=== PATIENT | female | born 1985 | race African-American/Black ===

== ENCOUNTER → 2016-10-20 | Outpatient (CLI) | payer MEDICARE, OTHER ==
[2016-10-20 11:26] VITALS: BMI 42.5
== END ==
LOC: MNTWWP 11:00
PROVIDERS: ATTEND Internal Medicine
DX: E66.9 Obesity, unspecified (principal)
CPT/HCPCS: 97802

== ENCOUNTER 2016-10-29 21:03 | Emergency (ER) | payer MEDICARE, OTHER ==
--- NOTE | 2016-10-29 21:35 | ED ---
Skin/Abscess/FB HPI - General Chief complaint: Skin/Abscess/Foreign Body Stated complaint: Abscess Time Seen by Provider: 10/29/16 21:14 Source: patient, RN notes reviewed Mode of arrival: ambulatory Limitations: no limitations - History of Present Illness Initial comments: Patient is a 31-year-old female chief complaint of swelling and a cyst over the right side of her labia. Patient reports that she's noticed a small cyst over few weeks however it's gotten increasingly worse over the past few days. She states that she has not seen an BUS PERSON DISHWASHER. She denies any history of dysuria, hematuria or change in bowel movement. - Related Data Home Medications Medication Instructions Recorded Confirmed Asenapine Maleate [Saphris] 10 mg SL HS 10/29/16 10/29/16 buPROPion HCL [Wellbutrin XL] 300 mg PO DAILY 10/29/16 10/29/16 Previous Rx's Medication Instructions Recorded HYDROcodone/APAP 10-325MG [[employer] [place] 1 tab PO Q6H PRN #15 tab 10/29/16 10-325] Sulfamethox-Tmp 800-160Mg [Bactrim 1 tab PO Q12HR #14 tab 10/29/16 DS 800-160 mg] Allergies Allergy/AdvReac Type Severity Reaction Status Date / Time aripiprazole [From Abilify] Allergy Dyspnea Verified 10/29/16 21:33 ziprasidone HCl [From Geodon] Allergy Dyspnea Verified 10/29/16 21:33 ziprasidone mesylate Allergy Dyspnea Verified 10/29/16 21:33 [From Geodon] Review of Systems ROS Statement: Those systems with pertinent positive or pertinent negative responses have been documented in the HPI. ROS Other: All systems not noted in ROS Statement are negative. Past Medical History Additional Past Medical History / Comment(s): depression, History of Any Multi-Drug Resistant Organisms: None Reported Past Surgical History: No Surgical Hx Reported Past Psychological History: Anxiety, Depression Smoking Status: Never smoker Past Alcohol Use History: None Reported Past Drug Use History: None Reported General Exam - General Exam Comments Initial Comments: Pleasant 31-year-old female. No distress. Limitations: no limitations General appearance: alert, in no apparent distress Head exam: Present: atraumatic, normocephalic, normal inspection Eye exam: Present: normal appearance, PERRL, EOMI. Absent: scleral icterus, conjunctival injection, periorbital swelling ENT exam: Present: normal exam, mucous membranes moist Neck exam: Present: normal inspection. Absent: tenderness, meningismus, lymphadenopathy Respiratory exam: Present: normal lung sounds bilaterally. Absent: respiratory distress, wheezes, rales, rhonchi, stridor Cardiovascular Exam: Present: regular rate, normal rhythm, normal heart sounds. Absent: systolic murmur, diastolic murmur, rubs, gallop, clicks GI/Abdominal exam: Present: soft, normal bowel sounds. Absent: distended, tenderness, guarding, rebound, rigid External exam: Present: swelling (patient has swelling over left labia, consistent with bartholin cyst. ). Absent: normal external exam, erythema Extremities exam: Present: normal inspection, full ROM, normal capillary refill. Absent: tenderness, pedal edema, joint swelling, calf tenderness Back exam: Present: normal inspection Neurological exam: Present: alert, oriented X3, CN II-XII intact Psychiatric exam: Present: normal affect, normal mood Skin exam: Present: warm, dry, intact, normal color. Absent: rash Course Vital Signs 10/29/16 10/29/16 21:08 22:49 Temperature 99.2 F 98.9 F Pulse Rate 69 72 Respiratory 20 18 Rate Blood Pressure 158/76 126/78 O2 Sat by Pulse 98 96 Oximetry Procedures - Incision & Drainage Consent Obtained: verbal consent Time Out Performed?: Yes Indication: bartholin abscess Site: vulva/vagina Size (cm): 3 Anesthetic Used: benzocaine 0.25% Amount (mLs): 2 I&D Cleaning Method: Betadine Sterile Field Used?: Yes Scalpel Used: #11 I&D Drainage Obtained: Pus, Blood Packing: Other (martinez catheter. ) Culture Obtained?: Yes Complications: pain Patient Tolerated Procedure: well, no complications Medical Decision Making - Medical Decision Making Patient is a 31 year old female with swelling and pain over right labia for a few weeks. Patient wound appears to be an abscess bartholin cyst. Patient wound cleaned with iodine, anesthestaised and small incision made. PAtient did have purulent drainage. Martinez catheter inserted, 2cc of fluid in catheter. Patient advised to do warm sitz baths and follow up with animal care specialist. Patient given referra. Discussed remain with catheter in until seeing URGENT CARE PHYSICIAN ASSISTANT. Culture obtained. Patient given bactrim DS and pain medication. Discussed return paramters. Patient understands treatment plan and will comply. Disposition Clinical Impression: Abscess of Bartholin's gland Disposition: HOME SELF-CARE Condition: Good Instructions: Abscess Incision and Drainage (ED), Bartholin Cyst (ED) Additional Instructions: Follow-up with BUS PERSON DISHWASHER. Patient needs to keep the Word catheter in until removed by BUS PERSON DISHWASHER. Completed that prescription. Take pain medication as prescribed. Return to the emergency department if any alarming signs or symptoms occur. Also advised to do warm warm sits baths. Prescriptions: HYDROcodone/APAP 10-325MG [[employer] [place] 10-325] 1 tab PO Q6H PRN #15 tab PRN Reason: Pain Sulfamethox-Tmp 800-160Mg [Bactrim DS 800-160 mg] 1 tab PO Q12HR #14 tab Referrals: Amy Ann MD [Primary Care Provider] - 1-2 days Time of Disposition: 22:10
[2016-10-29 22:50] VITALS: BP 126/78; PULSE 72; RESP 18; TEMP 98.9
== END 2016-10-29 22:49 | disposition home or self-care (01) ==
LOC: EC 21:03
DX: N75.1 Abscess of Bartholin's gland (principal); F32.9 Major depressive disorder, single episode, unspecified; F41.9 Anxiety disorder, unspecified; Z79.899 Other long term (current) drug therapy; Z88.8 Allergy status to other drugs, medicaments and biological substances
CPT/HCPCS: 56420; 87070; 87205; 99283

== ENCOUNTER 2017-07-27 21:15 | Inpatient (IN) | payer MEDICARE, MEDICAID ==
--- NOTE | 2017-07-27 21:28 | ED ---
General Adult HPI - General Chief complaint: Psychiatric Symptoms Stated complaint: mental health/confusion Time Seen by Provider: 07/27/17 21:19 Source: patient, family, RN notes reviewed, old records reviewed Mode of arrival: wheelchair Limitations: no limitations - History of Present Illness Initial comments: This is a 32-year-old female to the ER for evaluation. This patient obviously for evaluation regards to psychiatric illness. Patient's motor by sister and mother for evaluation. They're also concerned patient's lack of appetite, not acting appropriately not eating and drinking. Concerned for dehydration. Patient is not cooperative with exam, not cooperative with history taking - Related Data Home Medications Medication Instructions Recorded Confirmed Asenapine Maleate [Saphris] 10 mg SL HS 10/29/16 07/27/17 Triamterene-Hctz 37.5-25Mg 1 tab PO DAILY 07/27/17 07/27/17 [Maxzide 37.5-25] Venlafaxine HCl ER [Effexor Xr] 150 mg PO DAILY 07/27/17 07/27/17 Allergies Allergy/AdvReac Type Severity Reaction Status Date / Time aripiprazole [From Abilify] Allergy Dyspnea Verified 07/27/17 22:01 ziprasidone HCl [From Geodon] Allergy Dyspnea Verified 07/27/17 22:01 ziprasidone mesylate Allergy Dyspnea Verified 07/27/17 22:01 [From Geodon] Review of Systems ROS Statement: Those systems with pertinent positive or pertinent negative responses have been documented in the HPI. ROS Other: All systems not noted in ROS Statement are negative. Past Medical History Additional Past Medical History / Comment(s): depression, History of Any Multi-Drug Resistant Organisms: None Reported Past Surgical History: No Surgical Hx Reported Past Psychological History: Anxiety, Depression, Schizoaffective Disorder Smoking Status: Never smoker Past Alcohol Use History: Rare Past Drug Use History: None Reported General Exam Limitations: no limitations General appearance: alert, in no apparent distress Head exam: Present: atraumatic, normocephalic, normal inspection Eye exam: Present: normal appearance, PERRL, EOMI. Absent: scleral icterus, conjunctival injection, periorbital swelling ENT exam: Present: normal exam, mucous membranes moist Neck exam: Present: normal inspection. Absent: tenderness, meningismus, lymphadenopathy Respiratory exam: Present: normal lung sounds bilaterally. Absent: respiratory distress, wheezes, rales, rhonchi, stridor Cardiovascular Exam: Present: regular rate, normal rhythm, normal heart sounds. Absent: systolic murmur, diastolic murmur, rubs, gallop, clicks GI/Abdominal exam: Present: soft, normal bowel sounds. Absent: distended, tenderness, guarding, rebound, rigid Extremities exam: Present: normal inspection, full ROM, normal capillary refill. Absent: tenderness, pedal edema, joint swelling, calf tenderness Back exam: Present: normal inspection Neurological exam: Present: alert, oriented X3, CN II-XII intact Psychiatric exam: Present: normal affect, normal mood Skin exam: Present: warm, dry, intact, normal color. Absent: rash Course Vital Signs 07/27/17 21:20 Temperature 98.7 F Pulse Rate 90 Respiratory 16 Rate Blood Pressure 140/72 O2 Sat by Pulse 98 Oximetry - Reevaluation(s) Reevaluation #1: 07/27/17 23:45 Patient is medically clear for psychiatric evaluation Medical Decision Making - Medical Decision Making 32 female seen and evaluated with psychiatry, patient be admitted for psychiatric evaluation and treatment - Lab Data Result diagrams: 07/27/17 23:34 07/27/17 23:34 Lab Results 07/27/17 07/27/17 Range/Units 23:34 23:34 WBC 14.8 H (3.8-10.6) k/uL RBC 4.93 (3.80-5.40) m/uL Hgb 13.7 (11.4-16.0) gm/dL Hct 43.6 (34.0-46.0) % MCV 88.3 (80.0-100.0) fL MCH 27.8 (25.0-35.0) pg MCHC 31.5 (31.0-37.0) g/dL RDW 14.7 (11.5-15.5) % Plt Count 425 (150-450) k/uL Neutrophils % 72 % Lymphocytes % 20 % Monocytes % 5 % Eosinophils % 1 % Basophils % 0 % Neutrophils # 10.7 H (1.3-7.7) k/uL Lymphocytes # 3.0 (1.0-4.8) k/uL Monocytes # 0.7 (0-1.0) k/uL Eosinophils # 0.1 (0-0.7) k/uL Basophils # 0.1 (0-0.2) k/uL Sodium 138 (137-145) mmol/L Potassium 4.3 (3.5-5.1) mmol/L Chloride 99 (98-107) mmol/L Carbon Dioxide 23 (22-30) mmol/L Anion Gap 16 mmol/L BUN 17 (7-17) mg/dL Creatinine 0.92 (0.52-1.04) mg/dL Est GFR (MDRD) Af Amer >60 (>60 ml/min/1.73 sqM) Est GFR (MDRD) Non-Af >60 (>60 ml/min/1.73 sqM) Glucose 107 H (74-99) mg/dL Calcium 10.3 H (8.4-10.2) mg/dL Salicylates <1.0 mg/dL Acetaminophen <10.0 ug/mL Serum Alcohol <10 mg/dL Disposition Clinical Impression: Acute psychosis, Schizoaffective disorder, bipolar type Disposition: TRANSFER TO PSYCH HOSP/UNIT Condition: Fair Referrals: Amy Ann MD [Primary Care Provider] - 1-2 days
[2017-07-27] MEDS ORDERED: SODIUM CHLORIDE 0.9% 1,000 ML IV STA (22:27)
[2017-07-27 23:53] LABS: Acetaminophen <10.0 ug/mL; Alcohol <10 mg/dL; Anion Gap 16 mmol/L; Blood Urea Nitrogen 17 mg/dL (7-17); Calcium 10.3 mg/dL (8.4-10.2); Carbon Dioxide 23 mmol/L (22-30); Chloride 99 mmol/L (98-107); Glucose 107 mg/dL (74-99); Potassium 4.3 mmol/L (3.5-5.1); Salicylate <1.0 mg/dL; Sodium 138 mmol/L (137-145)
[2017-07-28] LABS: Basophils # (A) 0.1 k/uL (0-0.2); Basophils % (A) 0 %; Eosinophils # (A) 0.1 k/uL (0-0.7); Eosinophils % (A) 1 %; HCT 43.6 % (34.0-46.0); HGB 13.7 gm/dL (11.4-16.0); Lymphocytes % (A) 20 %; MCH 27.8 pg (25.0-35.0); MCHC 31.5 g/dL (31.0-37.0); MCV 88.3 fL (80.0-100.0); Mean Platelet Volume 7.2; Monocytes # (A) 0.7 k/uL (0-1.0); Monocytes % (A) 5 %; Neutrophils # (A) 10.7 k/uL (1.3-7.7); Neutrophils % (A) 72 %; Platelet Count 425 k/uL (150-450); RBC 4.93 m/uL (3.80-5.40); RDW 14.7 % (11.5-15.5); WBC 14.8 k/uL (3.8-10.6)
[2017-07-28 01:03] LABS: Appearance,Urine Cloudy (Clear); Bacteria,Urine Occasional /hpf; Bilirubin,Urine 1+ (Negative); Blood,Urine Small (Negative); Color,Urine Yellow; Glucose,Urine (UA) Negative (Negative); Hyaline Casts,Urine 4 /lpf (0-2); Ketones,Urine 4+ (Negative); Leukocyte Esterase,Urine Trace (Negative); Mucus,Urine Many /hpf; Nitrite,Urine Negative (Negative); PH, Urine 5.5 (5.0-8.0); Protein,Urine 1+ (Negative); RBC,Urine 3 /hpf (0-5); Specific Gravity,Urine 1.021 (1.001-1.035); Squamous Epithelial Cell,Urine 14 /hpf (0-4); WBC,Urine 5 /hpf (0-5)
[2017-07-28 01:11] LABS: Amphetamine Screen,Urine Not Detected (NotDetected); Barbiturate Screen,Urine Not Detected (NotDetected); Benzodiazepines Screen,Urine Not Detected (NotDetected); Cocaine Screen,Urine Not Detected (NotDetected); Methadone Screen, Urine Not Detected (NotDetected); Opiate Screen,Urine Not Detected (NotDetected); Oxycodone Screen, Urine Not Detected (NotDetected); Phencyclidine Screen,Urine Not Detected (NotDetected); Tricyclic Antidepressant,Urine Not Detected (NotDetected); Urn Cannabinoid Scrn Not Detected (NotDetected)
--- NOTE | 2017-07-28 01:15 | ED ---
Medical Decision Making - Medical Decision Making Patient was evaluated by the psychiatric service and will be admitted for inpatient treatment. - Lab Data Result diagrams: 07/27/17 23:34 07/27/17 23:34 Lab Results 07/27/17 07/27/17 07/28/17 Range/Units 23:34 23:34 00:50 WBC 14.8 H (3.8-10.6) k/uL RBC 4.93 (3.80-5.40) m/uL Hgb 13.7 (11.4-16.0) gm/dL Hct 43.6 (34.0-46.0) % MCV 88.3 (80.0-100.0) fL MCH 27.8 (25.0-35.0) pg MCHC 31.5 (31.0-37.0) g/dL RDW 14.7 (11.5-15.5) % Plt Count 425 (150-450) k/uL Neutrophils % 72 % Lymphocytes % 20 % Monocytes % 5 % Eosinophils % 1 % Basophils % 0 % Neutrophils # 10.7 H (1.3-7.7) k/uL Lymphocytes # 3.0 (1.0-4.8) k/uL Monocytes # 0.7 (0-1.0) k/uL Eosinophils # 0.1 (0-0.7) k/uL Basophils # 0.1 (0-0.2) k/uL Sodium 138 (137-145) mmol/L Potassium 4.3 (3.5-5.1) mmol/L Chloride 99 (98-107) mmol/L Carbon Dioxide 23 (22-30) mmol/L Anion Gap 16 mmol/L BUN 17 (7-17) mg/dL Creatinine 0.92 (0.52-1.04) mg/dL Est GFR (MDRD) Af Amer >60 (>60 ml/min/1.73 sqM) Est GFR (MDRD) Non-Af >60 (>60 ml/min/1.73 sqM) Glucose 107 H (74-99) mg/dL Calcium 10.3 H (8.4-10.2) mg/dL Urine Color Yellow Urine Appearance Cloudy H (Clear) Urine pH 5.5 (5.0-8.0) Ur Specific [place] 1.021 (1.001-1.035) Urine Protein 1+ H (Negative) Urine Glucose (UA) Negative (Negative) Urine Blood Small H (Negative) Urine Nitrite Negative (Negative) Urine Bilirubin 1+ H (Negative) Urine Urobilinogen 2.0 (<2.0) mg/dL Ur Leukocyte Esterase Trace H (Negative) Urine RBC 3 (0-5) /hpf Urine WBC 5 (0-5) /hpf Ur Squamous Epith Cells 14 H (0-4) /hpf Urine Bacteria Occasional H (None) /hpf Hyaline Casts 4 H (0-2) /lpf Urine Mucus Many H (None) /hpf Urine HCG, Qual (Not Detectd) Salicylates <1.0 mg/dL Urine Opiates Screen Not Detected (NotDetected) Ur Oxycodone Screen Not Detected (NotDetected) Urine Methadone Screen Not Detected (NotDetected) Ur Propoxyphene Screen Not Detected (NotDetected) Acetaminophen <10.0 ug/mL Ur Barbiturates Screen Not Detected (NotDetected) U Tricyclic Antidepress Not Detected (NotDetected) Ur Phencyclidine Scrn Not Detected (NotDetected) Ur Amphetamines Screen Not Detected (NotDetected) U Methamphetamines Scrn Not Detected (NotDetected) U Benzodiazepines Scrn Not Detected (NotDetected) Urine Cocaine Screen Not Detected (NotDetected) U Marijuana (THC) Screen Not Detected (NotDetected) Serum Alcohol <10 mg/dL 07/28/17 Range/Units 00:50 WBC (3.8-10.6) k/uL RBC (3.80-5.40) m/uL Hgb (11.4-16.0) gm/dL Hct (34.0-46.0) % MCV (80.0-100.0) fL MCH (25.0-35.0) pg MCHC (31.0-37.0) g/dL RDW (11.5-15.5) % Plt Count (150-450) k/uL Neutrophils % % Lymphocytes % % Monocytes % % Eosinophils % % Basophils % % Neutrophils # (1.3-7.7) k/uL Lymphocytes # (1.0-4.8) k/uL Monocytes # (0-1.0) k/uL Eosinophils # (0-0.7) k/uL Basophils # (0-0.2) k/uL Sodium (137-145) mmol/L Potassium (3.5-5.1) mmol/L Chloride (98-107) mmol/L Carbon Dioxide (22-30) mmol/L Anion Gap mmol/L BUN (7-17) mg/dL Creatinine (0.52-1.04) mg/dL Est GFR (MDRD) Af Amer (>60 ml/min/1.73 sqM) Est GFR (MDRD) Non-Af (>60 ml/min/1.73 sqM) Glucose (74-99) mg/dL Calcium (8.4-10.2) mg/dL Urine Color Urine Appearance (Clear) Urine pH (5.0-8.0) Ur Specific [place] (1.001-1.035) Urine Protein (Negative) Urine Glucose (UA) (Negative) Urine Blood (Negative) Urine Nitrite (Negative) Urine Bilirubin (Negative) Urine Urobilinogen (<2.0) mg/dL Ur Leukocyte Esterase (Negative) Urine RBC (0-5) /hpf Urine WBC (0-5) /hpf Ur Squamous Epith Cells (0-4) /hpf Urine Bacteria (None) /hpf Hyaline Casts (0-2) /lpf Urine Mucus (None) /hpf Urine HCG, Qual Not Detected (Not Detectd) Salicylates mg/dL Urine Opiates Screen (NotDetected) Ur Oxycodone Screen (NotDetected) Urine Methadone Screen (NotDetected) Ur Propoxyphene Screen (NotDetected) Acetaminophen ug/mL Ur Barbiturates Screen (NotDetected) U Tricyclic Antidepress (NotDetected) Ur Phencyclidine Scrn (NotDetected) Ur Amphetamines Screen (NotDetected) U Methamphetamines Scrn (NotDetected) U Benzodiazepines Scrn (NotDetected) Urine Cocaine Screen (NotDetected) U Marijuana (THC) Screen (NotDetected) Serum Alcohol mg/dL Disposition Clinical Impression: Acute psychosis, Schizoaffective disorder, bipolar type Disposition: TRANSFER TO PSYCH HOSP/UNIT Condition: Fair Referrals: Amy Ann MD [Primary Care Provider] - 1-2 days
[2017-07-28] MEDS ORDERED: MAG HYDROX/AL HYDROX/SIMETH 30 ML CUP PO PRN (02:26)
[2017-07-28] MEDS ORDERED: ACETAMINOPHEN TAB 325 MG TAB PO PRN (02:26)
[2017-07-28] MEDS ORDERED: MAGNESIUM HYDROXIDE 2,400 MG/10 ML CUP PO PRN (02:26)
[2017-07-28 09:45] LABS: Cholesterol 174 mg/dL (<200); HDL Cholesterol 46 mg/dL (40-60); LDL Cholesterol,Calculated 116 mg/dL (0-99); Triglycerides 62 mg/dL (<150)
[2017-07-28] MEDS: TRIAMTERENE-HCTZ 37.5-25MG 1 EACH TAB PO SCH (10:01)
[2017-07-28] MEDS: VENLAFAXINE HCL ER 150 MG CAP PO SCH (10:01)
[2017-07-28 14:49] LABS: Hemoglobin A1C 5.1 % (4.0-6.0)
--- NOTE | 2017-07-28 17:13 | P.CONS ---
History of Present Illness - Reason for Consult Leukocytosis - History of Present Illness 32-year-old female admitted seconded service for treatment of her psychiatric condition appears to be paranoid schizophrenia, medicine was consulted regarding leukocytosis elevated blood pressure and hyperglycemia. Patient had a hemoglobin A1c of 5.1 which is not consistent with type 2 diabetes mellitus type 1 diabetes mellitus, blood pressures well controlled at this time with after she was resumed on her diuretic therapy. Patient denied any dysuria patient does have abnormal urine which is a contaminated urine sample no significant leukocyte esterase or nitrates does have ketones in the urine possibly starvation ketosis, denied any cough fever chills. No other signs or symptoms of infection were appreciated Review of Systems REVIEW OF SYSTEMS: CONSTITUTIONAL: No fever, no malaise, no fatigue. HEENT: No recent visual problems or hearing problems. Denied any sore throat. CARDIOVASCULAR: No chest pain, orthopnea, PND, no palpitations, no syncope. PULMONARY: No shortness of breath, no cough, no hemoptysis. GASTROINTESTINAL: No diarrhea, no nausea, no vomiting, no abdominal pain. Normoactive bowel sounds. NEUROLOGICAL: No headaches, no weakness, no numbness. HEMATOLOGICAL: Denies any bleeding or petechiae. GENITOURINARY: Denies any burning micturition, frequency, or urgency. MUSCULOSKELETAL/RHEUMATOLOGICAL: Denies any joint pain, swelling, or any muscle pain. ENDOCRINE: Denies any polyuria or polydipsia. The rest of the 14-point review of systems is negative. Past Medical History Additional Past Medical History / Comment(s): depression, History of Any Multi-Drug Resistant Organisms: None Reported Past Surgical History: No Surgical Hx Reported Past Psychological History: Anxiety, Depression, Schizoaffective Disorder Smoking Status: Never smoker Past Alcohol Use History: Rare Past Drug Use History: None Reported Medications and Allergies Home Medications Medication Instructions Recorded Confirmed Type Asenapine Maleate [Saphris] 10 mg SL HS 10/29/16 07/27/17 History Triamterene-Hctz 37.5-25Mg 1 tab PO DAILY 07/27/17 07/27/17 History [Maxzide 37.5-25] Venlafaxine HCl ER [Effexor Xr] 150 mg PO DAILY 07/27/17 07/27/17 History Allergies Allergy/AdvReac Type Severity Reaction Status Date / Time aripiprazole [From Abiliy] Allergy Dyspnea Verified 07/28/17 02:38 ziprasidone HCl [From Geodon] Allergy Dyspnea Verified 07/28/17 02:38 ziprasidone mesylate Allergy Dyspnea Verified 07/28/17 02:38 [From Geodon] Physical Exam Vitals: Vital Signs Temp Pulse Pulse Resp BP BP Pulse Ox 07/28/17 02:41 98.6 F 88 16 141/85 07/27/17 21:20 98.7 F 90 16 140/72 98 Intake and Output 07/28/17 07/28/17 07/28/17 06:59 14:59 22:59 Other: Weight 118.841 kg PHYSICAL EXAMINATION: GENERAL: The patient is alert and oriented x3, not in any acute distress. Well developed, well nourished. HEENT: Pupils are round and equally reacting to light. EOMI. No scleral icterus. No conjunctival pallor. Normocephalic, atraumatic. No pharyngeal erythema. No thyromegaly. CARDIOVASCULAR: S1 and S2 present. No murmurs, rubs, or gallops. PULMONARY: Chest is clear to auscultation, no wheezing or crackles. ABDOMEN: Soft, nontender, nondistended, normoactive bowel sounds. No palpable organomegaly. MUSCULOSKELETAL: No joint swelling or deformity. EXTREMITIES: No cyanosis, clubbing, or pedal edema. NEUROLOGICAL: Gross neurological examination did not reveal any focal deficits. SKIN: No rashes. Results CBC & Chem 7: 07/27/17 23:34 07/27/17 23:34 Labs: Abnormal Lab Results - Last 24 Hours (Table) 07/27/17 07/27/17 07/28/17 Range/Units 23:34 23:34 00:50 WBC 14.8 H (3.8-10.6) k/uL Neutrophils # 10.7 H (1.3-7.7) k/uL Glucose 107 H (74-99) mg/dL Calcium 10.3 H (8.4-10.2) mg/dL LDL Cholesterol, Calc (0-99) mg/dL Urine Appearance Cloudy H (Clear) Urine Protein 1+ H (Negative) Urine Ketones 4+ H (Negative) Urine Blood Small H (Negative) Urine Bilirubin 1+ H (Negative) Ur Leukocyte Esterase Trace H (Negative) Ur Squamous Epith Cells 14 H (0-4) /hpf Urine Bacteria Occasional H (None) /hpf Hyaline Casts 4 H (0-2) /lpf Urine Mucus Many H (None) /hpf 07/28/17 Range/Units 08:46 WBC (3.8-10.6) k/uL Neutrophils # (1.3-7.7) k/uL Glucose (74-99) mg/dL Calcium (8.4-10.2) mg/dL LDL Cholesterol, Calc 116 H (0-99) mg/dL Urine Appearance (Clear) Urine Protein (Negative) Urine Ketones (Negative) Urine Blood (Negative) Urine Bilirubin (Negative) Ur Leukocyte Esterase (Negative) Ur Squamous Epith Cells (0-4) /hpf Urine Bacteria (None) /hpf Hyaline Casts (0-2) /lpf Urine Mucus (None) /hpf Assessment and Plan Plan: -Leukocytosis: Without any signs or symptoms of infection no further intervention is necessary. -Hypertension: Well controlled with her home diuretic therapy which can be continued. -Elevated blood sugar along with glycosuria normal hemoglobin A1c patient is not diabetic -Depression and other psychiatric issues: Management as per primary service
--- NOTE | 2017-07-28 17:24 | HP ---
HISTORY AND PHYSICAL IDENTIFYING DATA: The patient is a 32-year-old female. She lives with her mother. She presented to the emergency room for evaluation. CHIEF COMPLAINT: The patient was admitted due to apparent inability to function at home. She became mute. She apparently had auditory hallucinations. She has a history of psychosis. HISTORY OF PRESENT ILLNESS: The patient was unable to provide any information regarding her admission. There are no other records available about her current situation. The only thing the patient would say is that her mother had concerns about how she was functioning mainly because she stopped talking. She made vague indications that she may hear voices. She suggested that she has not been sleeping well. She indicated that she is prescribed medications and does get follow through [facility], though suggested that of late she may not have been taking her medications. There was no other information available regarding her current situation. It is noted that her last psychiatric hospitalization was April 22, 2014 at this facility. I refer the reader to Dr. Leila VENEGAS for details. At that time, it was documented that the patient was petitioned by her sister due to suicide thinking and suicide gestures. The patient herself was making statements about feeling condemned by God. She had disorganized thoughts. She indicated that she had depressed mood with feelings of worthlessness. She had low energy, poor motivation. Current psychotropic medication include Effexor XR 150 mg a day and Saphris 10 mg a day. She is admitted for further evaluation. Current psychotropic medications that are listed include Effexor XR 150 mg a day and Saphris 10 mg a day. Whether or not she has been taking them on any reliable basis is uncertain. SUBSTANCE USE HISTORY: Uncertain. Medical history and review of systems as per medical consultation. FAMILY AND SOCIAL HISTORY: There is no current information available. MENTAL STATUS EXAM: Patient was dressed in a hospital gown. She walked very slowly. Initially when I asked her to come down to the office, she walked about [address] the [place] and then she stopped and said she could not talk now and that she would talk later. When she came into the interview room later she just stood near the door. She had a staring gaze. She would respond with just 1 or 2 word responses. There was significant latency in her responses. Her affect was seemingly anxious. She had a very reserved mood. She appeared to be significantly distressed. There was the possibility that she may had been talking under her breath though was difficult to clarify that. She did make an effort to answer any formal cognitive questions. She knew where she was at and the immediate circumstances. PHYSICAL EXAM: As per medical consultation. ASSESSMENT: This 32-year-old female is diagnosed with psychotic disorder, NOS. She may have a history of schizophrenia, though that information is not available at present. It is unclear what precipitants have led to her hospitalization. We will need input from family. STRENGTHS: Include her willingness to make an effort to engage. WEAKNESS: Includes relapsing mental illness. DIAGNOSES: 1. Acute psychotic episode. 2. Rule out major depression with psychotic features. 3. Rule out schizophrenia. RECOMMENDATIONS: Patient will be admitted for comprehensive medical psychiatric and psychosocial evaluation. We will engage the patient in individual and group therapeutic activities. I will make a telephone call to her mother to try to clarify her current history. I will use that information to make a judgment in regards to appropriate medications. At present we will continue her on Effexor XR 150 mg a day and Saphris 10 mg a day. We will focus on stabilization and discharge planning. PEACE / PRADEEPN: [id number] /
[2017-07-28] MEDS ORDERED: ASENAPINE 5 MG TAB SUBLINGUAL SCH (21:00)
[2017-07-29] MEDS: VENLAFAXINE HCL ER 150 MG CAP PO SCH (09:17)
[2017-07-29] MEDS: TRIAMTERENE-HCTZ 37.5-25MG 1 EACH TAB PO SCH (09:17)
[2017-07-29 09:40] LABS: HCT 40.2 % (34.0-46.0); HGB 12.9 gm/dL (11.4-16.0); MCH 28.3 pg (25.0-35.0); MCHC 32.1 g/dL (31.0-37.0); MCV 88.1 fL (80.0-100.0); Mean Platelet Volume 6.6; Platelet Count 413 k/uL (150-450); RBC 4.56 m/uL (3.80-5.40); WBC 13.5 k/uL (3.8-10.6)
[2017-07-29 10:06] LABS: Anion Gap 14 mmol/L; Blood Urea Nitrogen 12 mg/dL (7-17); Calcium 10.2 mg/dL (8.4-10.2); Carbon Dioxide 23 mmol/L (22-30); Chloride 101 mmol/L (98-107); Glucose 131 mg/dL (74-99); Potassium 4.1 mmol/L (3.5-5.1); Sodium 138 mmol/L (137-145)
[2017-07-29] MEDS ORDERED: LORazepam 1 MG TAB PO STA (10:15)
[2017-07-29] MEDS ORDERED: OLANZapine 5 MG TAB PO STA (16:42)
--- NOTE | 2017-07-29 17:22 | PN ---
PROGRESS NOTE DATE OF SERVICE: 07/29/2017. CHIEF COMPLAINT: The patient was admitted due to inability to function at home. She became mute. She had auditory hallucinations. She has a significant history of psychosis and poor function. INTERVAL HISTORY: Patient has been continuing about the same. She wanders about the unit. She is nearly mute when people talk to her. She may respond with a few isolated words though does not say anything more than that. She appears apprehensive at times. I reviewed her history with her mother. Mother indicates that things seemed to change for the patient in her early teens. She was extremely sensitive to social slights. She began showing suspiciousness and sade paranoia even in her early teens. She would believe people are doing things to hurt her. She had her first psychiatric hospitalization around 2007. Mother says that previously to that she was functioning adequately. She was a good student and completed 81 credit hours at [employer] in criminal justice. 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 She has not really been able to function out in either the social world or the working world. She will have difficulty getting out of bed until later in the morning no matter whether or not she has tasks that have to be performed. She could not get out of bed to go to work. She often is in a daze as far as her thought process. Mother does note that she has had psychotic symptoms with visual and auditory hallucinations. The patient herself has reported this. It is noted that her first hospitalization at this facility was 08/30/2007. I refer the reader to Dr. Tapia's admission note and other documentation. At that time she was not eating. She had lost 23 pounds in just over a few weeks. She was not sleeping. She presented fairly similarly to how she is now. She struggled with any kind of communication. She seemed to be preoccupied. She moved and talked very slowly. She seemed to be very suspicious and there was concern for persecutory delusions. She was diagnosed with schizophrenia and started on Invega 6 mg a day along with Risperdal Consta 25 mg IM every 2 weeks. According to mother at one point she apparently had an acute dystonic reaction to Risperdal, though she was taken off of that medication. Medical records from [facility] were reviewed. It appeared that she was first seen at [facility], April 25, 2009 following a second [facility] admission in March 2009. She was diagnosed with major depressive disorder, recurrent, severe with psychotic features and a secondary diagnosis of schizoaffective disorder. Her last medical review at [facility] was April 05, 2017, seen by Dr. Mcgee. She was continued on Effexor XR 150 mg a day and Saphris 10 mg a day. She was diagnosed with major depressive disorder, recurrent episode, with psychotic features as her only psychiatric diagnosis. In [facility] log going back to June 2010, it is noted that she was on Seroquel XR maximum dose 50 mg a day over a number of years. She has been on Effexor XR maximum dose 150 mg a day. She was on Wellbutrin XL, maximum dose 150 mg a day for a number of years with the dose being increased to 300 mg as of July 21, 2016. Wellbutrin was discontinued in October 2016. She was started on Effexor XR titrated up to 150 mg a day. Since 2010, she has been on Saphris 10 mg a day. She does not provide much information today when I talked to her. She pretty much is in the same condition of being near mute. She does seem to talk underneath her breath, though denies that she is having hallucinations. Her mother did report that at home she would talk about seeing colored spots on her skin and also that she heard voices or other things. She has not had change in her general health. She tolerates his psychotropic medications. MENTAL STATUS: Patient was near mute. She moves slowly. She will walk around the unit some. She does not interact with others. She has a bewildered manner. Her mood is dysphoric. She appears to be significantly distressed. ASSESSMENT: I will continue diagnosis of schizophrenia that would be consistent with the diagnosis of Dr. Tapia established in 2007. It is noteworthy that she had reasonable function up to that point, including being able to be a full-time student and holding in a job and since 2007 she has not recovered to her best baseline. She has had recurrent psychotic episodes including her current episode. She has been on only 3 antidepressants in the relatively low doses. Antidepressants have not been maximized. It is noteworthy that for the most part, she has only been on Saphris 10 mg for the last 7 or 8 years with minimal dosing of Seroquel. Records are not available to clarify history relating to her experience on Invega and Risperdal Consta. At this point, I will discontinue Saphris and start the patient on Zyprexa 15 mg twice a day. I will continue Effexor XR 150 mg a day, though would consider a possible taper if she does show a good response to initiation of Zyprexa. I had an extensive discussion with mother in regards to consideration for clozapine therapy given the severity of her condition and the poor level of her function. I will continue to focus on stabilization and discharge planning. PEACE / PRADEEPN: [id number] /
[2017-07-29] MEDS: OLANZapine 5 MG TAB PO SCH (21:20)
[2017-07-30] MEDS: TRIAMTERENE-HCTZ 37.5-25MG 1 EACH TAB PO SCH ×3 (09:36→11:27)
[2017-07-30] MEDS: VENLAFAXINE HCL ER 150 MG CAP PO SCH (09:37)
[2017-07-30] MEDS: OLANZapine 5 MG TAB PO SCH ×3 (09:37→20:37)
[2017-07-30] MEDS ORDERED: OLANZapine ODT 10 MG TAB PO STA (11:14)
--- NOTE | 2017-07-30 12:17 | PN ---
PROGRESS NOTE DATE OF SERVICE: 07/30/2017 CHIEF COMPLAINT: The patient was admitted due to inability to function at home. She became mute. She had auditory hallucinations. She has a significant history of psychosis and poor function. INTERVAL HISTORY: Patient has been doing fair. She had a quiet evening last night. She slept fairly well today. She has been up. She tends to wander about the unit. She walks very slowly. She does not interact with others. She will attend groups though mostly sits quietly and observe. She will be slow to respond when staff talked to her about any issues. She has been mostly cooperative with her medications though this morning she did spit out some of her medications and took others. She seems to be marginally communicating a little better, where she has less latency in her responses. When she does talk, she only will say a few words. She continues to have quite a bit of latency in her responses. She has not had change in her general health. She appears to tolerate her psychotropic medications. MENTAL STATUS: Patient was in the [place]. She was standing. She had somewhat of a staring gaze. She moved very slowly. She did respond to a few questions after a significant pause. For other question, she did not respond at all. She had to bewildered manner. She appeared to be moderately distressed. ASSESSMENT: I will continue the current diagnosis and treatment plan, continue psychotropic medications the same. We do need to consider that she may be exhibiting catatonia and it might be appropriate to consider a trial dose of IM Ativan, which is the treatment of choice for catatonia. We will continue to evaluate. We will plan on a family meeting tomorrow with the patient's mother. MMODL / IJN: [id number] /
[2017-07-31] MEDS: TRIAMTERENE-HCTZ 37.5-25MG 1 EACH TAB PO SCH (09:35)
[2017-07-31] MEDS: OLANZapine 5 MG TAB PO SCH ×2 (09:36→20:06)
[2017-07-31] MEDS: VENLAFAXINE HCL ER 150 MG CAP PO SCH (09:36)
--- NOTE | 2017-07-31 20:06 | PN ---
PROGRESS NOTE DATE OF SERVICE: 07/31/2017. CHIEF COMPLAINT: The patient was admitted due to inability to function at home. She became mute. She had auditory hallucinations. She has a significant history of psychosis and poor function. INTERVAL HISTORY: Patient continues to be quite slowed. It is noted that I talked with her sister yesterday. Her sister indicated that the patient does have periods where she can function fairly well within a contained setting. She will talk sometimes at a rapid rate. She can be intense. At times she can be demanding. The sister said that this is a very dramatic regression, which was seen in 2013 and also during some previous psychiatric hospitalizations. Today, the patient says that she is doing fair. She does not provide much information. She comes out in the day area, though mostly she just seems to wander about aimlessly. She has not had change in her general health. She tolerates psychotropic medications. She had declined medications yesterday though has been taking all her medications today. MENTAL STATUS: Patient gave fair eye contact. Psychomotor activity was quite slowed. Speech was monotone. She answered with just a few words at a time. She did not answer all questions. It is noted that she did seem to be just a little quicker on the uptake when she did answer questions. I noted yesterday and today that she seemed to be blinking in a normal manner. She seems to move a little more fluidly. She continues to be withdrawn. It is difficult to say her level of distress. ASSESSMENT: I will continue the current diagnosis and treatment plan. I will continue psychotropic medications the same. There is concern that the patient may be demonstrating catatonia. However, some of her muscle movements including eye blinking seem to be more normal than not and thus her slowness may relate more to psychosocial issues then to a catatonic reaction. I would continue to keep that in the diagnostic realm of possibilities. The patient is on a fairly assertive dose of Zyprexa. If her primary issues are in fact psychosis. We will try to set up a meeting with the patient's mother. We will continue to focus on stabilization and discharge planning. MMSAMIL / PRADEEPN: [id number] /
[2017-08-01] MEDS: VENLAFAXINE HCL ER 150 MG CAP PO SCH (10:27)
[2017-08-01] MEDS: TRIAMTERENE-HCTZ 37.5-25MG 1 EACH TAB PO SCH (10:27)
[2017-08-01] MEDS: OLANZapine 5 MG TAB PO SCH ×2 (10:27→20:51)
[2017-08-01] MEDS ORDERED: LORazepam 2 MG/ML INJ IM STA (18:34)
--- NOTE | 2017-08-01 19:25 | PN ---
PROGRESS NOTE DATE OF SERVICE: 08/01/2017. CHIEF COMPLAINT: The patient was admitted due to inability to function at home. She became mute. She had auditory hallucinations. She has a significant history of psychosis and poor function. INTERVAL HISTORY: Patient has been doing fair. Overall she seems to be doing about the same. There are signs of a little bit of progress, though not much. It is noted that when her family comes, she does seem to regress a little bit and look for them to try to take care of her in one way or another. When the family is not here, she perhaps functions a little bit better. When the family is not here she has been able to come out for meals in the dining room. She does not seem to need assistance when she is there. She continues to move quite slowly and has very minimal talking. I met with the patient and her mother. Her mother says that since 2007 she believes that the patient did developed signs and symptoms of schizophrenia. She believes that since then that there has been a fairly consistent picture of schizophrenia. She has had times where she has done better. She can function to a limited extent where she will do things like go to [employer] study. She typically is pretty quiet and shy in those settings, though she can have normal conversations. She can be fairly active physically, though this is an up and down thing for her. When she is in a stable state she might get on her treadmill and do some exercising for a few days and then will seem to pull away from that. It seems to go back and forth. She has never really regained good function since her first hospitalization in 2007. 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 She apparently had a stress in that job, though she was able to function adequately until she had what appears to be her first break. She has been cooperative. She has been taking her medications appropriately. She has not had change in her general health. She tolerates her psychotropic medications. MENTAL STATUS: Patient walked slowly. She did not give much eye contact. She would only respond with 1 or 2 words to some questions though not others. There was latency in her responses. Her affect was flat. Mood reserved. She was moderately distressed. ASSESSMENT: I will continue the current diagnosis and treatment plan. I will continue psychotropic medications the same. I will give the patient a test dose of Ativan IM 2 mg to assess for possible catatonia. In addition I will check a Zyprexa blood level in regards to concerns for absorption as well as medication compliance. We will continue to focus on stabilization and discharge planning. MMODL / IJN: [id number] /
[2017-08-02] MEDS: TRIAMTERENE-HCTZ 37.5-25MG 1 EACH TAB PO SCH (08:35)
[2017-08-02] MEDS: OLANZapine 5 MG TAB PO SCH (08:35)
[2017-08-02] MEDS: VENLAFAXINE HCL ER 150 MG CAP PO SCH (08:35)
[2017-08-02 09:44] VITALS: RESP 16
--- NOTE | 2017-08-02 10:58 | PN ---
PROGRESS NOTE DATE OF SERVICE: 08/02/2017 CHIEF COMPLAINT: The patient was admitted due to inability to function at home. She became mute. She had auditory hallucinations. She has a significant history of psychosis and poor function. INTERVAL HISTORY: The patient has been doing fair. She had a quiet evening last night. I met with the patient and her mother. Her mother indicated that she continues to be still rather symptomatic. The patient herself talks about wanting to return home fairly soon. It is noted that she slept fairly well last night. Today she has been up. She actually went to a group. She did not stay for very long, though this was the first group she made an effort to attend. When I saw her she was moving just a little bit more fluidly. The same was true with her speech that she was able to initiate some conversation, though still in a very limited way. She continues to show quite a bit of psychomotor retardation and slowing in thought process. She has been cooperative. She has not had change in her general health. She tolerates her psychotropic medications. MENTAL STATUS: Patient gave fair eye contact. Psychomotor activity was slowed, however, there was a mild degree of improvement in that regard. She had a blunted affect. She responded with a little more fluidity in her speech, though not to a significant degree. Her affect continues to be blunted. Her mood reserved. It was difficult to say if she was distressed. ASSESSMENT: I will continue the current diagnosis and treatment plan. I will continue psychotropic medication the same. The patient may be showing some early signs of response to her antipsychotic. We will continue to focus on stabilization and discharge planning. PEACE / JESSY: [id number] /
[2017-08-02] MEDS: OLANZapine 10 MG TAB PO SCH (22:41)
[2017-08-03] MEDS: TRIAMTERENE-HCTZ 37.5-25MG 1 EACH TAB PO SCH (09:00)
[2017-08-03] MEDS: VENLAFAXINE HCL ER 150 MG CAP PO SCH (09:00)
[2017-08-03] MEDS: OLANZapine 10 MG TAB PO SCH (09:42)
[2017-08-03] MEDS ORDERED: OLANZapine 5 MG TAB PO SCH ×2 (09:45→21:00)
--- NOTE | 2017-08-03 21:20 | PN ---
PROGRESS NOTE DATE OF SERVICE: 08/03/2017. CHIEF COMPLAINT: The patient was admitted due to inability to function at home. She became mute. She had auditory hallucinations. She has a significant history of psychosis and poor function. INTERVAL HISTORY: Patient has been doing fair. She slept well last night today. She has been up. She wanders about. She does go to some groups though she mostly is quiet. She still wanders about in a slow manner and would just be a observer of others without much interaction. She continued to make a few statements about feeling she was ready to go home. She is just marginally more communicative and showing marginally little more fluidity in her movements. She has not had change in her general health. She tolerates his psychotropic medications. MENTAL STATUS: Patient gave fair eye contact. Psychomotor activity was slowed. Speech was monotone. Affect blunted. Mood reserved. It was difficult to say if she was distressed. ASSESSMENT: I will continue the current diagnosis and treatment plan. I will continue psychotropic medications the same. Staff have shared that it can be quite difficult to get her to actually swallow her medications. We will switch the patient to Zyprexa Zydis. She will continue Effexor. We will continue to focus on stabilization and discharge planning. MMODL / IJN: [id number] /
[2017-08-03] MEDS: OLANZapine ODT 5 MG TAB PO SCH (22:21)
[2017-08-04] MEDS: OLANZapine ODT 5 MG TAB PO SCH ×2 (09:34→20:50)
[2017-08-04] MEDS: VENLAFAXINE HCL ER 150 MG CAP PO SCH (09:34)
[2017-08-04] MEDS: TRIAMTERENE-HCTZ 37.5-25MG 1 EACH TAB PO SCH (09:34)
[2017-08-04] MEDS ORDERED: VENLAFAXINE HCL ER 150 MG CAP PO STA (16:21)
--- NOTE | 2017-08-04 16:46 | PN ---
PROGRESS NOTE DATE OF SERVICE: 08/04/2017 CHIEF COMPLAINT: The patient was admitted due to inability to function at home. She became mute. She had auditory hallucinations. She has a significant history of psychosis and poor function. INTERVAL HISTORY: Patient has been doing fair. She had a quiet evening last night. She slept well. Today she has been up. She wanders about the unit. She walks in a very slow manner. She will talk a little to staff. She will initiate a little interaction; mostly it is asking about when she can go home. She still has a very withdrawn, reserved manner in her functioning. She has been making an effort to attend groups. She is taking her medications appropriately. She has not had change in her general health. She tolerates his psychotropic medications. MENTAL STATUS: The patient gave fair eye contact. Psychomotor activity was slowed. Speech was monotone. She answered questions with just one- or two-word responses. She talks in a very soft, quiet voice. She had a blunted affect, reserved mood. It was difficult to say if she was distressed at all. ASSESSMENT: I will continue the current diagnosis and treatment plan. She will continue Zyprexa Zydis 15 mg twice a day. I will increase Effexor to 300 mg a day. We might consider adding a second antipsychotic such as Haldol, given the slowness of her response to medications. We will continue to focus on stabilization and discharge planning. PEACE / JESSY: [id number] /
[2017-08-05] MEDS: OLANZapine ODT 5 MG TAB PO SCH ×2 (09:12→20:40)
[2017-08-05] MEDS: TRIAMTERENE-HCTZ 37.5-25MG 1 EACH TAB PO SCH (09:12)
[2017-08-05] MEDS: VENLAFAXINE HCL ER 150 MG CAP PO SCH (09:13)
[2017-08-05 09:32] VITALS: BMI 41.1
--- NOTE | 2017-08-05 17:27 | PN ---
PROGRESS NOTE DATE OF SERVICE: 08/05/2017 CHIEF COMPLAINT: The patient was admitted due to inability to function at home. She became mute. She had auditory hallucinations. She has a history of psychosis and poor function. INTERVAL HISTORY: The patient has been doing fair. She had a quiet evening last night. She slept fairly well. Today she has been up. She continues to wander about the unit. She is just marginally a little more engaging than she has been. She initiates just a little bit more talk, though I would not characterize it as "conversation." She seems to have a little better movement with less stiffness. She has a little less latency in her responses and slowness in thought. She has been attending groups. The patient talked about wanting to be discharged. I discussed that the thing that is most helpful for her at this point is to make as many or all of the groups if she can and also consider coming to the dining room for meals. We discussed how it is a critical situation for her to be out and around people, which can help her get adjusted to being back in the community. Nurses have reported that it takes less time for her to finally accept medications; typically it would be quite a time of her wondering about taking the medications and not being able to push herself to actually just accept the medications and swallow them. She is doing a little better in that regard. She has not had change in her general health. She tolerates her psychotropic medications. MENTAL STATUS: Patient gave fair eye contact. Psychomotor activity was a little slowed. She continued with latency. Her affect was blunted, her mood reserved. She did not appear to be significantly distressed. ASSESSMENT: I will continue the current diagnosis and treatment plan. I will continue psychotropic medications the same. I will order olanzapine level. We will continue to focus on stabilization and discharge planning. MMODL / IJN: [id number] /
[2017-08-06] MEDS: OLANZapine ODT 5 MG TAB PO SCH ×2 (09:06→20:34)
[2017-08-06] MEDS: VENLAFAXINE HCL ER 150 MG CAP PO SCH (09:06)
[2017-08-06] MEDS: TRIAMTERENE-HCTZ 37.5-25MG 1 EACH TAB PO SCH (09:07)
--- NOTE | 2017-08-06 17:30 | PN ---
PROGRESS NOTE DATE OF SERVICE: 08/06/2017 CHIEF COMPLAINT: The patient was admitted due to inability to function at home. She became mute. She had auditory hallucinations. She has a history of psychosis and poor function. INTERVAL HISTORY: Patient has been doing fair. She seems to be showing slow progress. She is a little more interactive. The changes are not great; however, they seem to be step by step a little better. She was somewhat assertive in group today. She has been attending groups. She has been making efforts to eat her meals in the dining room, which was something she had a lot of difficulty with. She is a little more interactive. Again, she seems to show a little more fluidity in her movements. She has not had change in her general health. She tolerates her psychotropic medications. MENTAL STATUS: Patient gave fair eye contact. Psychomotor activity was slow. Speech was monotone. She answered questions with brief responses. Her thoughts were clear. Her affect was blunted, her mood quiet. She did not appear to be significantly distressed. ASSESSMENT: I will continue the current diagnosis and treatment plan. Will continue psychotropic medications the same. Patient appears to be making progress. We will continue to focus on stabilization and discharge planning. If patient continues to improve, I would look to discharge the patient by mid week. MMODL / IJN: [id number] /
[2017-08-07] MEDS: OLANZapine ODT 5 MG TAB PO SCH ×2 (09:57→21:25)
[2017-08-07] MEDS: VENLAFAXINE HCL ER 150 MG CAP PO SCH (09:58)
[2017-08-07] MEDS: TRIAMTERENE-HCTZ 37.5-25MG 1 EACH TAB PO SCH (09:59)
--- NOTE | 2017-08-07 16:34 | PN ---
PROGRESS NOTE DATE OF SERVICE: 08/07/2017. INTERVAL HISTORY: Patient is seen in cross coverage today for Dr. Daniel. She does state that she is sleeping and eating well overall. She seems to be tolerating her psychotropic medications well overall. Describes her mood as being a little bit down related to still being in the hospital. MENTAL STATUS EXAM: She is alert and cooperative with the interview. Her speech is fluent, not rapid or pressured. Her affect is restricted. Her mood is described as a little down related to being in the hospital. She denies any thoughts of harm to self or others. She denies any auditory or visual hallucinations currently. She does not make any sade delusional statements. She does not show any agitation. PLAN: Will maintain Zyprexa, Zydis and Effexor XR as current. Will continue to monitor for any medication side effects. Monitor her ongoing status. Will continue to cover this patient for Dr. Daniel through the weekend. MMODL / IJN: [id number] /
[2017-08-08] MEDS: VENLAFAXINE HCL ER 150 MG CAP PO SCH (10:06)
[2017-08-08] MEDS: TRIAMTERENE-HCTZ 37.5-25MG 1 EACH TAB PO SCH (10:06)
[2017-08-08] MEDS: OLANZapine ODT 5 MG TAB PO SCH ×2 (10:06→21:29)
--- NOTE | 2017-08-08 15:08 | PN ---
PROGRESS NOTE DATE OF SERVICE: 08/08/2017. INTERVAL HISTORY: Patient is seen in cross coverage today for Dr. Daniel. She reports that she was reading a passage in the Bible and described that she had some feelings that might have been about her. She wonders again about discharge planning. She does seem to be compliant with the psychotropic medications. Does not voice any adverse psychotropic medication side effects. MENTAL STATUS EXAM: She is alert, pleasant, cooperative. Her affect is restricted. Her mood she seems to describe as okay. She denies any thoughts of harm to self or others. She seems to deny any current hallucinations. She described passage in the Bible. She had thoughts that might have been about her. PLAN: Patient will be maintained on current doses of Zyprexa Zydis and Effexor XR. Monitor for medication side effects and monitor her ongoing response. We will continue to cover this patient for Dr. Daniel through the weekend. He will resume her care tomorrow. MMODL / IJN: [id number] /
[2017-08-09] MEDS: TRIAMTERENE-HCTZ 37.5-25MG 1 EACH TAB PO SCH (09:12)
[2017-08-09] MEDS: OLANZapine ODT 5 MG TAB PO SCH ×2 (09:12→20:28)
[2017-08-09] MEDS: VENLAFAXINE HCL ER 150 MG CAP PO SCH (09:12)
--- NOTE | 2017-08-09 23:16 | PN ---
PROGRESS NOTE DATE OF SERVICE: 08/09/2017. CHIEF COMPLAINT: The patient was admitted due to inability to function at home. She became mute. She had auditory hallucinations. She has a history of psychosis and poor function. INTERVAL HISTORY: Patient has been doing fair. She seems to be making slow progress. She had a quiet evening last night. She slept well. Today she has been up. She attends groups. She is a little bit more fluid in her speech and movements. She seems to have a better outlook. It is noteworthy that when she does have a conversation, she has a little more volume to her voice and communicates with much less hesitation. She has not had change in her general health. She tolerates psychotropic medications. MENTAL STATUS: Patient gave fairly good eye contact. Psychomotor activity was a little slowed. Speech is somewhat monotone. She answered questions with brief responses. Her thoughts were clear. She has an improved pattern of speech. Movements are more fluid. She had a quiet mood. She did not appear to be distressed. ASSESSMENT: I will continue the current diagnosis and treatment plan. I will continue psychotropic medications the same. Patient appears to be making good progress. I discussed with the patient discharge planning issues. I would aim to discharge the patient by the end of the week. MMODL / IJN: [id number] /
[2017-08-10] MEDS: VENLAFAXINE HCL ER 150 MG CAP PO SCH (11:21)
[2017-08-10] MEDS: OLANZapine ODT 5 MG TAB PO SCH ×2 (11:21→20:32)
[2017-08-10] MEDS: TRIAMTERENE-HCTZ 37.5-25MG 1 EACH TAB PO SCH (11:22)
--- NOTE | 2017-08-10 11:49 | PN ---
PROGRESS NOTE DATE OF SERVICE: 08/10/2017 CHIEF COMPLAINT: The patient was admitted due to inability to function at home. She became mute. She had auditory hallucinations. She has a history of psychosis and poor function. INTERVAL HISTORY: Patient has been doing fairly well. She had a quiet evening last night. She slept well. Today she has been up. She gets out on the unit. She does not interact too much with others, though it seems generally a little more comfortable in the milieu. She does attend groups. She is appropriate in groups. On one-to-one she is more responsive and interactive. She has been making progress. She has not had change in her general health. She tolerates her psychotropic medications. MENTAL STATUS: Patient gave good eye contact. Psychomotor activity was a little slowed. Speech was appropriate. She smiled a little. Her affect was somewhat constricted though not significantly so. Her mood was quiet. She did not appear to be distressed. ASSESSMENT: I will continue the current diagnosis and treatment plan. I will continue psychotropic medications the same. I had an extensive discussion with the patient regarding discharge planning issues. We will aim to discharge the patient on . PEACE / JESSY: [id number] /
[2017-08-11] MEDS: OLANZapine ODT 5 MG TAB PO SCH ×2 (08:55→21:27)
[2017-08-11] MEDS: VENLAFAXINE HCL ER 150 MG CAP PO SCH (08:55)
[2017-08-11] MEDS: TRIAMTERENE-HCTZ 37.5-25MG 1 EACH TAB PO SCH (08:56)
--- NOTE | 2017-08-11 19:50 | PN ---
PROGRESS NOTE DATE OF SERVICE: 08/11/2017 CHIEF COMPLAINT: The patient was admitted due to inability to function at home. She became mute. She had auditory hallucinations. She has a history of psychosis and poor function. INTERVAL HISTORY: Patient has been doing fairly well. She had a quiet evening last night. She slept well. Today she has been up. She comes out in the day area. She does not interact too much with others, though she does attend groups and has been appropriate. She volunteers good information in groups. She feels that her mood is improving. She has a better outlook. She is in agreement with discharge planning. She has not had change in her general health. She tolerates her psychotropic medication. MENTAL STATUS: Patient gave good eye contact. Psychomotor activity was slowed. Speech was monotone. She answered questions with brief responses. Her affect was a little constricted. Her mood was even. She did not appear to be distressed. ASSESSMENT: I will continue the current diagnosis and treatment plan. I will continue psychotropic medications the same. The patient has been making progress. I would aim to discharge the patient tomorrow. PEACE / JESSY: [id number] /
[2017-08-12 07:21] VITALS: BP 118/69; PULSE 82; TEMP 98.8
[2017-08-12] MEDS: TRIAMTERENE-HCTZ 37.5-25MG 1 EACH TAB PO SCH (09:22)
[2017-08-12] MEDS: VENLAFAXINE HCL ER 150 MG CAP PO SCH (09:22)
[2017-08-12] MEDS: OLANZapine ODT 5 MG TAB PO SCH (09:22)
--- NOTE | 2017-08-12 12:39 | DS ---
DISCHARGE SUMMARY DATE OF SERVICE: 08/12/2017 DATE OF ADMISSION: 07/28/2017 DATE OF DISCHARGE: 08/12/2017 ADMISSION DIAGNOSES: 1. Acute psychotic episode. 2. Rule out major depression with psychotic features. 3. Rule out schizophrenia. DISCHARGE DIAGNOSIS: Schizophrenia with acute exacerbation. HISTORY OF PRESENTING ILLNESS: The patient is a 32-year-old female she was admitted due to increasing problems with function at home. She became mute. She had auditory hallucinations. She has a history of psychosis. She was having increasing problems at home over several weeks with difficulty functioning within the family setting. She was followed up through [facility]. She has had past psychiatric hospitalizations. Her last admission here was April 22, 2014 when she was admitted on petition for suicide thoughts, suicide gestures, and delusional thoughts, believing she was condemned by God. Her current medications on admission were Effexor XR 150 mg a day and Saphris 10 mg a day. It was not clear whether or not she was consistent in taking her medications. In reviewing issues with her mother, mother indicated that patient had extreme social anxiety going back at least to her early teens. She had suspiciousness and sade paranoia emerging in her early teens. She did have periods where she could function fairly well. 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 She had her first psychiatric hospitalization August 30, [address] was [address] Dr[address] Tapia who diagnosed schizophrenia. In review of [facility] records, she had followup at least by 2008. She was on Seroquel for a number of years with a maximum dose of 50 mg. She had been on Effexor XR maximum dose of 150 mg and Wellbutrin XL, maximum dose 150 mg. In 2016, she was taken off Wellbutrin and started on Saphris. [facility] records indicate that she has had persistent problems with poor function and psychotic symptoms. Early on in her treatment, she apparently had been on Invega, Risperdal Consta and Zyprexa in the past. PHYSICAL EXAM: As per Dr. Glynn. MENTAL STATUS EXAM: The patient walked very slowly initially. She could only cooperate in an examination in a minimal way. She barely could get any words out. She has a staring gaze. There was latency in her responses. Her affect was anxious. Her mood reserved. She was significantly distressed. COURSE OF HOSPITALIZATION: Patient was admitted for comprehensive medical psychiatric and psychosocial evaluation. We engaged the patient in individual and group therapeutic activities. Early on in her hospitalization, the patient remained quite withdrawn. She would wander about the unit, though walked in a very slow manner. She seemed to be in a daze, much of the time. She would have a staring gaze at others, though often would not respond in any way if staff or other people to talked to her. She was started on Zyprexa which was titrated to 15 mg twice a day. The indication of Zyprexa was for psychosis with her underlying diagnosis of schizophrenia. In addition, she was started on Effexor XR which was titrated up to 300 mg a day. Early on in her hospitalization, there was concern that she might be exhibiting catatonia. She was given a 1 time dose of Ativan 2 mg IM. It was not clear that she showed any significant change, though still there was consideration that catatonia may have been part of her initial presentation. Through the course of her hospitalization, the patient had slow progressive improvement. She started attending groups. At first, she would just sit quietly and not respond in any way. She gradually got to the point where she was talking in groups and was able to contribute in a positive way. Early on her hospitalization, she was very reluctant to go to the dining room to eat with others. Her family would come in for visits and try to support her in keeping up with meals and medications. We had family meetings with the patient's mother to review history and work on discharge planning. Toward the end of her hospitalization the patient was functioning much better. She was able to have appropriate conversations where she was able to talk in a conversant manner. She was more spontaneous and interactive. Her movements were more fluid. She showed improvement in her mood to where she would smile and respond in positive ways. She was able to engage in appropriate discussions of discharge planning. CONDITION AT DISCHARGE: Patient was stable. Mood was improved. Thoughts were much clearer. There was no indication of thought disorder. She tolerated her psychotropic medications. RECOMMENDATIONS AND FOLLOWUP: Patient is discharged to home. Discharge medications include: 1. Effexor XR 300 mg a day. 2. Zyprexa 15 mg twice a day. A final meeting will be set up with the patient and her mother before discharge. She is referred back to [facility] for followup. MMODL / IJN: [id number] /
== END 2017-08-12 13:21 | disposition home or self-care (01) | DRG 885 ==
LOC: EC 21:15 → 3MHU 07-28 01:14
PROVIDERS: ADMIT Psychiatry & Neurology Psychiatry; ATTEND Psychiatry & Neurology Psychiatry
DX: F33.3 Major depressive disorder, recurrent, severe with psychotic symptoms (principal); R47.01 Aphasia; R73.9 Hyperglycemia, unspecified; F40.10 Social phobia, unspecified; I10 Essential (primary) hypertension; Z79.899 Other long term (current) drug therapy; Z88.8 Allergy status to other drugs, medicaments and biological substances; Z63.8 Other specified problems related to primary support group
CPT/HCPCS: 36415; 80048; 80061; 80299; 80306; 80320; 81001; 81025; 82075; 83036; 83520; 84443; 85025; 85027; 87086; 99285

== ENCOUNTER 2018-07-20 11:33 | Inpatient (IN) | payer MEDICARE, MEDICAID ==
--- NOTE | 2018-07-20 12:57 | ED ---
General Adult HPI - General Chief complaint: Psychiatric Symptoms Stated complaint: MENTAL HEALTH Source: patient, family Mode of arrival: ambulatory Limitations: no limitations - Related Data Home Medications Medication Instructions Recorded Confirmed Triamterene-Hctz 37.5-25Mg 1 tab PO DAILY 07/27/17 07/20/18 [Maxzide 37.5-25] Asenapine Maleate [Saphris] 10 mg SL HS 07/20/18 07/20/18 Previous Rx's Medication Instructions Recorded Venlafaxine HCl ER [Effexor XR] 300 mg PO DAILY #30 cap.er.24h 08/12/17 Allergies Allergy/AdvReac Type Severity Reaction Status Date / Time aripiprazole [From Abilify] Allergy Dyspnea Verified 07/20/18 12:16 ziprasidone HCl [From Geodon] Allergy Dyspnea Verified 07/20/18 12:16 ziprasidone mesylate Allergy Dyspnea Verified 07/20/18 12:16 [From Geodon] Review of Systems ROS Statement: Those systems with pertinent positive or pertinent negative responses have been documented in the HPI. ROS Other: All systems not noted in ROS Statement are negative. Past Medical History Additional Past Medical History / Comment(s): depression, History of Any Multi-Drug Resistant Organisms: None Reported Past Surgical History: No Surgical Hx Reported Past Psychological History: Anxiety, Depression, Schizophrenia Smoking Status: Never smoker Past Alcohol Use History: None Reported Past Drug Use History: None Reported General Exam Limitations: no limitations Course Vital Signs 07/20/18 11:51 Temperature 98.5 F Pulse Rate 106 H Respiratory 18 Rate Blood Pressure 136/85 O2 Sat by Pulse 100 Oximetry Medical Decision Making - Medical Decision Making Dictation was produced using buildab[employer] dictation software. please excuse any grammatical, word or spelling errors. Chief Complaint: 33yo Female past medical history of schizophrenia presents with History of Present Illness: Psychosis. 33-year-old [place] female past medical history of psychiatric disease presents with delusions and hallucinations. Patient is brought in by mother. Patient has history of schizophrenia. She does take psychiatric medications. Patient was at home when after 3 days she came back and noticed that her daughter had trashed the house. Patient has been having paranoid and egocentric thoughts. No other complaints at this time. Patient denies any suicidal homicidal ideation. Patient has not slept despite sleeping medications. The ROS documented in this emergency department record has been reviewed and confirmed by me. Those systems with pertinent positive or negative responses have been documented in the HPI. All other systems are other negative and/or noncontributory. PHYSICAL EXAM: General Impression: Alert and oriented x3, not in acute distress HEENT: Normocephalic atraumatic, extra-ocular movements intact, pupils equal and reactive to light bilaterally, mucous membranes moist. Cardiovascular: Heart regular rate and rhythm, S1&S2 audible, no murmurs, rubs or gallops Chest: Lungs clear to auscultation bilaterally, no rhonchi, no wheeze, no rales Abdomen: Bowel sounds present, abdomen soft, non-tender, non-distended, no organomegaly Musculoskeletal: Pulses present and equal in all extremities, no peripheral edema Motor: Power 5/5 bilaterally, no focal deficits noted Neurological: CN II-XII grossly intact, no focal motor or sensory deficits noted Skin: Intact with no visualized rashes Psych: Flat affect ED course: 33-year-old female presents with local history of schizophrenia presents psychotic behavior. On arrival shows heart rate of 106, rest of vital signs within normal limits. Patient cleared for EPS evaluation. Disposition Referrals: Amy Ann MD [Primary Care Provider] - 1-2 days
[2018-07-20] MEDS ORDERED: MAG HYDROX/AL HYDROX/SIMETH 30 ML CUP PO PRN (14:39)
[2018-07-20] MEDS ORDERED: MAGNESIUM HYDROXIDE 2,400 MG/10 ML CUP PO PRN (14:39)
[2018-07-20] MEDS ORDERED: ACETAMINOPHEN TAB 325 MG TAB PO PRN (14:39)
--- NOTE | 2018-07-21 10:03 | P.HP ---
Psychiatric H&P - . H&P Date: 07/21/18 History & Physical: Allergies Allergy/AdvReac Type Severity Reaction Status Date / Time aripiprazole [From Abilify] Allergy Dyspnea Verified 07/20/18 12:16 ziprasidone HCl [From Geodon] Allergy Dyspnea Verified 07/20/18 12:16 ziprasidone mesylate Allergy Dyspnea Verified 07/20/18 12:16 [From Geodon] Vital Signs Temp 98.8 F 07/20/18 14:58 Pulse 96 07/20/18 14:58 Resp 18 07/20/18 14:58 BP 123/82 07/20/18 14:58 Pulse Ox 100 07/20/18 14:36 Intake & Output 07/19/18 07/20/18 07/20/18 18:59 06:59 18:59 Weight 119.315 kg Assessment and Plan Assessment: CC:per pt mom/guardian pt needs psych eval, pt is not sleeping well, not caring ofr herself or her home, pt is not talking at this time, pt is delusional and hallucinating per her mother, not willing to discuss History HPI:Pt mom reports pt hx depression and schizophrenia. Pt mom states pt not taking meds, not taking care of self or her household. Home full of garbage. Pt reports fleeting ideas of suicide, denies plan, pt speaking in very slow manner Mother who is her legal guardian, brought her in due to her delusions. She thinks eiher God Satan or the Universe is controlling her. She thinks it is more likely Satan because she has seen parts of him in her apartment. Pt has not been taking her medications becasue she does not like them. Her mother went over to her apartment and found it in filthy condition. Her daughter was obviously not taking caer of herself. Mother states she had to shower her before she brought her in due to her odor. Her mother also stated that another family member called her with concerns about a conversation he had with her. This entry writer assessed the patient who seemed to be staring off in other directions during the conversation. She was slow to respond to questions. When asked why she said she was afraid she was going to upset those who controlled her. She is very passive and guarded and seems to be internally stimulated. Her speach was soft and monotoned. Pt has some a/v hallucinations She is blunted poor eye contact, currenlty clean orientted to time and place. Pt currently has poor isight. Home Medications Medication Instructions Recorded Confirmed Triamterene-Hctz 37.5-25Mg 1 tab PO DAILY 07/27/17 07/20/18 [Maxzide 37.5-25] Asenapine Maleate [Saphris] 10 mg SL HS 07/20/18 07/20/18 Previous Rx's Medication Instructions Recorded Venlafaxine HCl ER [Effexor XR] 300 mg PO DAILY #30 cap.er.24h 08/12/17 Allergies Allergy/AdvReac Type Severity Reaction Status Date / Time aripiprazole [From Abili] Allergy Dyspnea Verified 07/20/18 12:16 ziprasidone HCl [From Geodon] Allergy Dyspnea Verified 07/20/18 12:16 ziprasidone mesylate Allergy Dyspnea Verified 07/20/18 12:16 [From Geodon] Past Medical History Additional Past Medical History / Comment(s): depression, History of Any Multi-Drug Resistant Organisms: None Reported Past Surgical History: No Surgical Hx Reported Past Psychological History: Anxiety, Depression, Schizophrenia Smoking Status: Never smoker Past Alcohol Use History: None Reported Past Drug Use History: None Reported History of presenting illness: This 33-year-old female was admitted due to increasing problems with function at home. She had not been showering or shaving. She has auditory hallucinations. She has a history of psychosis. She stopped taking her medications. She has had past psychiatric hospitalizations. Her last admission was on 08/12/2017. Her last discharge was medications were Effexor 300 mg a day, Zyprexa 15 mg twice daily. It appears from 3 mental health notes that recently she was on Saphris. Musculoskeletal Examination - Abnormal/Involuntary Movements: [none Strength: [greater than antigravity (greater than/equal to 3/5) in all extremities, weakness:] Muscle Tone: [ dystonia] Gait: [ antalgic, Station: [ unsteady] Mental Status Examination - General Appearance: [disheveled, bizarre, appears older than stated age Speech/Language: [slow, mumbling, hesitant, halting, monotone soft] Attitude/Behavior: [ withdrawn, indifferent] Mood: [depressed, anxious, irritable, fearful, hopelessness Affect: [flat, incongruent, blunted constricted] Orientation: [Not to time, person, place not to situation] Thought Content: [ delusions] Risk Factors: [suicidal (ideations, plan), and/or Homicidal (ideations, plan) Perception: [wnl, active hallucinations (auditory, visual, tactile), other] Thought Processes: concrete, circumstantial, tangential Concentration/Attention Span:impaired] [Per observation and interview with the patient] Recent Memory: [ impaired] [0, 1, 2 or 3 out of 3 in 3 minutes] Remote Memory: [impaired] [past events, as related history] Intelligence: [below average [based on history, based on vocabulary, syntax, grammar, and content] Judgement: [poor] [per patient's behavior/history of present illness] Insight: [ poor] [understanding severity of illness/history of present illness] Admitting Diagnosis: [Schizoaffective type bipolar with acute psychosis] Patient Strengths - Housing stability: [x] Able to vocalize needs: [x] Patient Limitations: [medication, non-compliance, pathological/unsupported environment, no interests, intellectual impairment, Initial Plan of Care: [Patient was admitted involuntary by guardian due to increased delusional behavior and responding to internal stimuli. She'll be placed on 15 minute checks and usual protocol for the mental health unit. She' ll be evaluated by medicine, psychiatry, nursing staff, social work, and occupational therapy. She will be placed in grider milieu therapeutic environment per observation of her behavior and safety be major concern. She and she is not adherent to medical treatment plan will start Invega 3 mg by mouth daily at bedtime and Lamictal 25 mg by mouth daily at bedtime. In titration would be to achieve 234 mg IM injection and 200 mg of Lamictal. She' ll be teamed on a daily basis for progress disposition and placement.] Estimated Length of Stay: [10 days] Initial Discharge Plan: [home, [facility], residential placement] Prognosis: [guarded] Justification for Inpatient Hospitalization - [Hallucinations, delusions, agitation, anxiety, depression resulting in significant loss of functioning.] [Dangerous to self, others, or property with need for controlled environment.] [Emotional or behavioral conditions and complications requiring 24 hour medical and nursing care.] [Need for special drug therapy, or other therapeutic program requiring continuous hospitalization.] [Failure of social or occupational functioning.] [Inability to meet basic life and health needs.] [Legally mandated admission. Guardian forced admission] [Patient's occupation presents danger to public safety if they continue to use drugs or alcohol.] [Biomedical conditions and complications requiring 24 hour medical and nursing care.] [Failure of treatment at a lower level of care.] (1) Schizoaffective disorder, bipolar type Current Visit: Yes Status: Acute Priority: High Code(s): F25.0 - SCHIZOAFFECTIVE DISORDER, BIPOLAR TYPE SNOMED Code(s): 88263151 Time with Patient: Less than 30
[2018-07-21 11:18] LABS: Basophils % (A) 0 %; Eosinophils # (A) 0.1 k/uL (0-0.7); Eosinophils % (A) 1 %; HCT 40.2 % (34.0-46.0); HGB 12.3 gm/dL (11.4-16.0); Hypochromasia Slight; Lymphocytes # (A) 2.4 k/uL (1.0-4.8); Lymphocytes % (A) 22 %; MCH 27.7 pg (25.0-35.0); MCHC 30.6 g/dL (31.0-37.0); MCV 90.4 fL (80.0-100.0); Mean Platelet Volume 6.4; Monocytes # (A) 0.4 k/uL (0-1.0); Monocytes % (A) 4 %; Neutrophils # (A) 7.8 k/uL (1.3-7.7); Neutrophils % (A) 70 %; Platelet Count 358 k/uL (150-450); RBC 4.45 m/uL (3.80-5.40); WBC 11.1 k/uL (3.8-10.6)
[2018-07-21 11:34] LABS: ALT 26 U/L (9-52); AST 17 U/L (14-36); Albumin 4.3 g/dL (3.5-5.0); Alkaline Phosphatase 62 U/L (38-126); Anion Gap 9 mmol/L; Blood Urea Nitrogen 10 mg/dL (7-17); Calcium 9.2 mg/dL (8.4-10.2); Carbon Dioxide 25 mmol/L (22-30); Chloride 104 mmol/L (98-107); Cholesterol 202 mg/dL (<200); Glucose 115 mg/dL (74-99); HDL Cholesterol 50 mg/dL (40-60); LDL Cholesterol,Calculated 135 mg/dL (0-99); Potassium 4.7 mmol/L (3.5-5.1); Sodium 138 mmol/L (137-145); Total Bilirubin 0.7 mg/dL (0.2-1.3); Total Protein 7.9 g/dL (6.3-8.2); Triglycerides 84 mg/dL (<150)
--- NOTE | 2018-07-21 19:01 | P.CONS ---
History of Present Illness - History of Present Illness This is a pleasant 33 years old female with past medical history of depression and schizophrenia and hypertension. Presents with delusions and hallucinations. We've been consulted for medical management. Patient denies chest pain or dyspnea. No abdominal pain. Patient was eating well with No nausea vomiting. No fever. Patient answers slowly and with few warts. Mother was at bedside. Patient at the beginning refused my examination however later on she agreed after the mother asked her I offered to do previous states however the mother and the patient refused. Review of Systems CONSTITUTIONAL: No fever, no malaise, no fatigue. HEENT: No recent visual problems or hearing problems. Denied any sore throat. CARDIOVASCULAR: No orthopnea, PND, no palpitations, no syncope. PULMONARY: No shortness of breath, no cough, no hemoptysis. GASTROINTESTINAL: No diarrhea, no nausea, no vomiting, no abdominal pain. Normoactive bowel sounds. NEUROLOGICAL: No headaches, no weakness, no numbness. HEMATOLOGICAL: Denies any bleeding or petechiae. GENITOURINARY: Denies any burning micturition, frequency, or urgency. MUSCULOSKELETAL/RHEUMATOLOGICAL: Denies any joint pain, swelling, or any muscle pain. ENDOCRINE: Denies any polyuria or polydipsia. Past Medical History Additional Past Medical History / Comment(s): depression, History of Any Multi-Drug Resistant Organisms: None Reported Past Surgical History: No Surgical Hx Reported Past Psychological History: Anxiety, Depression, Schizophrenia Smoking Status: Never smoker Past Alcohol Use History: None Reported Past Drug Use History: None Reported Medications and Allergies Home Medications Medication Instructions Recorded Confirmed Type Triamterene-Hctz 37.5-25Mg 1 tab PO DAILY 07/27/17 07/20/18 History [Maxzide 37.5-25] Venlafaxine HCl ER [Effexor XR] 300 mg PO DAILY #30 cap.er.24h 08/12/17 Rx Asenapine Maleate [Saphris] 10 mg SL HS 07/20/18 07/20/18 History Allergies Allergy/AdvReac Type Severity Reaction Status Date / Time aripiprazole [From Abilify] Allergy Dyspnea Verified 07/20/18 15:24 ziprasidone HCl [From Geodon] Allergy Dyspnea Verified 07/20/18 15:24 ziprasidone mesylate Allergy Dyspnea Verified 07/20/18 15:24 [From [facility] [place]] Physical Exam GENERAL: The patient is alert and oriented x3, not in any acute distress. Well developed, well nourished. HEENT: Pupils are round and equally reacting to light. EOMI. No scleral icterus. No conjunctival pallor. Normocephalic, atraumatic. No pharyngeal erythema. No thyromegaly. CARDIOVASCULAR: S1 and S2 present. No murmurs, rubs, or gallops. PULMONARY: Chest is clear to auscultation, no wheezing or crackles. ABDOMEN: Soft, nontender, nondistended, normoactive bowel sounds. No palpable organomegaly. MUSCULOSKELETAL: No joint swelling or deformity. EXTREMITIES: No cyanosis, clubbing, or pedal edema. NEUROLOGICAL: Gross neurological examination did not reveal any focal deficits. SKIN: No rashes. Results CBC & Chem 7: 07/21/18 10:48 07/21/18 10:48 Labs: Abnormal Lab Results - Last 24 Hours (Table) 07/21/18 07/21/18 Range/Units 10:48 10:48 WBC 11.1 H (3.8-10.6) k/uL MCHC 30.6 L (31.0-37.0) g/dL Neutrophils # 7.8 H (1.3-7.7) k/uL Glucose 115 H (74-99) mg/dL Cholesterol 202 H (<200) mg/dL LDL Cholesterol, Calc 135 H (0-99) mg/dL Assessment and Plan Assessment: History of essential hypertension Hallucinations and delusions. Management as per primary psychiatric team schizophrenia. Management as per primary psychiatric team Depression. Management as per primary psychiatric team Mild leukocytosis, mostly reactive Plan: This is a pleasant 33 years old female who presents with hallucinations and delusions. Consulted for medical management. Patient Vitas looks stable her currently blood pressure is 123/82. Patient is afebrile and heart rate is 92.Labs and medication were reviewed.. Continue same treatment. Continue with symptomatic treatment. Resume home medication. Monitor lytes and vitals. DVT and GI prophylaxis. Patient was instructed to follow up with her PCP within one week after discharge Thank you for consulting us, please feel free to contact us for any question or clarification.
[2018-07-21] MEDS ORDERED: PALIPERIDONE 3 MG TAB.ER.24 PO SCH (21:00)
[2018-07-21] MEDS ORDERED: lamoTRIgine 25 MG TAB PO SCH (21:00)
[2018-07-21 21:05] LABS: Hemoglobin A1C 5.2 % (4.0-6.0)
--- NOTE | 2018-07-22 11:15 | P.PN ---
Subjective Progress Note Date: 07/22/18 Principal diagnosis: schizoaffective bipolar type acute psychosis Mute and withdrawn Objective - Vital Signs Vital signs: Vital Signs Temp 98.8 F 07/20/18 14:58 Pulse 96 07/20/18 14:58 Resp 18 07/20/18 14:58 BP 123/82 07/20/18 14:58 Pulse Ox 100 07/20/18 14:36 - Labs CBC & Chem 7: 07/21/18 10:48 07/21/18 10:48 Labs: Abnormal Lab Results - Last 24 Hours (Table) 07/21/18 07/21/18 Range/Units 10:48 10:48 WBC 11.1 H (3.8-10.6) k/uL MCHC 30.6 L (31.0-37.0) g/dL Neutrophils # 7.8 H (1.3-7.7) k/uL Glucose 115 H (74-99) mg/dL Cholesterol 202 H (<200) mg/dL LDL Cholesterol, Calc 135 H (0-99) mg/dL Assessment and Plan Assessment: CC:per pt mom/guardian pt needs psych eval, pt is not sleeping well, not caring ofr herself or her home, pt is not talking at this time, pt is delusional and hallucinating per her mother, not willing to discuss History HPI:Pt mom reports pt hx depression and schizophrenia. Pt mom states pt not taking meds, not taking care of self or her household. Home full of garbage. Pt reports fleeting ideas of suicide, denies plan, pt speaking in very slow manner Mother who is her legal guardian, brought her in due to her delusions. She thinks eiher God Satan or the Universe is controlling her. She thinks it is more likely Satan because she has seen parts of him in her apartment. Pt has not been taking her medications becasue she does not like them. Her mother went over to her apartment and found it in filthy condition. Her daughter was obviously not taking caer of herself. Mother states she had to shower her before she brought her in due to her odor. Her mother also stated that another family member called her with concerns about a conversation he had with her. This music writer assessed the patient who seemed to be staring off in other directions during the conversation. She was slow to respond to questions. When asked why she said she was afraid she was going to upset those who controlled her. She is very passive and guarded and seems to be internally stimulated. Her speach was soft and monotoned. Pt has some a/v hallucinations She is blunted poor eye contact, currenlty clean orientted to time and place. Pt currently has poor isight. Home Medications Medication Instructions Recorded Confirmed Triamterene-Hctz 37.5-25Mg 1 tab PO DAILY 07/27/17 07/20/18 [Maxzide 37.5-25] Asenapine Maleate [Saphris] 10 mg SL HS 07/20/18 07/20/18 Previous Rx's Medication Instructions Recorded Venlafaxine HCl ER [Effexor XR] 300 mg PO DAILY #30 cap.er.24h 08/12/17 Allergies Allergy/AdvReac Type Severity Reaction Status Date / Time aripiprazole [From Abiliy] Allergy Dyspnea Verified 07/20/18 12:16 ziprasidone HCl [From Geodon] Allergy Dyspnea Verified 07/20/18 12:16 ziprasidone mesylate Allergy Dyspnea Verified 07/20/18 12:16 [From Geodon] Past Medical History Additional Past Medical History / Comment(s): depression, History of Any Multi-Drug Resistant Organisms: None Reported Past Surgical History: No Surgical Hx Reported Past Psychological History: Anxiety, Depression, Schizophrenia Smoking Status: Never smoker Past Alcohol Use History: None Reported Past Drug Use History: None Reported History of presenting illness: This 33-year-old female was admitted due to increasing problems with function at home. She had not been showering or shaving. She has auditory hallucinations. She has a history of psychosis. She stopped taking her medications. She has had past psychiatric hospitalizations. Her last admission was on 08/12/2017. Her last discharge was medications were Effexor 300 mg a day, Zyprexa 15 mg twice daily. It appears from 3 mental health notes that recently she was on Saphris. Musculoskeletal Examination - Abnormal/Involuntary Movements: [none Strength: [greater than antigravity (greater than/equal to 3/5) in all extremities, weakness:] Muscle Tone: [ dystonia] Gait: [ antalgic, Station: [ unsteady] Mental Status Examination - General Appearance: [disheveled, bizarre, appears older than stated age Speech/Language: [slow, mumbling, hesitant, halting, monotone soft] Attitude/Behavior: [ withdrawn, indifferent] Mood: [depressed, anxious, irritable, fearful, hopelessness Affect: [flat, incongruent, blunted constricted] Orientation: [Not to time, person, place not to situation] Thought Content: [ delusions] Risk Factors: [suicidal (ideations, plan), and/or Homicidal (ideations, plan) Perception: [wnl, active hallucinations (auditory, visual, tactile), other] Thought Processes: concrete, circumstantial, tangential Concentration/Attention Span:impaired] [Per observation and interview with the patient] Recent Memory: [ impaired] [0, 1, 2 or 3 out of 3 in 3 minutes] Remote Memory: [impaired] [past events, as related history] Intelligence: [below average [based on history, based on vocabulary, syntax, grammar, and content] Judgement: [poor] [per patient's behavior/history of present illness] Insight: [ poor] [understanding severity of illness/history of present illness] Admitting Diagnosis: [Schizoaffective type bipolar with acute psychosis] Patient Strengths - Housing stability: [x] Able to vocalize needs: [x] Patient Limitations: [medication, non-compliance, pathological/unsupported environment, no interests, intellectual impairment, Initial Plan of Care: [Patient was admitted involuntary by guardian due to increased delusional behavior and responding to internal stimuli. She'll be placed on 15 minute checks and usual protocol for the mental health unit. She' ll be evaluated by medicine, psychiatry, nursing staff, social work, and occupational therapy. She will be placed in grider milieu therapeutic environment per observation of her behavior and safety be major concern. She and she is not adherent to medical treatment plan will start Invega 3 mg by mouth daily at bedtime and Lamictal 25 mg by mouth daily at bedtime. In titration would be to achieve 234 mg IM injection and 200 mg of Lamictal. She' ll be teamed on a daily basis for progress disposition and placement.] Estimated Length of Stay: [9 days] Initial Discharge Plan: [home, [facility], residential placement] Prognosis: [guarded] Justification for Inpatient Hospitalization - [Hallucinations, delusions, agitation, anxiety, depression resulting in significant loss of functioning.] [Dangerous to self, others, or property with need for controlled environment.] [Emotional or behavioral conditions and complications requiring 24 hour medical and nursing care.] [Need for special drug therapy, or other therapeutic program requiring continuous hospitalization.] [Failure of social or occupational functioning.] [Inability to meet basic life and health needs.] [Legally mandated admission. Guardian forced admission] [Patient's occupation presents danger to public safety if they continue to use drugs or alcohol.] [Biomedical conditions and complications requiring 24 hour medical and nursing care.] [Failure of treatment at a lower level of care.] (1) Schizoaffective disorder, bipolar type Current Visit: Yes Status: Acute Priority: High Code(s): F25.0 - SCHIZOAFFECTIVE DISORDER, BIPOLAR TYPE SNOMED Code(s): 64071139 Plan: Patient was admitted involuntary by guardian due to increased delusional behavior and responding to internal stimuli. She'll be placed on 15 minute checks and usual protocol for the mental health unit. She'll be evaluated by medicine, psychiatry, nursing staff, social work, and occupational therapy. She will be placed in grider milieu therapeutic environment per observation of her behavior and safety be major concern. She and she is not adherent to medical treatment plan Invega 6 mg by mouth daily at bedtime and Lamictal 50 mg by mouth daily at bedtime. In titration would be to achieve 234 mg IM injection and 200 mg of Lamictal. She'll be teamed on a daily basis for progress disposition and placement. Time with Patient: Less than 30
[2018-07-22] MEDS: PALIPERIDONE 6 MG TAB.ER.24 PO SCH (20:08)
[2018-07-22] MEDS: lamoTRIgine 25 MG TAB PO SCH (20:08)
[2018-07-23] MEDS: LORazepam 1 MG TAB PO PRN (01:51)
--- NOTE | 2018-07-23 13:12 | P.PN ---
Progress Note - Text Interval history: The patient is found in the library she follows me to an interview room. She has some difficulty describing her current mood. She has some difficulty describing why she was admitted to the mental health unit. Later she states it's because she has trouble discerning the meaning of certain colors. She indicates that the color red may signify the devil and read with black is worse. She indicates she is compliant with her medication she has recently been started on an invega. She appears to have a diagnosis of schizoaffective disorder. She is expecting a visit from family this evening. Staff report that she typically does not eat well and less family are involved in that activity. Mental status exam: The patient is an obese -[place] female appearing her stated age. She is dressed in her own clothing. She stood for the duration of our interaction. She demonstrates some psychomotor slowing with poverty of thought. She was distracted in appearance. I would have to repeat questions several times. She provided a nonlinear answer to questions pertaining to psychosis. She demonstrates no verbal or physical aggressiveness. Affect is quite bland. She demonstrates no involuntary repetitive movements. She is reporting no thoughts of harming herself or others. Plan: The patient appears acutely psychotic. She requires continued psychiatric hospitalization. Vital signs reviewed. Reality orientation is provided when possible.
[2018-07-23] MEDS: lamoTRIgine 25 MG TAB PO SCH (19:42)
[2018-07-23] MEDS: PALIPERIDONE 6 MG TAB.ER.24 PO SCH (19:42)
--- NOTE | 2018-07-24 13:18 | P.PN ---
Progress Note - Text Interval history: The patient is found in her room she follows me to the [facility] to speak. She states her mood is better. When asked about her level of participation over the last 24 hours he states she can't remember. She states that she continues to recognize things that other people don't recognize such as colors stuart barcodes and other "biblical things". She has been compliant with medication. No reports of agitated behavior. She does inquire as to when she can be discharged. Mental status exam: The patient is an -Irish female appearing her stated age. She is dressed in her own clothing. Eye contact is staring in nature. Affect is bland. She reports no suicidal or homicidal thoughts. She endorses no auditory or visual hallucinations but states that she is recognizing things that others around her cannot recognize. She demonstrates no verbal or physical aggressiveness. She does demonstrate some mild thought blocking and psychomotor slowing. Insight and judgment limited. Plan: The patient will continue on her current psychotropic medication. We will monitor her for safety and encourage full participation in the milieu. Vital signs reviewed.
[2018-07-24] MEDS: PALIPERIDONE 6 MG TAB.ER.24 PO SCH (21:36)
[2018-07-24] MEDS: lamoTRIgine 25 MG TAB PO SCH (21:36)
[2018-07-25] MEDS: LORazepam 1 MG TAB PO PRN (00:52)
[2018-07-25 01:30] LABS: Appearance,Urine Cloudy (Clear); Bilirubin,Urine Negative (Negative); Blood,Urine Large (Negative); Color,Urine Yellow; Glucose,Urine (UA) Negative (Negative); Ketones,Urine Trace (Negative); Leukocyte Esterase,Urine Trace (Negative); Mucus,Urine Many /hpf; Nitrite,Urine Negative (Negative); Protein,Urine 2+ (Negative); RBC,Urine 166 /hpf (0-5); Specific Gravity,Urine 1.027 (1.001-1.035); Squamous Epithelial Cell,Urine 4 /hpf (0-4); Urobilinogen,Urine <2.0 mg/dL (<2.0); WBC,Urine 9 /hpf (0-5)
--- NOTE | 2018-07-25 11:41 | P.PN ---
Subjective Progress Note Date: 07/25/18 Principal diagnosis: schizoaffective bipolar type acute psychosis Oh high Dr. Powers patient appears still very delusional psychotic withdrawn shuffling gait and inability to start and stop the supplements. Continues to be bizarre in nature and withdrawn affect is flat orientation to person only thought content is delusions risk factors she does not admit to suicidal homicidal perception auditory hallucinations thought processes concrete recent memory is impaired remote memory is impaired intelligence is below average judgment fair and insight fair. She is adherent to medical treatment at this point. Objective - Vital Signs Vital signs: Vital Signs Temp 98.8 F 07/20/18 14:58 Pulse 109 H 07/22/18 22:40 Resp 16 07/22/18 20:04 BP 139/79 07/22/18 20:04 Pulse Ox 100 07/20/18 14:36 - Labs CBC & Chem 7: 07/21/18 10:48 07/21/18 10:48 Labs: Abnormal Lab Results - Last 24 Hours (Table) 07/24/18 Range/Units 21:35 Urine Appearance Cloudy H (Clear) Urine Protein 2+ H (Negative) Urine Ketones Trace H (Negative) Urine Blood Large H (Negative) Ur Leukocyte Esterase Trace H (Negative) Urine RBC 166 H (0-5) /hpf Urine WBC 9 H (0-5) /hpf Urine Mucus Many H (None) /hpf Assessment and Plan Assessment: CC:per pt mom/guardian pt needs psych eval, pt is not sleeping well, not caring ofr herself or her home, pt is not talking at this time, pt is delusional and hallucinating per her mother, not willing to discuss History HPI:Pt mom reports pt hx depression and schizophrenia. Pt mom states pt not taking meds, not taking care of self or her household. Home full of garbage. Pt reports fleeting ideas of suicide, denies plan, pt speaking in very slow manner Mother who is her legal guardian, brought her in due to her delusions. She thinks eiher God Satan or the Universe is controlling her. She thinks it is more likely Satan because she has seen parts of him in her apartment. Pt has not been taking her medications becasue she does not like them. Her mother went over to her apartment and found it in filthy condition. Her daughter was obviously not taking caer of herself. Mother states she had to shower her before she brought her in due to her odor. Her mother also stated that another family member called her with concerns about a conversation he had with her. This designer writer assessed the patient who seemed to be staring off in other directions during the conversation. She was slow to respond to questions. When asked why she said she was afraid she was going to upset those who controlled her. She is very passive and guarded and seems to be internally stimulated. Her speach was soft and monotoned. Pt has some a/v hallucinations She is blunted poor eye contact, currenlty clean orientted to time and place. Pt currently has poor isight. Mental status examination today:"Oh high Dr. Powers" patient appears still very delusional psychotic withdrawn shuffling gait and inability to start and stop the supplements. Continues to be bizarre in nature and withdrawn affect is flat orientation to person only thought content is delusions risk factors she does not admit to suicidal homicidal perception auditory hallucinations thought processes concrete recent memory is impaired remote memory is impaired intelligence is below average judgment fair and insight fair. She is adherent to medical treatment at this point. Patient Limitations: [medication, non-compliance, pathological/unsupported environment, no interests, intellectual impairment, Initial Plan of Care: [Patient was admitted involuntary by guardian due to increased delusional behavior and responding to internal stimuli. She'll be placed on 15 minute checks and usual protocol for the mental health unit. She' ll be evaluated by medicine, psychiatry, nursing staff, social work, and occupational therapy. She will be placed in grider milieu therapeutic environment per observation of her behavior and safety be major concern. She and she is not adherent to medical treatment plan Invega 9 mg by mouth daily at bedtime and Lamictal 75 mg by mouth daily at bedtime. In titration would be to achieve 234 mg IM injection and 200 mg of Lamictal. She'll be teamed on a daily basis for progress disposition and placement. She is awaiting deferral whereby she was attempted to sign papers 06/22/2019 was unable to focus and concentrate. The contract attorney be returning for a deferral either today or 2008] Estimated Length of Stay: [7 days] Initial Discharge Plan: [home, [facility], residential placement] Prognosis: [guarded] Justification for Inpatient Hospitalization - [Hallucinations, delusions,depression resulting in significant loss of functioning.] [Emotional or behavioral conditions and complications requiring 24 hour medical and nursing care.] [Need for special drug therapy, or other therapeutic program requiring continuous hospitalization.] [Failure of social or occupational functioning.] [Inability to meet basic life and health needs. Encouraged her day to shower and also to brush her teeth] [Legally mandated admission. Guardian forced admission] (1) Schizoaffective disorder, bipolar type Current Visit: Yes Status: Acute Priority: High Code(s): F25.0 - SCHIZOAFFECTIVE DISORDER, BIPOLAR TYPE SNOMED Code(s): 94598655
[2018-07-25 14:55] LABS: Urine Alcohol Negative (Negative); Urine Barbiturate Negative (Negative); Urine Cocaine Negative (Negative); Urine Methadone Negative (Negative); Urine Opiates Negative (Negative); Urine Phencyclidine Negative (Negative)
[2018-07-25] MEDS ORDERED: lamoTRIgine 25 MG TAB PO SCH (21:00)
[2018-07-25] MEDS ORDERED: PALIPERIDONE 3 MG TAB.ER.24 PO SCH (21:00)
[2018-07-26] MEDS: PALIPERIDONE 6 MG TAB.ER.24 PO SCH (20:05)
[2018-07-26] MEDS ORDERED: lamoTRIgine 100 MG TAB PO SCH (21:00)
--- NOTE | 2018-07-27 13:31 | P.PN ---
Subjective Progress Note Date: 07/26/18 Principal diagnosis: schizoaffective bipolar type acute psychosis Oh high Dr. Powers patient appears still very delusional psychotic withdrawn shuffling gait and inability to start and stop the supplements. Continues to be bizarre in nature and withdrawn affect is flat orientation to person only thought content is delusions risk factors she does not admit to suicidal homicidal perception auditory hallucinations thought processes concrete recent memory is impaired remote memory is impaired intelligence is below average judgment fair and insight fair. She is adherent to medical treatment at this point. 07/26/2017: She is still very delusional psychotic withdrawn and is not able to answer some questions with her denying suicidal homicidal ideation. She does state the voices are bothering her extremely. Her mother does call Vito asked how she is doing. Objective - Vital Signs Vital signs: Vital Signs Temp 98.7 F 07/26/18 06:40 Pulse 91 07/26/18 06:40 Resp 16 07/26/18 06:40 BP 131/66 07/26/18 06:40 Pulse Ox 100 07/20/18 14:36 - Labs CBC & Chem 7: 07/21/18 10:48 07/21/18 10:48 Assessment and Plan Assessment: CC:per pt mom/guardian pt needs psych eval, pt is not sleeping well, not caring ofr herself or her home, pt is not talking at this time, pt is delusional and hallucinating per her mother, not willing to discuss Mental status examination today:patient appears still very delusional psychotic withdrawn and inability to start and stop the conversation. Continues to be bizarre in nature and withdrawn affect is flat orientation to person only thought content is delusions risk factors she does not admit to suicidal homicidal perception auditory hallucinations thought processes concrete recent memory is impaired remote memory is impaired intelligence is below average judgment fair and insight fair. She is adherent to medical treatment at this point. Patient Limitations: [medication, non-compliance, pathological/unsupported environment, no interests, intellectual impairment, Initial Plan of Care: [Patient was admitted involuntary by guardian due to increased delusional behavior and responding to internal stimuli. She'll be placed on 15 minute checks and usual protocol for the mental health unit. She' ll be evaluated by medicine, psychiatry, nursing staff, social work, and occupational therapy. She will be placed in grider milieu therapeutic environment per observation of her behavior and safety be major concern. She and she is not adherent to medical treatment plan Invega 12 mg by mouth daily at bedtime and Lamictal 100 mg by mouth daily at bedtime. In titration would be to achieve 234 mg IM injection and 200 mg of Lamictal. She'll be teamed on a daily basis for progress disposition and placement. She is awaiting deferral whereby she was attempted to sign papers 06/22/2019 was unable to focus and concentrate. The attorney at law be returning for a deferral either today or 2008] Prognosis: [guarded] Justification for Inpatient Hospitalization - [Hallucinations, delusions,depression resulting in significant loss of functioning.] [Emotional or behavioral conditions and complications requiring 24 hour medical and nursing care.] [Need for special drug therapy, or other therapeutic program requiring continuous hospitalization.] [Failure of social or occupational functioning.] [Inability to meet basic life and health needs. Encouraged her day to shower and also to brush her teeth] [Legally mandated admission. Guardian forced admission] (1) Schizoaffective disorder, bipolar type Current Visit: Yes Status: Acute Priority: High Code(s): F25.0 - SCHIZOAFFECTIVE DISORDER, BIPOLAR TYPE SNOMED Code(s): 23366424
[2018-07-27] MEDS: MEGESTROL 40 MG TAB PO SCH ×3 (14:24→23:04)
[2018-07-27] MEDS: PALIPERIDONE 6 MG TAB.ER.24 PO SCH (21:11)
[2018-07-27] MEDS: lamoTRIgine 100 MG TAB PO SCH (21:11)
[2018-07-28] MEDS: MEGESTROL 40 MG TAB PO SCH ×4 (08:17→22:40)
[2018-07-28] MEDS ORDERED: PALIPERIDONE IM 234 MG/1.5 ML SYG IM STA (09:21)
--- NOTE | 2018-07-28 09:24 | P.PN ---
Subjective Progress Note Date: 07/28/18 Principal diagnosis: schizoaffective bipolar type acute psychosis Oh high Dr. Powers patient appears still very delusional psychotic withdrawn shuffling gait and inability to start and stop the supplements. Continues to be bizarre in nature and withdrawn affect is flat orientation to person only thought content is delusions risk factors she does not admit to suicidal homicidal perception auditory hallucinations thought processes concrete recent memory is impaired remote memory is impaired intelligence is below average judgment fair and insight fair. She is adherent to medical treatment at this point. 07/26/2017: She is still very delusional psychotic withdrawn and is not able to answer some questions with her denying suicidal homicidal ideation. She does state the voices are bothering her extremely. Her mother does call Vito asked how she is doing. 07/28/2018: She is able to communicate better and is taking her medications. She was unable to go to court yesterday but she was mandated to treatment. She still is quite delusional and psychotic and unable to do her ADLs. She states she has difficulty in swallowing. She has not been dressed other than in a hospital gown. She has flat affect and delusional thinking. Objective - Vital Signs Vital signs: Vital Signs Temp 98.7 F 07/26/18 06:40 Pulse 91 07/26/18 06:40 Resp 16 07/26/18 06:40 BP 131/66 07/26/18 06:40 Pulse Ox 100 07/20/18 14:36 - Labs CBC & Chem 7: 07/21/18 10:48 07/21/18 10:48 Assessment and Plan Assessment: CC:per pt mom/guardian pt needs psych eval, pt is not sleeping well, not caring for herself or her home, pt is not talking at this time, pt is delusional and hallucinating per her mother, not willing to discuss Mental status examination today:patient appears still very delusional psychotic withdrawn and inability to start and stop the conversation. Continues to be less bizarre in nature and withdrawn affect is flat orientation to person only thought content is delusions risk factors she does not admit to suicidal homicidal perception auditory hallucinations thought processes concrete recent memory is impaired remote memory is impaired intelligence is below average judgment fair and insight fair. She is adherent to medical treatment at this point. She wonders a hallways with a shuffling gait. Patient Limitations: [medication, non-compliance, pathological/unsupported environment, no interests, intellectual impairment, Initial Plan of Care: [Patient was admitted involuntary by guardian due to increased delusional behavior and responding to internal stimuli. She'll be placed on 15 minute checks and usual protocol for the mental health unit. She' ll be evaluated by medicine, psychiatry, nursing staff, social work, and occupational therapy. She will be placed in grider milieu therapeutic environment per observation of her behavior and safety be major concern. She and she is not adherent to medical treatment plan Invega 6 mg by mouth daily at bedtime with an injection today of Invega intramuscular 234 mg07/28/2018 and Lamictal 200 mg by mouth daily at bedtime. In titration would be to achieve 234 mg IM injection and 200 mg of Lamictal. She'll be teamed on a daily basis for progress disposition and placement. She is awaiting deferral whereby she was attempted to sign papers 06/22/2019 was unable to focus and concentrate. The big data admin be returning for a deferral either today or 2018 she was unable to meet with the big data admin because she could not sign the papers she was going to court today at 2:00 but she did not get dressed and go there for the hearing will go on without her. She has been mandated to treatment will add Cogentin 1 mg by mouth twice a day.] Prognosis: [guarded] Justification for Inpatient Hospitalization - [Hallucinations, delusions,depression resulting in significant loss of functioning.] [Emotional or behavioral conditions and complications requiring 24 hour medical and nursing care.] [Need for special drug therapy, or other therapeutic program requiring continuous hospitalization.] [Failure of social or occupational functioning.] [Inability to meet basic life and health needs. Encouraged her day to shower and also to brush her teeth] [Legally mandated admission. Guardian forced admission] (1) Schizoaffective disorder, bipolar type Current Visit: Yes Status: Acute Priority: Medium Code(s): F25.0 - SCHIZOAFFECTIVE DISORDER, BIPOLAR TYPE SNOMED Code(s): 03421813 Plan: Patient was admitted involuntary by guardian due to increased delusional behavior and responding to internal stimuli. She'll be placed on 15 minute checks and usual protocol for the mental health unit. She'll be evaluated by medicine, psychiatry, nursing staff, social work, and occupational therapy. She will be placed in grider milieu therapeutic environment per observation of her behavior and safety be major concern. She and she is not adherent to medical treatment plan Invega 6 mg by mouth daily at bedtime and Lamictal 200 mg by mouth daily at bedtime. In titration would be to achieve Invega 234 mg IM injection was done on 07/28/2018 and 200 mg of Lamictal. She'll be teamed on a daily basis for progress disposition and placement. She still remains resistant and encourage her to go to groups shower eat and work towards discharge. Time with Patient: Greater than 30
[2018-07-28] MEDS: BENZTROPINE MESYLATE 0.5 MG TAB PO SCH ×2 (21:19→22:41)
[2018-07-28] MEDS: lamoTRIgine 100 MG TAB PO SCH ×2 (21:19→22:41)
[2018-07-28] MEDS: PALIPERIDONE 6 MG TAB.ER.24 PO SCH ×2 (21:19→22:41)
[2018-07-29] MEDS: BENZTROPINE MESYLATE 0.5 MG TAB PO SCH ×3 (09:01→21:25)
[2018-07-29] MEDS: MEGESTROL 40 MG TAB PO SCH ×6 (09:01→21:26)
--- NOTE | 2018-07-29 11:18 | P.PN ---
Subjective Progress Note Date: 07/29/18 Principal diagnosis: schizoaffective bipolar type acute psychosis Oh high Dr. Powers patient appears still very delusional psychotic withdrawn shuffling gait and inability to start and stop the supplements. Continues to be bizarre in nature and withdrawn affect is flat orientation to person only thought content is delusions risk factors she does not admit to suicidal homicidal perception auditory hallucinations thought processes concrete recent memory is impaired remote memory is impaired intelligence is below average judgment fair and insight fair. She is adherent to medical treatment at this point. 07/26/2017: She is still very delusional psychotic withdrawn and is not able to answer some questions with her denying suicidal homicidal ideation. She does state the voices are bothering her extremely. Her mother does call Vito asked how she is doing. 07/28/2018: She is able to communicate better and is taking her medications. She was unable to go to court yesterday but she was mandated to treatment. She still is quite delusional and psychotic and unable to do her ADLs. She states she has difficulty in swallowing. She has not been dressed other than in a hospital gown. She has flat affect and delusional thinking. 07/29/2018: She is dressed today with breakfast but unable to eat. She is talking to her mother and sister visits and regular basis. She still remains slow, obsessive, responding to internal stimuli and cannot focus. She denies any suicidal homicidal ideation current time but due to her lack of communication will be thoroughly evaluated and watched every 15 minutes for safety Objective - Vital Signs Vital signs: Vital Signs Temp 98.7 F 07/26/18 06:40 Pulse 91 07/26/18 06:40 Resp 16 07/26/18 06:40 BP 131/66 07/26/18 06:40 Pulse Ox 100 07/20/18 14:36 - Labs CBC & Chem 7: 07/21/18 10:48 07/21/18 10:48 Assessment and Plan Assessment: CC:per pt mom/guardian pt needs psych eval, pt is not sleeping well, not caring for herself or her home, pt is not talking at this time, pt is delusional and hallucinating per her mother, not willing to discuss Mental status examination today:patient appears still very delusional psychotic withdrawn and inability to start and stop the conversation. Continues to be less bizarre in nature and withdrawn affect is flat orientation to person only thought content is delusions risk factors she does not admit to suicidal homicidal perception auditory hallucinations thought processes concrete recent memory is impaired remote memory is impaired intelligence is below average judgment fair and insight fair. She is adherent to medical treatment at this point. She wonders a hallways with a shuffling gait. Patient Limitations: [medication, non-compliance, pathological/unsupported environment, no interests, intellectual impairment, Initial Plan of Care: [Patient was admitted involuntary by guardian due to increased delusional behavior and responding to internal stimuli. She'll be placed on 15 minute checks and usual protocol for the mental health unit. She' ll be evaluated by medicine, psychiatry, nursing staff, social work, and occupational therapy. She will be placed in grider milieu therapeutic environment per observation of her behavior and safety be major concern. She and she is not adherent to medical treatment plan Invega 6 mg by mouth daily at bedtime with an injection today of Invega intramuscular 234 mg07/28/2018 and Lamictal 200 mg by mouth daily at bedtime. In titration would be to achieve 234 mg IM injection and 200 mg of Lamictal. She'll be teamed on a daily basis for progress disposition and placement. She is awaiting deferral whereby she was attempted to sign papers 06/22/2019 was unable to focus and concentrate. The corporate associate attorney be returning for a deferral either today or 2018 she was unable to meet with the corporate associate attorney because she could not sign the papers she was going to court today at 2:00 but she did not get dressed and go there for the hearing will go on without her. She has been mandated to treatment will add Cogentin 1 mg by mouth twice a day.] Prognosis: [guarded] Justification for Inpatient Hospitalization - [Hallucinations, delusions,depression resulting in significant loss of functioning.] [Emotional or behavioral conditions and complications requiring 24 hour medical and nursing care.] [Need for special drug therapy, or other therapeutic program requiring continuous hospitalization.] [Failure of social or occupational functioning.] [Inability to meet basic life and health needs. Encouraged her day to shower and also to brush her teeth] [Legally mandated admission. Guardian forced admission] (1) Schizoaffective disorder, bipolar type Current Visit: Yes Status: Acute Priority: Medium Code(s): F25.0 - SCHIZOAFFECTIVE DISORDER, BIPOLAR TYPE SNOMED Code(s): 33977202 Plan: Patient was admitted involuntary by guardian due to increased delusional behavior and responding to internal stimuli. She'll be placed on 15 minute checks and usual protocol for the mental health unit. She'll be evaluated by medicine, psychiatry, nursing staff, social work, and occupational therapy. She will be placed in grider milieu therapeutic environment per observation of her behavior and safety be major concern. She and she is not adherent to medical treatment plan Invega 6 mg by mouth daily at bedtime and Lamictal 200 mg by mouth daily at bedtime. In titration would be to achieve Invega 234 mg IM injection was done on 07/28/2018 and 200 mg of Lamictal. She'll be teamed on a daily basis for progress disposition and placement. She still remains resistant and encourage her to go to groups shower eat and work towards discharge. Today a team disposition was discussed and will further evaluate what her needs are at discharge. Time with Patient: Less than 30
[2018-07-29] MEDS: lamoTRIgine 100 MG TAB PO SCH (21:25)
[2018-07-29] MEDS: PALIPERIDONE 6 MG TAB.ER.24 PO SCH (21:26)
[2018-07-30] MEDS: MEGESTROL 40 MG TAB PO SCH ×4 (08:01→19:49)
[2018-07-30] MEDS: BENZTROPINE MESYLATE 0.5 MG TAB PO SCH ×2 (08:01→19:49)
--- NOTE | 2018-07-30 14:34 | P.PN ---
Progress Note - Text Progress Note Date: 07/30/18 History: Patient is seen in cross coverage today. She reports that she is not being fully compliant with her psychotropic medications. She does seem to describe at times thoughts that people are against her. She is encouraged regarding compliance with psychotropic medication. Mental status exam: She is alert and cooperative with the interview her affect is restricted. She describes her mood as "decent." She denies any thoughts of harm to self or others. She denies any hallucinations. She does admit to some thoughts that people are against her at times. She does not show any agitation. Her responses are brief. Plan/medications: She will be encouraged regarding compliance with psychotropic medications. We'll monitor for any side effects of medications and monitor her ongoing response to treatment.
[2018-07-30] MEDS: lamoTRIgine 100 MG TAB PO SCH (19:49)
[2018-07-30] MEDS: PALIPERIDONE 6 MG TAB.ER.24 PO SCH (19:49)
[2018-07-31] MEDS: BENZTROPINE MESYLATE 0.5 MG TAB PO SCH ×5 (07:53→22:42)
[2018-07-31] MEDS: MEGESTROL 40 MG TAB PO SCH ×5 (07:53→20:39)
--- NOTE | 2018-07-31 14:57 | P.PN ---
Progress Note - Text Progress Note Date: 07/31/18 Interval history: Patient is seen again in cross coverage today. She says she slept on and off last night. She does seem to be eating okay. She does state she took her medication last night. She does not voice any adverse side effects other than relating that the color of the medicine can throw her off. Mental status exam: She is alert and cooperative with the interview. Her answers are very brief. She is remained standing during the evaluation. She denies any thoughts of harm to self or others. She denies any hallucinations. She makes reference to that the color of the medication can throw her off. She does not show any agitation. Her affect is restricted. Plan: Patient will be maintained on current psychotropic medication regimen. We 'll continue to monitor for medication side effects monitor her ongoing response to treatment. She is given encouragement regarding compliance with medications.
[2018-07-31] MEDS: PALIPERIDONE 6 MG TAB.ER.24 PO SCH ×3 (20:46→22:42)
[2018-07-31] MEDS: lamoTRIgine 100 MG TAB PO SCH ×3 (20:46→22:42)
[2018-08-01] MEDS: MEGESTROL 40 MG TAB PO SCH ×4 (11:04→20:02)
[2018-08-01] MEDS: BENZTROPINE MESYLATE 0.5 MG TAB PO SCH ×2 (11:04→21:46)
--- NOTE | 2018-08-01 12:14 | P.PN ---
Subjective Progress Note Date: 08/01/18 Principal diagnosis: schizoaffective bipolar type acute psychosis Oh high Dr. Powers patient appears still very delusional psychotic withdrawn shuffling gait and inability to start and stop the supplements. Continues to be bizarre in nature and withdrawn affect is flat orientation to person only thought content is delusions risk factors she does not admit to suicidal homicidal perception auditory hallucinations thought processes concrete recent memory is impaired remote memory is impaired intelligence is below average judgment fair and insight fair. She is adherent to medical treatment at this point. 07/26/2017: She is still very delusional psychotic withdrawn and is not able to answer some questions with her denying suicidal homicidal ideation. She does state the voices are bothering her extremely. Her mother does call Vito asked how she is doing. 07/28/2018: She is able to communicate better and is taking her medications. She was unable to go to court yesterday but she was mandated to treatment. She still is quite delusional and psychotic and unable to do her ADLs. She states she has difficulty in swallowing. She has not been dressed other than in a hospital gown. She has flat affect and delusional thinking. 07/29/2018: She is dressed today with breakfast but unable to eat. She is talking to her mother and sister visits and regular basis. She still remains slow, obsessive, responding to internal stimuli and cannot focus. She denies any suicidal homicidal ideation current time but due to her lack of communication will be thoroughly evaluated and watched every 15 minutes for safety 08/01/2018: She is not dressed today she has not taken her medicines all weekend does not go to group does not participate with grider milieu therapeutic environment and needs great deal amount of encouragement. She has not shown any advancement in her treatment nor is she participating. Objective - Vital Signs Vital signs: Vital Signs Temp 98.7 F 07/26/18 06:40 Pulse 91 07/26/18 06:40 Resp 16 07/26/18 06:40 BP 131/66 07/26/18 06:40 Pulse Ox 100 07/20/18 14:36 Intake & Output 07/31/18 08/01/18 08/01/18 18:59 06:59 18:59 Weight 118.898 kg 118.898 kg - Labs CBC & Chem 7: 07/21/18 10:48 07/21/18 10:48 Assessment and Plan Assessment: CC:per pt mom/guardian pt needs psych eval, pt is not sleeping well, not caring for herself or her home, pt is not talking at this time, pt is delusional and hallucinating per her mother, not willing to discuss Mental status examination today:patient appears still very delusional psychotic withdrawn and inability to start and stop the conversation. Continues to be less bizarre in nature and withdrawn affect is flat orientation to person only thought content is delusions risk factors she does not admit to suicidal homicidal perception auditory hallucinations thought processes concrete recent memory is impaired remote memory is impaired intelligence is below average judgment fair and insight fair. She is adherent to medical treatment at this point. She wonders a hallways with a shuffling gait. Patient Limitations: [medication, non-compliance, pathological/unsupported environment, no interests, intellectual impairment, Initial Plan of Care: [Patient was admitted involuntary by guardian due to increased delusional behavior and responding to internal stimuli. She'll be placed on 15 minute checks and usual protocol for the mental health unit. She' ll be evaluated by medicine, psychiatry, nursing staff, social work, and occupational therapy. She will be placed in grider milieu therapeutic environment per observation of her behavior and safety be major concern. She and she is not adherent to medical treatment plan Invega 6 mg by mouth daily at bedtime with an injection today of Invega intramuscular 234 mg07/28/2018 and Lamictal 200 mg by mouth daily at bedtime. In titration would be to achieve 234 mg IM injection and 200 mg of Lamictal. She'll be teamed on a daily basis for progress disposition and placement. She is awaiting deferral whereby she was attempted to sign papers 06/22/2019 was unable to focus and concentrate. The attorney lawyer be returning for a deferral either today or 2018 she was unable to meet with the attorney lawyer because she could not sign the papers she was going to court today at 2:00 but she did not get dressed and go there for the hearing will go on without her. She has been mandated to treatment will add Cogentin 1 mg by mouth twice a day.] She has refused all medications as of 07/29/2018. Prognosis: [guarded] Justification for Inpatient Hospitalization - [Hallucinations, delusions,depression resulting in significant loss of functioning.] [Emotional or behavioral conditions and complications requiring 24 hour medical and nursing care.] [Need for special drug therapy, or other therapeutic program requiring continuous hospitalization.] [Failure of social or occupational functioning.] [Inability to meet basic life and health needs. Encouraged her day to shower and also to brush her teeth] [Legally mandated admission. Guardian forced admission] (1) Schizoaffective disorder, bipolar type Current Visit: Yes Status: Acute Priority: Medium Code(s): F25.0 - SCHIZOAFFECTIVE DISORDER, BIPOLAR TYPE SNOMED Code(s): 79004408 Plan: Patient was admitted involuntary by guardian due to increased delusional behavior and responding to internal stimuli. She'll be placed on 15 minute checks and usual protocol for the mental health unit. She'll be evaluated by medicine, psychiatry, nursing staff, social work, and occupational therapy. She will be placed in grider milieu therapeutic environment per observation of her behavior and safety be major concern. She and she is not adherent to medical treatment plan Invega 6 mg by mouth daily at bedtime and Lamictal 200 mg by mouth daily at bedtime. In titration would be to achieve Invega 234 mg IM injection was done on 07/28/2018 and 200 mg of Lamictal. She'll be teamed on a daily basis for progress disposition and placement. She still remains resistant and encourage her to go to groups shower eat and work towards discharge. Today a team disposition was discussed and will further evaluate what her needs are at discharge. If she does not take her medication and she will get any shots of haloperidol for adherence to treatment plan. Time with Patient: Less than 30
[2018-08-01] MEDS: lamoTRIgine 100 MG TAB PO SCH (21:46)
[2018-08-01] MEDS: PALIPERIDONE 6 MG TAB.ER.24 PO SCH (21:46)
[2018-08-01] MEDS: HALOPERIDOL LACTATE 5 MG/ML 1 ML VIAL IM PRN (21:50)
[2018-08-02] MEDS: MEGESTROL 40 MG TAB PO SCH (09:34)
[2018-08-02] MEDS: BENZTROPINE MESYLATE 0.5 MG TAB PO SCH ×2 (09:34→22:08)
[2018-08-02] MEDS: PALIPERIDONE 6 MG TAB.ER.24 PO SCH (22:07)
[2018-08-02] MEDS: lamoTRIgine 100 MG TAB PO SCH (22:08)
[2018-08-02] MEDS: HALOPERIDOL LACTATE 5 MG/ML 1 ML VIAL IM PRN (22:24)
[2018-08-03] MEDS: BENZTROPINE MESYLATE 0.5 MG TAB PO SCH ×2 (08:34→21:02)
--- NOTE | 2018-08-03 13:59 | P.PN ---
Subjective Progress Note Date: 08/03/18 Principal diagnosis: schizoaffective bipolar type acute psychosis Oh high Dr. Powers patient appears still very delusional psychotic withdrawn shuffling gait and inability to start and stop the supplements. Continues to be bizarre in nature and withdrawn affect is flat orientation to person only thought content is delusions risk factors she does not admit to suicidal homicidal perception auditory hallucinations thought processes concrete recent memory is impaired remote memory is impaired intelligence is below average judgment fair and insight fair. She is adherent to medical treatment at this point. 07/26/2017: She is still very delusional psychotic withdrawn and is not able to answer some questions with her denying suicidal homicidal ideation. She does state the voices are bothering her extremely. Her mother does call Vito asked how she is doing. 07/28/2018: She is able to communicate better and is taking her medications. She was unable to go to court yesterday but she was mandated to treatment. She still is quite delusional and psychotic and unable to do her ADLs. She states she has difficulty in swallowing. She has not been dressed other than in a hospital gown. She has flat affect and delusional thinking. 07/29/2018: She is dressed today with breakfast but unable to eat. She is talking to her mother and sister visits and regular basis. She still remains slow, obsessive, responding to internal stimuli and cannot focus. She denies any suicidal homicidal ideation current time but due to her lack of communication will be thoroughly evaluated and watched every 15 minutes for safety 08/01/2018: She is not dressed today she has not taken her medicines all weekend does not go to group does not participate with grider milieu therapeutic environment and needs great deal amount of encouragement. She has not shown any advancement in her treatment nor is she participating. 08/02/2018: She is dressed today however she is taking little medications and has a fixed delusion about why she does not have to take them. Discussed in detail at she is court mandated to take medications, group therapy, shower, brushed her teeth, and take her medications as written for. She was found in her bathroom laughing and talking to no one. Objective - Vital Signs Vital signs: Vital Signs Temp 98.7 F 07/26/18 06:40 Pulse 91 07/26/18 06:40 Resp 16 07/26/18 06:40 BP 131/66 07/26/18 06:40 Pulse Ox 100 07/20/18 14:36 - Labs CBC & Chem 7: 07/21/18 10:48 07/21/18 10:48 Assessment and Plan Assessment: CC:per pt mom/guardian pt needs psych eval, pt is not sleeping well, not caring for herself or her home, pt is not talking at this time, pt is delusional and hallucinating per her mother, not willing to discuss Mental status examination today:patient appears still very delusional psychotic withdrawn and inability to start and stop the conversation. Continues to be less bizarre in nature and withdrawn affect is flat orientation to person only thought content is delusions risk factors she does not admit to suicidal homicidal perception auditory hallucinations thought processes concrete recent memory is impaired remote memory is impaired intelligence is below average judgment fair and insight fair. She is adherent to medical treatment at this point. She wonders a hallways with a shuffling gait. Patient Limitations: [medication, non-compliance, pathological/unsupported environment, no interests, intellectual impairment, Initial Plan of Care: [Patient was admitted involuntary by guardian due to increased delusional behavior and responding to internal stimuli. She'll be placed on 15 minute checks and usual protocol for the mental health unit. She' ll be evaluated by medicine, psychiatry, nursing staff, social work, and occupational therapy. She will be placed in grider milieu therapeutic environment per observation of her behavior and safety be major concern. She and she is not adherent to medical treatment plan Invega 6 mg by mouth daily at bedtime with an injection today of Invega intramuscular 234 mg07/28/2018 and Lamictal 200 mg by mouth daily at bedtime. In titration would be to achieve 234 mg IM injection and 200 mg of Lamictal. She'll be teamed on a daily basis for progress disposition and placement. She is awaiting deferral whereby she was attempted to sign papers 06/22/2019 was unable to focus and concentrate. The collections attorney be returning for a deferral either today or 2018 she was unable to meet with the collections attorney because she could not sign the papers she was going to court today at 2:00 but she did not get dressed and go there for the hearing will go on without her. She has been mandated to treatment will add Cogentin 1 mg by mouth twice a day.] She has refused all medications as of 07/29/2018. She is selectively taking medications 08/02/2018 and discussed in detail that she needs to call her medications and functioning better group of her she is able to leave the hospital. Explained again what court mandated treatment as she seemed not quite understanding that and states that she can do whatever she wants to regarding treatment and explained in detail again that the courtprobate as mandated to take medications that I write for regarding her mental health Prognosis: [guarded] Justification for Inpatient Hospitalization - [Hallucinations, delusions,depression resulting in significant loss of functioning.] [Emotional or behavioral conditions and complications requiring 24 hour medical and nursing care.] [Need for special drug therapy, or other therapeutic program requiring continuous hospitalization.] [Failure of social or occupational functioning.] [Inability to meet basic life and health needs. Encouraged her day to shower and also to brush her teeth] [Legally mandated admission. Guardian forced admission] (1) Schizoaffective disorder, bipolar type Current Visit: Yes Status: Acute Priority: Medium Code(s): F25.0 - SCHIZOAFFECTIVE DISORDER, BIPOLAR TYPE SNOMED Code(s): 56071348 Plan: Patient was admitted involuntary by guardian due to increased delusional behavior and responding to internal stimuli. She'll be placed on 15 minute checks and usual protocol for the mental health unit. She'll be evaluated by medicine, psychiatry, nursing staff, social work, and occupational therapy. She will be placed in grider milieu therapeutic environment per observation of her behavior and safety be major concern. She and she is not adherent to medical treatment plan Invega 6 mg by mouth daily at bedtime and Lamictal 200 mg by mouth daily at bedtime. In titration would be to achieve Invega 234 mg IM injection was done on 07/28/2018 and 200 mg of Lamictal. She'll be teamed on a daily basis for progress disposition and placement. She still remains resistant and encourage her to go to groups shower eat and work towards discharge. Today a team disposition was discussed and will further evaluate what her needs are at discharge. If she does not take her medication and she will get any shots of haloperidol for adherence to treatment plan. It appears that nursing staff and the night did not adhere to the haloperidol for refusing medications and brought this back up in team in an individual nursing staff. Time with Patient: Less than 30
[2018-08-03 16:02] VITALS: BMI 39.8
[2018-08-03] MEDS: lamoTRIgine 100 MG TAB PO SCH (21:02)
[2018-08-03] MEDS: PALIPERIDONE 6 MG TAB.ER.24 PO SCH (21:02)
[2018-08-04] MEDS: BENZTROPINE MESYLATE 0.5 MG TAB PO SCH ×3 (08:28→21:46)
[2018-08-04] MEDS: HALOPERIDOL LACTATE 5 MG/ML 1 ML VIAL IM PRN (08:38)
--- NOTE | 2018-08-04 10:20 | P.PN ---
Subjective Progress Note Date: 08/04/18 Principal diagnosis: schizoaffective bipolar type acute psychosis Oh high Dr. Powers patient appears still very delusional psychotic withdrawn shuffling gait and inability to start and stop the supplements. Continues to be bizarre in nature and withdrawn affect is flat orientation to person only thought content is delusions risk factors she does not admit to suicidal homicidal perception auditory hallucinations thought processes concrete recent memory is impaired remote memory is impaired intelligence is below average judgment fair and insight fair. She is adherent to medical treatment at this point. 07/26/2017: She is still very delusional psychotic withdrawn and is not able to answer some questions with her denying suicidal homicidal ideation. She does state the voices are bothering her extremely. Her mother does call Vito asked how she is doing. 07/28/2018: She is able to communicate better and is taking her medications. She was unable to go to court yesterday but she was mandated to treatment. She still is quite delusional and psychotic and unable to do her ADLs. She states she has difficulty in swallowing. She has not been dressed other than in a hospital gown. She has flat affect and delusional thinking. 07/29/2018: She is dressed today with breakfast but unable to eat. She is talking to her mother and sister visits and regular basis. She still remains slow, obsessive, responding to internal stimuli and cannot focus. She denies any suicidal homicidal ideation current time but due to her lack of communication will be thoroughly evaluated and watched every 15 minutes for safety 08/01/2018: She is not dressed today she has not taken her medicines all weekend does not go to group does not participate with grider milieu therapeutic environment and needs great deal amount of encouragement. She has not shown any advancement in her treatment nor is she participating. 08/02/2018: She is dressed today however she is taking little medications and has a fixed delusion about why she does not have to take them. Discussed in detail at she is court mandated to take medications, group therapy, shower, brushed her teeth, and take her medications as written for. She was found in her bathroom laughing and talking to no one. 08/04/2016: She is dressed today taken a shower she was lying from breakfast and did not make groups this morning and also did not take all of her medications last night requiring haloperidol will not talk to her one-on-one she is not suicidal homicidal but she is still resistant in taking all of her medications. We discussed that she has to take all of her medications before she is able to leave. Objective - Vital Signs Vital signs: Vital Signs Temp 98.7 F 07/26/18 06:40 Pulse 91 07/26/18 06:40 Resp 16 07/26/18 06:40 BP 131/66 07/26/18 06:40 Pulse Ox 100 07/20/18 14:36 Intake & Output 08/03/18 08/04/18 08/04/18 18:59 06:59 18:59 Weight 118.898 kg - Labs CBC & Chem 7: 07/21/18 10:48 07/21/18 10:48 Assessment and Plan Assessment: CC:per pt mom/guardian pt needs psych eval, pt is not sleeping well, not caring for herself or her home, pt is not talking at this time, pt is delusional and hallucinating per her mother, not willing to discuss Mental status examination today:patient appears still very delusional psychotic withdrawn and inability to start and stop the conversation. Continues to be less bizarre in nature and withdrawn affect is flat orientation to person only thought content is delusions risk factors she does not admit to suicidal homicidal perception auditory hallucinations thought processes concrete recent memory is impaired remote memory is impaired intelligence is below average judgment fair and insight fair. She is adherent to medical treatment at this point. She wonders a hallways with a shuffling gait. Patient Limitations: [medication, non-compliance, pathological/unsupported environment, no interests, intellectual impairment, Initial Plan of Care: [Patient was admitted involuntary by guardian due to increased delusional behavior and responding to internal stimuli. She'll be placed on 15 minute checks and usual protocol for the mental health unit. She' ll be evaluated by medicine, psychiatry, nursing staff, social work, and occupational therapy. She will be placed in grider milieu therapeutic environment per observation of her behavior and safety be major concern. She and she is not adherent to medical treatment plan Invega 6 mg by mouth daily at bedtime with an injection today of Invega intramuscular 234 mg07/28/2018 and Lamictal 200 mg by mouth daily twice a day. In titration would be to achieve 234 mg IM injection and 200 mg of Lamictal. She'll be teamed on a daily basis for progress disposition and placement. She is awaiting deferral whereby she was attempted to sign papers 06/22/2019 was unable to focus and concentrate. The tax associate attorney be returning for a deferral either today or 2018 she was unable to meet with the tax associate attorney because she could not sign the papers she was going to court today at 2:00 but she did not get dressed and go there for the hearing will go on without her. She has been mandated to treatment will add Cogentin 1 mg by mouth twice a day.] She has refused all medications as of 07/29/2018. She is selectively taking medications 08/02/2018 and discussed in detail that she needs to call her medications and functioning better group of her she is able to leave the hospital. Explained again what court mandated treatment as she seemed not quite understanding that and states that she can do whatever she wants to regarding treatment and explained in detail again that the courtprobate as mandated to take medications that I write for regarding her mental health Prognosis: [guarded] Justification for Inpatient Hospitalization - [Hallucinations, delusions,depression resulting in significant loss of functioning.] [Emotional or behavioral conditions and complications requiring 24 hour medical and nursing care.] [Need for special drug therapy, or other therapeutic program requiring continuous hospitalization.] [Failure of social or occupational functioning.] [Inability to meet basic life and health needs. Encouraged her day to shower and also to brush her teeth] [Legally mandated admission. Guardian forced admission] (1) Schizoaffective disorder, bipolar type Current Visit: Yes Status: Acute Priority: Medium Code(s): F25.0 - SCHIZOAFFECTIVE DISORDER, BIPOLAR TYPE SNOMED Code(s): 41933046 Plan: Patient was admitted involuntary by guardian due to increased delusional behavior and responding to internal stimuli. She'll be placed on 15 minute checks and usual protocol for the mental health unit. She'll be evaluated by medicine, psychiatry, nursing staff, social work, and occupational therapy. She will be placed in grider milieu therapeutic environment per observation of her behavior and safety be major concern. She and she is not adherent to medical treatment plan Invega 6 mg by mouth daily at bedtime and Lamictal 200 mg by mouth daily at bedtime. In titration would be to achieve Invega 234 mg IM injection was done on 07/28/2018 and 200 mg of Lamictal changed to twice a day on 08/04/2018 She'll be teamed on a daily basis for progress disposition and placement. She still remains resistant and encourage her to go to groups shower eat and work towards discharge. Today a team disposition was discussed and will further evaluate what her needs are at discharge. If she does not take her medication and she will get any shots of haloperidol for adherence to treatment plan. It appears that nursing staff and the night did not adhere to the haloperidol for refusing medications and brought this back up in team in an individual nursing staff. Time with Patient: Greater than 30
[2018-08-04] MEDS: lamoTRIgine 100 MG TAB PO SCH (21:45)
[2018-08-04] MEDS: PALIPERIDONE 6 MG TAB.ER.24 PO SCH (21:46)
[2018-08-05 05:47] VITALS: BP 135/87; PULSE 131; RESP 18; TEMP 98.8
[2018-08-05] MEDS: BENZTROPINE MESYLATE 0.5 MG TAB PO SCH ×2 (09:03→21:45)
[2018-08-05] MEDS: lamoTRIgine 100 MG TAB PO SCH ×2 (09:03→21:45)
--- NOTE | 2018-08-05 12:08 | P.PN ---
Subjective Progress Note Date: 08/05/18 Principal diagnosis: schizoaffective bipolar type acute psychosis Oh high Dr. Powers patient appears still very delusional psychotic withdrawn shuffling gait and inability to start and stop the supplements. Continues to be bizarre in nature and withdrawn affect is flat orientation to person only thought content is delusions risk factors she does not admit to suicidal homicidal perception auditory hallucinations thought processes concrete recent memory is impaired remote memory is impaired intelligence is below average judgment fair and insight fair. She is adherent to medical treatment at this point. 07/26/2017: She is still very delusional psychotic withdrawn and is not able to answer some questions with her denying suicidal homicidal ideation. She does state the voices are bothering her extremely. Her mother does call Vito asked how she is doing. 07/28/2018: She is able to communicate better and is taking her medications. She was unable to go to court yesterday but she was mandated to treatment. She still is quite delusional and psychotic and unable to do her ADLs. She states she has difficulty in swallowing. She has not been dressed other than in a hospital gown. She has flat affect and delusional thinking. 07/29/2018: She is dressed today with breakfast but unable to eat. She is talking to her mother and sister visits and regular basis. She still remains slow, obsessive, responding to internal stimuli and cannot focus. She denies any suicidal homicidal ideation current time but due to her lack of communication will be thoroughly evaluated and watched every 15 minutes for safety 08/01/2018: She is not dressed today she has not taken her medicines all weekend does not go to group does not participate with grider milieu therapeutic environment and needs great deal amount of encouragement. She has not shown any advancement in her treatment nor is she participating. 08/02/2018: She is dressed today however she is taking little medications and has a fixed delusion about why she does not have to take them. Discussed in detail at she is court mandated to take medications, group therapy, shower, brushed her teeth, and take her medications as written for. She was found in her bathroom laughing and talking to no one. 08/04/2018: She is dressed today taken a shower she was lying from breakfast and did not make groups this morning and also did not take all of her medications last night requiring haloperidol will not talk to her one-on-one she is not suicidal homicidal but she is still resistant in taking all of her medications. We discussed that she has to take all of her medications before she is able to leave. 08/05/2018: Chart reviewed patient obtained in morning report and discussed Disposition. Her mother will be returning Wednesday or Wednesday of next week and since she is court ordered and she has guardian will consider discharging her dad and discusses in detail with the patient. Patient has little insight and more impulse noncontrol. She was able to take all her medicines yesterday and occasionally makes groups. I discussed with her today that she has to go to all her groups. She was tearful and her room wanting to go home and crying hysterically. She denies any suicidal or homicidal ideation but is still exhibiting response to internal stimuli. Objective - Vital Signs Vital signs: Vital Signs Temp 98.8 F 08/05/18 05:46 Pulse 131 H 08/05/18 05:46 Resp 18 08/05/18 05:46 BP 135/87 08/05/18 05:46 Pulse Ox 100 07/20/18 14:36 - Labs CBC & Chem 7: 07/21/18 10:48 07/21/18 10:48 Assessment and Plan Assessment: CC:per pt mom/guardian pt needs psych eval, pt is not sleeping well, not caring for herself or her home, pt is not talking at this time, pt is delusional and hallucinating per her mother, not willing to discuss Mental status examination today:patient appears still very delusional psychotic withdrawn and inability to start and stop the conversation. Continues to be less bizarre in nature and withdrawn affect is flat orientation to person only thought content is delusions risk factors she does not admit to suicidal homicidal perception auditory hallucinations thought processes concrete recent memory is impaired remote memory is impaired intelligence is below average judgment fair and insight fair. She is adherent to medical treatment at this point. She wonders a hallways with a shuffling gait. Patient Limitations: [medication, non-compliance, pathological/unsupported environment, no interests, intellectual impairment, Initial Plan of Care: [Patient was admitted involuntary by guardian due to increased delusional behavior and responding to internal stimuli. She'll be placed on 15 minute checks and usual protocol for the mental health unit. She' ll be evaluated by medicine, psychiatry, nursing staff, social work, and occupational therapy. She will be placed in grider milieu therapeutic environment per observation of her behavior and safety be major concern. She and she is not adherent to medical treatment plan Invega 6 mg by mouth daily at bedtime with an injection today of Invega intramuscular 234 mg07/28/2018 and Lamictal 200 mg by mouth daily twice a day. In titration would be to achieve 234 mg IM injection and 200 mg of Lamictal. She'll be teamed on a daily basis for progress disposition and placement. She is awaiting deferral whereby she was attempted to sign papers 06/22/2019 was unable to focus and concentrate. The sciences dean be returning for a deferral either today or 2018 she was unable to meet with the sciences dean because she could not sign the papers she was going to court today at 2:00 but she did not get dressed and go there for the hearing will go on without her. She has been mandated to treatment will add Cogentin 1 mg by mouth twice a day.] She has refused all medications as of 07/29/2018. She is selectively taking medications 08/02/2018 and discussed in detail that she needs to call her medications and functioning better group of her she is able to leave the hospital. Explained again what court mandated treatment as she seemed not quite understanding that and states that she can do whatever she wants to regarding treatment and explained in detail again that the courtprobate as mandated to take medications that I write for regarding her mental health Prognosis: [guarded] Justification for Inpatient Hospitalization - [Hallucinations, delusions,depression resulting in significant loss of functioning.] [Emotional or behavioral conditions and complications requiring 24 hour medical and nursing care.] [Need for special drug therapy, or other therapeutic program requiring continuous hospitalization.] [Failure of social or occupational functioning.] [Inability to meet basic life and health needs. Encouraged her day to shower and also to brush her teeth] [Legally mandated admission. Guardian forced admission] (1) Schizoaffective disorder, bipolar type Current Visit: Yes Status: Acute Priority: Medium Code(s): F25.0 - SCHIZOAFFECTIVE DISORDER, BIPOLAR TYPE SNOMED Code(s): 22804195 Plan: Patient was admitted involuntary by guardian due to increased delusional behavior and responding to internal stimuli. She'll be placed on 15 minute checks and usual protocol for the mental health unit. She'll be evaluated by medicine, psychiatry, nursing staff, social work, and occupational therapy. She will be placed in grider milieu therapeutic environment per observation of her behavior and safety be major concern. She and she is not adherent to medical treatment plan Invega 6 mg by mouth daily at bedtime and Lamictal 200 mg by mouth daily at bedtime. In titration would be to achieve Invega 234 mg IM injection was done on 07/28/2018 with the next injection being on 08/26/2018 and 200 mg of Lamictal changed to twice a day on 08/04/2018 She'll be teamed on a daily basis for progress disposition and placement. She still remains resistant and encourage her to go to groups shower eat and work towards discharge. Today a team disposition was discussed and will further evaluate what her needs are at discharge. She remains on Invega oral tablets daily. If she does not take her medication and she will get any shots of haloperidol for adherence to treatment plan. It appears that nursing staff and the night did not adhere to the haloperidol for refusing medications and brought this back up in team in an individual nursing staff. Time with Patient: Greater than 30
[2018-08-05] MEDS: PALIPERIDONE 6 MG TAB.ER.24 PO SCH (21:45)
[2018-08-06] MEDS: lamoTRIgine 100 MG TAB PO SCH (09:49)
[2018-08-06] MEDS: BENZTROPINE MESYLATE 0.5 MG TAB PO SCH (09:49)
--- NOTE | 2018-08-06 11:26 | P.DS ---
Providers Date of admission: 07/20/18 14:36 Expected date of discharge: 08/06/18 Attending physician: Tad Powers DO Consults: 07/20/18 14:39 Consult Physician Routine Consulting Provider: Kate Bolton Consult Reason/Comments: medical management Do you want consulting provider notified?: Yes, Notify in am Primary care physician: Seth Reyes - Discharge Diagnosis(es) (1) Schizoaffective disorder, bipolar type CC:per pt mom/guardian pt needs psych eval, pt is not sleeping well, not caring ofr herself or her home, pt is not talking at this time, pt is delusional and hallucinating per her mother, not willing to discuss History HPI:Pt mom reports pt hx depression and schizophrenia. Pt mom states pt not taking meds, not taking care of self or her household. Home full of garbage. Pt reports fleeting ideas of suicide, denies plan, pt speaking in very slow manner Mother who is her legal guardian, brought her in due to her delusions. She thinks eiher God Satan or the Universe is controlling her. She thinks it is more likely Satan because she has seen parts of him in her apartment. Pt has not been taking her medications becasue she does not like them. Her mother went over to her apartment and found it in filthy condition. Her daughter was obviously not taking caer of herself. Mother states she had to shower her before she brought her in due to her odor. Her mother also stated that another family member called her with concerns about a conversation he had with her. This play writer assessed the patient who seemed to be staring off in other directions during the conversation. She was slow to respond to questions. When asked why she said she was afraid she was going to upset those who controlled her. She is very passive and guarded and seems to be internally stimulated. Her speach was soft and monotoned. Pt has some a/v hallucinations She is blunted poor eye contact, currenlty clean orientted to time and place. Pt currently has poor isight. Home Medications Medication Instructions Recorded Confirmed Triamterene-Hctz 37.5-25Mg 1 tab PO DAILY 07/27/17 07/20/18 [Maxzide 37.5-25] Asenapine Maleate [Saphris] 10 mg SL HS 07/20/18 07/20/18 Previous Rx's Medication Instructions Recorded Venlafaxine HCl ER [Effexor XR] 300 mg PO DAILY #30 cap.er.24h 08/12/17 Allergies Allergy/AdvReac Type Severity Reaction Status Date / Time aripiprazole [From Abilify] Allergy Dyspnea Verified 07/20/18 12:16 ziprasidone HCl [From Geodon] Allergy Dyspnea Verified 07/20/18 12:16 ziprasidone mesylate Allergy Dyspnea Verified 07/20/18 12:16 [From Geodon] Past Medical History Additional Past Medical History / Comment(s): depression, History of Any Multi-Drug Resistant Organisms: None Reported Past Surgical History: No Surgical Hx Reported Past Psychological History: Anxiety, Depression, Schizophrenia Smoking Status: Never smoker Past Alcohol Use History: None Reported Past Drug Use History: None Reported History of presenting illness: This 33-year-old female was admitted due to increasing problems with function at home. She had not been showering or shaving. She has auditory hallucinations. She has a history of psychosis. She stopped taking her medications. She has had past psychiatric hospitalizations. Her last admission was on 08/12/2017. Her last discharge was medications were Effexor 300 mg a day, Zyprexa 15 mg twice daily. It appears from 3 mental health notes that recently she was on Saphris. Current Visit: Yes Status: Acute Priority: Low Hospital Course: Plan of Care: [Patient was admitted involuntary by guardian due to increased delusional behavior and responding to internal stimuli. She'll be placed on 15 minute checks and usual protocol for the mental health unit. She'll be evaluated by medicine, psychiatry, nursing staff, social work, and occupational therapy. She will be placed in grider milieu therapeutic environment per observation of her behavior and safety be major concern. She and she is not adherent to medical treatment plan Invega 6 mg by mouth daily at bedtime with an injection today of Invega intramuscular 234 mg07/28/2018 and Lamictal 200 mg by mouth daily twice a day. In titration would be to achieve 234 mg IM injection and 200 mg of Lamictal. She'll be teamed on a daily basis for progress disposition and placement. She is awaiting deferral whereby she was attempted to sign papers 06/22/2019 was unable to focus and concentrate. The commonwealth attorney be returning for a deferral either today or 07/26/2018 she was unable to meet with the commonwealth attorney because she could not sign the papers she was going to court today at 2:00 but she did not get dressed and go there for the hearing will go on without her. She has been mandated to treatment will add Cogentin 1 mg by mouth twice a day.] She has refused all medications as of 07/29/2018. She is selectively taking medications 08/02/2018 and discussed in detail that she needs to call her medications and functioning better group of her she is able to leave the hospital. Explained again what court mandated treatment as she seemed not quite understanding that and states that she can do whatever she wants to regarding treatment and explained in detail again that the court probate as mandated to take medications that I write for regarding her mental health. Next Invega intramuscular injection 234 mg should be on 08/26/2018a written prescription was given to the patient to take to [facility]. I tapered her nighttime dose of Invega from 12 mg down to 6 mg and appears she needs this additional 6 mg a day to be able to function. Mental status examination at the time of discharge: The patient presents alert, pleasant, and cooperative. There calmly seated without any agitated behavior. [She] reports that [her] mood is good. Affect is congruent and euthymic. [She] deny having any suicidal or homicidal ideation intent or plan. She] denies any auditory or visual hallucinations. There is no evidence of any delusional thought content. [Her] thought process is linear and goal-directed. [Her] speech is fluent and nonpressured. [Her] memory and concentration is grossly intact for the purposes of this session. Patient Condition at Discharge: Stable Plan - Discharge Summary Discharge Rx Participant: Yes New Discharge Prescriptions: New Benztropine Mesylate [Cogentin] 0.5 mg PO BID 30 Days #60 tab lamoTRIgine [LaMICtal] 200 mg PO BID 30 Days #120 tab Paliperidone [Invega] 6 mg PO 2100 30 Days #30 tab.er.24 Continue Triamterene-Hctz 37.5-25Mg [Maxzide 37.5-25] 1 tab PO DAILY 30 Days #30 tab Discontinued Venlafaxine HCl ER [Effexor XR] 300 mg PO DAILY #30 cap.er.24h Asenapine Maleate [Saphris] 10 mg SL HS Discharge Medication List Benztropine Mesylate [Cogentin] 0.5 mg PO BID 30 Days #60 tab 08/06/18 [Rx] Paliperidone [Invega] 6 mg PO 2100 30 Days #30 tab.er.24 08/06/18 [Rx] Triamterene-Hctz 37.5-25Mg [Maxzide 37.5-25] 1 tab PO DAILY 30 Days #30 tab [Rx] lamoTRIgine [LaMICtal] 200 mg PO BID 30 Days #120 tab 08/06/18 [Rx] Follow up Appointment(s)/Referral(s): [facility] [Outside] - 08/10/18 11:30 am (08-10-[address] Gil and with Yana Mckinley 08-10-18) Amy Ann MD [Primary Care Provider] - 1-2 days Patient Instructions/Handouts: Schizoaffective Disorder (DC) Activity/Diet/Wound Care/Special Instructions: Activity and Diet as tolerated. Avoid the use of street drugs and alcohol. Take all medications as prescribed, when you are in need of refills contact your medical doctor or psychiatrist. Please go to all scheduled outpatient appointments for aftercare treatment. If symptoms return or worsen you can call the crisis line @ and/or return to the nearest emergency room for evaluation. Discharge Disposition: HOME SELF-CARE
== END 2018-08-06 13:21 | disposition home or self-care (01) | DRG 885 ==
LOC: EC 11:33 → 3MHU 14:36
PROVIDERS: ADMIT Psychiatry & Neurology Psychiatry; ATTEND Psychiatry & Neurology Psychiatry
DX: F25.0 Schizoaffective disorder, bipolar type (principal); R13.10 Dysphagia, unspecified; T43.596A Underdosing of other antipsychotics and neuroleptics, initial encounter; T43.216A Underdosing of selective serotonin and norepinephrine reuptake inhibitors, initial encounter; Z91.128 Patient's intentional underdosing of medication regimen for other reason; F41.9 Anxiety disorder, unspecified; I10 Essential (primary) hypertension; G24.9 Dystonia, unspecified; D72.829 Elevated white blood cell count, unspecified; Z79.899 Other long term (current) drug therapy; Z88.8 Allergy status to other drugs, medicaments and biological substances; Y92.009 Unspecified place in unspecified non-institutional (private) residence as the place of occurrence of the external cause
CPT/HCPCS: 80053; 80061; 80175; 80306; 81001; 81025; 82075; 83036; 84443; 85025; 99285

== ENCOUNTER 2020-12-21 21:55 | Inpatient (IN) | payer MEDICARE, MEDICAID ==
--- NOTE | 2020-12-21 23:35 | ED ---
Psych HPI - General Chief Complaint: Psychiatric Symptoms Stated Complaint: mental health Time Seen by Provider: 12/21/20 22:32 Source: patient, family Mode of arrival: ambulatory - Related Data Previous Rx's Medication Instructions Recorded Benztropine Mesylate [Cogentin] 0.5 mg PO BID 30 Days #60 tab 08/06/18 Paliperidone [Invega] 6 mg PO 2100 30 Days #30 tab.er.24 08/06/18 Triamterene-Hctz 37.5-25Mg 1 tab PO DAILY 30 Days #30 tab 08/06/18 [Maxzide 37.5-25] lamoTRIgine [LaMICtal] 200 mg PO BID 30 Days #120 tab 08/06/18 Allergies Allergy/AdvReac Type Severity Reaction Status Date / Time aripiprazole [From Abilify] Allergy Dyspnea Verified 12/21/20 22:33 ziprasidone HCl [From Geodon] Allergy Dyspnea Verified 12/21/20 22:33 ziprasidone mesylate Allergy Dyspnea Verified 12/21/20 22:33 [From Geodon] Review of Systems ROS Statement: Those systems with pertinent positive or pertinent negative responses have been documented in the HPI. ROS Other: All systems not noted in ROS Statement are negative. Past Medical History Additional Past Medical History / Comment(s): depression, History of Any Multi-Drug Resistant Organisms: None Reported Past Surgical History: No Surgical Hx Reported Past Psychological History: Anxiety, Depression, Schizophrenia Smoking Status: Never smoker Past Alcohol Use History: None Reported Past Drug Use History: None Reported General Exam Limitations: no limitations Course Vital Signs 12/21/20 12/22/20 22:30 00:33 Temperature 98.9 F Pulse Rate 101 H 75 Respiratory 20 18 Rate Blood Pressure 130/88 112/74 O2 Sat by Pulse 98 95 Oximetry Disposition Clinical Impression: Schizoaffective disorder, bipolar type, Psychosis, Depression, Suicidal ideation Disposition: TRANSFER TO PSYCH HOSP/UNIT Condition: Fair Is patient prescribed a controlled substance at d/c from ED?: No Referrals: Amy Ann MD [Primary Care Provider] - 1-2 days
[2020-12-22 05:58] LABS: Amphetamine Screen,Urine Not Detected (NotDetected); Barbiturate Screen,Urine Not Detected (NotDetected); Benzodiazepines Screen,Urine Not Detected (NotDetected); Cocaine Screen,Urine Not Detected (NotDetected); Methadone Screen, Urine Not Detected (NotDetected); Opiate Screen,Urine Not Detected (NotDetected); Oxycodone Screen, Urine Not Detected (NotDetected); Phencyclidine Screen,Urine Not Detected (NotDetected); Tricyclic Antidepressant,Urine Not Detected (NotDetected); Urn Cannabinoid Scrn Not Detected (NotDetected)
[2020-12-22] MEDS ORDERED: MAG HYDROX/AL HYDROX/SIMETH 30 ML CUP PO PRN (06:29)
[2020-12-22] MEDS ORDERED: MAGNESIUM HYDROXIDE 2,400 MG/10 ML CUP PO PRN (06:29)
[2020-12-22] MEDS ORDERED: ACETAMINOPHEN TAB 325 MG TAB PO PRN (06:29)
[2020-12-22] MEDS ORDERED: LORazepam 2 MG/ML INJ IM PRN (06:35)
[2020-12-22] MEDS ORDERED: HALOPERIDOL LACTATE 5 MG/ML 1 ML VIAL IM PRN (06:36)
[2020-12-22 07:06] VITALS: BP 102/72; PULSE 83
[2020-12-22 12:21] LABS: Anisocytosis Slight; Basophils # (A) 0.1 k/uL (0-0.2); Basophils % (A) 0 %; Eosinophils # (A) 0.2 k/uL (0-0.7); Eosinophils % (A) 2 %; HCT 38.7 % (34.0-46.0); HGB 11.7 gm/dL (11.4-16.0); Hypochromasia Slight; Lymphocytes # (A) 2.4 k/uL (1.0-4.8); Lymphocytes % (A) 20 %; MCH 25.3 pg (25.0-35.0); MCHC 30.2 g/dL (31.0-37.0); MCV 83.5 fL (80.0-100.0); Mean Platelet Volume 6.9; Monocytes # (A) 0.4 k/uL (0-1.0); Monocytes % (A) 4 %; Neutrophils # (A) 8.6 k/uL (1.3-7.7); Neutrophils % (A) 72 %; Platelet Count 364 k/uL (150-450); RBC 4.63 m/uL (3.80-5.40); RDW 16.2 % (11.5-15.5); WBC 11.8 k/uL (3.8-10.6)
--- NOTE | 2020-12-22 12:32 | P.HP ---
Psychiatric H&P - . H&P Date: 12/22/20 History & Physical: Allergies Allergy/AdvReac Type Severity Reaction Status Date / Time aripiprazole [From Abilify] Allergy Dyspnea Verified 12/22/20 06:38 ziprasidone HCl [From Geodon] Allergy Dyspnea Verified 12/22/20 06:38 ziprasidone mesylate Allergy Dyspnea Verified 12/22/20 06:38 [From Geodon] Vital Signs Temp 98.4 F 12/22/20 06:41 Pulse 83 12/22/20 06:41 Resp 17 12/22/20 06:41 BP 102/72 12/22/20 06:41 Pulse Ox 98 12/22/20 06:41 Intake & Output 12/21/20 12/22/20 12/22/20 18:59 06:59 18:59 Weight 139.735 kg Laboratory Last Values Urine HCG, Qual Not Detected (Not Detectd) 12/22/20 05:29 Urine Opiates Screen Not Detected (NotDetected) 12/22/20 05:29 Ur Oxycodone Screen Not Detected (NotDetected) 12/22/20 05:29 Urine Methadone Screen Not Detected (NotDetected) 12/22/20 05:29 Ur Propoxyphene Screen Not Detected (NotDetected) 12/22/20 05:29 Ur Barbiturates Screen Not Detected (NotDetected) 12/22/20 05:29 U Tricyclic Antidepress Not Detected (NotDetected) 12/22/20 05:29 Ur Phencyclidine Scrn Not Detected (NotDetected) 12/22/20 05:29 Ur Amphetamines Screen Not Detected (NotDetected) 12/22/20 05:29 U Methamphetamines Scrn Not Detected (NotDetected) 12/22/20 05:29 U Benzodiazepines Scrn Not Detected (NotDetected) 12/22/20 05:29 Urine Cocaine Screen Not Detected (NotDetected) 12/22/20 05:29 U Marijuana (THC) Screen Not Detected (NotDetected) 12/22/20 05:29 Coronavirus (PCR) Not Detected (Not Detectd) 12/22/20 04:25 12/22/20 12:19 Reason for admission: Patient stated she was seeing things that were not there so was brought to the hospital. History of present illness: This 35-year-old female patient has a history of schizophrenia. She was talking to herself and was getting messages on line. She was having visual hallucinations. She is very preoccupied and is talking to herself. She thinks she is going to wake up in another body. She has loose associations and went on to say that she thinks it has to do something with God to help somebody. She denies any auditory hallucinations. She stated she has been having problems for last few weeks. Past history: She has been in psychiatric hospital 2-3 times in the past at this hospital. She was in a psychiatric hospital in [place] as well. She was seeing an outpatient therapist at [facility] through video conference. Family history: She stated she lives with her mother and father, sister and nephew. She stated her mother used to have a bipolar illness. She stated one of her stepbrothers committed suicide successfully. She stated one of her uncles have a history of alcoholism. Medical history: She is morbidly obese she denied being and denied having any other medical problems. Social history: She stated she grew up with her mother and father. She finished her high school and also has associated degree in criminal justice. 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 Medication history: She stated she was on Effexor , Saphris and Invega. She stated that the Saphris seemed to have worked better for her. Substance abuse history: She denies any problems with alcohol or drugs now or in the past. Suicide or homicide thoughts: He stated she had suicidal thoughts before she came to Hospital. She stated she thought she has to hurt herself or kill herself or someone else to save the world. History of psychological trauma: She denies any history of emotional, physical and sexual abuse. Legal history: She denies any involvement with the police. ALLERGIES: She stated she is ALLERGIC to Geodon, Abilify, Cogentin and Risperdal. Mental status examination: this patient is a morbidly obese and appears to be of her stated age. She speaks in a low monotonous and monosyllable language and makes no eye contact. Her mood is blank and her affect is flat. She is pr eoccupied, withdrawn and talking to herself. She has visual hallucinations and paranoid delusions. She has thought blocking and paucity of ideas. She is alert and oriented to time place and person. She was able to do similarities and differences between common objects and was able to interpret simple proverbs. She has no insight into her problems and her judgment is impaired. Her impulse control is poor. Her memory and other cognitive functions are intact. Diagnostic impression: Schizophrenia chronic undifferentiated type Morbid obesity Treatment recommendations: She will be placed back on her medications. She will be encouraged to participate in unit and milieu activities.
[2020-12-22 12:35] LABS: HCG,Qualitative Serum Not Detected
[2020-12-22 12:42] LABS: ALT 11 U/L (4-34); AST 22 U/L (14-36); African American GFR (CKD) >90 (>60 ml/min/1.73 sqM); Alkaline Phosphatase 75 U/L (38-126); Anion Gap 7 mmol/L; Blood Urea Nitrogen 10 mg/dL (7-17); Calcium 9.3 mg/dL (8.4-10.2); Carbon Dioxide 26 mmol/L (22-30); Chloride 103 mmol/L (98-107); Glucose 104 mg/dL (74-99); Non-African American GFR(CKD) >90 (>60 ml/min/1.73 sqM); Potassium 4.4 mmol/L (3.5-5.1); Sodium 136 mmol/L (137-145); Total Bilirubin 0.4 mg/dL (0.2-1.3); Total Protein 7.4 g/dL (6.3-8.2)
[2020-12-22] MEDS: LORazepam 1 MG TAB PO PRN (14:19)
[2020-12-22 17:04] LABS: Chol/HDL Ratio 3.78; Cholesterol 189 mg/dL (0-200); LDL Cholesterol,Calculated 125.4 mg/dL (0.0-131.0)
[2020-12-22 19:46] LABS: Hemoglobin A1C 5.7 % (4.0-6.0)
[2020-12-22] MEDS: ASENAPINE 5 MG TAB SUBLINGUAL SCH (21:29)
--- NOTE | 2020-12-22 22:45 | P.CONS ---
History of Present Illness - History of Present Illness This is a pleasant 35 years old -Citizen Of [place] female with past medical hi story of schizophrenia. Was admitted to the mental health unit for the same with acute psychosis. Medical consult has been requested for routine medical management. Patient denies any physical complaints, no chest pain or dyspnea. No change in urine or bowel habits. No fever. She denies smoking, alcohol or illicit tracts Prognosis test in the jejunum was negative. Labs are unremarkable except for mild leukocytosis with no evidence of infection. Sodium 136. Patient is hemodynamically stable Review of Systems CONSTITUTIONAL: No fever, no malaise, no fatigue. HEENT: No recent visual problems or hearing problems. Denied any sore throat. CARDIOVASCULAR: No orthopnea, PND, no palpitations, no syncope. PULMONARY: No shortness of breath, no cough, no hemoptysis. GASTROINTESTINAL: No diarrhea, no nausea, no vomiting, no abdominal pain. Normoactive bowel sounds. NEUROLOGICAL: No headaches, no weakness, no numbness. HEMATOLOGICAL: Denies any bleeding or petechiae. GENITOURINARY: Denies any burning micturition, frequency, or urgency. MUSCULOSKELETAL/RHEUMATOLOGICAL: Denies any joint pain, swelling, or any muscle pain. ENDOCRINE: Denies any polyuria or polydipsia. Past Medical History Additional Past Medical History / Comment(s): depression, History of Any Multi-Drug Resistant Organisms: None Reported Past Surgical History: No Surgical Hx Reported Smoking Status: Never smoker Medications and Allergies Home Medications Medication Instructions Recorded Confirmed Type Benztropine Mesylate [Cogentin] 0.5 mg PO BID 30 Days #60 tab 08/06/18 12/22/20 Rx Paliperidone [Invega] 6 mg PO 2100 30 Days #30 tab.er.24 08/06/18 12/22/20 Rx Triamterene-Hctz 37.5-25Mg 1 tab PO DAILY 30 Days #30 tab 08/06/18 12/22/20 Rx [Maxzide 37.5-25] lamoTRIgine [LaMICtal] 200 mg PO BID 30 Days #120 tab 08/06/18 12/22/20 Rx Allergies Allergy/AdvReac Type Severity Reaction Status Date / Time aripiprazole [From Abilify] Allergy Dyspnea Verified 12/22/20 06:38 ziprasidone HCl [From Geodon] Allergy Dyspnea Verified 12/22/20 06:38 ziprasidone mesylate Allergy Dyspnea Verified 12/22/20 06:38 [From [facility]] Physical Exam Vitals: Vital Signs Temp Pulse Pulse Resp BP BP Pulse Ox 12/22/20 06:41 98.4 F 83 17 102/72 98 12/22/20 06:00 88 18 128/78 96 12/22/20 00:33 75 18 112/74 95 12/21/20 22:30 98.9 F 101 H 20 130/88 98 Intake and Output 12/21/20 12/22/20 12/22/20 22:59 06:59 14:59 Other: Weight 140.614 kg 139.735 kg -GENERAL: The patient is alert and oriented x3, not in any acute distress. Morbidly obese HEENT: Pupils are round and equally reacting to light. EOMI. No scleral icterus. No conjunctival pallor. Normocephalic, atraumatic. No pharyngeal erythema. No thyromegaly. CARDIOVASCULAR: S1 and S2 present. No murmurs, rubs, or gallops. PULMONARY: Chest is clear to auscultation, no wheezing or crackles. ABDOMEN: Soft, nontender, nondistended, normoactive bowel sounds. No palpable organomegaly. MUSCULOSKELETAL: No joint swelling or deformity. EXTREMITIES: No cyanosis, clubbing, or pedal edema. NEUROLOGICAL: Gross neurological examination did not reveal any focal deficits. SKIN: No rashes. No petechiae Results CBC & Chem 7: 12/22/20 11:52 12/22/20 11:52 Assessment and Plan Assessment: Schizophrenia and other psychiatric illnesses, management as per psych primary team -Morbid obesity We recommend patient follow up with her PCP within one week after discharge, she was instructed with the same Thank you for consulting us, free to contact us for any further question or clarification. We will see the patient on an as needed basis
[2020-12-23] MEDS: ASENAPINE 5 MG TAB SUBLINGUAL SCH ×2 (09:34→21:38)
--- NOTE | 2020-12-23 11:39 | P.PN ---
Progress Note - Text Progress Note Date: 12/23/20 Interval History: Patient was seen wandering the hallways and was directable and agreeable to speak with underwriter mortgage loan in the office. Patient reports that she is feeling slightly better. She is currently requesting that she be discharged. The patient does admit that she has been experiencing auditory hallucinations that have been commanding in nature. She reports that she had thoughts of killing herself because she believes "that would save others." She acknowledges that this thought has bizarre today. She has been adherent with her medications and is not reporting any significant side effects at this time. The patient is not reporting any issues with sleep or appetite. She does remain primarily isolate herself and did not attend groups this morning. She is currently not reporting any suicidal or homicidal ideation, intention, and/or plan. She is not reporting any paranoia but does express some yarsani preoccupation and religiously themed delusions. Mental Status Exam: General Appearance: Patient appears to be stated age is alert, directable, and cooperative. Obese body habitus. Dressed in hospital gown with good hygiene and grooming. Behavior: Patient is calmly seated without any agitated behavior. Psychomotor activity appears slightly slowed. Eye contact is appropriate. Speech: Patient's speech is fluent and nonpressured. Monotone, nonspontaneous. Mood/Affect: Mood is "feeling better." Affect is blunted. Suicidality/Homicidality: The patient is currently denying any suicidal or homicidal ideation, intention, intention or plan. Perceptions: Patient denies any visual hallucinations but does endorse auditory hallucinations. Though content/process: The patient endorses some religiously themed delusional thought content. Thought process has some thought blocking evident. Memory and concentration: AOX3, grossly intact for the purposes of this session Judgment and insight: Improving mildly Assessment Schizophrenia Plan: -Patient continues to meet criteria for inpatient psychiatric admission for symptom stabilization and safety. The patient has been petitioned and certified. -Medications: The patient received Invega Sustenna 234 mg IM on 12/20/19 which she receives [id number]. Continue Saphris 5 mg by mouth twice a day for psychosis Start Topamax 50 mg by mouth at bedtime for augmentation of her antidepressant with additional benefit of weight loss. -When necessary Ativan and Haldol for agitation/aggression. -SW on board for discharge planning. Encouraged the patient to participate in milieu.
[2020-12-23] MEDS ORDERED: ASENAPINE 5 MG TAB SUBLINGUAL SCH (21:00)
[2020-12-23] MEDS ORDERED: TOPIRAMATE 25 MG TAB PO SCH (21:00)
[2020-12-24] MEDS ORDERED: ASENAPINE 5 MG TAB SUBLINGUAL SCH (09:00)
[2020-12-24] MEDS: ASENAPINE 5 MG TAB SUBLINGUAL SCH ×2 (09:11→22:24)
--- NOTE | 2020-12-24 10:21 | P.PN ---
Progress Note - Text Progress Note Date: 12/24/20 Interval History: Patient was seen wandering the hallways and was directable and agreeable to speak with the public relations writer in her room. The patient reports that she is feeling okay. She continues to fixate on the idea of making friends and will be her friend on the unit. She does participate in milieu and group activities. In between activities, the patient does remain isolative to herself in her room. She is currently not reporting any suicidal or homicidal ideation, intention, and/or plan. She is not reporting any auditory or visual hallucinations today. She does continue to feel like there is an idea of sacrificing her life for the sake of others present. Despite this, the patient vehemently denies that she will harm herself. She has been adherent with her medications and is not reporting any significant side effects at this time. The patient is not reporting any issues with sleep or appetite. Mental Status Exam: General Appearance: Patient appears to be stated age is alert, directable, and cooperative. Obese body habitus. Dressed in Her home close with good hygiene and grooming. Behavior: Patient is calmly seated without any agitated behavior. Psychomotor activity appears slightly slowed. Eye contact is appropriate. Speech: Patient's speech is fluent and nonpressured. Monotone, nonspontaneous. Mood/Affect: Mood is "I'm feeling okay." Affect is blunted. Suicidality/Homicidality: The patient is currently denying any suicidal or homicidal ideation, intention, intention or plan. Perceptions: Patient denies any visual hallucinations but does endorse auditory hallucinations. Though content/process: The patient endorses some religiously themed delusional thought content. Thought process has some thought blocking evident. The patient is also fixated on making friends. Memory and concentration: AOX3, grossly intact for the purposes of this session Judgment and insight: Improving mildly Vital Signs Temp 98.4 F 12/22/20 06:41 Pulse 83 12/22/20 06:41 Resp 17 12/22/20 06:41 BP 102/72 12/22/20 06:41 Pulse Ox 98 12/22/20 06:41 Assessment Schizophrenia Plan: -Patient continues to meet criteria for inpatient psychiatric admission for symptom stabilization and safety. The patient has been petitioned and certified.The patient is scheduled for her referral meeting on 12/25/20. -Medications: The patient received Invega Sustenna 234 mg IM on 12/20/19 which she receives [id number]. Continue Saphris 5 mg by mouth twice a day for psychosis Increase Topamax to 75 mg by mouth at bedtime for augmentation of her antipsychotic with additional benefit of weight loss. -When necessary Ativan and Haldol for agitation/aggression. -SW on board for discharge planning. Encouraged the patient to participate in milieu.
[2020-12-24] MEDS ORDERED: TOPIRAMATE 25 MG TAB PO SCH (21:00)
--- NOTE | 2020-12-25 11:10 | P.PN ---
Progress Note - Text Progress Note Date: 12/25/20 Interval History: Patient was seen wandering the hallways and was directable and agreeable to speak with the resume writer in the office. The patient is currently not reporting any suicidal or homicidal ideation, intention, and/or plan. She is not reporting any auditory or visual hallucinations.Patient does endorse significant paranoia. She states that she feels like others are trying to get in the way of her happiness. When asked to define this, the patient is unable to provide any clear and coherent response. The patient was noted to be agitated by staff last night after being told she could not use the phone. She reported was hitting glass by the nursing station and required Haldol and ativan to calm down. The patient is adherent with her medications. She reports no significant side effect at this time. She prefers to take her saphris at bedtime due to concern for sedation. She would like to restart effexor for depression. Mental Status Exam: General Appearance: Patient appears to be stated age is alert, directable, and cooperative. Obese body habitus. Dressed in her home clothes. Behavior: Patient is calmly seated without any agitated behavior. Psychomotor activity Normal today. Eye contact is appropriate. Speech: Patient's speech is fluent and nonpressured. Monotone, nonspontaneous. Mood/Affect: Mood is "I'm good." Affect is Constricted, and overall has a better range. Euthymic. Suicidality/Homicidality: The patient is currently denying any suicidal or homicidal ideation, intention, intention or plan. Perceptions: Patient denies any visual hallucinations but does endorse auditory hallucinations. Though content/process: The patient endorses some paranoid delusions. Thought process is otherwise linear and logical in short conversation. Memory and concentration: AOX3, grossly intact for the purposes of this session Judgment and insight: Improving mildly Vital Signs Temp 98.4 F 12/22/20 06:41 Pulse 83 12/22/20 06:41 Resp 17 12/22/20 06:41 BP 102/72 12/22/20 06:41 Pulse Ox 98 12/22/20 06:41 Assessment Schizophrenia Plan: -Patient continues to meet criteria for inpatient psychiatric admission for symptom stabilization and safety. The patient has been petitioned and c ertified.The patient is scheduled for her referral meeting on 12/25/20. -Medications: The patient received Invega Sustenna 234 mg IM on 12/20/19 which she receives [id number]. Continue Saphris 10 mg by mouth at bedtime for psychosis Increase Topamax to 100 mg by mouth at bedtime for augmentation of her antipsychotic with additional benefit of weight loss. Start Effexor XR 37.5 mg qAM for depression/anxiety -When necessary Ativan and Haldol for agitation/aggression. -SW on board for discharge planning. Encouraged the patient to participate in milieu.
[2020-12-25] MEDS: ASENAPINE 5 MG TAB SUBLINGUAL SCH (11:44)
[2020-12-25] MEDS ORDERED: TOPIRAMATE 100 MG TAB PO SCH (21:00)
[2020-12-25] MEDS ORDERED: ASENAPINE 5 MG TAB SUBLINGUAL SCH (21:00)
[2020-12-26] MEDS: LORazepam 1 MG TAB PO PRN
[2020-12-26 07:13] VITALS: RESP 18; TEMP 97.2
[2020-12-26] MEDS ORDERED: VENLAFAXINE HCL ER 37.5 MG CAP PO SCH (09:00)
--- NOTE | 2020-12-26 11:13 | P.DS ---
Providers Date of admission: 12/22/20 06:16 Expected date of discharge: 12/26/20 Attending physician: Grady Persaud MD Consults: 12/22/20 06:29 Consult Physician Routine Consulting Provider: Kate Bolton Consult Reason/Comments: For H & P for Medical Follow Up Do you want consulting provider notified?: Yes, Notify in am Primary care physician: Seth Reyes - Discharge Diagnosis(es) (1) Schizoaffective disorder, bipolar type Current Visit: Yes Status: Acute Priority: High Hospital Course: Admission HPI: Initial psychiatric evaluation was completed by Dr. Hooks on 12/22/20 who wrote: "Patient stated she was seeing things that were not there so was brought to the hospital. History of present illness: This 35-year-old female patient has a history of schizophrenia. She was talking to herself and was getting messages on line. She was having visual hallucinations. She is very preoccupied and is talking to herself. She thinks she is going to wake up in another body. She has loose associations and went on to say that she thinks it has to do something with God to help somebody. She denies any auditory hallucinations. She stated she has been having problems for last few weeks. Past history: She has been in psychiatric hospital 2-3 times in the past at this hospital. She was in a psychiatric hospital in [place] as well. She was seeing an outpatient therapist at [facility] through video conference. Family history: She stated she lives with her mother and father, sister and nephew. She stated her mother used to have a bipolar illness. She stated one of her stepbrothers committed suicide successfully. She stated one of her uncles have a history of alcoholism. Medical history: She is morbidly obese she denied being and denied having any other medical problems. Social history: She stated she grew up with her mother and father. She finished her high school and also has associated degree in criminal justice. 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 Medication history: She stated she was on Effexor , Saphris and Invega. She stated that the Saphris seemed to have worked better for her. Substance abuse history: She denies any problems with alcohol or drugs now or in the past. Suicide or homicide thoughts: He stated she had suicidal thoughts before she came to Hospital. She stated she thought she has to hurt herself or kill herself or someone else to save the world. History of psychological trauma: She denies any history of emotional, physical and sexual abuse. Legal history: She denies any involvement with the police." Hospital course: Upon admission to the unit patient was initially presenting with a flat and withdrawn affect. She was also endorsing significant psychotic symptoms of visual hallucinations, paranoid delusions, samaritan preoccupation. Patient was however directable and agreeable to commence treatment. The patient last received Invega Sustenna 234 mg IM on 12/19/2020 shortly prior to this admission. The patient was continued on her home medication of Saphris. Topamax was added to her regimen to augment her antipsychotic along with the added benefit of weight loss. Patient got along well with other patients on the unit and followed unit protocol. Patient was compliant with the medications and denied any side effects throughout hospital course. Patient spoke of her stressors and engaged in therapy both group and individual. Patient was also seen by medical team for history and physical exam. Throughout the course of the hospitalization patient gradually improved with regards to psychotic symptoms, mood, sleep and became future oriented with improved insight and judgment. The patient was adherent to medications and reported no significant side effects. The patient also displayed a significant improvement in her range of affect. On the day of discharge patient denied any suicidal or homicidal ideations intent or plan denied any auditory or visual hallucinations. Patient endorsed wanting to live for her health and family The patient denied any access to guns or weapons. Patient denied any paranoia and did not endorse any delusions. Patient does not have a significant history of substance abuse however was counseled on abstaining from all substances including alcohol and marijuana. Patient was also counseled on the medications and need for regular compliance and was encouraged to follow-up with their outpatient appointment for mental health and also for primary care. Prior to discharge a family meeting will be arranged by psychotherapist social worker to answer any questions and ensure safety upon discha rge. Mental status exam: General Appearance: Patient appears to be stated age is alert, pleasant, and cooperative. Patient is in no acute distress and has fair hygiene and grooming. Obese body habitus. Dressed in her home clothes. Behavior: Patient is calmly seated without any agitated behavior. Normal psychomotor activity. Appropriate eye contact. Speech: Patient's speech is fluent and nonpressured. Monotone, and typically monosyllabic. Mood/Affect: Patient reports their mood is "ready to go home", affect is congruent and blunted in range at baseline. Suicidality/Homicidality: The patient denies any suicidal or homicidal ideation, intention, and/or plan. Perceptions: Patient denies any auditory or visual hallucinations. Though content/process: There is no evidence of any delusional thought content and thought process is linear and goal-directed. The patient is future oriented. Memory and concentration: AOX3, grossly intact for the purposes of this session. Can spell "WORLD" backwards correctly. Judgment and insight: Improved with guarded prognosis Impression: Schizoaffective disorder, bipolar type Plan: -Continue with discharge today as patient has improved and stabilized psychiatrically and is not currently an imminent threat to herself and/or others. Patient will remain at chronically elevated risk for harm to self and/or others due to her severity of mental illness. -Continue medications: Continue Invega Sustenna 234 mg IM every 28 days. Last dose received on 12/19/2020. Continue Saphris 10 mg by mouth at bedtime for psychosis Continue Topamax 100 mg by mouth at bedtime for augmentation of her antipsychotic with the additional benefit of weight loss. -Patient was counseled on the need for medication compliance and appropriate follow-up at mental health and also primary care for medical issues. Patient verbalized understanding and agreed. -Social work to arrange for and conduct family meeting to ensure safety upon discharge and answer any questions/concerns. Social work also to arrange for patients follow up appointments with [facility] for psychiatric care along with follow up with primary care provider. -Patient counseled on abstaining from recreational drugs and marijuana and alcohol. Was informed/educated on the adverse effects on their physical and mental health. Patient verbally agreed and understood. -Patient was instructed to return to the hospital or seek immediate medical care if their psychiatric or medical symptoms do worsen or reoccur. -Psychoeducation and supportive therapy provided to patient. Risks and benefits of pharmacological treatment versus the risks and benefits of nontreatment weight and discussed. Informed consent discussion held. Common side effects of psychotropics discussed such as, but not limited to headache, GI disturbance, sexual dysfunction, movement disorders, sedation, and orthostatic hypotension. Life threatening and blackbox warnings of prescribed medications also discussed. Potential risks of operating a vehicle or heavy machinery discussed with patient at length. Advised on importance of compliance and a reliable and responsible manner. Patient advised to review FDA consumer labeling of all medications prior to taking. Patient verbalized understanding of potential risks, and agrees with current treatment plan. Patient advised to medically contact physician/emergency personnel if any acute changes in condition occur. Laboratory Results WBC 11.8 k/uL (3.8-10.6) H 12/22/20 11:52 RBC 4.63 m/uL (3.80-5.40) 12/22/20 11:52 Hgb 11.7 gm/dL (11.4-16.0) 12/22/20 11:52 Hct 38.7 % (34.0-46.0) 12/22/20 11:52 MCV 83.5 fL (80.0-100.0) 12/22/20 11:52 MCH 25.3 pg (25.0-35.0) 12/22/20 11:52 MCHC 30.2 g/dL (31.0-37.0) L 12/22/20 11:52 RDW 16.2 % (11.5-15.5) H 12/22/20 11:52 Plt Count 364 k/uL (150-450) 12/22/20 11:52 MPV 6.9 12/22/20 11:52 Neutrophils % 72 % 12/22/20 11:52 Lymphocytes % 20 % 12/22/20 11:52 Monocytes % 4 % 12/22/20 11:52 Eosinophils % 2 % 12/22/20 11:52 Basophils % 0 % 12/22/20 11:52 Neutrophils # 8.6 k/uL (1.3-7.7) H 12/22/20 11:52 Lymphocytes # 2.4 k/uL (1.0-4.8) 12/22/20 11:52 Monocytes # 0.4 k/uL (0-1.0) 12/22/20 11:52 Eosinophils # 0.2 k/uL (0-0.7) 12/22/20 11:52 Basophils # 0.1 k/uL (0-0.2) 12/22/20 11:52 Hypochromasia Slight 12/22/20 11:52 Anisocytosis Slight 12/22/20 11:52 Sodium 136 mmol/L (137-145) L 12/22/20 11:52 Potassium 4.4 mmol/L (3.5-5.1) 12/22/20 11:52 Chloride 103 mmol/L (98-107) 12/22/20 11:52 Carbon Dioxide 26 mmol/L (22-30) 12/22/20 11:52 Anion Gap 7 mmol/L 12/22/20 11:52 BUN 10 mg/dL (7-17) 12/22/20 11:52 Creatinine 0.82 mg/dL (0.52-1.04) 12/22/20 11:52 Est GFR (CKD-EPI)AfAm >90 (>60 ml/min/1.73 sqM) 12/22/20 11:52 Est GFR (CKD-EPI)NonAf >90 (>60 ml/min/1.73 sqM) 12/22/20 11:52 Glucose 104 mg/dL (74-99) H 12/22/20 11:[address] Glu mg/dL 117 12/22/20 11:52 Hemoglobin A1c 5.7 % (4.0-6.0) 12/22/20 11:52 Calcium 9.3 mg/dL (8.4-10.2) 12/22/20 11:52 Total Bilirubin 0.4 mg/dL (0.2-1.3) 12/22/20 11:52 AST 22 U/L (14-36) 12/22/20 11:52 ALT 11 U/L (4-34) 12/22/20 11:52 Alkaline Phosphatase 75 U/L (38-126) 12/22/20 11:52 Total Protein 7.4 g/dL (6.3-8.2) 12/22/20 11:52 Albumin 4.0 g/dL (3.5-5.0) 12/22/20 11:52 Triglycerides 68.0 mg/dL (0.0-149.0) 12/22/20 11:52 Cholesterol 189 mg/dL (0-200) 12/22/20 11:52 LDL Cholesterol, Calc 125.4 mg/dL (0.0-131.0) 12/22/20 11:52 VLDL Cholesterol, Calc 13.60 mg/dL (5.00-40.00) 12/22/20 11:52 HDL Cholesterol 50.0 mg/dL (40.0-60.0) 12/22/20 11:52 Cholesterol/HDL Ratio 3.78 12/22/20 11:52 TSH 1.390 mIU/L (0.465-4.680) 12/22/20 11:52 HCG, Qual Not Detected 12/22/20 11:52 Urine HCG, Qual Not Detected (Not Detectd) 12/22/20 05:29 Urine Opiates Screen Not Detected (NotDetected) 12/22/20 05:29 Ur Oxycodone Screen Not Detected (NotDetected) 12/22/20 05:29 Urine Methadone Screen Not Detected (NotDetected) 12/22/20 05:29 Ur Propoxyphene Screen Not Detected (NotDetected) 12/22/20 05:29 Ur Barbiturates Screen Not Detected (NotDetected) 12/22/20 05:29 U Tricyclic Antidepress Not Detected (NotDetected) 12/22/20 05:29 Ur Phencyclidine Scrn Not Detected (NotDetected) 12/22/20 05:29 Ur Amphetamines Screen Not Detected (NotDetected) 12/22/20 05:29 U Methamphetamines Scrn Not Detected (NotDetected) 12/22/20 05:29 U Benzodiazepines Scrn Not Detected (NotDetected) 12/22/20 05:29 Urine Cocaine Screen Not Detected (NotDetected) 12/22/20 05:29 U Marijuana (THC) Screen Not Detected (NotDetected) 12/22/20 05:29 Coronavirus (PCR) Not Detected (Not Detectd) 12/22/20 04:25 Vital Signs Temp 97.2 F L 12/26/20 07:13 Pulse 83 12/22/20 06:41 Resp 18 12/26/20 07:13 BP 102/72 12/22/20 06:41 Pulse Ox 98 12/22/20 06:41 Allergies Allergy/AdvReac Type Severity Reaction Status Date / Time aripiprazole [From Abilify] Allergy Dyspnea Verified 12/22/20 06:38 ziprasidone HCl [From Geodon] Allergy Dyspnea Verified 12/22/20 06:38 ziprasidone mesylate Allergy Dyspnea Verified 12/22/20 06:38 [From Geodon] Patient Condition at Discharge: Stable Plan - Discharge Summary New Discharge Prescriptions: New Venlafaxine HCl ER [Effexor XR] 75 mg PO DAILY 30 Days cap.er.24h Topiramate [Topamax] 100 mg PO HS 30 Days tab Asenapine [Saphris] 10 mg SUBLINGUAL HS 30 Days tab Continue Triamterene-Hctz 37.5-25Mg [Maxzide 37.5-25] 1 tab PO DAILY 30 Days #30 tab Discontinued Benztropine Mesylate [Cogentin] 0.5 mg PO BID 30 Days #60 tab lamoTRIgine [LaMICtal] 200 mg PO BID 30 Days #120 tab Paliperidone [Invega] 6 mg PO 2100 30 Days #30 tab.er.24 Discharge Medication List Triamterene-Hctz 37.5-25Mg [Maxzide 37.5-25] 1 tab PO DAILY 30 Days #30 tab 08/06/18 [Rx] Asenapine [Saphris] 10 mg SUBLINGUAL HS 30 Days tab 12/26/20 [Rx] Topiramate [Topamax] 100 mg PO HS 30 Days tab 12/26/20 [Rx] Venlafaxine HCl ER [Effexor XR] 75 mg PO DAILY 30 Days cap.er.24h 12/26/20 [Rx] Follow up Appointment(s)/Referral(s): Amy Ann MD [Primary Care Provider] - 1-2 days Activity/Diet/Wound Care/Special Instructions: Activity and diet as tolerated. Avoid the use of street drugs and alcohol. Take all medications as prescribed. When you are in need of refills on your med ications please contact your medical provider and/or outpatient psychiatrist to have this done. Please go to scheduled outpatient appointment for aftercare treatment. If symptoms return or become worse, call the crisis line at and/or go to the nearest emergency room for evaluation. Discharge Disposition: HOME SELF-CARE
[2020-12-27] MEDS ORDERED: VENLAFAXINE HCL ER 75 MG CAP PO SCH (09:00)
== END 2020-12-26 13:25 | disposition home or self-care (01) | DRG 885 ==
LOC: EEVIPCON 21:55 → EC 21:55 → 3MHU 12-22 06:16
PROVIDERS: ADMIT Psychiatry & Neurology Psychiatry; ATTEND Psychiatry & Neurology Psychiatry
DX: F25.0 Schizoaffective disorder, bipolar type (principal); R45.851 Suicidal ideations; Z68.42 Body mass index [BMI] 45.0-49.9, adult; D72.829 Elevated white blood cell count, unspecified; E66.01 Morbid (severe) obesity due to excess calories; Z79.899 Other long term (current) drug therapy; R44.1 Visual hallucinations; Z20.822 Contact with and (suspected) exposure to COVID-19
CPT/HCPCS: 80053; 80061; 80306; 81025; 82075; 83036; 84443; 84703; 85025; 87635; 99285

== ENCOUNTER 2022-09-29 01:31 | Inpatient (IN) | payer MEDICAID, OTHER ==
--- NOTE | 2022-09-29 02:45 | ED ---
General Adult HPI - General Source: patient, police Mode of arrival: ambulatory <Gio Goodrich - Last Filed: 09/29/22 06:18> <Regino Garcia - Last Filed: 09/29/22 14:08> - General Chief complaint: Psychiatric Symptoms Stated complaint: Pick-up Order Time Seen by Provider: 09/29/22 01:34 - History of Present Illness Initial comments: This is a 37-year-old female who presents emergency department with police for a court ordered mental health evaluation. The patient reportedly was pulled over by police and the determined that the patient had a court order so they brought her into the emergency department. The patient had a court order for aggression and paranoia from her public guardian. The patient on arrival did not want to speak to me and refused to answer any further questions. The patient was however able to answer questions with the nurses and she was not in any pain or acute distress. The patient denied suicidal or homicidal ideation to the nurse. (Gio Goodrich) - Related Data Home Medications Medication Instructions Recorded Confirmed No Known Home Medications 09/29/22 09/29/22 Allergies Allergy/AdvReac Type Severity Reaction Status Date / Time aripiprazole [From Abilify] Allergy Dyspnea Verified 09/29/22 11:29 ziprasidone HCl [From Geodon] Allergy Dyspnea Verified 09/29/22 11:29 ziprasidone mesylate Allergy Dyspnea Verified 09/29/22 11:29 [From Geodon] Review of Systems ROS Other: All systems not noted in ROS Statement are negative. <Gio Goodrich - Last Filed: 09/29/22 06:18> ROS Other: All systems not noted in ROS Statement are negative. <Regino Garcia - Last Filed: 09/29/22 14:08> ROS Statement: Those systems with pertinent positive or pertinent negative responses have been documented in the HPI. Past Medical History Additional Past Medical History / Comment(s): depression History of Any Multi-Drug Resistant Organisms: None Reported Past Surgical History: No Surgical Hx Reported Past Psychological History: Anxiety, Depression, Schizophrenia Smoking Status: Never smoker Past Alcohol Use History: None Reported Past Drug Use History: None Reported <Gio Goodrich - Last Filed: 09/29/22 06:18> General Exam Limitations: no limitations General appearance: alert, in no apparent distress, obese Head exam: Present: atraumatic, normocephalic, normal inspection Eye exam: Present: normal appearance, PERRL Pupils: Present: normal accommodation ENT exam: Present: normal exam, normal oropharynx, mucous membranes moist Neck exam: Present: normal inspection, full ROM Respiratory exam: Present: normal lung sounds bilaterally Cardiovascular Exam: Present: regular rate, normal rhythm, normal heart sounds GI/Abdominal exam: Present: soft, normal bowel sounds Extremities exam: Present: normal inspection, full ROM Back exam: Present: normal inspection, full ROM Neurological exam: Present: alert, oriented X3, CN II-XII intact Psychiatric exam: Present: other (Withdrawn, refusing to answer any my questions) Skin exam: Present: warm, dry <Gio Goodrich - Last Filed: 09/29/22 06:18> Course Vital Signs 09/29/22 09/29/22 01:45 05:05 Temperature 98 F Pulse Rate 100 92 Respiratory 18 16 Rate Blood Pressure 148/90 139/78 O2 Sat by Pulse 95 94 L Oximetry Medical Decision Making <Gio Goodrich - Last Filed: 09/29/22 06:18> <Regino Garcia - Last Filed: 09/29/22 14:08> - Medical Decision Making Was pt. sent in by a medical professional or institution (, PA, [employer], urgent care, hospital, or half-way...) When possible be specific @ -No Did you speak to anyone other than the patient for history (EMS, parent, family, police, friend...)? What history was obtained from this source @ -Yes, Police Did you review nursing and triage notes (agree or disagree)? Why? @ -I reviewed and agree with nursing and triage notes Were old charts reviewed (outside hosp., previous admission, EMS record, old EKG, old radiological studies, urgent care reports/EKG's, half-way records)? Report findings @ -No old charts were reviewed Differential Diagnosis (chest pain, altered mental status, abdominal pain women, abdominal pain men, vaginal bleeding, weakness, fever, dyspnea, syncope, headache, dizziness, GI bleed, back pain, seizure, CVA, palpatations, mental health)? @ -Acute psychosis, paranoia, homicidal ideations EKG interpreted by me (3pts min.). @ -None X-rays interpreted by me (1pt min.). @ -None done CT interpreted by me (1pt min.). @ -None done U/S interpreted by me (1pt. min.). @ -None done What testing was considered but not performed or refused? (CT, X-rays, U/S, labs)? Why? @ -None What meds were considered but not given or refused? Why? @ -None Did you discuss the management of the patient with other professionals (professionals i.e. DrJennifer, PA, [employer], lab, RT, psych nurse, oncology social worker, real property evaluator, teacher, radiation officer, hospitality services manager)? Give summary @ -EPS nurse to evaluate Was smoking cessation discussed for >3mins.? @ -No Was critical care preformed (if so, how long)? @ -No Were there social determinants of health that impacted care today? How? (Homelessness, low income, unemployed, alcoholism, drug addiction, transportation, low edu. Level, literacy, decrease access to med. care, senior care, rehab)? @ -Patient is a public guardian Was there de-escalation of care discussed even if they declined (Discuss DNR or withdrawal of care, Hospice)? DNR status @ -No What co-morbidities impacted this encounter? (DM, HTN, Smoking, COPD, CAD, Cancer, CVA, ARF, Chemo, Hep., AIDS, mental health diagnosis, sleep apnea, morbid obesity)? @ -None Was patient admitted / discharged? Hospital course, mention meds given and route, prescriptions, significant lab abnormalities, going to OR and other pertinent info. @ -The patient was seen and evaluated in emergency department. Initially on arrival, the patient was not in any acute distress and was resting in bed comfortably. The patient refused to answer any my questions however the patient had a court order for mental health evaluation. The patient was brought in by police. The patient was medically cleared and stable for EPS to evaluate the patient. The patient was seen and evaluated by EPS at the bedside however there was no disposition noted at this time as potential made to contact the public guardian. The patient will be signed out to Dr. Vergara pending EPS contact with the public guardian for further disposition and management. Undiagnosed new problem with uncertain prognosis? @ -No Drug Therapy requiring intensive monitoring for toxicity (Heparin, Nitro, Insulin, Cardizem)? @ -No Were any procedures done? @ -No Diagnosis/symptom? @ -Mental health evaluation, court ordered Acute, or Chronic, or Acute on Chronic? @ -Acute Uncomplicated (without systemic symptoms) or Complicated (systemic symptoms)? @ -Uncomplicated Side effects of treatment? @ -No Exacerbation, Progression, or Severe Exacerbation? @ -No Poses a threat to life or bodily function? How? (Chest pain, USA, SD, pneumonia, PE, COPD, DKA, ARF, appy, cholecystitis, CVA, Diverticulitis, Homicidal, Suicidal, threat to staff... and all critical care pts) @ -No (Gio Goodrich) Patient seen by mental health services with plans for admission. I did discuss case with mental health nurse. Patient was reevaluated. Patient is refusing to answer questions about why she is here or problems. Petition reviewed. Positive clinical certificate completed. Patient will be admitted for psychiatric care. (Regino Garcia) Disposition <Gio Goodrich - Last Filed: 09/29/22 06:18> Is patient prescribed a controlled substance at d/c from ED?: No Time of Disposition: 14:08 <Regino Garcia - Last Filed: 09/29/22 14:08> Clinical Impression: Acute psychosis Disposition: TRANSFER TO PSYCH HOSP/UNIT Referrals: Amy Ann MD [Primary Care Provider] - 1-2 days
[2022-09-29] MEDS ORDERED: MAGNESIUM HYDROXIDE 2,400 MG/10 ML CUP PO PRN (15:59)
[2022-09-29] MEDS ORDERED: MAG HYDROX/AL HYDROX/SIMETH 30 ML CUP PO PRN (15:59)
[2022-09-29] MEDS ORDERED: ACETAMINOPHEN TAB 325 MG TAB PO PRN (15:59)
[2022-09-29] MEDS ORDERED: HALOPERIDOL LACTATE 5 MG/ML 1 ML VIAL IM PRN (15:59)
[2022-09-29] MEDS ORDERED: LORazepam 2 MG/ML INJ IM PRN (16:02)
[2022-09-29] MEDS ORDERED: haloperidoL 5 MG TAB PO PRN (16:02)
--- NOTE | 2022-09-30 14:27 | P.HP ---
Psychiatric H&P - . H&P Date: 09/30/22 History & Physical: Allergies Allergy/AdvReac Type Severity Reaction Status Date / Time aripiprazole [From Abilify] Allergy Dyspnea Verified 09/29/22 11:29 ziprasidone HCl [From Geodon] Allergy Dyspnea Verified 09/29/22 11:29 ziprasidone mesylate Allergy Dyspnea Verified 09/29/22 11:29 [From Geodon] Vital Signs Temp 98.7 F 09/30/22 06:45 Pulse 96 09/30/22 06:45 Resp 22 09/30/22 06:45 BP 129/90 09/30/22 06:45 Pulse Ox 96 09/30/22 06:45 FiO2 Intake & Output 09/29/22 09/30/22 09/30/22 18:59 06:59 18:59 Weight 154.312 kg Laboratory Last Values Coronavirus (PCR) Not Detected (Not Detectd) 09/29/22 10:16 09/30/22 14:00 IDENTIFYING DATA: Patient is a 37-year-old -Turkish female, currently lives alone in an apartment has a history of schizoaffective disorder HPI: Patient presented to the hospital [yesterday on a pickup order as patient was fairly paranoid, aggressive and irritable and had a petition completed by her guardian who states that "has no insight into mental illness". Patient also states that "she has been making poor dangerous choices and is unable to care for herself, displaying paranoid behaviors and thoughts". Patient also states that "on 09/28/22 Jenniffer was pulled over for driving at night without headlights. She was uncooperative and combative with police. Her car window had to be broken to remove her". Patient was admitted involuntarily to the mental health unit. She was agreeable to speech and language tutor in the office today. She was to spine significant paranoia toward marketing copywriter. She was also fairly ho stile and argumentative. She was focused on discharge and minimizing her need for hospitalization. She believes that she did not have a mental illness and does not need treatment. She claims that "I just want to be myself". She asked several times why she is in the hospital and ""I need to talk to take it out here". She claims that she does not want to take any medications. We spoke about the court process and patient did not seem to understand and continue to ask questions about the employment attorney. She asked marketing copywriter if this is "part of a higher up plan to keep me here". She seemed fairly evasive about what had occurred with the police and believes that "my rights were violated". She is denying any depression or anxiety at this time. She was illogical in her thought process and perseverating on her need for discharge]. she redirected several questions back to marketing copywriter about his oriental orthodox and also if he uses drugs or not". Patient denies any suicidal or homicidal ideations intent or plan. At this time patient denies any auditory or visual hallucinations. Patient's urine drug screen was negative and denies any other recreational drug use. She claims that her sleep and appetite are "fine". Patient has significantly poor insight and her judgment, poor frustration tolerance. PAST PSYCHIATRIC HISTORY: Patient states that she has no significant mental illness however as documented both diagnoses of schizophrenia and schizoaffective disorder. [Patient denies being on any psychiatric medications however used to be on Saphris and Invega Sustenna along with a mood stabilizer.] Patient was last psychiatrically hospitalized in December 2020. [Patient denies any psychiatric outpatient follow-up however used to follow-up at [facility].] [Patient denies any history of suicide attempts in the past.] Additional Past Medical History / Comment(s): depression History of Any Multi-Drug Resistant Organisms: None Reported Past Surgical History: No Surgical Hx Reported Past Psychological History: Anxiety, Depression, Schizophrenia Smoking Status: Never smoker Past Alcohol Use History: None Reported Past Drug Use History: None Reported ALLERGIES: as per EMR CHEMICAL DEPENDENCY HISTORY: as per HPI FAMILY PSYCHIATRIC/SUBSTANCE USE HISTORY: [denies] SOCIAL HISTORY: Patient was born and raised in [place]. She states that she completed high school and did college. She was fairly guarded about the rest of her social history and redirected questions back at marketing copywriter. She currently lives alone and has a public guardian]. MENTAL STATUS EXAM: General Appearance: Patient appears to be obese, short hair, stated age is alert, argumentative, hostile and paranoid/evasive. Patient appears to have [poor] hygiene and grooming. Behavior: Patient is seated without any agitated behavior. Paranoid. Evasive. Speech: Patient's speech is [fluent and nonpressured.] Irritable and confrontational. Mood/Affect: Patient reports their mood is ["okay"], affect is congruent Suicidality/Homicidality: Patient denies having any homicidal ideation intent or plan. [Denies any suicidal ideations intent or plan] Perceptions: Patient denies any visual hallucinations [and denies any auditory hallucinations] Though content/process: Patient has displaying significant paranoia, very poor insight and judgment. Illogical at times. Focused on discharge. Memory and concentration: AOX3, grossly intact for the purposes of this session. Judgment and insight: [poor] STRENGTHS/WEAKNESSES: strength is that patient is [resilient]. Weakness is that patient [has poor judgment and is impulsive] INTELLECT: [average] IMPRESSIONS: []Schizoaffective, bipolar type PLAN: -Patient is admitted under involuntary status to MHU for stabilization of psychiatric symptoms and safety. Patient has [not] signed [adult voluntary form and] [medication consent] and is placed in patient's chart. [A second certification was completed and along with petition will be filed for court.] -Medications : Will start patient on invega 3 mg bid for psychosis/mood stabilization, lithium 300 mg bid mood stabilization. -Ativan [and Haldol] and vistaril PRN for agitation/aggression -Patient was informed of the risks, benefits and side effects of the medication and patient verbally consented to taking the medications. Patient signed med consent form and was placed in chart. -Internal Medicine consult to perform medical evaluation and physical. -NRT - not needed as patient -SW on board for discharge planning. Encourage patient to participate in groups to work on coping skills. Will await deferral and court date.
--- NOTE | 2022-09-30 16:35 | P.MDCNMH ---
History of Present Illness H&P Date: 09/30/22 This is a 37-year-old female who presented to the emergency department with the police for court ordered a mental health evaluation. Per ER documentation the patient was pulled over by the police and was found to have a court order and patient was brought to the ER for further evaluation. Patient's court order was for aggression with paranoia from her public guardian and patient was admitted to [facility] for further psychiatric evaluation under involuntary status. Patient reports she follows with Dr. Ann with a past medical history of anxiety/depression with schizophrenia. Patient reports back in the day when she was younger she used drugs and drink alcohol although does not currently. Patient denies any tobacco use as well. On exam patient denies any chest pain or shortness of breath. Patient denies nausea or vomiting and reports to tolerating diet. Patient reports she has not been sleeping well and currently feels overwhelmed and not really up for talking much. Patient encouraged to attend group therapy sessions and follow-up with psychiatry and be compliant with medications. Discussed with the patient about following up outpatient with primary care provider once discharged. Review Of Systems: Constitutional: No fever, no chills, no night sweats. No weight change. No weakness, fatigue or lethargy. No daytime sleepiness. EENT: No headache. No blurred vision or double vision, no loss of vision. No loss of Hearing, no ringing in the ears, no dizziness. No nasal drainage or congestion. No epistaxis. No sore throat. Lungs: No shortness of breath, cough, no sputum production. No wheezing. Cardiovascular: No chest pain, no lower extremity edema. No palpitations. No paroxysmal nocturnal dyspnea. No orthopnea. No lightheadedness or dizziness. No syncopal episodes. Abdominal: No abdominal pain. No nausea, vomiting. No diarrhea. No constipation. No bloody or tarry stools.. No loss of appetite. Genitourinary: No dysuria, increased frequency, urgency. No urinary retention. Musculoskeletal: No myalgias. No muscle weakness, no gait dysfunction, no frequent falls. No back pain. No neck pain. Integumentary: No wounds, no lesions. No rash or pruritus. No unusual bruising. No change in hair or nails. Neurologic: No aphasia. No facial droop. No change in mentation. No head injury. No headache. No paralysis. No paresthesia. Psychiatric: Reports depression. Reports anxiety. No mood swings. Endocrine: No abnormal blood sugars. No weight change. No excessive sweating or thirst. No cold intolerance. PHYSICAL EXAMINATION: GENERAL: The patient is alert and oriented x4, Well developed, well nourished. Morbidly obese HEENT: Pupils are round and equally reacting to light. EOMI. no scleral icterus. No conjunctival pallor. Normocephalic, atraumatic. No pharyngeal erythema. No thyromegaly. CARDIOVASCULAR: S1 and S2 muffled PULMONARY: Breath sounds clear to auscultation with no wheezing or rhonchi noted. ABDOMEN: soft. Nontender on exam. obese. non-distended, normoactive bowel sounds. No palpable organomegaly. MUSCULOSKELETAL: No joint swelling or deformity. EXTREMITIES: No cyanosis, clubbing, or pedal edema. NEUROLOGICAL: Gross neurological examination did not reveal any focal deficits. SKIN: No rashes. Assessment: Depression Court ordered for aggression and paranoia by her public guardian Morbid obesity with BMI of 53.3 History of depression Full code Plan: Recommend to continue with current medications and management per psychiatric services. Patient was admitted involuntarily to the [facility] psychiatric unit on a court order for paranoia and aggression by her public guardian Would recommend basic labs and does have urinalysis along with hCG and drug screen ordered although pending Encourage the patient to increase activity and attend group therapy sessions and compliance of medications Patient will need follow-up with primary care provider in the outpatient setting Thank you kindly for this consultation. The impression and plan of care has been dictated by Paulina Cotton, nurse practitioner as directed. Dr. Gretta MD I have performed a history and examination and MDM of this patient, discussed the same with the dictator, and agree with the dictator's assessment and plan as written ,documented as a scribe. Based on total visit time, I have performed more than 50% of the visit. Any additional findings or plans will be noted. Past Medical History Additional Past Medical History / Comment(s): depression History of Any Multi-Drug Resistant Organisms: None Reported Past Surgical History: No Surgical Hx Reported Smoking Status: Never smoker Medications and Allergies Home Medications Medication Instructions Recorded Confirmed Type No Known Home Medications 09/29/22 09/29/22 History Allergies Allergy/AdvReac Type Severity Reaction Status Date / Time [facility] Allergy Dyspnea Verified 09/29/22 11:29 ziprasidone HCl [From Geodon] Allergy Dyspnea Verified 09/29/22 11:29 ziprasidone mesylate Allergy Dyspnea Verified 09/29/22 11:29 [From Geodon] Physical Exam Vitals: Vital Signs Temp Pulse Resp BP BP Pulse Ox 09/30/22 06:45 98.7 F 96 22 129/90 96 09/29/22 16:45 97.9 F 95 18 133/77 97 Intake and Output 09/29/22 09/30/22 09/30/22 22:59 06:59 14:59 Other: Weight 154.312 kg Cranial Nerve Examination - Cranial Nerves Cranial Nerve I- Olfactory: Intact Cranial Nerve II- Optic: Intact Cranial Nerve III- Oculomotor: Intact Cranial Nerve IV- Trochlear: Intact Cranial Nerve V- Trigeminal: Intact Cranial Nerve - Abducens: Intact Cranial Nerve VII- Facial: Intact Cranial Nerve VIII- Auditory: Intact Cranial Nerve IX- Glossopharyngeal: Intact Cranial Nerve X- Vagus: Intact Cranial Nerve XI- Accessory: Intact Cranial Nerve XII- Hypoglossal: Intact Assessment and Plan Time with Patient: Less than 30
[2022-09-30] MEDS: LITHIUM CARBONATE 300 MG CAP PO SCH (20:59)
[2022-09-30] MEDS: PALIPERIDONE 3 MG TAB.ER.24 PO SCH (21:00)
[2022-10-01] MEDS: PALIPERIDONE 3 MG TAB.ER.24 PO SCH ×3 (08:40→22:36)
[2022-10-01] MEDS: LITHIUM CARBONATE 300 MG CAP PO SCH ×3 (08:40→22:36)
--- NOTE | 2022-10-01 12:42 | P.PN ---
Progress Note - Text Progress Note Date: 10/01/22 Interval History: Patient was seen today laying in bed and was able to speak to scientific writer. She ini tially refused fairly hesitant and appeared to be sleeping. She began crying during the conversation when scientific writer asked about how she was feeling. She continues to be fairly guarded and evasive. Somewhat argumentative today with scientific writer and continues to be focused on court. She claims that she does not need medications and does not have mental illness. She has been refusing her medications since yesterday. She continues to focus on discharge. Has very poor insight and judgment. Claims that she slept fairly, has a fair appetite. At this time denying any auditory or visual hallucinations. Denying any suicidal or homicidal ideations intent or plan. Mental Status exam: General Appearance: Patient appears to be obese, short hair, stated age is alert, argumentative, paranoid/evasive. Patient appears to have [poor] hygiene and grooming. Behavior: Patient is laying in bed without any agitated behavior. Paranoid. Evasive. Speech: Patient's speech is [fluent and nonpressured.] Irritable and confrontational. Mood/Affect: Patient reports their mood is ["not good"], affect is congruent and tearful Suicidality/Homicidality: Patient denies having any homicidal ideation intent or plan. [Denies any suicidal ideations intent or plan] Perceptions: Patient denies any visual hallucinations [and denies any auditory hallucinations] Though content/process: Patient has displaying significant paranoia, very poor insight and judgment. Illogical at times. Focused on discharge. Memory and concentration: AOX3, grossly intact for the purposes of this session. Judgment and insight: [poor] IMPRESSIONS: Schizoaffective, bipolar type PLAN: -Patient is admitted under involuntary status to [facility]HU for stabilization of psychiatric symptoms and safety. -Medications : invega 3 mg bid for psychosis/mood stabilization, lithium 300 mg bid mood stabilization. patient has been refusing her medications -Ativan [and Haldol] and vistaril PRN for agitation/aggression -NRT - not needed as patient -SW on board for discharge planning. Encourage patient to participate in groups to work on coping skills. Will await deferral and court date.
[2022-10-02] MEDS: LITHIUM CARBONATE 300 MG CAP PO SCH ×2 (09:36→20:51)
[2022-10-02] MEDS: PALIPERIDONE 3 MG TAB.ER.24 PO SCH ×2 (09:36→20:51)
[2022-10-02] MEDS: LORazepam 1 MG TAB PO PRN (09:36)
--- NOTE | 2022-10-02 11:26 | P.PN ---
Progress Note - Text Progress Note Date: 10/02/22 Interval History: Patient was seen today laying in bed and was able to speak to magazine writer in the of fice. She is fairly guarded and evasive. Patient is argumentative and repeatedly asks why she is hospitalized without displaying any insight into the events leading to hospitalization. She states that "they were harassing her". We discussed at length that this hospitalization is for her bipolar illness and patient states that her mother had bipolar disorder and appeared to be reconsidering her refusal of medication. Following interview with this provider, patient did take the morning doses of lithium and Invega. However, she continues to be hesitant about medications and states that she was medicated before and does not really understand why she needs to be on the medication. Patient makes bizarre remarks including asking "why does the hospital want to keep me away from her? " When asked further about this, patient states that this is someone whom she knows and when she tries to contact she is unable to get in touch over the phone. Patient is paranoid of the hospital system and appears to attribute inability to contact this person to the hospital being involved in it somehow. When asked about her situation at home and if she has any social support, patient becomes further paranoid and asks why this provider is asking such a question. She then vaguely provides an answer saying that there are some people who "don't put up a front". She continues to focus on discharge. She reports fair appetite but says she had some trouble sleeping last night and was observed to be resting this morning. She was encouraged to participate in groups but did not seem to be interested in this at all. At this time denying any auditory or visual hallucinations. Denying any suicidal or homicidal ideations intent or plan. Mental Status exam: General Appearance: Patient appears to be obese, short hair, stated age is alert, argumentative, paranoid/evasive. Patient appears to have poor hygiene and grooming. Behavior: No agitated behavior. Looking away from provider- poor eye contact Speech: Patient's speech is brief responses sometimes with latency in response. Irritable and confrontational. Mood/Affect: Patient reports their mood is "upset", affect is congruent Suicidality/Homicidality: Patient denies having any homicidal ideation intent or plan. Denies any suicidal ideations intent or plan Perceptions: Patient denies any visual hallucinations and denies any auditory h allucinations Though content/process: significant paranoia. Illogical at times. Focused on discharge. Memory and concentration: grossly oriented, grossly intact for the purposes of this session. Judgment and insight: poor IMPRESSIONS: Schizoaffective, bipolar type PLAN: -Patient is admitted under involuntary status to MHU for stabilization of psychiatric symptoms and safety. -Medications : Continue invega 3 mg bid for psychosis/mood stabilization, lithium 300 mg bid mood stabilization. Encourage compliance -Ativan [and Haldol] and vistaril PRN for agitation/aggression -NRT - not needed as patient -SW on board for discharge planning. Encourage patient to participate in groups to work on coping skills. Will await deferral and court date.
[2022-10-03] MEDS: LITHIUM CARBONATE 300 MG CAP PO SCH ×2 (11:52→20:49)
[2022-10-03] MEDS: PALIPERIDONE 3 MG TAB.ER.24 PO SCH ×2 (11:52→20:49)
--- NOTE | 2022-10-03 12:55 | P.PN ---
Progress Note - Text Progress Note Date: 10/03/22 Interval History: Patient was seen today laying in bed and was able to speak to comic book writer bedside. Patient is argumentative regarding reasons for admission. She is more hyperverbal today and says that it's her mother who has mental illness and not her. She says that she has been on medications before and does not want to try again. She says that she does not believe she needs to be on medication. She took Invega and lithium yesterday morning but says she does not want to continue to take these. She believes that the medication may be making her more tired. She says "I don't want to be on disability because I'm on medication. I want to depend on medications." She admits to currently being on disability but says she would like to work in the future. She asks if she is able to be discharged under the supervision of a family member. Patient continues to be paranoid of the hospital system. She continues to focus on discharge. She reports fair appetite and improved sleep. She was encouraged to participate in groups but did not seem to be interested in this at all. At this time denying any auditory or visual hallucinations. Denying any suicidal or homicidal ideation intent or plan. Mental Status exam: General Appearance: Patient appears to be obese, short hair, stated age is alert, argumentative, paranoid/evasive. Patient appears to have poor hygiene and grooming. Behavior: No agitated behavior. Improving eye contact Speech: Patient's speech is brief responses sometimes with latency in response. Irritable and confrontational. Mood/Affect: Patient reports their mood is irritable, affect is congruent Suicidality/Homicidality: Patient denies having any homicidal ideation intent or plan. Denies any suicidal ideations intent or plan Perceptions: Patient denies any visual hallucinations and denies any auditory hallucinations Though content/process: significant paranoia. Illogical at times. Focused on discharge. Memory and concentration: grossly oriented, grossly intact for the purposes of this session. Judgment and insight: poor IMPRESSIONS: Schizoaffective, bipolar type PLAN: -Patient is admitted under involuntary status to MHU for stabilization of psychiatric symptoms and safety. -Medications : Continue invega 3 mg bid for psychosis/mood stabilization, lithium 300 mg bid mood stabilization. Encourage compliance -Ativan [and Haldol] and vistaril PRN for agitation/aggression -NRT - not needed as patient -SW on board for discharge planning. Encourage patient to participate in groups to work on coping skills. Will await deferral and court date.
[2022-10-04] MEDS: PALIPERIDONE 3 MG TAB.ER.24 PO SCH ×2 (10:14→20:14)
[2022-10-04] MEDS: LITHIUM CARBONATE 300 MG CAP PO SCH ×2 (10:14→20:14)
--- NOTE | 2022-10-04 14:48 | P.PN ---
Progress Note - Text Progress Note Date: 10/04/22 Interval History: Patient was seen in the interview room this morning. Patient is argumentative regarding reasons for admission. She is heavily fixated on discharge and court process. Patient keeps asking questions about hospitalization and today she is repeatedly asking questions about "treatment plan ". Despite this provider discussing the current treatment with patient, patient is argumentative and asks when she might be discharged and believes that this needs to be part of the treatment plan. Although this provider attempted to explain that discharges are based on a variety of factors, including medication efficacy, potential side effects, and safety, patient is perseverative that this provider's not explaining the treatment plan to her. She states that she plans to defer her court hearing but is refusing her medications. She later found this provider and asked if she should discuss a previous hearing that she had in another state where she was declared to be competent to stand trial. She was encouraged to consult with her immigration attorney. Patient continues to be paranoid of the hospital system and asks this provider what qualifications I have to keep her in the hospital. She says that she does not believe she needs to be on medication. When this provider remarked that [facility] refused her medication today, she says "they never even asked me " and smiled as if she had evidence to support her paranoia regarding the hospital. She asks again if she is able to be discharged under the supervision of a family member. After questioning this provider at length, she was unwilling to answer questions regarding her mental health including questions on her mood, sleep, appetite, suicidal or homicidal ideation, auditory or visual hallucinations, etc. She says "you don't answer any of my questions." Mental Status exam: General Appearance: Patient appears to be obese, short hair, stated age is alert, argumentative, paranoid/evasive. Patient appears to have poor hygiene and grooming. Behavior: No agitated behavior. Poor eye contact Speech: Patient's speech is brief responses sometimes with latency in response. Irritable and confrontational. Mood/Affect: Patient reports their mood is irritable, affect is congruent Suicidality/Homicidality: Patient denies having any homicidal ideation intent or plan. Denies any suicidal ideations intent or plan Perceptions: Patient denies any visual hallucinations and denies any auditory hallucinations Though content/process: significant paranoia. Illogical at times. Focused on discharge. Memory and concentration: grossly oriented, grossly intact for the purposes of this session. Judgment and insight: poor IMPRESSIONS: Schizoaffective, bipolar type PLAN: -Patient is admitted under involuntary status to MHU for stabilization of psychiatric symptoms and safety. -Medications : Continue invega 3 mg bid for psychosis/mood stabilization, lithium 300 mg bid mood stabilization. Encourage compliance. Patient has not been compliant. -Ativan [and Haldol] and vistaril PRN for agitation/aggression -NRT - not needed as patient -SW on board for discharge planning. Encourage patient to participate in groups to work on coping skills. Will await deferral and court date.
[2022-10-05] MEDS: PALIPERIDONE 3 MG TAB.ER.24 PO SCH ×2 (10:46→21:21)
[2022-10-05] MEDS: LITHIUM CARBONATE 300 MG CAP PO SCH ×2 (10:46→21:21)
--- NOTE | 2022-10-05 11:57 | P.PN ---
Progress Note - Text Progress Note Date: 10/05/22 Interval History: Patient was seen today laying in bed and was able to speak to senior medical writer briefly. Patient claims that she is not used to waking up early and was somewhat evasive today with senior medical writer. She claims that she does not need medications and continues to refuse them. We spoke more about the court process and that she will be remaining with the trade mark attorney today which she was agreeable to. She did not state whether she plans on deferring or going through court. She continues to deny having a mental illness and need for treatment. Continues to not go to groups and has very poor insight and judgment. States that she is sleeping fairly and I terminating fairly. At this time denying any auditory or visual hallucinations. Denying any suicidal or homicidal ideations intent or plan. Mental Status exam: General Appearance: Patient appears to be obese, short hair, stated age is alert, argumentative, paranoid/evasive. Patient appears to have [poor] hygiene and grooming. Behavior: Patient is laying in bed without any agitated behavior. Evasive. Speech: Patient's speech is [fluent and nonpressured.] Irritable Mood/Affect: Patient reports their mood is ["the same"], affect is congruent Suicidality/Homicidality: Patient denies having any homicidal ideation intent or plan. [Denies any suicidal ideations intent or plan] Perceptions: Patient denies any visual hallucinations [and denies any auditory hallucinations] Though content/process: Patient has displaying significant paranoia, very poor insight and judgment. Illogical at times. Focused on discharge. Memory and concentration: AOX3, grossly intact for the purposes of this session. Judgment and insight: [poor] IMPRESSIONS: Schizoaffective, bipolar type PLAN: -Patient is admitted under involuntary status to [facility] for stabilization of psychiatric symptoms and safety. -Medications : invega 3 mg bid for psychosis/mood stabilization, lithium 300 mg bid mood stabilization. patient has been refusing her medications -Ativan [and Haldol] and vistaril PRN for agitation/aggression -NRT - not needed as patient -SW on board for discharge planning. Encourage patient to participate in groups to work on coping skills. Patient has her deferral today with her trade mark attorney.
[2022-10-06] MEDS: LITHIUM CARBONATE 300 MG CAP PO SCH ×2 (09:10→21:32)
[2022-10-06] MEDS: PALIPERIDONE 3 MG TAB.ER.24 PO SCH ×2 (09:14→21:32)
--- NOTE | 2022-10-06 11:11 | P.PN ---
Progress Note - Text Progress Note Date: 10/06/22 Interval History: Patient was seen today laying in bed and was able to speak to ticket writer briefly. Patient was turned away from ticket writer. She answered only some questions briefly. She continues to focus on her medications and wanting to take them "only outside of the hospital". She believes that she is feeling "pressured" on the unit and she is not supported. She is denying any depression or anxiety at this time. Continues to have very poor insight and judgment. Continues to have poor hygi zain and grooming. She has been refusing her medications. She states that she did not sign the deferral yesterday with the corporate associate attorney. She continues to deny having a mental illness and need for treatment. Continues to not go to groups and has very poor insight and judgment. States that she is sleeping fairly. At this time denying any auditory or visual hallucinations. Denying any suicidal or homicidal ideations intent or plan. Mental Status exam: General Appearance: Patient appears to be obese, short hair, stated age is alert, argumentative, paranoid/evasive. Patient appears to have poor hygiene and grooming. Behavior: Patient is laying in bed without any agitated behavior. Evasive. Speech: Patient's speech is fluent and nonpressured. less Irritable Mood/Affect: Patient reports their mood is "alright", affect is congruent and constricted Suicidality/Homicidality: Patient denies having any homicidal ideation intent or plan. Denies any suicidal ideations intent or plan Perceptions: Patient denies any visual hallucinations and denies any auditory hallucinations Though content/process: Patient has displaying paranoia, very poor insight and judgment. Focused on discharge. Memory and concentration: AOX3, grossly intact for the purposes of this session. Judgment and insight: poor IMPRESSIONS: Schizoaffective, bipolar type PLAN: -Patient is admitted under involuntary status to [facility]HU for stabilization of psychiatric symptoms and safety. -Medications : invega 3 mg bid for psychosis/mood stabilization, lithium 300 mg bid mood stabilization. patient has been refusing her medications -Ativan and Haldol and vistaril PRN for agitation/aggression -NRT - not needed as patient -SW on board for discharge planning. Encourage patient to participate in groups to work on coping skills. Patient did not defer and will have court hearing tomorrow.
[2022-10-07] MEDS: PALIPERIDONE 3 MG TAB.ER.24 PO SCH ×2 (10:41→20:47)
[2022-10-07] MEDS: LITHIUM CARBONATE 300 MG CAP PO SCH ×2 (10:41→20:47)
--- NOTE | 2022-10-07 12:08 | P.PN ---
Progress Note - Text Progress Note Date: 10/07/22 Interval History: Patient was seen today laying in bed and was able to speak to repairer typewriter briefly. The patient was looking at the ceiling when speaking to repairer typewriter. She spoke about the court process again and continues to be hesitant about medications. She spoke about invega "not agreeing with me in the past" and we went over other possible medications. Patient states that she has never tried Prolixin and will think about it. She claims that she is feeling "anxious" as she felt that she was "trying to help someone" and described a relationship with another woman however was fairly vague about it and was illogical. She continues to endorse paranoia and suspiciousness. Continues to have very poor insight and judgment. Mildly improving hygiene and grooming. She has been refusing her medications. States that she is sleeping fairly. At this time denying any auditory or visual hallucinations. Denying any suicidal or homicidal ideations intent or plan. Mental Status exam: General Appearance: Patient appears to be obese, short hair, stated age is alert, argumentative, paranoid/evasive. Patient appears to have poor hygiene and grooming. Behavior: Patient is laying in bed without any agitated behavior. Evasive. paranoia. Speech: Patient's speech is fluent and nonpressured. less Irritable Mood/Affect: Patient reports their mood is "ok", affect is congruent and constricted Suicidality/Homicidality: Patient denies having any homicidal ideation intent or plan. Denies any suicidal ideations intent or plan Perceptions: Patient denies any visual hallucinations and denies any auditory hallucinations Though content/process: Patient has displaying paranoia, very poor insight and judgment. Focused on discharge and minimizing need for meds. Memory and concentration: AOX3, grossly intact for the purposes of this session. Judgment and insight: poor IMPRESSIONS: Schizoaffective, bipolar type PLAN: -Patient is admitted under involuntary status to [facility]HU for stabilization of psychiatric symptoms and safety. -Medications : invega 3 mg bid for psychosis/mood stabilization, lithium 300 mg bid mood stabilization. patient has been refusing her medications. consider switching to prolixin if patient is agreeable. -Ativan and Haldol and vistaril PRN for agitation/aggression -NRT - not needed as patient -SW on board for discharge planning. Encourage patient to participate in groups to work on coping skills. Patient did not defer and had court today. hearing was adjurned due to the fact that patient is requesting an independent evaluation.
[2022-10-07] MEDS ORDERED: ARTIFICIAL TEARS-HYPROMELLOSE DROPS 15 ML BTL LEFT EYE PRN (13:07)
--- NOTE | 2022-10-07 16:22 | CT ---
EXAMINATION TYPE: CT orbits wo con DATE OF EXAM: 10/07/2022 COMPARISON: None. HISTORY: LEFT EYE PROTRUSION CT DLP: 439 mGycm Automated exposure control for dose reduction was used. FINDINGS: The orbital floors and key are intact. The globes are intact bilaterally. Intraconal fat is preserv ed. Rectus muscles appear symmetric and within normal limits. The left globe appears symmetric to the opposite right globe. No obvious asymmetric proptosis on CT. The paranasal sinuses are grossly clear. No acute displaced facial bone fracture is seen. Visualized portion of brain parenchyma is unremarkable. No suspicious opacification of mastoid air cells bilater ally. IMPRESSION: Unremarkable study.
[2022-10-08] MEDS: LITHIUM CARBONATE 300 MG CAP PO SCH ×2 (10:17→21:47)
[2022-10-08] MEDS: PALIPERIDONE 3 MG TAB.ER.24 PO SCH ×2 (10:17→21:47)
--- NOTE | 2022-10-08 11:30 | P.PN ---
Progress Note - Text Progress Note Date: 10/08/22 Interval History: Patient was seen today laying in bed and was able to speak to procedure writer briefly. Patient claims that she was feeling tired and was hesitant to speak to procedure writer. She continues to focus mainly on discharge and continues to believe that she does not need medications. Quality Engineer attempted to speak with patient about other medication options which she is not willing to speak about. She claims that "I'm just waiting on you to discharge me" and continues to state that she could find another doctor to do an evaluation on her. She continues to endorse paranoia and also today endorsing delusion of "needing to help someone at home" and was fairly vague about who she is referring to and what kind of help they need. She claims that this is a "feeling I have". continues to be fairly vague about it and was illogical. Continues to have very poor insight and judgment. Mildly improving hygiene and grooming. She has been refusing her medications. States that she is sleeping fairly. At this time denying any auditory or visual hallucinations. Denying any suicidal or homicidal ideations intent or plan. Mental Status exam: General Appearance: Patient appears to be obese, short hair, stated age is alert, argumentative, paranoid/evasive. Patient appears to have poor hygiene and grooming. Behavior: Patient is laying in bed without any agitated behavior. Evasive. paranoia. Speech: Patient's speech is fluent and nonpressured. Irritable Mood/Affect: Patient reports their mood is "ok", affect is congruent and constricted Suicidality/Homicidality: Patient denies having any homicidal ideation intent or plan. Denies any suicidal ideations intent or plan Perceptions: Patient denies any visual hallucinations and denies any auditory hallucinations Though content/process: Patient has displaying paranoia, very poor insight and judgment. Focused on discharge and minimizing need for meds. delusional, feeling the need to "save someone at home". Memory and concentration: AOX3, grossly intact for the purposes of this session. Judgment and insight: poor IMPRESSIONS: Schizoaffective, bipolar type PLAN: -Patient is admitted under involuntary status to [facility]HU for stabilization of psychiatric symptoms and safety. -Medications : invega 3 mg bid for psychosis/mood stabilization, lithium 300 mg bid mood stabilization. patient has been refusing her medications. patient is not willing to speak about medication options at this point. -Ativan and Haldol and vistaril PRN for agitation/aggression -NRT - not needed as patient -SW on board for discharge planning. Encourage patient to participate in groups to work on coping skills. Patient did not defer with her managing attorney, hearing was adjurned due to the fact that patient is requesting an independent evaluation, currently awaiting this to be arranged by managing attorney.
--- NOTE | 2022-10-08 21:13 | PN ---
PROGRESS NOTE DATE OF SERVICE: 10/08/2022 SUBJECTIVE: This is a 37-year-old woman who is admitted to psychiatric evaluation, is complaining of severe proptosis yesterday, but the orbital CT did not show an acute abnormality. The patient does not have any visual symptoms either. OBJECTIVE: VITAL SIGNS: Pulse is 96, blood pressure 129/90, respirations 22. CHEST: Clear to auscultation. CARDIOVASCULAR: S1, S2 muffled. ABDOMEN: Soft. NERVOUS SYSTEM: No focal deficits. No exophthalmos. LABORATORY DATA: Labs are reviewed. ASSESSMENT: 1. Schizoaffective bipolar disorder. 2. Complaining of left eye popping out with normal CT of the orbits. 3. History of anxiety, depression. RECOMMENDATIONS: This is a 37-year-old woman presented for psychiatric evaluation. At this time, she is complaining of proptosis. Subjectively, there are no positive clinical findings. The CT scan is also negative. I would also recommend TSH to complete the workup. Otherwise, recommend a close followup with primary physician after discharge. MMODL / IJN: [id number] /
[2022-10-09] MEDS: PALIPERIDONE 3 MG TAB.ER.24 PO SCH ×2 (09:40→20:56)
[2022-10-09] MEDS: LITHIUM CARBONATE 300 MG CAP PO SCH ×2 (09:40→20:56)
--- NOTE | 2022-10-09 12:56 | P.PN ---
Progress Note - Text Progress Note Date: 10/09/22 Interval History: Patient was seen today laying in bed and was able to speak to fiction and nonfiction prose writer briefly. Patient continues to be irritable and mildly argumentative with fiction and nonfiction prose writer. She was also dismissive and claims that she does not want to talk to him today. She states that "maybe later". She was more focused on when fiction and nonfiction prose writer was leaving today the hospital. She continues to state that she has to go home to "help somebody" however was fairly vague about who she is going to help and why. Denied any depression or anxiety. She was fairly dismissive and wanted to sleep and refused to answer other questions. Continues to have very poor insight and judgment. Mildly improving hygiene and grooming. She has been refusing her medications. At this time denying any auditory or visual hallucinations. Denying any suicidal or homicidal ideations intent or plan. Mental Status exam: General Appearance: Patient appears to be obese, short hair, stated age is alert, argumentative, paranoid/evasive. Patient appears to have poor hygiene and grooming. Behavior: Patient is laying in bed without any agitated behavior. Evasive. paranoia. Speech: Patient's speech is fluent and nonpressured. Irritable Mood/Affect: Patient reports their mood is "fine", affect is congruent and constricted Suicidality/Homicidality: Patient denies having any homicidal ideation intent or plan. Denies any suicidal ideations intent or plan Perceptions: Patient denies any visual hallucinations and denies any auditory hallucinations Though content/process: Patient has displaying paranoia, very poor insight and judgment. evasive. focused on discharge Memory and concentration: AOX3, grossly intact for the purposes of this session. Judgment and insight: poor IMPRESSIONS: Schizoaffective, bipolar type PLAN: -Patient is admitted under involuntary status to [facility]HU for stabilization of psychiatric symptoms and safety. -Medications : invega 3 mg bid for psychosis/mood stabilization, lithium 300 mg bid mood stabilization. patient has been refusing her medications. patient is not willing to speak about medication options. -Ativan and Haldol and vistaril PRN for agitation/aggression -NRT - not needed as patient -SW on board for discharge planning. Encourage patient to participate in groups to work on coping skills. Patient did not defer with her commonwealth attorney, hearing was adjurned due to the fact that patient is requesting an independent evaluation, currently awaiting this to be arranged by commonwealth attorney.
[2022-10-10] MEDS: LITHIUM CARBONATE 300 MG CAP PO SCH ×2 (11:21→19:58)
[2022-10-10] MEDS: PALIPERIDONE 3 MG TAB.ER.24 PO SCH ×2 (11:21→19:58)
--- NOTE | 2022-10-10 11:22 | P.PN ---
Progress Note - Text Progress Note Date: 10/10/22 The patient was seen for a follow-up Patient states that she had no reason to be here she said that she was minding her own business and is actually working towards going for a job interview She says she was also planning to help one of her friends mentioned police came over and picked her up She was more focused on when proposal lead writer was leaving today the hospital. She continues to state that she has to go home to "help somebody" however was fairly vague about who she is going to help and why. Denied any depression or anxiety.She has been refusing her medications. At this time denying any auditory or visual hallucinations. Denying any suicidal or homicidal ideations intent or plan. She states that she was offered inVega that she was not taking Mental Status exam: General Appearance: Patient appears to be obese, short hair, stated age is alert, argumentative, paranoid/evasive. Patient appears to have poor hygiene and grooming. Behavior: Patient sitting comfortably in the chair without any agitated behavior. Evasive. paranoia. Speech: Patient's speech is fluent and nonpressured. Irritable Mood/Affect: Patient reports their mood is "fine", affect is congruent and constricted Suicidality/Homicidality: Patient denies having any homicidal ideation intent or plan. Denies any suicidal ideations intent or plan Perceptions: Patient denies any visual hallucinations and denies any auditory hallucinations Though content/process: Patient has displaying paranoia, very poor insight and judgment. evasive. focused on discharge Memory and concentration: AOX3, grossly intact for the purposes of this session. Judgment and insight: poor IMPRESSIONS: Schizoaffective, bipolar type PLAN: -Patient is admitted under involuntary status to [facility]HU for stabilization of psychiatric symptoms and safety. -Medications : invega 3 mg bid for psychosis/mood stabilization, lithium 300 mg bid mood stabilization. patient has been refusing her medications. patient is not willing to speak about medication options. -Ativan and Haldol and vistaril PRN for agitation/aggression -NRT - not needed as patient -SW on board for discharge planning. Encourage patient to participate in groups to work on coping skills. Patient did not defer with her corporate attorney, hearing was adjurned due to the fact that patient is requesting an independent evaluation, currently awaiting this to be arranged by corporate attorney. Armando Younger M.D.
--- NOTE | 2022-10-11 09:45 | P.PN ---
Progress Note - Text Progress Note Date: 10/11/22 The patient was seen for a follow-up Patient was laying in bed with the bed sheets covering all the way up to her head Patient reports that she remains frustrated angry and upset that the people that are relying on her and not being helped while she is trapped in here The rest of the conversation was very similar to the previous days interaction: Patient states that she had no reason to be here she said that she was minding her own business and is actually working towards going for a job interview She says she was also planning to help one of her friends mentioned police came over and picked her up She was more focused on when aligner typewriter was leaving today the hospital. She continues to state that she has to go home to "help somebody " however was fairly vague about who she is going to help and why. Denied any depression or anxiety.She has been refusing her medications. At this time denying any auditory or visual hallucinations. Denying any suicidal or homicidal ideations intent or plan. She states that she was offered inVega that she was not taking Mental Status exam: General Appearance: Patient appears to be obese, short hair, stated age is alert, argumentative, paranoid/evasive. Patient appears to have poor hygiene and grooming. Behavior: Patient sitting comfortably in the chair without any agitated behavior. Evasive. paranoia. Speech: Patient's speech is fluent and nonpressured. Irritable Mood/Affect: Patient reports their mood is "fine", affect is congruent and constricted Suicidality/Homicidality: Patient denies having any homicidal ideation intent or plan. Denies any suicidal ideations intent or plan Perceptions: Patient denies any visual hallucinations and denies any auditory hallucinations Though content/process: Patient has displaying paranoia, very poor insight and judgment. evasive. focused on discharge Memory and concentration: AOX3, grossly intact for the purposes of this session. Judgment and insight: poor IMPRESSIONS: Schizoaffective, bipolar type PLAN: -Patient is admitted under involuntary status to MHU for stabilization of ps ychiatric symptoms and safety. -Medications : invega 3 mg bid for psychosis/mood stabilization, lithium 300 mg bid mood stabilization. patient has been refusing her medications. patient is not willing to speak about medication options. -Ativan and Haldol and vistaril PRN for agitation/aggression -NRT - not needed as patient -SW on board for discharge planning. Encourage patient to participate in groups to work on coping skills. Patient did not defer with her insurance attorney, hearing was adjurned due to the fact that patient is requesting an independent evaluation, currently awaiting this to be arranged by insurance attorney. Armando Younger M.D.
[2022-10-11] MEDS: LITHIUM CARBONATE 300 MG CAP PO SCH ×2 (09:59→20:18)
[2022-10-11] MEDS: PALIPERIDONE 3 MG TAB.ER.24 PO SCH ×2 (09:59→20:18)
[2022-10-12 02:52] VITALS: RESP 16
[2022-10-12] MEDS: PALIPERIDONE 3 MG TAB.ER.24 PO SCH ×2 (09:07→22:00)
[2022-10-12] MEDS: LITHIUM CARBONATE 300 MG CAP PO SCH ×2 (09:07→22:00)
--- NOTE | 2022-10-12 14:15 | P.PN ---
Progress Note - Text Progress Note Date: 10/12/22 Interval History: Patient was seen today wandering the hallways and was agreeable to speak to wr iter. Patient continues to be paranoid, suspicious of va underwriter. She is also argumentative and hostile towards va underwriter. She continues to focus on discharge and minimize her need for hospitalization and medications. She questioned several times the "symptoms that I'm displaying" towards va underwriter and called him a liar when he tried to explain his symptoms and issues that we are treating. She continues to have very poor insight and judgment. She has been refusing her medications. Mildly improving hygiene and grooming. At this time denying any auditory or visual hallucinations. Denying any suicidal or homicidal ideations intent or plan. Mental Status exam: General Appearance: Patient appears to be obese, short hair, stated age is alert, argumentative, paranoid/evasive. Patient appears to have poor hygiene and grooming. Behavior: Patient is laying in bed without any agitated behavior. Evasive. paranoia. Demanding. Speech: Patient's speech is fluent and nonpressured. Irritable Mood/Affect: Patient reports their mood is "fine", affect is congruent and constricted Suicidality/Homicidality: Patient denies having any homicidal ideation intent or plan. Denies any suicidal ideations intent or plan Perceptions: Patient denies any visual hallucinations and denies any auditory hallucinations Though content/process: Patient has displaying paranoia, very poor insight and judgment. evasive. focused on discharge Memory and concentration: AOX3, grossly intact for the purposes of this session. Judgment and insight: poor IMPRESSIONS: Schizoaffective, bipolar type PLAN: -Patient is admitted under involuntary status to MHU for stabilization of psychiatric symptoms and safety. -Medications : invega 3 mg bid for psychosis/mood stabilization, lithium 300 mg bid mood stabilization. patient has been refusing her medications. patient is not willing to speak about medication options. -Ativan and Haldol and vistaril PRN for agitation/aggression -NRT - not needed as patient -SW on board for discharge planning. Encourage patient to participate in groups to work on coping skills. Patient did not defer with her attorney at law, hearing was adjurned due to the fact that patient is requesting an independent evaluation, currently awaiting this to be arranged by attorney at law.
[2022-10-13] MEDS: PALIPERIDONE 3 MG TAB.ER.24 PO SCH ×2 (08:52→21:36)
[2022-10-13] MEDS: LITHIUM CARBONATE 300 MG CAP PO SCH ×2 (08:52→21:36)
--- NOTE | 2022-10-13 09:50 | P.PN ---
Progress Note - Text Progress Note Date: 10/13/22 Interval History: Patient was seen today laying in her bed and was briefly agreeable to speak to verse writer. She was turned away from [facility] and appeared to be disinterested. She states that she feels "your staff is changing things on me" and states that she is feeling uncomfortable being in the hospital. She did not endorse why she is feeling this way when I asked further about it. She also did not comment on what she stopped is doing to her. She continues to endorse some paranoia and suspiciousness. Continues to be focused on discharge. We spoke about the independent evaluation which she is agreeable to. States that she is sleeping poorly at nighttime. She continues to have very poor insight and judgment. She has been refusing her medications. At this time denying any auditory or visual hallucinations. Denying any suicidal or homicidal ideations intent or plan. Mental Status exam: General Appearance: Patient appears to be obese, short hair, stated age is alert, argumentative, paranoid/evasive. Patient appears to have poor hygiene and grooming. Behavior: Patient is laying in bed without any agitated behavior. Evasive. paranoia. Speech: Patient's speech is fluent and nonpressured. Irritable Mood/Affect: Patient reports their mood is "ok", affect is congruent and cons tricted Suicidality/Homicidality: Patient denies having any homicidal ideation intent or plan. Denies any suicidal ideations intent or plan Perceptions: Patient denies any visual hallucinations and denies any auditory hallucinations Though content/process: Patient has displaying paranoia, very poor insight and judgment. evasive. focused on discharge Memory and concentration: AOX3, grossly intact for the purposes of this session. Judgment and insight: poor IMPRESSIONS: Schizoaffective, bipolar type PLAN: -Patient is admitted under involuntary status to MHU for stabilization of psychiatric symptoms and safety. -Medications : invega 3 mg bid for psychosis/mood stabilization, lithium 300 mg bid mood stabilization. patient has been refusing her medications. patient is not willing to speak about medication options. -Ativan and Haldol and vistaril PRN for agitation/aggression -NRT - not needed as patient -SW on board for discharge planning. Encourage patient to participate in groups to work on coping skills. Patient did not defer with her divorce attorney, hearing was adjurned due to the fact that patient is requesting an independent evaluation, this is scheduled for tomorrow. hearing is rescheduled for october 21.
--- NOTE | 2022-10-14 11:28 | P.PN ---
Progress Note - Text Progress Note Date: 10/14/22 Interval History: Patient was seen today laying in her bed and was approached today by literary writer to be interviewed. Patient continues to turn away from regular and states that she is not interested in speaking with him right now. She refused to answer any other questions. Patient was fairly concrete, denied any depression or anxiety. She continues to have very poor insight and judgment. She has been refusing her medications. At this time denying any auditory or visual hallucinations. Denying any suicidal or homicidal ideations intent or plan. Mental Status exam: General Appearance: Patient appears to be obese, short hair, stated age is alert, argumentative, paranoid/evasive. Patient appears to have poor hygiene and grooming. Behavior: Patient is laying in bed without any agitated behavior. Evasive. paranoia. Speech: Patient's speech is fluent and nonpressured. Mood/Affect: Patient reports their mood is "fine", affect is congruent and constricted Suicidality/Homicidality: Patient denies having any homicidal ideation intent or plan. Denies any suicidal ideations intent or plan Perceptions: Patient denies any visual hallucinations and denies any auditory hallucinations Though content/process: Patient has displaying paranoia, very poor insight and judgment. Memory and concentration: unable to assess Judgment and insight: poor IMPRESSIONS: Schizoaffective, bipolar type PLAN: -Patient is admitted under involuntary status to MHU for stabilization of psychiatric symptoms and safety. -Medications : invega 3 mg bid for psychosis/mood stabilization, lithium 300 mg bid mood stabilization. patient has been refusing her medications. -Ativan and Haldol and vistaril PRN for agitation/aggression -NRT - not needed as patient -SW on board for discharge planning. Encourage patient to participate in groups to work on coping skills. Patient did not defer with her divorce attorney, hearing was adjurned due to the fact that patient is requesting an independent evaluation, this is scheduled for today. hearing is rescheduled for october 21.
[2022-10-14] MEDS: PALIPERIDONE 3 MG TAB.ER.24 PO SCH ×2 (12:20→21:16)
[2022-10-14] MEDS: LITHIUM CARBONATE 300 MG CAP PO SCH ×2 (12:20→21:16)
[2022-10-15] MEDS: PALIPERIDONE 3 MG TAB.ER.24 PO SCH ×2 (09:16→20:13)
[2022-10-15] MEDS: LITHIUM CARBONATE 300 MG CAP PO SCH ×2 (09:16→20:13)
--- NOTE | 2022-10-15 10:22 | P.PN ---
Progress Note - Text Progress Note Date: 10/15/22 Interval History: Patient was seen today laying in her bed and was approached today by selling underwriter to be interviewed. Patient was mildly more cooperative today with selling underwriter. She continues to be on phone restriction due to calling and harassing the kitchen and staff and also the executive office repeatedly when asked not to. Patient continues to be defensive about this and argues with selling underwriter. She continues to state that she does not need medications. She did state that she had the independent evaluation yesterday and does not know what head, bit. Claims that she slept fairly last night. She appeared to be disinterested in the conversation again with selling underwriter and was fairly minimal and short with him. She claims that she slept fairly. As a fair appetite. Patient was fairly concrete, denied any depression or anxiety. She continues to have very poor insight and judgment. At this time denying any auditory or visual hallucinations. Denying any suicidal or homicidal ideations intent or plan. Mental Status exam: General Appearance: Patient appears to be obese, short hair, stated age is alert, argumentative, paranoid/evasive. Patient appears to have poor hygiene and grooming. Behavior: Patient is laying in bed without any agitated behavior. Evasive. paranoia. Speech: Patient's speech is fluent and nonpressured. Mood/Affect: Patient reports their mood is "alright", affect is congruent and constricted Suicidality/Homicidality: Patient denies having any homicidal ideation intent or plan. Denies any suicidal ideations intent or plan Perceptions: Patient denies any visual hallucinations and denies any auditory hallucinations Though content/process: Patient has displaying paranoia, very poor insight and judgment. Minimizing. Memory and concentration: unable to assess Judgment and insight: poor IMPRESSIONS: Schizoaffective, bipolar type PLAN: -Patient is admitted under involuntary status to MHU for stabilization of psychiatric symptoms and safety. -Medications : invega 3 mg bid for psychosis/mood stabilization, lithium 300 mg bid mood stabilization. patient has been refusing her medications. -Ativan and Haldol and vistaril PRN for agitation/aggression -NRT - not needed as patient -SW on board for discharge planning. Encourage patient to participate in groups to work on coping skills. Patient did not defer with her senior art director, hearing was adjurned until 10/21. patient underwent an independent evaluation on 10/14 and currently awiaitng outcome of this.
[2022-10-16] MEDS: LITHIUM CARBONATE 300 MG CAP PO SCH ×2 (10:12→20:02)
[2022-10-16] MEDS: PALIPERIDONE 3 MG TAB.ER.24 PO SCH ×2 (10:12→20:02)
--- NOTE | 2022-10-16 14:36 | P.PN ---
Progress Note - Text Progress Note Date: 10/16/22 Interval History: Patient was seen today laying in her bed and was approached today by tech writer to be interviewed. Patient continues to be argumentative with tech writer and continues to be on phone restrictions. She continues to focus on discharge. She states that "we don't have to wait for the court discharge me today". She continues to have a "feeling a need to get home". Claims that she slept fairly last night. She appeared to be disinterested in the conversation again with tech writer and was fairly minimal and short with him. Claims to have a fair appetite. Patient was fairly concrete, denied any depression or anxiety. She continues to have very poor insight and judgment. At this time denying any auditory or visual hallucinations. Denying any suicidal or homicidal ideations intent or plan. Continues to be refusing medications. Mental Status exam: General Appearance: Patient appears to be obese, short hair, stated age is alert, argumentative, paranoid/evasive. Patient appears to have poor hygiene and grooming. Behavior: Patient is laying in bed without any agitated behavior. Evasive. paranoia. Speech: Patient's speech is fluent and nonpressured. Mood/Affect: Patient reports their mood is "ok", affect is congruent and constricted Suicidality/Homicidality: Patient denies having any homicidal ideation intent or plan. Denies any suicidal ideations intent or plan Perceptions: Patient denies any visual hallucinations and denies any auditory hallucinations Though content/process: Patient has displaying paranoia, very poor insight and judgment. Minimizing. Memory and concentration: unable to assess Judgment and insight: poor IMPRESSIONS: Schizoaffective, bipolar type PLAN: -Patient is admitted under involuntary status to MHU for stabilization of psychiatric symptoms and safety. -Medications : invega 3 mg bid for psychosis/mood stabilization, lithium 300 mg bid mood stabilization. patient has been refusing her medications. -Ativan and Haldol and vistaril PRN for agitation/aggression -NRT - not needed as patient -SW on board for discharge planning. Encourage patient to participate in groups to work on coping skills. Patient did not defer with her assistant prosecuting attorney, hearing was adjurned until 10/21. patient underwent an independent evaluation on 10/14 and currently awiaitng outcome of this.
[2022-10-17] MEDS: PALIPERIDONE 3 MG TAB.ER.24 PO SCH ×3 (01:34→20:11)
[2022-10-17] MEDS: LORazepam 1 MG TAB PO PRN (01:34)
[2022-10-17] MEDS: LITHIUM CARBONATE 300 MG CAP PO SCH ×3 (01:39→20:11)
--- NOTE | 2022-10-17 16:37 | P.PN ---
Progress Note - Text Interval history: Patient was seen in her room and was directable and agreeable to speak with sports writer. Continues to be paranoid. States that she is not doing well. Reports multiple side effects to medications including feeling very sluggish, blurry vision, heart racing, weight gain. States that she wants to be discharged. Per nursing staff she is refusing medications. She denies hallucinations Mental status exam: General Appearance: [Patient appears to be stated age is alert, directable, and cooperative.] Behavior: [No agitated behavior. Patient is calm and directable] Speech: Patient's speech is fluent and nonpressured. Mood/Affect: constricted. Suicidality/Homicidality: None elicited Perceptions: Patient denies any auditory or visual hallucinations. Though content/process: Paranoid ideations elicited Memory and concentration: AOX3, grossly intact for the purposes of this session Judgment and insight: Poor Assessment/Plan: Continue with current diagnosis. Patient continues to meet criteria for inpatient psychiatric admission for symptom stabilization and safety.[Patient will be maintained on current psychotropic medication regimen.] Monitor for medication compliance and for any psychotropic medication side effects. Will continue to monitor ongoing response to treatment. Encouraged participation in milieu.
[2022-10-18] MEDS: PALIPERIDONE 3 MG TAB.ER.24 PO SCH ×2 (09:50→20:16)
[2022-10-18] MEDS: LITHIUM CARBONATE 300 MG CAP PO SCH ×2 (09:50→20:16)
[2022-10-19] MEDS: PALIPERIDONE 3 MG TAB.ER.24 PO SCH ×2 (09:31→20:33)
[2022-10-19] MEDS: LITHIUM CARBONATE 300 MG CAP PO SCH ×2 (09:32→20:33)
--- NOTE | 2022-10-19 13:39 | P.PN ---
Progress Note - Text Progress Note Date: 10/19/22 Interval History: Patient was seen standing near the chief underwriter's office and was agreeable to speak today. She continues to be fairly argumentative and asking questions about her medications. She continues to believe that she did not need to take them. She continues to challenge diagnosis and need for hospitalization and continues to state that "you can discharge me if you want to". We spoke more about the court process and in upon the independent evaluation. She states that she has not hea rd much about it yet. Continues to be fairly paranoid. denied any depression or anxiety. She continues to have very poor insight and judgment. At this time denying any auditory or visual hallucinations. Denying any suicidal or homicidal ideations intent or plan. Continues to be refusing medications. Patient is sleeping poorly according to EMR. Mental Status exam: General Appearance: Patient appears to be obese, short hair, stated age is alert, argumentative, paranoid/evasive. Patient appears to have poor hygiene and grooming. Behavior: Patient is laying in bed without any agitated behavior. Evasive. paranoia. Speech: Patient's speech is fluent and nonpressured. Mood/Affect: Patient reports their mood is "just fine", affect is congruent and constricted Suicidality/Homicidality: Patient denies having any homicidal ideation intent or plan. Denies any suicidal ideations intent or plan Perceptions: Patient denies any visual hallucinations and denies any auditory hallucinations Though content/process: Patient has displaying paranoia, very poor insight and judgment. Minimizing. Memory and concentration: unable to assess Judgment and insight: poor IMPRESSIONS: Schizoaffective, bipolar type PLAN: -Patient is admitted under involuntary status to MHU for stabilization of psychiatric symptoms and safety. -Medications : invega 3 mg bid for psychosis/mood stabilization, lithium 300 mg bid mood stabilization. patient has been refusing her medications. -Ativan and Haldol and vistaril PRN for agitation/aggression -NRT - not needed as patient -SW on board for discharge planning. Encourage patient to participate in groups to work on coping skills. Patient did not defer with her employee benefits attorney, hearing was adjurned until 10/21. patient underwent an independent evaluation on 10/14 and currently awiaitng outcome of this.
--- NOTE | 2022-10-19 15:01 | P.PN ---
Progress Note - Text Progress Note Date: 10/18/22 Interval history: Patient was seen in her room and was directable and agreeable to speak with underwriter. States that she is here on a "bogus petition" and she needs to be discharged mars[place] prior to her court date. She also wants RN to bring lunch to her room.. States that she wants to be discharged. Per nursing staff she is refusing medications. She denies hallucinations, SI, HI, paranoia, agitation Mental status exam: General Appearance: [Patient appears to be stated age is alert, directable, and cooperative.] Behavior: [No agitated behavior. Patient is calm and directable] Speech: Patient's speech is fluent and nonpressured. Mood/Affect: constricted. Suicidality/Homicidality: None elicited Perceptions: Patient denies any auditory or visual hallucinations. Though content/process: paranoid Memory and concentration: AOX3, grossly intact for the purposes of this session Judgment and insight: Poor Assessment/Plan: Continue with current diagnosis. Patient continues to meet criteria for inpatient psychiatric admission for symptom stabilization and safety.[Patient will be maintained on current psychotropic medication regimen.] Monitor for medication compliance and for any psychotropic medication side effects. Will continue to monitor ongoing response to treatment. Encouraged participation in milieu.
[2022-10-20] MEDS: LITHIUM CARBONATE 300 MG CAP PO SCH ×2 (08:45→21:46)
[2022-10-20] MEDS: PALIPERIDONE 3 MG TAB.ER.24 PO SCH ×2 (08:46→21:46)
--- NOTE | 2022-10-20 12:14 | P.PN ---
Progress Note - Text Progress Note Date: 10/20/22 Interval History: Patient was seen standing near the procedure writer's office and was agreeable to speak today. The patient is inquiring about increased phone privileges. She understands that she is waiting for court. She is currently refusing any medications. She reports no suicidal or homicidal ideation, intention, and/or plan. She denies any auditory or visual hallucinations. She reports no paranoia or other delusions. It is noted by the staff that the patient called her mother excessively and often was cursing at her and claiming that everyone was stealing her things will she is currently admitted in the hospital. The patient is also reportedly calling her car insurance company trying to get her car towed to the hospital when it is safe at her mother's house. The patient is currently on phone restrictions due to excessive harassing phone calls to her mother. Mental Status exam: General Appearance: Patient appears to be obese, short hair, stated age is alert, and attempts to cooperate. Behavior: Patient is laying in bed without any agitated behavior. Psychomotor slowing is evident. Speech: Patient's speech is fluent and nonpressured. Mood/Affect: Patient reports their mood is "just fine", affect is congruent and flat. Suicidality/Homicidality: Patient denies having any homicidal ideation intent or plan. Denies any suicidal ideations intent or plan Perceptions: Patient denies any visual hallucinations and denies any auditory hallucinations Though content/process: Patient has displaying paranoia, very poor insight and judgment. Minimizing. Memory and concentration: Poor Judgment and insight: Very poor Vital Signs Temp 98.2 F 10/17/22 13:26 Pulse 81 10/17/22 13:26 Resp 16 10/17/22 13:26 BP 109/52 10/17/22 13:26 Pulse Ox 96 10/17/22 13:26 FiO2 IMPRESSIONS: Schizoaffective, bipolar type PLAN: -Patient is admitted under involuntary status to MHU for stabilization of psychiatric symptoms and safety. -Medications : invega 3 mg bid for psychosis/mood stabilization, lithium 300 mg bid mood stabilization. patient has been refusing her medications. -Ativan and Haldol and vistaril PRN for agitation/aggression -NRT - not needed as patient -SW on board for discharge planning. Encourage patient to participate in groups to work on coping skills. Patient did not defer with her environmental attorney, hearing was adjurned until 10/22. patient underwent an independent evaluation on 10/14 and currently awiaitng outcome of this.
[2022-10-21] MEDS: LITHIUM CARBONATE 300 MG CAP PO SCH ×2 (09:00→20:43)
[2022-10-21] MEDS: PALIPERIDONE 3 MG TAB.ER.24 PO SCH ×2 (09:00→20:43)
--- NOTE | 2022-10-21 12:16 | P.PN ---
Progress Note - Text Progress Note Date: 10/21/22 Interval History: Patient was seen in her room and was agreeable to speak today in her room. Currently, the patient is not reporting any suicidal or homicidal ideation, intention, and/or plan. Reporting any auditory or visual. She denied any paranoia or other delusions however the patient has very poor insight into her actions including calling her insurance company repeatedly for a tow truck. She denies that she has been verbally harassing her mother. She continues to refuse any medications. Mental Status exam: Grossly unchanged from yesterday General Appearance: Patient appears to be obese, short hair, stated age is alert, and attempts to cooperate. Behavior: Patient is laying in bed without any agitated behavior. Psychomotor slowing is evident. Speech: Patient's speech is fluent and nonpressured. Mood/Affect: Patient reports their mood is "can I use the phone now?", affect is congruent and flat. Suicidality/Homicidality: Patient denies having any homicidal ideation intent or plan. Denies any suicidal ideations intent or plan Perceptions: Patient denies any visual hallucinations and denies any auditory hallucinations Though content/process: Patient has displaying paranoia, very poor insight and judgment. Minimizing. Memory and concentration: Poor Judgment and insight: Very poor Vital Signs Temp 98.2 F 10/17/22 13:26 Pulse 81 10/17/22 13:26 Resp 16 10/17/22 13:26 BP 109/52 10/17/22 13:26 Pulse Ox 96 10/17/22 13:26 FiO2 IMPRESSIONS: Schizoaffective, bipolar type PLAN: -Continue to hold phone privileges at this time -Patient is admitted under involuntary status to MHU for stabilization of psychiatric symptoms and safety. -Medications : invega 3 mg bid for psychosis/mood stabilization, lithium 300 mg bid mood stabilization. patient has been refusing her medications. Patient will likely need a court order. -Ativan and Haldol and vistaril PRN for agitation/aggression -NRT - not needed as patient -SW on board for discharge planning. Encourage patient to participate in groups to work on coping skills. Patient did not defer with her health care attorney, hearing was adjurned until 10/22. patient underwent an independent evaluation on 10/14 and currently awiaitng outcome of this.
[2022-10-21 15:01] VITALS: BMI 53.4
[2022-10-22] MEDS: PALIPERIDONE 3 MG TAB.ER.24 PO SCH (09:25)
[2022-10-22] MEDS: LITHIUM CARBONATE 300 MG CAP PO SCH (09:25)
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
[2022-10-23] MEDS: PALIPERIDONE 3 MG TAB.ER.24 PO SCH ×2 (07:05→09:36)
[2022-10-23] MEDS: LITHIUM CARBONATE 300 MG CAP PO SCH ×3 (07:05→22:25)
--- NOTE | 2022-10-23 12:11 | P.PN ---
Progress Note - Text Progress Note Date: 10/23/22 S&O: Patient was seen in rounds. Her issues and progress were discussed by the treatment team this morning. She had a court hearing yesterday and was ordered to stay here to be treated for up to 60 days and of up to 180 days of outpatient treatment. Since she has been refusing her by mouth medications the treatment team feels she would benefit for IM medication. She was counseled about it and she is reluctant to take medication. Per treatment team apparently she has to return to care home since she has some pending charges. It is also reported that patient got upset with her mother over the phone yesterday but patient insists it was not yesterday 2 sometimes ago. She apparently has been making several phone calls making demands or threatening/disrupting in the past whenever she was able to call on her own. She has been on supervised phone calls these days. This is an obese ambulatory black female with adequate hygiene. She does not show any psychomotor agitation or retardation. Her speech is spontaneous over inclusive and rambling at times. She had a court hearing yesterday but she said she could not talk to the tribal judge and her patent prosecution attorney did not ask her any question. She said she does not understand why she is here and what her guardian complained about. She also said she doesn't know why she has a guardian and doesn't know anything about her. She insists that she does not have to return to care home and will be going home. But she cannot tell me where her home is or how she is going to manage their. She insists that she does not hear voices or is having unusual thoughts. Continues to deny suicide and homicide thoughts. She is adequately oriented. A&P: Change her Invega by mouth to Zyprexa IM twice a day leave her lithium order as it is in case she will change her mind and take it in the future. Continue supervised phone use. Continue therapies.
[2022-10-23] MEDS ORDERED: OLANZapine 10 MG TAB PO SCH (21:00)
[2022-10-23] MEDS ORDERED: OLANZapine 10 MG VIAL IM SCH (21:00)
[2022-10-23] MEDS: OLANZapine ODT 10 MG TAB PO SCH (22:26)
[2022-10-24] MEDS: LITHIUM CARBONATE 300 MG CAP PO SCH ×2 (13:30→21:17)
--- NOTE | 2022-10-24 14:41 | P.PN ---
Subjective Progress Note Date: 10/24/22 Principal diagnosis: Schizoaffective disorder Subjective: The patient seems to have only a vague notion as to why she is here. She said that it had something to do with her family or the government wanting her out of the way so that "they" could do they're thing. When I asked who these people were, what they're thing might be and what was the evidence that they were involved, and how he weekends this male who the she would know that anyone would want her out of the way to cover up: She could not come up with anything and became defensive. "You people never listen you never agree ". She then started to focus on, can you let me out today? Objective: I went to see the patient and she was naked in her room. She said that she would be ready in a minute, she came out about 10 minutes later and I was busy seeing someone else. I told be down to her room shortly with an unfinished activity. Again she was naked in her room and took a while before she was ready. She has poor eye contact, her affect is stressed, she moves slowly, seems have no insight into why she is here why she keeps coming back again and what she needs to do to be stable. Assessment: The patient asked if she could be on pills rather than the shot. I told the pills work just as well she takes a and here we can monitor whether she takes it or not so see no problem with the pills was a shot to backed him up if she doesn't take the pill. We'll pry need to have the Zyprexa increase that she is only on 10 and she is fairly young and a very large person. Plan continue Zyprexa and consider increasing. Objective - Vital Signs Vital signs: Vital Signs Temp 98.2 F 10/17/22 13:26 Pulse 88 10/23/22 22:31 Resp 16 10/23/22 22:31 BP 146/88 10/23/22 22:31 Pulse Ox 98 10/23/22 22:31 FiO2
[2022-10-24] MEDS ORDERED: OLANZapine 10 MG VIAL IM PRN (18:22)
[2022-10-24] MEDS: OLANZapine ODT 10 MG TAB PO SCH (21:17)
--- NOTE | 2022-10-25 10:37 | P.PN ---
Subjective Progress Note Date: 10/25/22 Principal diagnosis: Schizoaffective disorder Subjective: She says that the medication "affects my brain and it is says if my brain is saying that stuff is damaging me" she also complains of lethargy. But when I looked at other dopamine 2 blockers that don't make you tired she said that she is ALLERGIC to Abilify and Geodon and probably Risperdal. She can't tell me what she means by ALLERGIC she pry just didn't like taking them either. Objective: The patient got up and was properly dressed came down to the office in a reasonable length of time but wanted to go around around on how she doesn't think she needs any medication at all. She does sleep a lot. We reviewed what the medicine does in the brain that it does not damage anything H is calms down things that are inflamed but she doesn't seem to want to hear. She just wants to say "I'm afraid it will damage my brain" and then that supposed to get her to where she has no medicine at all. She did take the medicine last night without needing shot and is calm and a little lethargic today. She does seem to have some fixed delusions that she wants to go around around. Assessment: The patient asked if she could be on pills rather than the shot. I told the pills work just as well she takes a and here we can monitor whether she takes it or not so see no problem with the pills was a shot to backed him up if she doesn't take the pill. We'll pry need to have the Zyprexa increase that she is only on 10 and she is fairly young and a very large person. Plan: For compliance, we are going to try to see whether she remains calm and maybe doesn't sleep the day away on a decreased dose of Zyprexa so we will d ecrease Zyprexa to 5 mg at night Objective - Vital Signs Vital signs: Vital Signs Temp 98.2 F 10/17/22 13:26 Pulse 88 10/23/22 22:31 Resp 16 10/23/22 22:31 BP 146/88 10/23/22 22:31 Pulse Ox 98 10/23/22 22:31 FiO2
[2022-10-25] MEDS: LITHIUM CARBONATE 300 MG CAP PO SCH ×2 (12:20→21:04)
--- NOTE | 2022-10-25 13:07 | P.PN ---
Subjective Progress Note Date: 10/25/22 Principal diagnosis: Schizoaffective disorder The patient comes in [facility] every 15 minutes and has a different issue each time. This time she slept a letter under the door which set could I please be excused from groups well here? There are people here that I don't want to be around and a few that I/we don't like (this sounds a little like multiple personality disorder with the high we) and there is someone here that likes to stop me and my girl. (No explanation of who her girlfriends) even well I'm here he will stop talking to me and doing and saying little slide things on the side so it would mean even more to me if I could be discharged today because of that emergency by no later than tomorrow please?! And also to I mean to mention that does this medicine also cause TD? I noticed twitching in my body while I was sleeping on and off like I was went on another medicine before? And I know some doctors like to push medicine on people but I'm the type of person or I don't mind if I have some issues that I have to deal with without medicine. When I know that without it at least I'm being myself and don't have to worry about being dependent on any drug or having to worry about it giving me bad side effects or messing up my brain or what ever after etc. you know and IVAC she did some research on the different types of mental illness etc. and feel that the diagnosis is wrong/just can't remember the specifics as to why. Like the symptoms of it etc. and possibly only need help with my energy and the environment and I get exposed to maybe? Also wondering his delusional disorder a real thing. I did check the patient for tardive dyskinesia and did not see any symptoms Objective - Vital Signs Vital signs: Vital Signs Temp 98.2 F 10/17/22 13:26 Pulse 88 10/23/22 22:31 Resp 16 10/23/22 22:31 BP 146/88 10/23/22 22:31 Pulse Ox 98 10/23/22 22:31 FiO2
[2022-10-25] MEDS: OLANZapine ODT 10 MG TAB PO SCH (21:02)
[2022-10-26] MEDS: LITHIUM CARBONATE 300 MG CAP PO SCH ×2 (10:25→21:05)
--- NOTE | 2022-10-26 12:03 | P.PN ---
Progress Note - Text Progress Note Date: 10/26/22 S&O: Patient was seen in rounds. She has been taking her Zyprexa by mouth but she is still not taking her lithium. When she was appreciated for taking her Zyprexa she was happy. She said she is not taking lithium since she was never on it before. She was advised that her doctor here had ordered it and it'll be a good idea to take it. Her phone restriction was discussed by the treatment team and it was agreed to discontinue it and see how she handles it. She has started to attend the groups and is not laying down on her bed all the time like she did last week. She is able to communicate her needs and issues lot more clear today than she was last week. But she said she feels rather sleepy and tired. However she does not appear sleepy or tired. Does not have any adverse effects from Zyprexa. This is an obese ambulatory black female with adequate hygiene. She does not show any psychomotor agitation or retardation. Her speech is not more spontaneous and goal-directed today. However she feels the police are after her, don't like her and that is why she is here in the hospital. Denied hallucinations suicidal and homicidal thoughts. Sensorium is clear. A&P: Continue Zyprexa, she is increased to take lithium has ordered, continue groups and supervision. Her phone restrictions were discontinued today and will be reinstated if she abuses phone privileges. She was counseled about it and she said she will not abuse phone privileges.
[2022-10-26] MEDS: OLANZapine ODT 10 MG TAB PO SCH (21:04)
[2022-10-27] MEDS: LITHIUM CARBONATE 300 MG CAP PO SCH ×2 (09:33→20:34)
--- NOTE | 2022-10-27 12:35 | P.PN ---
Progress Note - Text Progress Note Date: 10/27/22 S&O: Patient was seen in rounds. Today she is wearing hospital gowns since she put her clothes in the washer. She took her Zyprexa last night also and continues to refuse to take her lithium. She has her phone privileges and has not abused it. She continues to stay by herself and does not socialize or attended groups regularly. She said she does not like to be with some people and so she does not attend the groups. She is able to discuss her issues, needs lot better since she started to take her Zyprexa. Denies any adverse effects from Zyprexa. Apparently she has to return to residential since she has some pending charges for director social service. Her condition and prognosis were discussed by the treatment team this morning and it was agreed to discharge her to residential tomorrow. This is an obese ambulatory black female with adequate hygiene. She does not show any psychomotor agitation or retardation. Her speech is spontaneous and goal-directed. Mood is euthymic and affect is appropriate to the thought content. She denies hallucinations and delusional thinking except for not being comfortable in presence of other people. Denies suicide and homicide thoughts. Sensorium is clear. A&P: Continue Zyprexa and therapies. As discussed by the treatment team she will be discharged tomorrow.
[2022-10-27] MEDS: OLANZapine ODT 10 MG TAB PO SCH (20:34)
[2022-10-28 06:30] VITALS: BP 126/65; PULSE 87; TEMP 98.1
[2022-10-28] MEDS: LITHIUM CARBONATE 300 MG CAP PO SCH (09:20)
--- NOTE | 2022-10-28 09:56 | P.DS ---
Providers Date of admission: 09/29/22 15:33 Expected date of discharge: 10/28/22 Attending physician: Osmel Mg MD Consults: 09/29/22 15:59 Consult Physician Routine Consulting Provider: Kate Bolton Consult Reason/Comments: H&P and medical Do you want consulting provider notified?: Yes Primary care physician: Seth Reyes - Discharge Diagnosis(es) (1) Schizoaffective disorder, bipolar type Current Visit: Yes Status: Acute Priority: High Hospital Course: Patient had her psychiatric H&P done by Dr. Mg on 09/30/2022 and general physical examination done by Paulina Cotton on the same day. After her psychiatric H&P she was started on lithium and Invega. Patient was refusing her medication and was staying by herself most of the time in her room. She went to court and was committed to the hospital with outpatient treatment and was started on Zyprexa 10 mg by mouth at bedtime or IM if she refuses by mouth instead of Invega. She took the Zyprexa by mouth and continued to refuse lithium. She made some improvement while on Zyprexa, became more coherent was able to smile and get along better. She was able to make her needs known lot better. She did not have any adverse effects from Zyprexa. Since she had some pending charges and had to return to assisted the treatment team agreed to discharge her to assisted today. Currently she is polite and cooperative. She has adequate hygiene. Her speech is spontaneous and goal-directed. She still does not believe she has any charges and does not think she has to go back to assisted. She does not show any psychomotor agitation or retardation. Her mood is euthymic and affect is appropriate to the thought content. She denies suicide and homicide thoughts. Her sensorium is clear and judgment is poor. She was advised to take her medications as prescribed, not to abuse drugs or alcohol and call the assisted authorities if she notices any change in her mental status or if she develops any physical symptoms. Patient Condition at Discharge: Stable Plan - Discharge Summary Discharge Rx Participant: Yes New Discharge Prescriptions: No Action No Known Home Medications Discharge Medication List OLANZapine [ZyPREXA] 10 mg PO HS 10/28/22 [History] Follow up Appointment(s)/Referral(s): [facility] [Other] - 1 Week Amy Ann MD [Primary Care Provider] - 1-2 days Activity/Diet/Wound Care/Special Instructions: Avoid the use of street drugs and alcohol. Take all medications as prescribed. When you are in need of refills on your medications, please contact your medical provider and/or outpatient psychiatrist to have this done. Please go to scheduled outpatient appointments for aftercare treatment. If symptoms return or become worse, call the crisis line at and/or go to the nearest emergency room for evaluation. Plan of Treatment: Take medications as prescribed.
== END 2022-10-28 15:10 | disposition still patient (30) | DRG 750 ==
LOC: EEVIPCON 01:31 → EC 01:31 → 3MHU 15:33
PROVIDERS: ADMIT Psychiatry & Neurology Psychiatry; ATTEND Psychiatry & Neurology Psychiatry
DX: F25.0 Schizoaffective disorder, bipolar type (principal); H05.20 Unspecified exophthalmos; Z68.43 Body mass index [BMI] 50.0-59.9, adult; Z91.128 Patient's intentional underdosing of medication regimen for other reason; E66.01 Morbid (severe) obesity due to excess calories; T43.506A Underdosing of unspecified antipsychotics and neuroleptics, initial encounter; H53.8 Other visual disturbances; R00.0 Tachycardia, unspecified; Z88.8 Allergy status to other drugs, medicaments and biological substances; Z65.8 Other specified problems related to psychosocial circumstances; Z81.8 Family history of other mental and behavioral disorders
CPT/HCPCS: 70480; 82075; 87635; 99285

== ENCOUNTER 2022-12-14 23:07 | Inpatient (IN) | payer MEDICARE, MEDICAID ==
--- NOTE | 2022-12-15 02:43 | ED ---
General Adult HPI - General Chief complaint: Psychiatric Symptoms Stated complaint: Mental Health Petition Time Seen by Provider: 12/14/22 23:41 Source: patient, police Mode of arrival: ambulatory Limitations: no limitations - History of Present Illness Initial comments: This is a 37-year-old female who was brought into the emergency department by police and a court ordered petition that stated that she has not followed up with [facility]. The patient had a court order for further evaluation and to be evaluated by EPS today. The patient denied any suicidal or homicidal ideation. It was elected the patient did have paranoia and delusions but was able to answer all questions appropriately here. The patient denied any other acute pain or complaints and was resting in bed comfortably. - Related Data Previous Rx's Medication Instructions Recorded Acetaminophen Tab [Tylenol] 650 mg PO Q4HR PRN tab 10/28/22 Mag Hydrox/Al Hydrox/Simeth 30 ml PO Q4HR PRN ml 10/28/22 [Maalox] Magnesium Hydroxide [Milk of 2,400 mg PO DAILY PRN ml 10/28/22 Magnesia Concentrate] OLANZapine ODT [ZyPREXA Zydis] 10 mg PO HS 30 Days #30 tab 10/28/22 Allergies Allergy/AdvReac Type Severity Reaction Status Date / Time aripiprazole [From Abilify] Allergy Dyspnea Verified 12/14/22 23:36 ziprasidone HCl [From Geodon] Allergy Dyspnea Verified 12/14/22 23:36 ziprasidone mesylate Allergy Dyspnea Verified 12/14/22 23:36 [From Geodon] Review of Systems ROS Statement: Those systems with pertinent positive or pertinent negative responses have been documented in the HPI. ROS Other: All systems not noted in ROS Statement are negative. Past Medical History Additional Past Medical History / Comment(s): depression History of Any Multi-Drug Resistant Organisms: None Reported Past Surgical History: No Surgical Hx Reported Past Psychological History: Anxiety, Depression, Schizophrenia Smoking Status: Never smoker Past Alcohol Use History: Rare Past Drug Use History: Marijuana General Exam Limitations: no limitations General appearance: alert, in no apparent distress, obese Head exam: Present: atraumatic, normocephalic, normal inspection Eye exam: Present: normal appearance, PERRL Pupils: Present: normal accommodation ENT exam: Present: normal exam, normal oropharynx, mucous membranes moist Neck exam: Present: normal inspection, full ROM Respiratory exam: Present: normal lung sounds bilaterally Cardiovascular Exam: Present: regular rate, normal rhythm, normal heart sounds GI/Abdominal exam: Present: soft, normal bowel sounds Extremities exam: Present: normal inspection, full ROM Back exam: Present: normal inspection, full ROM Neurological exam: Present: alert, oriented X3, CN II-XII intact Psychiatric exam: Present: normal affect, normal mood Skin exam: Present: warm, dry Course Vital Signs 12/14/22 23:30 Temperature 99.1 F Pulse Rate 94 Respiratory 20 Rate Blood Pressure 162/86 O2 Sat by Pulse 99 Oximetry Medical Decision Making - Medical Decision Making Was pt. sent in by a medical professional or institution (, [facility], PROGRAM PARAPROFESSIONAL, urgent care, hospital, or jail...) When possible be specific @ -Yes, the patient was Court order to be evaluated by EPS Did you speak to anyone other than the patient for history (EMS, parent, family, police, friend...)? What history was obtained from this source @ -No Did you review nursing and triage notes (agree or disagree)? Why? @ -I reviewed and agree with nursing and triage notes Were old charts reviewed (outside hosp., previous admission, EMS record, old EKG, old radiological studies, urgent care reports/EKG's, jail records)? Report findings @ -No old charts were reviewed Differential Diagnosis (chest pain, altered mental status, abdominal pain women, abdominal pain men, vaginal bleeding, weakness, fever, dyspnea, syncope, headache, dizziness, GI bleed, back pain, seizure, CVA, palpatations, mental health)? @ -Acute psychosis, delusions, medical noncompliance EKG interpreted by me (3pts min.). @ -None X-rays interpreted by me (1pt min.). @ -None done CT interpreted by me (1pt min.). @ -None done U/S interpreted by me (1pt. min.). @ -None done What testing was considered but not performed or refused? (CT, X-rays, U/S, labs)? Why? @ -None What meds were considered but not given or refused? Why? @ -None Did you discuss the management of the patient with other professionals (professionals i.e. , [facility], PROGRAM PAR[employer]ROFESSIONAL, lab, RT, psych nurse, health care social worker, testing analyst, teacher, commissioned fire officer, special education case manager)? Give summary @ -No Was smoking cessation discussed for >3mins.? @ -No Was critical care preformed (if so, how long)? @ -No Were there social determinants of health that impacted care today? How? (Homelessness, low income, unemployed, alcoholism, drug addiction, transportation, low edu. Level, literacy, decrease access to med. care, half-way, rehab)? @ -No Was there de-escalation of care discussed even if they declined (Discuss DNR or withdrawal of care, Hospice)? DNR status @ -No What co-morbidities impacted this encounter? (DM, HTN, Smoking, COPD, CAD, Cancer, CVA, ARF, Chemo, Hep., AIDS, mental health diagnosis, sleep apnea, morbid obesity)? @ -None Was patient admitted / discharged? Hospital course, mention meds given and route, prescriptions, significant lab abnormalities, going to OR and other pertinent info. @ -The patient was seen and evaluated emergency department. On arrival, the patient was resting in bed comfortably initially refusing to follow protocol for mental evaluation. The patient needed to be redirected and convinced multiple times to get undressed as well as to receive an alcohol level check. Due to the patient's court order documents, the patient was medically cleared for EPS evaluation. The patient was seen and evaluated by EPS and did state that the patient will be admitted secondary to the patient's court order for evaluation. EtOH was negative. The patient remained stable and was admitted in stable condition. Undiagnosed new problem with uncertain prognosis? @ -No Drug Therapy requiring intensive monitoring for toxicity (Heparin, Nitro, Insulin, Cardizem)? @ -No Were any procedures done? @ -No Diagnosis/symptom? @ -Mental health evaluation, court ordered Acute, or Chronic, or Acute on Chronic? @ -Acute on chronic Uncomplicated (without systemic symptoms) or Complicated (systemic symptoms)? @ -Complicated Side effects of treatment? @ -No Exacerbation, Progression, or Severe Exacerbation? @ -No Poses a threat to life or bodily function? How? (Chest pain, [place], [place], pneumonia, PE, COPD, DKA, ARF, appy, cholecystitis, CVA, Diverticulitis, Homicidal, Suicidal, threat to staff... and all critical care pts) @ -No - Lab Data Lab Results 12/15/22 Range/Units 03:37 Serum Alcohol <10 mg/dL Disposition Clinical Impression: Mental health problem Disposition: ADMITTED IP TO THIS HOSP Condition: Stable Is patient prescribed a controlled substance at d/c from ED?: No Referrals: Amy Ann MD [Primary Care Provider] - 1-2 days Time of Disposition: 06:00
[2022-12-15] MEDS ORDERED: LORazepam 2 MG/ML INJ IM PRN (07:55)
[2022-12-15] MEDS ORDERED: MAGNESIUM HYDROXIDE 2,400 MG/10 ML CUP PO PRN (07:55)
[2022-12-15] MEDS ORDERED: HALOPERIDOL LACTATE 5 MG/ML 1 ML VIAL IM PRN (07:55)
[2022-12-15] MEDS ORDERED: haloperidoL 5 MG TAB PO PRN (07:55)
[2022-12-15] MEDS ORDERED: ACETAMINOPHEN TAB 325 MG TAB PO PRN (07:55)
[2022-12-15] MEDS ORDERED: LORazepam 1 MG TAB PO PRN (07:55)
[2022-12-15] MEDS ORDERED: MAG HYDROX/AL HYDROX/SIMETH 30 ML CUP PO PRN (07:55)
[2022-12-15] MEDS ORDERED: IBUPROFEN 600 MG TAB PO PRN (07:55)
[2022-12-15 08:16] VITALS: PULSE 87
[2022-12-15 09:00] VITALS: BP 138/78; RESP 18; TEMP 98.6
--- NOTE | 2022-12-15 12:25 | P.HP ---
Psychiatric H&P - . H&P Date: 12/15/22 History & Physical: Allergies Allergy/AdvReac Type Severity Reaction Status Date / Time aripiprazole [From Abilify] Allergy Dyspnea Verified 12/14/22 23:36 ziprasidone HCl [From Geodon] Allergy Dyspnea Verified 12/14/22 23:36 ziprasidone mesylate Allergy Dyspnea Verified 12/14/22 23:36 [From Geodon] Vital Signs Temp 98.6 F 12/15/22 08:52 Pulse 87 12/15/22 08:52 Resp 18 12/15/22 08:52 BP 138/78 12/15/22 08:52 Pulse Ox 97 12/15/22 08:52 FiO2 Intake & Output 12/14/22 12/15/22 12/15/22 18:59 06:59 18:59 Weight 155.446 kg 153.314 kg Laboratory Last Values Serum Alcohol <10 mg/dL 12/15/22 03:37 Coronavirus (PCR) Not Detected (Not Detectd) 12/15/22 06:46 12/15/22 12:25 IDENTIFYING DATA: Patient is a single, unemployed, 37-year-old Afro-Y[place]i female with significant history of schizoaffective disorder who presents for hospital on 12/15/2022, brought into the emergency department by police for noncompliance pickup order. HPI: Patient presented to the hospital on 12/15/2022, brought in by police for noncompliance with their outpatient court ordered treatment. The patient is reportedly noncompliant with any of her outpatient mental health treatment since her last discharge. She did not present herself for her intake appointment with [facility]. Currently, her case was closed with [facility]. She is currently on an order that expires on 04/20/2023. Public guardian's office advised that the patient is still in a delusional state and not well. As reported that she is paranoid and guarded. Upon evaluation by this provider, the patient remains minimal and conversation. She is currently denying any suicidal or homicidal ideation, intention, and/or plan. However, the patient is unable to provide a clear history of events leading up to this hospitalization. She does admit that she has been noncompliant with any of her treatment with appropriate outpatient follow-up. She is denying any auditory or visual hallucinations at this time however she does present with significant paranoia. She is guarded throughout the conversation and states to this provider that "you don't need to know anything at this time." The patient refuses to participate in the psychiatric interview stating that she feels tired. Interview is therefore terminated. PAST PSYCHIATRIC HISTORY: Patient has previous diagnoses of schizophrenia and schizoaffective disorder. Patient was previously on a regimen of Zyprexa zydis during her last admission and has previously been on trials of Saphris and Invega Sustenna. She was last hospitalized on our psychiatric unit from September 30 to October 28. She is noncompliant with any outpatient follow-up. Uncertain whether the patient has attempted suicide in the past. PMH: Additional Past Medical History / Comment(s): depression History of Any Multi-Drug Resistant Organisms: None Reported Past Surgical History: No Surgical Hx Reported Past Psychological History: Anxiety, Depression, Schizophrenia Smoking Status: Never smoker Past Alcohol Use History: Rare Past Drug Use History: Marijuana ALLERGIES: Allergies Allergy/AdvReac Type Severity Reaction Status Date / Time aripiprazole [From Abilify] Allergy Dyspnea Verified 12/14/22 23:36 ziprasidone HCl [From Geodon] Allergy Dyspnea Verified 12/14/22 23:36 ziprasidone mesylate Allergy Dyspnea Verified 12/14/22 23:36 [From Geodon] CHEMICAL DEPENDENCY HISTORY: Patient refuses to answer today. She has not provided a sample for urinary drug screen. FAMILY PSYCHIATRIC/SUBSTANCE USE HISTORY: No reported family psychiatric history. SOCIAL HISTORY: Patient was born and raised in [place], [place]. She completed high school and attended some college. She currently lives alone and has a public guardian. MENTAL STATUS EXAM: General Appearance: Patient appears to be stated age is somnolent, morbidly obese, and has hirsutism. Behavior: Patient is lying down in bed without any agitated behavior. Poor eye contact. Speech: Patient's speech is nonspontaneous, soft spoken, minimal and conversation. Mood/Affect: Patient reports their mood is "just tired," affect is somnolent and also obstinate Suicidality/Homicidality: Patient currently denies any suicidal or homicidal ideation. Perceptions: Patient denies any visual hallucinations and denies any auditory hallucinations Though content/process: Patient does endorse generalized paranoia however is vague. Memory and concentration: Unable to appropriately assess Judgment and insight: poor STRENGTHS/WEAKNESSES: Unable to identify patient's strength. Weakness is that the patient has very limited insight and poor judgment. She is nonadherent with treatment. INTELLECT: average IMPRESSIONS: Schizoaffective disorder, bipolar type Noncompliance with outpatient treatment PLAN: -Patient is currently court ordered for treatment. -Medications : Will start patient on Risperdal 1 mg by mouth twice a day for mood stabilization/psychosis with plans to transition to Risperdal perseris due to nonadherence with treatment. -Ativan and Haldol PRN for agitation/aggression -Patient refuses to engage in informed consent conversation regarding medications. -Internal Medicine consult to perform medical evaluation and physical. -NRT - nicotine patch -SW on board for discharge planning. Encourage patient to participate in groups to work on coping skills. 12/15/22 12:25
--- NOTE | 2022-12-15 17:08 | P.CONS ---
History of Present Illness - Reason for Consult Consult date: 12/15/22 - History of Present Illness This is a 37 year old female with medical history of obesity, depression, anxiety, and schizophrenia. Patient denies any smoking or drinking, no drug use currently. Patient is evaluated on the mental health unit today and currently denying and significant past medical history. Denying any suicidal or homicidal ideations. Patient reports living by herself and not currently working, states her car was taken away from her. Currently states all her problems right now including the depression are because of her current situation stating that "just because I post something doesn't mean I'm going to do it." Patient would not further elaborate only that she feels like people are harassing her on social media and that everyone is out to get her which is why she is currently in the hospital. Patient is currently on a court ordered petition to receive mental health care per the medical record patient has not been following up at [facility]. Patient reports taking the olanzapine every once in a while but not daily. Currently denying any chest pain, no shortness of breath, no nausea, vomiting or diarrhea. Denying hallucinations. Screening labs are ordered and currently pending at this time. Patient is afebrile, heart rate 87, blood pressure 138/78, 97% room air. REVIEW OF SYSTEMS: CONSTITUTIONAL: No fever, no malaise, no fatigue. HEENT: No recent visual problems or hearing problems. Denied any sore throat. CARDIOVASCULAR: No chest pain, orthopnea, PND, no palpitations, no syncope. PULMONARY: No shortness of breath, no cough, no hemoptysis. GASTROINTESTINAL: No diarrhea, no nausea, no vomiting, no abdominal pain. NEUROLOGICAL: No headaches, no weakness, no numbness. HEMATOLOGICAL: Denies any bleeding or petechiae. GENITOURINARY: Denies any burning micturition, frequency, or urgency. MUSCULOSKELETAL/RHEUMATOLOGICAL: Denies any joint pain, swelling, or any muscle pain. ENDOCRINE: Denies any polyuria or polydipsia. The rest of the 14-point review of systems is negative. PHYSICAL EXAMINATION: GENERAL: The patient is alert and oriented x3, not in any acute distress. Well developed, well nourished. Obese. HEENT: Pupils are round and equally reacting to light. EOMI. No scleral icterus. No conjunctival pallor. Normocephalic, atraumatic. No pharyngeal erythema. No thyromegaly. CARDIOVASCULAR: S1 and S2 present. No murmurs, rubs, or gallops. PULMONARY: Chest is clear to auscultation, no wheezing or crackles. ABDOMEN: Soft, nontender, nondistended, normoactive bowel sounds. No palpable organomegaly. MUSCULOSKELETAL: No joint swelling or deformity. EXTREMITIES: No cyanosis, clubbing, or pedal edema. NEUROLOGICAL: Gross neurological examination did not reveal any focal deficits. SKIN: No rashes. Assessment and Plan Paranoia with history of schizophrenia Anxiety/Depression Morbid Obesity with BMI 52.9 GI prophylaxis DVT prophylaxis early ambulation Full Code Plan Pending psychiatric evaluation and current medications per psychiatry Will follow up with screening labs once available Thank you kindly for this consultation The impression and plan of care has been dictated by Charleen Jordan Nurse Practitioner as directed. Dr. Gretta MD I have performed a history and physical examination and medical decision making of this patient, discussed the same with the dictator, and agree with the dictators assessment and plan as written, documented as a scribe. Based on total visit time, I have performed more than 50% of this visit. Past Medical History Additional Past Medical History / Comment(s): depression, obesity History of Any Multi-Drug Resistant Organisms: None Reported Past Surgical History: No Surgical Hx Reported Past Anesthesia/Blood Transfusion Reactions: No Reported Reaction Past Psychological History: Anxiety, Depression, Schizophrenia Smoking Status: Never smoker Past Alcohol Use History: None Reported, Rare Past Drug Use History: Marijuana Medications and Allergies Home Medications Medication Instructions Recorded Confirmed Type Acetaminophen Tab [Tylenol] 650 mg PO Q4HR PRN tab 10/28/22 12/15/22 Rx Mag Hydrox/Al Hydrox/Simeth 30 ml PO Q4HR PRN ml 10/28/22 12/15/22 Rx [Maalox] Magnesium Hydroxide [Milk of 2,400 mg PO DAILY PRN ml 10/28/22 12/15/22 Rx Magnesia Concentrate] OLANZapine ODT [ZyPREXA Zydis] 10 mg PO HS 30 Days #30 tab 10/28/22 12/15/22 Rx Allergies Allergy/AdvReac Type Severity Reaction Status Date / Time aripiprazole [From Abilify] Allergy Dyspnea Verified 12/14/22 23:36 ziprasidone HCl [From Geodon] Allergy Dyspnea Verified 12/14/22 23:36 ziprasidone mesylate Allergy Dyspnea Verified 12/14/22 23:36 [From Geodon] Physical Exam Vitals: Vital Signs Temp Pulse Pulse Resp BP BP Pulse Ox 12/15/22 08:52 98.6 F 87 18 138/78 97 12/15/22 08:14 98.2 F 87 16 129/78 98 12/14/22 23:30 99.1 F 94 20 162/86 99 Intake and Output 12/15/22 12/15/22 12/15/22 06:59 14:59 22:59 Other: Weight 155.446 kg 153.314 kg Assessment and Plan Time with Patient: Less than 30
[2022-12-15] MEDS: risperiDONE 1 MG TAB PO SCH (20:53)
[2022-12-16] MEDS: risperiDONE 1 MG TAB PO SCH ×2 (08:37→08:40)
[2022-12-16] MEDS ORDERED: PALIPERIDONE 3 MG TAB.ER.24 PO STA (09:33)
[2022-12-16] MEDS ORDERED: flUPHENAZine 2.5 MG/ML (MDV) 10 ML VIAL IM PRN (09:34)
--- NOTE | 2022-12-16 10:18 | P.PN ---
Progress Note - Text Progress Note Date: 12/16/22 Interval History: Patient was seen wandering the hallways and was directable and agreeable to speak with telegraphic typewriter mechanic in the office. The patient is currently denying any suicidal or homicidal ideation, intention, and/or plan. She reports no auditory or visual hallucinations. She reports no paranoia or other delusions however is vague in regards to events leading up to the hospitalization. She does admit to not following with [facility] stating that "no one called me." The patient refused her risperdal, however she is agreeable to starting invega and transitioning to invega sustenna. She does acknowledge that she is court ordered and would be injected if she refuses her oral medication. Mental Status Exam: General Appearance: Patient appears to be stated age is alert, directable, and cooperative. Behavior: Patient is calmly seated without any agitated behavior. Speech: Patient's speech is fluent and nonpressured. Mood/Affect: Mood is improving mildly, affect is congruent and constricted. Suicidality/Homicidality: Patient denies having any suicidal or homicidal ideation intent or plan. Perceptions: Patient denies any visual hallucinations and denies any auditory hallucinations Though content/process: There is no evidence of any delusional thought content and thought process is linear and goal-directed. Memory and concentration: AOX3, grossly intact for the purposes of this session Judgment and insight: Improving mildly Vital Signs Temp 98.6 F 12/15/22 08:52 Pulse 87 12/15/22 08:52 Resp 18 12/15/22 08:52 BP 138/78 12/15/22 08:52 Pulse Ox 97 12/15/22 08:52 FiO2 Intake & Output 12/15/22 12/16/22 12/16/22 18:59 06:59 18:59 Weight 153.314 kg Assessment Schizoaffective disorder, bipolar type Noncompliance with outpatient treatment Plan: -Patient continues to meet criteria for inpatient psychiatric admission for symptom stabilization and safety. Patient is currently under court order. -Medications: Discontinue risperdal. Start invega 3 mg daily for psychosis/mood. Plan to titrate and transition to invega sustenna prior to discharge. -When necessary Ativan and Haldol for agitation/aggression. -NRT - nicotine patch -SW on board for discharge planning. Encouraged the patient to participate in milieu.
[2022-12-17] MEDS ORDERED: PALIPERIDONE 6 MG TAB.ER.24 PO SCH (09:00)
[2022-12-17] MEDS: PALIPERIDONE 3 MG TAB.ER.24 PO SCH (10:35)
--- NOTE | 2022-12-17 14:51 | P.PN ---
Subjective Progress Note Date: 12/17/22 Principal diagnosis: Progress note She was tranasfered to my care [facility]. She was seen in person and sedrick was dsicussed at length in the Treatment rteam meeting. She was initially sleeping but later on agreed to be seen in the office for quite some time. Her account of the contextual issue of her medication management was detailed and consistent with her previous account and was not clouded by her paranoia. it is evident that she did not want to be under the longstanding control of Guardianship or court ordered treatment. her lack of insight into th enature and repercussions of her psychiatric disorder was quite apparent. She offered no rationale explanation why she did not agree with Risperidol to be further titrated upwards to 6 mg. She rpeferred to be at 3 mg. She was prepared to consider depot injection in the future; oral followed by Depot may be the ideal regiment for her to follow. she reuminated over what she percevied as ill effects of the mental health system to meet or neglect her needs. She did not like the guardian leaving me"little money for my basis needs". She did not know how her car was dismissd [email or web address] no mode of transportation to [facility] [employer]. She agreed to seek further information prior to discharge. She asked to have access to "private psychiatrist" . She was referring to her long chronic stigma of mental illness attached to be [facility] client. She was receptive after I explained to her her urgent needs and her engagement process. Assessment: her schizoaffective disrode rin partial remisison . MSE: overweight, alert oriented. no aberrant motor behavior. Speech; normal tone and speed. coherent. Affect; slightly irritable much improved compared to her index admisison. Congruent with ther thought content. no sucidial or homicidla ideation. perceptual disturbacne: No paranoid or grandiose idesa of reference. No hallucinatons. Thought process; no loosenining goal directed. Insight judgment: marginal. regarding Rx compliance and sysem engagement Plan; discharge by wednesday. rx; 3 mg invega oral x 30 days. notify the public norma barragan [facility] staff regarding appointment. Clarify his trnasportation and monthly allowance. Objective - Vital Signs Vital signs: Vital Signs Temp 98.6 F 12/15/22 08:52 Pulse 87 12/15/22 08:52 Resp 18 12/15/22 08:52 BP 138/78 12/15/22 08:52 Pulse Ox 97 12/15/22 08:52 FiO2
[2022-12-18] MEDS: PALIPERIDONE 3 MG TAB.ER.24 PO SCH (10:37)
--- NOTE | 2022-12-18 12:44 | P.DS ---
Providers Date of admission: 12/15/22 07:25 discharge summary She was seen yesterday and today for review of her progress. She has become more stable after she was less irritable but continued to be ruminating over her perceived ill treatment system at large; court ordered medication and guardianship control of her daily allowance. She talked about the barrier of transporation for her to be more adherent with follow up. She prferred to be lying in bed most of the time. She tolerated the Invesga 3 mg po uneventfully with no EPS. She agreed to continue with [facility] follow up. [facility] Sust[facility]. MSE: moderately obese, speech. spontaneous and fluid, congrurent with though content. affect: slight irritable, no Delusions no hallcuinations no suicidal or homicidal ideation. cog. Oriented insight judgment has improved. Diag: schizoaffective disorder. Management plan: follow up [facility]. Ivnesga Rx was given risks and benefits dicussed . Community support and housing scheduled Attending physician: Grady Persaud MD Consults: 12/15/22 07:55 Consult Physician Routine Consulting Provider: Kate Bolton Consult Reason/Comments: H & P w/medical and medication management Do you want consulting provider notified?: Yes Primary care physician: Seth Reyes Patient Condition at Discharge: Stable Plan - Discharge Summary Discharge Rx Participant: No New Discharge Prescriptions: No Action Acetaminophen Tab [Tylenol] 650 mg PO Q4HR PRN tab PRN Reason: Pain/Discomfort OLANZapine ODT [ZyPREXA Zydis] 10 mg PO HS 30 Days #30 tab Mag Hydrox/Al Hydrox/Simeth [Maalox] 30 ml PO Q4HR PRN ml PRN Reason: Gi Upset Magnesium Hydroxide [Milk of Magnesia Concentrate] 2,400 mg PO DAILY PRN ml PRN Reason: Constipation Discharge Medication List Acetaminophen Tab [Tylenol] 650 mg PO Q4HR PRN tab 10/28/22 [Rx] Mag Hydrox/Al Hydrox/Simeth [Maalox] 30 ml PO Q4HR PRN ml 10/28/22 [Rx] Magnesium Hydroxide [Milk of Magnesia Concentrate] 2,400 mg PO DAILY PRN ml 10/28/22 [Rx] OLANZapine ODT [ZyPREXA Zydis] 10 mg PO HS 30 Days #30 tab 10/28/22 [Rx] Follow up Appointment(s)/Referral(s): Care, Yes [Other] - 1 Week Amy Ann MD [Primary Care Provider] - 1-2 days Activity/Diet/Wound Care/Special Instructions: Avoid the use of street drugs and alcohol. Take all medications as prescribed. When you are in need of refills on your medications, please contact your medical provider and/or outpatient psychiatrist to have this done. Please go to scheduled outpatient appointments for aftercare treatment. If symptoms return or become worse, call the crisis line at and/or go to the nearest emergency room for evaluation.
== END 2022-12-18 14:10 | DRG 885 ==
LOC: EC 23:07 → 3MHU 12-15 07:25
PROVIDERS: ADMIT Psychiatry & Neurology Psychiatry; ATTEND Psychiatry & Neurology Psychiatry
DX: F25.0 Schizoaffective disorder, bipolar type (principal); Z68.43 Body mass index [BMI] 50.0-59.9, adult; E66.01 Morbid (severe) obesity due to excess calories; F41.9 Anxiety disorder, unspecified; Z91.199 Patient's noncompliance with other medical treatment and regimen due to unspecified reason; Z20.822 Contact with and (suspected) exposure to COVID-19
CPT/HCPCS: 36415; 80320; 87635; 99285

== ENCOUNTER 2023-05-13 22:13 | Emergency (ER) | payer MEDICARE, OTHER ==
--- NOTE | 2023-05-13 22:57 | ED ---
General Adult HPI - General Source: patient, police, EMS, RN notes reviewed, old records reviewed Mode of arrival: EMS Limitations: no limitations <Isaac Godoy - Last Filed: 05/14/23 02:29> <Adarsh Vergara - Last Filed: 05/14/23 15:10> - General Chief complaint: Psychiatric Symptoms Stated complaint: LE Petition Time Seen by Provider: 05/13/23 22:37 - History of Present Illness Initial comments: 38-year-old female for mental health evaluation. Patient had been picked up by local police under apparently a court order petitioned. Patient resisted arrest and had sprayed the police with pepper spray. She required Taser for compliance. Patient calm and cooperative during my assessment. She is un certain exactly why she is in the emergency department. No suicidal thoughts. (Isaac Godoy) - Related Data Home Medications Medication Instructions Recorded Confirmed No Known Home Medications 05/14/23 05/14/23 Allergies Allergy/AdvReac Type Severity Reaction Status Date / Time aripiprazole [From Abilify] Allergy Dyspnea Verified 05/14/23 08:13 ziprasidone HCl [From Geodon] Allergy Dyspnea Verified 05/14/23 08:13 ziprasidone mesylate Allergy Dyspnea Verified 05/14/23 08:13 [From Geodon] Review of Systems ROS Other: All systems not noted in ROS Statement are negative. <Isaac Godoy - Last Filed: 05/14/23 02:29> ROS Other: All systems not noted in ROS Statement are negative. <Adarsh Vergara - Last Filed: 05/14/23 15:10> ROS Statement: Those systems with pertinent positive or pertinent negative responses have been documented in the HPI. Past Medical History Additional Past Medical History / Comment(s): depression, obesity History of Any Multi-Drug Resistant Organisms: None Reported Past Surgical History: No Surgical Hx Reported Past Anesthesia/Blood Transfusion Reactions: No Reported Reaction Past Psychological History: Anxiety, Depression, Schizophrenia Smoking Status: Never smoker Past Alcohol Use History: None Reported, Rare Past Drug Use History: Marijuana <Isaac Godoy - Last Filed: 05/14/23 02:29> General Exam General appearance: alert, in no apparent distress Head exam: Present: atraumatic, normocephalic Eye exam: Present: normal appearance, PERRL Neck exam: Present: normal inspection Respiratory exam: Present: normal lung sounds bilaterally. Absent: respiratory distress Cardiovascular Exam: Present: regular rate, normal rhythm GI/Abdominal exam: Present: soft. Absent: distended, tenderness Extremities exam: Present: other (Taser gamal injury to the left anterior thigh) Neurological exam: Present: alert Psychiatric exam: Present: flat affect Skin exam: Present: warm, dry, intact <Isaac Godoy - Last Filed: 05/14/23 02:29> Course <Isaac Godoy - Last Filed: 05/14/23 02:29> Vital Signs 05/14/23 05/14/23 06:42 11:43 Temperature 98.2 F 98.0 F Pulse Rate 88 84 Respiratory 18 19 Rate Blood Pressure 126/88 121/82 O2 Sat by Pulse 98 97 Oximetry - Reevaluation(s) Reevaluation #1: 05/13/23 22:56 Cleared for EPS (Isaac Godoy) Medical Decision Making <Isaac Godoy - Last Filed: 05/14/23 02:29> <Adarsh Vergara - Last Filed: 05/14/23 15:10> - Medical Decision Making Was pt. sent in by a medical professional or institution (, PA, TOOL MACHINE SHOP SUPERVISOR, urgent care, hospital, or [facility]...) When possible be specific @ -No Did you speak to anyone other than the patient for history (EMS, parent, family, police, friend...)? What history was obtained from this source @ -[Brought in by local police Did you review nursing and triage notes (agree or disagree)? Why? @ -I reviewed and agree with nursing and triage notes Were old charts reviewed (outside hosp., previous admission, EMS record, old EKG, old radiological studies, urgent care reports/EKG's, [facility] records)? Report findings @ -No old charts were reviewed Differential Diagnosis (chest pain, altered mental status, abdominal pain women, abdominal pain men, vaginal bleeding, weakness, fever, dyspnea, syncope, headache, dizziness, GI bleed, back pain, seizure, CVA, palpatations, mental health, musculoskeletal)? @ Differential Mental Health Depression, anxiety, bipolar, psychosis, schizophrenia, borderline personality, situational depression, adjustment disorder, behavioral disorder, brain tumor, malingering, substance abuse, encephalopathy, medication reaction, dementia, hypothyroidism, degenerative neurologic disorder, lupus.... This is not meant to be all-inclusive list EKG interpreted by me (3pts min.). @ -As above X-rays interpreted by me (1pt min.). @ -None done CT interpreted by me (1pt min.). @ -None done U/S interpreted by me (1pt. min.). @ -None done What testing was considered but not performed or refused? (CT, X-rays, U/S, labs)? Why? @ -None What meds were considered but not given or refused? Why? @ -None Did you discuss the management of the patient with other professionals (prof bauer i.e. , PA, TOOL MACHINE SHOP SUPERVISOR, lab, RT, psych nurse, social research assistant, associate professor of criminal justice, teacher, commercial credit officer, correctional counselor/case manager)? Give summary @ -No Was smoking cessation discussed for >3mins.? @ -No Was critical care preformed (if so, how long)? @ -No Were there social determinants of health that impacted care today? How? (Homelessness, low income, unemployed, alcoholism, drug addiction, transportation, low edu. Level, literacy, decrease access to med. care, senior care, rehab)? @ -No Was there de-escalation of care discussed even if they declined (Discuss DNR or withdrawal of care, Hospice)? DNR status @ -No What co-morbidities impacted this encounter? (DM, HTN, Smoking, COPD, CAD, Cancer, CVA, ARF, Chemo, Hep., AIDS, mental health diagnosis, sleep apnea, morbid obesity)? @ -[Psychiatric illness Was patient admitted / discharged? Hospital course, mention meds given and route, prescriptions, significant lab abnormalities, going to OR and other pertinent info. @ -[Patient medically cleared and awaiting EPS evaluation. (Isaac Godoy) Patient was evaluated by EPS, and determined that patient be discharged from this time. Patient discharged home with a safety plan. Does not be inpatient criteria for admission. Guardians were contacted were in agreement with plan. EPS Pina Spoke with Me. Diagnosis/symptom? @ -Encounter for psychiatric evaluation Acute, or Chronic, or Acute on Chronic? @ -Acute Uncomplicated (without systemic symptoms) or Complicated (systemic symptoms)? @ -Uncomplicated Side effects of treatment? @ -none Exacerbation, Progression, or Severe Exacerbation] @ -no Poses a threat to life or bodily function? @ -no (Adarsh Vergara) - Lab Data Lab Results 05/14/23 05/14/23 Range/Units 06:30 06:30 Urine Color Yellow Urine Appearance Clear (Clear) Urine pH 6.5 (5.0-8.0) Ur Specific [place] 1.010 (1.001-1.035) Urine Protein Negative (Negative) Urine Glucose (UA) Negative (Negative) Urine Ketones Negative (Negative) Urine Blood Negative (Negative) Urine Nitrite Negative (Negative) Urine Bilirubin Negative (Negative) Urine Urobilinogen <2.0 (<2.0) mg/dL Ur Leukocyte Esterase Negative (Negative) Urine Opiates Screen Not Detected (NotDetected) Ur Oxycodone Screen Not Detected (NotDetected) Urine Methadone Screen Not Detected (NotDetected) Ur Propoxyphene Screen Not Detected (NotDetected) Ur Barbiturates Screen Not Detected (NotDetected) U Tricyclic Antidepress Not Detected (NotDetected) Ur Phencyclidine Scrn Not Detected (NotDetected) Ur Amphetamines Screen Not Detected (NotDetected) U Methamphetamines Scrn Not Detected (NotDetected) U Benzodiazepines Scrn Not Detected (NotDetected) Urine Cocaine Screen Not Detected (NotDetected) U Marijuana (THC) Screen Not Detected (NotDetected) Disposition <Isaac Godoy - Last Filed: 05/14/23 02:29> Is patient prescribed a controlled substance at d/c from ED?: No Time of Disposition: 11:20 <Adarsh Vergara - Last Filed: 05/14/23 15:10> Clinical Impression: Encounter for psychological evaluation Disposition: HOME SELF-CARE Condition: Good Additional Instructions: Follow safety plan. Referrals: Amy Ann MD [Primary Care Provider] - 1-2 days
[2023-05-14 07:25] LABS: Appearance,Urine Clear (Clear); Color,Urine Yellow
[2023-05-14 07:26] LABS: Bilirubin,Urine Negative (Negative); Blood,Urine Negative (Negative); Glucose,Urine (UA) Negative (Negative); Ketones,Urine Negative (Negative); Leukocyte Esterase,Urine Negative (Negative); Nitrite,Urine Negative (Negative); PH, Urine 6.5 (5.0-8.0); Protein,Urine Negative (Negative); Urobilinogen,Urine <2.0 mg/dL (<2.0)
[2023-05-14 07:46] LABS: Amphetamine Screen,Urine Not Detected (NotDetected); Barbiturate Screen,Urine Not Detected (NotDetected); Benzodiazepines Screen,Urine Not Detected (NotDetected); Cocaine Screen,Urine Not Detected (NotDetected); Methadone Screen, Urine Not Detected (NotDetected); Opiate Screen,Urine Not Detected (NotDetected); Oxycodone Screen, Urine Not Detected (NotDetected); Phencyclidine Screen,Urine Not Detected (NotDetected); Tricyclic Antidepressant,Urine Not Detected (NotDetected); Urn Cannabinoid Scrn Not Detected (NotDetected)
[2023-05-14 11:53] VITALS: BP 121/82; PULSE 84; RESP 19; TEMP 98
== END 2023-05-14 11:44 | disposition home or self-care (01) ==
LOC: EC 22:13
DX: Z00.8 Encounter for other general examination (principal); F12.90 Cannabis use, unspecified, uncomplicated; Z86.59 Personal history of other mental and behavioral disorders; Z88.8 Allergy status to other drugs, medicaments and biological substances
CPT/HCPCS: 80306; 81003; 82075; 87491; 87591; 99285

== ENCOUNTER 2023-06-16 15:45 | Inpatient (IN) | payer MEDICARE, MEDICAID ==
[2023-06-16] MEDS ORDERED: LORazepam 2 MG/ML INJ IM PRN (20:52)
--- NOTE | 2023-06-16 21:09 | ED ---
Psych HPI - General Chief Complaint: Psychiatric Symptoms Stated Complaint: Mental Health Time Seen by Provider: 06/16/23 15:53 Source: EMS Mode of arrival: EMS Limitations: no limitations - History of Present Illness Initial Comments: This patient is a 38-year-old woman who reportedly has history of schizoaffective disorder. The patient is brought in with a court mandated pickup order. Patient is reportedly not compliant with mental health treatment plan. When I interview the patient, she is not forthcoming at all. She would answer some simple yes no questions related to her health. She denied pain. She denied dyspnea. MD Complaint: other -: unknown Associated Psychiatric Symptoms: other History of same: Yes Quality: getting worse Improves With: none Worsens With: none - Related Data Home Medications Medication Instructions Recorded Confirmed No Known Home Medications 05/14/23 06/25/23 Allergies Allergy/AdvReac Type Severity Reaction Status Date / Time aripiprazole [From Abilify] Allergy Dyspnea Verified 06/25/23 21:09 ziprasidone HCl [From Geodon] Allergy Dyspnea Verified 06/25/23 21:09 ziprasidone mesylate Allergy Dyspnea Verified 06/25/23 21:09 [From Geodon] Review of Systems ROS Statement: Those systems with pertinent positive or pertinent negative responses have been documented in the HPI. ROS Other: All systems not noted in ROS Statement are negative. Limitations: ROS unobtainable due to patients medical condition (Not cooperative with history and physical) Respiratory: Denies: dyspnea Cardiovascular: Denies: chest pain Gastrointestinal: Denies: abdominal pain Neurological: Denies: headache Past Medical History Additional Past Medical History / Comment(s): depression, obesity History of Any Multi-Drug Resistant Organisms: None Reported Past Surgical History: No Surgical Hx Reported Past Anesthesia/Blood Transfusion Reactions: No Reported Reaction Past Psychological History: Anxiety, Depression, Schizophrenia Smoking Status: Never smoker Past Alcohol Use History: None Reported, Rare Past Drug Use History: Marijuana General Exam Limitations: no limitations General appearance: alert, in no apparent distress Head exam: Present: atraumatic, normocephalic Eye exam: Present: normal appearance. Absent: scleral icterus, conjunctival injection Neck exam: Present: normal inspection, full ROM Respiratory exam: Present: normal lung sounds bilaterally. Absent: respiratory distress, wheezes, rales, rhonchi, stridor, accessory muscle use Cardiovascular Exam: Present: regular rate, normal rhythm, normal heart sounds. Absent: systolic murmur, diastolic murmur, rubs, gallop GI/Abdominal exam: Present: soft. Absent: tenderness Extremities exam: Present: normal inspection, normal capillary refill. Absent: pedal edema Neurological exam: Present: alert Skin exam: Present: warm, dry, intact, normal color. Absent: rash Course Vital Signs 06/16/23 06/17/23 06/18/23 15:50 15:00 05:08 Temperature 98.2 F 98.5 F 98.4 F Pulse Rate 106 H 104 H 102 H Respiratory 22 20 18 Rate Blood Pressure 158/108 177/108 171/105 O2 Sat by Pulse 98 95 98 Oximetry 06/18/23 06/18/23 06/18/23 08:45 12:00 18:38 Temperature 97.8 F 98.1 F Pulse Rate 88 101 H 101 H Respiratory 18 18 18 Rate Blood Pressure 133/78 165/103 156/95 O2 Sat by Pulse 98 99 98 Oximetry 06/20/23 06/20/23 06/22/23 06:00 23:00 06:16 Temperature 98.1 F 98.8 F 98.0 F Pulse Rate 109 H 92 80 Respiratory 20 18 19 Rate Blood Pressure 137/85 138/90 141/82 O2 Sat by Pulse 96 96 97 Oximetry 06/23/23 06/24/23 06/24/23 04:45 08:00 13:00 Temperature 97.6 F 98.5 F Pulse Rate 96 80 86 Respiratory 17 16 16 Rate Blood Pressure 104/63 120/63 130/80 O2 Sat by Pulse 97 98 98 Oximetry Medical Decision Making - Medical Decision Making Was pt. sent in by a medical professional or institution (, PA, GARDEN CONSULTANT, urgent care, hospital, or long-term...) When possible be specific @ -[No] Did you speak to anyone other than the patient for history (EMS, parent, family, police, friend...)? What history was obtained from this source @ -[Law enforcement personnel/EMS Did you review nursing and triage notes (agree or disagree)? Why? @ -[I reviewed and agree with nursing and triage notes] Were old charts reviewed (outside hosp., previous admission, EMS record, old EKG, old radiological studies, urgent care reports/EKG's, long-term records)? Report findings @ -[The Court paperwork reviewed Differential Diagnosis (chest pain, altered mental status, abdominal pain women, abdominal pain men, vaginal bleeding, weakness, fever, dyspnea, syncope, headache, dizziness, GI bleed, back pain, seizure, CVA, palpatations, mental health, musculoskeletal)? @ -[Differential Mental Health Depression, anxiety, bipolar, psychosis, schizophrenia, borderline personality, situational depression, adjustment disorder, behavioral disorder, brain tumor, malingering, substance abuse, encephalopathy, medication reaction, dementia, hypothyroidism, degenerative neurologic disorder, lupus.... This is not meant to be all-inclusive list EKG interpreted by me (3pts min.). @ -[As above] X-rays interpreted by me (1pt min.). @ -[None done] CT interpreted by me (1pt min.). @ -[None done] U/S interpreted by me (1pt. min.). @ -[None done] What testing was considered but not performed or refused? (CT, X-rays, U/S, labs)? Why? @ -[None] What meds were considered but not given or refused? Why? @ -[None] Did you discuss the management of the patient with other professionals (professionals i.e. , PA, GARDEN CONSULTANT, lab, RT, psych nurse, marriage and family social worker, toolroom clerk, teacher, customs and border protection officer, correctional counselor/case manager)? Give summary @ -[Case discussed with EPS personnel Was smoking cessation discussed for >3mins.? @ -[No] Was critical care preformed (if so, how long)? @ -[No] Were there social determinants of health that impacted care today? How? (Homelessness, low income, unemployed, alcoholism, drug addiction, transportation, low edu. Level, literacy, decrease access to med. care, group home, rehab)? @ -[No] Was there de-escalation of care discussed even if they declined (Discuss DNR or withdrawal of care, Hospice)? DNR status @ -[No] What co-morbidities impacted this encounter? (DM, HTN, Smoking, COPD, CAD, Cancer, CVA, ARF, Chemo, Hep., AIDS, mental health diagnosis, sleep apnea, morbid obesity)? @ -[None] Was patient admitted / discharged? Hospital course, mention meds given and route, prescriptions, significant lab abnormalities, going to OR and other pertinent info. @ -[The case was discussed with the psychiatrist and they would like the patient admitted, however not able to keep patient here. Patient is pending transfer to psychiatric facility at time of shift change - Lab Data Result diagrams: 06/17/23 02:43 06/17/23 02:43 Lab Results 06/17/23 06/17/23 06/17/23 Range/Units 02:40 02:43 02:43 WBC 11.4 H (3.8-10.6) k/uL RBC 4.31 (3.80-5.40) m/uL Hgb 11.0 L (11.4-16.0) gm/dL Hct 34.9 (34.0-46.0) % MCV 81.1 (80.0-100.0) fL MCH 25.6 (25.0-35.0) pg MCHC 31.5 (31.0-37.0) g/dL RDW 16.1 H (11.5-15.5) % Plt Count 369 (150-450) k/uL MPV 7.9 Neutrophils % 66 % Lymphocytes % 26 % Monocytes % 4 % Eosinophils % 3 % Basophils % 0 % Neutrophils # 7.5 (1.3-7.7) k/uL Lymphocytes # 3.0 (1.0-4.8) k/uL Monocytes # 0.4 (0-1.0) k/uL Eosinophils # 0.3 (0-0.7) k/uL Basophils # 0.0 (0-0.2) k/uL Hypochromasia Slight Anisocytosis Slight Sodium (137-145) mmol/L Potassium (3.5-5.1) mmol/L Chloride (98-107) mmol/L Carbon Dioxide (22-30) mmol/L Anion Gap mmol/L BUN (7-17) mg/dL Creatinine (0.52-1.04) mg/dL Est GFR (CKD-EPI)AfAm (>60 ml/min/1.73 sqM) Est GFR (CKD-EPI)NonAf (>60 ml/min/1.73 sqM) Glucose (74-99) mg/dL Calcium (8.4-10.2) mg/dL Urine Color Urine Appearance (Clear) Urine pH (5.0-8.0) Ur Specific [place] (1.001-1.035) Urine Protein (Negative) Urine Glucose (UA) (Negative) Urine Ketones (Negative) Urine Blood (Negative) Urine Nitrite (Negative) Urine Bilirubin (Negative) Urine Urobilinogen (<2.0) mg/dL Ur Leukocyte Esterase (Negative) Urine HCG, Qual Not Detected (Not Detectd) Urine Opiates Screen (NotDetected) Ur Oxycodone Screen (NotDetected) Urine Methadone Screen (NotDetected) Ur Propoxyphene Screen (NotDetected) Ur Barbiturates Screen (NotDetected) U Tricyclic Antidepress (NotDetected) Ur Phencyclidine Scrn (NotDetected) Ur Amphetamines Screen (NotDetected) U Methamphetamines Scrn (NotDetected) U Benzodiazepines Scrn (NotDetected) Urine Cocaine Screen (NotDetected) U Marijuana (THC) Screen (NotDetected) SARS-CoV-2 (PCR) Not Detected (Not Detectd) 06/17/23 06/17/23 06/17/23 Range/Units 02:43 02:43 02:43 WBC (3.8-10.6) k/uL RBC (3.80-5.40) m/uL Hgb (11.4-16.0) gm/dL Hct (34.0-46.0) % MCV (80.0-100.0) fL MCH (25.0-35.0) pg MCHC (31.0-37.0) g/dL RDW (11.5-15.5) % Plt Count (150-450) k/uL MPV Neutrophils % % Lymphocytes % % Monocytes % % Eosinophils % % Basophils % % Neutrophils # (1.3-7.7) k/uL Lymphocytes # (1.0-4.8) k/uL Monocytes # (0-1.0) k/uL Eosinophils # (0-0.7) k/uL Basophils # (0-0.2) k/uL Hypochromasia Anisocytosis Sodium 137 (137-145) mmol/L Potassium 4.4 (3.5-5.1) mmol/L Chloride 103 (98-107) mmol/L Carbon Dioxide 23 (22-30) mmol/L Anion Gap 11 mmol/L BUN 9 (7-17) mg/dL Creatinine 0.67 (0.52-1.04) mg/dL Est GFR (CKD-EPI)AfAm >90 (>60 ml/min/1.73 sqM) Est GFR (CKD-EPI)NonAf >90 (>60 ml/min/1.73 sqM) Glucose 151 H (74-99) mg/dL Calcium 9.2 (8.4-10.2) mg/dL Urine Color Colorless Urine Appearance Clear (Clear) Urine pH 6.5 (5.0-8.0) Ur Specific [place] 1.011 (1.001-1.035) Urine Protein Negative (Negative) Urine Glucose (UA) Negative (Negative) Urine Ketones Negative (Negative) Urine Blood Negative (Negative) Urine Nitrite Negative (Negative) Urine Bilirubin Negative (Negative) Urine Urobilinogen <2.0 (<2.0) mg/dL Ur Leukocyte Esterase Negative (Negative) Urine HCG, Qual (Not Detectd) Urine Opiates Screen Not Detected (NotDetected) Ur Oxycodone Screen Not Detected (NotDetected) Urine Methadone Screen Not Detected (NotDetected) Ur Propoxyphene Screen Not Detected (NotDetected) Ur Barbiturates Screen Not Detected (NotDetected) U Tricyclic Antidepress Not Detected (NotDetected) Ur Phencyclidine Scrn Not Detected (NotDetected) Ur Amphetamines Screen Not Detected (NotDetected) U Methamphetamines Scrn Not Detected (NotDetected) U Benzodiazepines Scrn Not Detected (NotDetected) Urine Cocaine Screen Not Detected (NotDetected) U Marijuana (THC) Screen Not Detected (NotDetected) SARS-CoV-2 (PCR) (Not Detectd) Disposition Clinical Impression: Schizoaffective disorder, bipolar type Disposition: TRANSFER TO PSYCH HOSP/UNIT Condition: Fair Is patient prescribed a controlled substance at d/c from ED?: No
[2023-06-17 03:33] LABS: Anisocytosis Slight; Basophils % (A) 0 %; Eosinophils # (A) 0.3 k/uL (0-0.7); Eosinophils % (A) 3 %; HCT 34.9 % (34.0-46.0); Hypochromasia Slight; Lymphocytes % (A) 26 %; MCH 25.6 pg (25.0-35.0); MCHC 31.5 g/dL (31.0-37.0); MCV 81.1 fL (80.0-100.0); Mean Platelet Volume 7.9; Monocytes # (A) 0.4 k/uL (0-1.0); Monocytes % (A) 4 %; Neutrophils # (A) 7.5 k/uL (1.3-7.7); Neutrophils % (A) 66 %; Platelet Count 369 k/uL (150-450); RBC 4.31 m/uL (3.80-5.40); RDW 16.1 % (11.5-15.5); WBC 11.4 k/uL (3.8-10.6)
[2023-06-17 13:58] LABS: African American GFR (CKD) >90 (>60 ml/min/1.73 sqM); Anion Gap 11 mmol/L; Blood Urea Nitrogen 9 mg/dL (7-17); Calcium 9.2 mg/dL (8.4-10.2); Carbon Dioxide 23 mmol/L (22-30); Chloride 103 mmol/L (98-107); Glucose 151 mg/dL (74-99); Non-African American GFR(CKD) >90 (>60 ml/min/1.73 sqM); Potassium 4.4 mmol/L (3.5-5.1); Sodium 137 mmol/L (137-145)
[2023-06-17 14:49] LABS: Appearance,Urine Clear (Clear); Bilirubin,Urine Negative (Negative); Blood,Urine Negative (Negative); Color,Urine Colorless; Glucose,Urine (UA) Negative (Negative); Ketones,Urine Negative (Negative); Leukocyte Esterase,Urine Negative (Negative); Nitrite,Urine Negative (Negative); PH, Urine 6.5 (5.0-8.0); Protein,Urine Negative (Negative); Specific Gravity,Urine 1.011 (1.001-1.035); Urobilinogen,Urine <2.0 mg/dL (<2.0)
[2023-06-17 14:55] LABS: Amphetamine Screen,Urine Not Detected (NotDetected); Barbiturate Screen,Urine Not Detected (NotDetected); Benzodiazepines Screen,Urine Not Detected (NotDetected); Cocaine Screen,Urine Not Detected (NotDetected); Methadone Screen, Urine Not Detected (NotDetected); Opiate Screen,Urine Not Detected (NotDetected); Oxycodone Screen, Urine Not Detected (NotDetected); Phencyclidine Screen,Urine Not Detected (NotDetected); Tricyclic Antidepressant,Urine Not Detected (NotDetected); Urn Cannabinoid Scrn Not Detected (NotDetected)
[2023-06-17] MEDS ORDERED: cloNIDine HCL 0.2 MG TAB PO STA (15:59)
[2023-06-17] MEDS ORDERED: cloNIDine HCL 0.2 MG TAB PO PRN (16:23)
[2023-06-18] MEDS ORDERED: cloNIDine HCL 0.2 MG TAB PO STA (17:28)
[2023-06-18] MEDS ORDERED: cloNIDine 0.2 MG/24HR PATCH TRANSDERM SCH (18:00)
[2023-06-19] MEDS ORDERED: HALOPERIDOL LACTATE 5 MG/ML 1 ML VIAL IM STA (03:47)
[2023-06-19] MEDS ORDERED: LORazepam 2 MG/ML INJ IM STA (03:48)
[2023-06-19] MEDS ORDERED: diphenhydrAMINE 50 MG/ML 1 ML VIAL IM STA (03:48)
[2023-06-20] MEDS: guaiFENesin 600 MG TABLET.ER PO PRN (20:41)
[2023-06-22] MEDS: guaiFENesin 600 MG TABLET.ER PO PRN (06:18)
[2023-06-24 13:27] VITALS: PULSE 86; RESP 16
[2023-06-24] MEDS ORDERED: ACETAMINOPHEN TAB 325 MG TAB PO PRN (15:34)
[2023-06-24] MEDS ORDERED: MAG HYDROX/AL HYDROX/SIMETH 30 ML CUP PO PRN (15:34)
[2023-06-24] MEDS ORDERED: MAGNESIUM HYDROXIDE 2,400 MG/30 ML CUP PO PRN (15:34)
[2023-06-24] MEDS ORDERED: LORazepam 1 MG TAB PO PRN (15:34)
[2023-06-24] MEDS ORDERED: haloperidoL 5 MG TAB PO PRN (15:38)
[2023-06-24] MEDS ORDERED: HALOPERIDOL LACTATE 5 MG/ML 1 ML VIAL IM PRN (15:38)
[2023-06-24] MEDS ORDERED: LORazepam 2 MG/ML INJ IM PRN (15:44)
[2023-06-24 16:58] VITALS: BP 138/92; TEMP 97.7
[2023-06-25] MEDS ORDERED: BENZONATATE 100 MG CAP PO PRN (11:36)
[2023-06-25] MEDS ORDERED: diphenhydrAMINE 50 MG CAP PO PRN (11:37)
[2023-06-25] MEDS: guaiFENesin 600 MG TABLET.ER PO PRN (12:10)
[2023-06-25] MEDS ORDERED: traZODone HCL 100 MG TAB PO PRN (13:42)
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
[2023-06-25] MEDS ORDERED: LITHIUM CARBONATE ER 450 MG TABLET.ER PO SCH (21:00)
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
== END 2023-06-25 16:36 | DRG 885 ==
LOC: EEVIPCON 15:45 → EC 15:45 → 3MHU 06-24 15:31
PROVIDERS: ADMIT Psychiatry & Neurology Psychiatry; ATTEND Psychiatry & Neurology Psychiatry
DX: F25.0 Schizoaffective disorder, bipolar type (principal); Z68.43 Body mass index [BMI] 50.0-59.9, adult; E66.9 Obesity, unspecified; Z91.199 Patient's noncompliance with other medical treatment and regimen due to unspecified reason; Z20.822 Contact with and (suspected) exposure to COVID-19; Z91.148 Patient's other noncompliance with medication regimen for other reason; Z88.8 Allergy status to other drugs, medicaments and biological substances
CPT/HCPCS: 36415; 80048; 80306; 81003; 81025; 82075; 85025; 87635; 87636; 96372; 99285

== ENCOUNTER 2023-06-25 16:59 | Inpatient (IN) | payer MEDICARE, OTHER ==
--- NOTE | 2023-06-25 19:33 | XR ---
EXAM: XR chest 1V portable CLINICAL INDICATION:Female, 38 years old with history of shortness of breath/covid; [facility] COMPARISON: None. TECHNIQUE: Chest single view. FINDINGS: Limited by body habitus. Lines/tubes/devices: None. Cardiomediastinum: Cardiac silhouette appears upper normal in size. Unremarkable mediastinal silhouette. Vasculature: Mildly increased pulmonary vasculature. Lungs/pleura: Limited visualization of the left lung base. Otherwise no consolidation, sizeable effusion, or visib le pneumothorax. Bones/soft tissues: Bony thorax appears grossly intact as seen. Regional soft tissues appear unremarkable. IMPRESSION: Heart size upper normal. Mild vascular congestion. Limited assessment of the left lung base. Otherwise no acute cardiopulmonary findings.
[2023-06-25] MEDS: ASCORBIC ACID 500 MG TAB PO SCH (20:32)
[2023-06-25] MEDS: CHOLECALCIFEROL 25 MCG (1000 IU) TABLET PO SCH (20:32)
[2023-06-25] MEDS: dexAMETHasone 2 MG TAB PO SCH (20:41)
[2023-06-25] MEDS: AZITHROMYCIN 500 MG TAB PO SCH (20:41)
[2023-06-25] MEDS ORDERED: LORazepam 2 MG/ML INJ IM PRN (21:35)
[2023-06-26] MEDS ORDERED: LORATADINE 10 MG TAB PO PRN (12:12)
[2023-06-26] MEDS: AZITHROMYCIN 500 MG TAB PO SCH (12:32)
[2023-06-26] MEDS: dexAMETHasone 2 MG TAB PO SCH (12:32)
[2023-06-26] MEDS: LITHIUM CARBONATE 300 MG CAP PO SCH ×2 (12:32→22:12)
[2023-06-26] MEDS: ASCORBIC ACID 500 MG TAB PO SCH (15:15)
[2023-06-26] MEDS: CHOLECALCIFEROL 25 MCG (1000 IU) TABLET PO SCH (15:15)
--- NOTE | 2023-06-26 20:43 | P.PN ---
Progress Note - Text Progress Note Date: 06/26/23 Reason for Consult/Chief Complaint: Follow up after transferred from psychiatric floor to medical unit because of Covid infection. History of Present Illness: Patient was seen in the medical floor. Sources of information for medical record review by provider: patient and medical records. The patient was evacuated while sitting on bed at the medical floor, and presents indifferent, not cooperative but no signs of severe distress or agitation. The patient was initially involuntary admitted to psychiatric after she presented psychotic and has not been taking her psychiatric medications. The patient was transferred to the medical floor because she was found to be positive for Covid, and psychiatric team was consulted today to follow up with the patient. The patient has been refusing taking any medications including antibiotics and steroids medications recommended by the medical team to address her medical condition. The patient was calm but very argumentative and clearly paranoid, not trusting the process of hospitalization and fixated on doesn't need to be in the hospital and doesn't need any psychiatric treatment. The patient asked many questions about Covid infection and possible complications. I provided the patient with all information requested and answered her questions. Also, I encouraged her to take medications offered by the medical team to treat Covid and to take her psychiatric medications. The patient response was been adamant not take any medications especially psychiatric medications. She believes that she had a mental illness in the past which is cured and she doesn't need to be on psych medications anymore. The patient was not able to give me her psychiatric diagnosis, and reports that she was never told what her psychiatric diagnosis. The patient appears very paranoid and possibly responding to internal stimuli, and she was very superficial in answering questions about psychiatric symptoms of history of psychiatric treatment. The patient denies suicidal or homicidal ideation. Also she doesn't report any hallucinations or delusions but again she presents very paranoid. The patient denies sleep or appetite changes. MENTAL STATUS EXAM: General Appearance: Patient appears to be obese, short hair, stated age Patient appears to have poor hygiene and grooming. The patient is alert, argumentative, and paranoid/evasive. Behavior: Patient is seated without any agitated behavior. Paranoid. Evasive. Speech: Patient's speech is fluent and non pressured. Irritable and confrontational. Mood/Affect: Patient reports their mood is "fine", affect is congruent Suicidality/Homicidality: Patient denies having any homicidal ideation intent or plan. Denies any suicidal ideation intent or plan Perceptions: Patient denies any visual hallucinations and denies any auditory hallucinations Though content/process: Patient has displaying significant poor insight and judgment. Illogical at times. Memory and concentration: AOX3, grossly intact for the purposes of this session. Judgment and insight: Chronically poor IMPRESSIONS: Schizoaffective, bipolar type Noncompliance with outpatient treatment Recommendation: Addressed and ensured patient's safety, patient does meet the criteria for psychiatric hospitalization. Patient is actively psychotic and has very poor insight to her mental illness. Please transfer the patient back to inpatient psychiatric level of care after achieving medical stabilization. The patient should be at high risk of elopement and she can not leave AMA. The patient has been involuntary admitted to psychiatric unit (petitioned and has 2 clinical certificates) The psychiatric team will continue follow up. Medication management: Patient continues refusing taking any medications including her psychiatric medications Prolixin by mouth 2.5 mg twice a day for psychosis/mood stabilization, lithium 300 mg bid mood stabilization. -Ativan and Haldol PRN for agitation/aggression Brief supportive psychotherapy and psychoeducation was provided to the patient. Discussed the treatment plan with the requesting physician/service. Thank you for permitting me to assist in this patient's treatment. Please call the psychiatry department if you have any questions or need further help with this case.
--- NOTE | 2023-06-26 21:31 | P.HPIM ---
History of Present Illness H&P Date: 06/25/23 Chief Complaint: COVID-19 infection 71-hdab-pef-year-old female with a past medical history significant for hypertension, presenting to the ER for evaluation of psych evaluation patient was brought in by [facility] on a court order. Patient was admitted to mental health unit where she complained of cough and shortness of breath; COVID-19 PCR was sent and it came back positive; chest x- ray was done and is negative for any acute process; patient denies any shortness of breath with saturating above 95% on room air -- She is placed on azithromycin for superimposed bacterial infection -- We will start patient on Decadron along with COVID-19 vitamin cocktail Review of Systems REVIEW OF SYSTEMS: CONSTITUTIONAL: No fever, no malaise, no fatigue. HEENT: No recent visual problems or hearing problems. Denied any sore throat. CARDIOVASCULAR: No chest pain, orthopnea, PND, no palpitations, no syncope. PULMONARY: No shortness of breath, no cough, no hemoptysis. GASTROINTESTINAL: No diarrhea, no nausea, no vomiting, no abdominal pain. NEUROLOGICAL: No headaches, no weakness, no numbness. HEMATOLOGICAL: Denies any bleeding or petechiae. GENITOURINARY: Denies any burning micturition, frequency, or urgency. MUSCULOSKELETAL/RHEUMATOLOGICAL: Denies any joint pain, swelling, or any muscle pain. ENDOCRINE: Denies any polyuria or polydipsia. The rest of the 14-point review of systems is negative. Past Medical History Past Medical History: Hypertension Additional Past Medical History / Comment(s): depression, obesity History of Any Multi-Drug Resistant Organisms: None Reported Past Surgical History: No Surgical Hx Reported Past Anesthesia/Blood Transfusion Reactions: No Reported Reaction Smoking Status: Never smoker Medications and Allergies Home Medications Medication Instructions Recorded Confirmed Type No Known Home Medications 05/14/23 06/25/23 History Allergies Allergy/AdvReac Type Severity Reaction Status Date / Time aripiprazole [From Abilify] Allergy Dyspnea Verified 06/25/23 21:09 ziprasidone HCl [From Geodon] Allergy Dyspnea Verified 06/25/23 21:09 ziprasidone mesylate Allergy Dyspnea Verified 06/25/23 21:09 [From Geodon] Physical Exam Vitals: Vital Signs Temp Pulse Resp BP Pulse Ox 12/08/23 19:00 97.8 F 91 16 122/82 96 06/25/23 18:00 16 Intake and Output 06/25/23 06/25/23 06/25/23 06:59 14:59 22:59 Other: Weight 157.896 kg General appearance: alert, other (Manic) Head exam: Present: atraumatic, normocephalic, normal inspection Eye exam: Present: normal appearance Neck exam: Present: normal inspection, full ROM Respiratory exam: Scattered rhonchi with wheezing bilateral lower lung urbina Extremities exam: Present: normal inspection, full ROM Back exam: Present: normal inspection Neurological exam: Present: alert Psychiatric exam: Present: manic Skin exam: Present: warm, dry Assessment and Plan Assessment: 1. COVID-19 Viral infection - Patient tested positive for COVID-19 PCR; chest x-ray completed is negative for any infiltrates; does show mild vascular congestion - Patient has been placed on COVID-19 vitamin cocktail; Decadron 6 mg daily - Consult ID for recommendations on REM does severe therapy 2. Superimposed bacterial infection/purulent tracheobronchitis; azithromycin 500 mg daily - We will order sputum cultures and blood cultures as able 3. Schizoaffective, bipolar type - We will continue medications recommended mental health unit, Prolixin 2.5 mg twice a day along with lithium 300 mg twice a day - Patient currently refuses all treatment DVT prophylaxis; SCDs/subcu Lovenox CODE STATUS;
--- NOTE | 2023-06-26 21:32 | P.PN ---
Subjective Progress Note Date: 06/26/23 51-gnif-[age]he-year-old female with a past medical history significant for hypertension, presenting to the ER for evaluation of psych evaluation patient was brought in by [employer] on a court order. Patient was admitted to mental health unit where she complained of cough and antonina rtness of breath; COVID-19 PCR was sent and it came back positive; chest x-ray was done and is negative for any acute process; patient denies any shortness of breath with saturating above 95% on room air -- She is placed on azithromycin for superimposed bacterial infection -- We will start patient on Decadron along with COVID-19 vitamin cocktail -- Patient continues to refuse all medications and blood Objective - Vital Signs Vital signs: Vital Signs Temp 97.8 F 06/26/23 02:27 Pulse 86 06/26/23 02:27 Resp 15 06/26/23 02:27 BP 129/74 06/26/23 02:27 Pulse Ox 96 06/26/23 02:27 FiO2 Intake & Output 06/25/23 06/26/23 06/26/23 18:59 06:59 18:59 Intake Total 118 Balance 118 Weight 157.896 kg Intake: Oral 118 Other: Voiding Method Toilet # Voids 2 - Exam General appearance: alert, other (Manic) Head exam: Present: atraumatic, normocephalic, normal inspection Eye exam: Present: normal appearance Neck exam: Present: normal inspection, full ROM Respiratory exam: Scattered rhonchi with wheezing bilateral lower lung urbina Extremities exam: Present: normal inspection, full ROM Back exam: Present: normal inspection Neurological exam: Present: alert Psychiatric exam: Present: manic Skin exam: Present: warm, dry Assessment and Plan Assessment: 1. COVID-19 Viral infection - Patient tested positive for COVID-19 PCR; chest x-ray completed is negative for any infiltrates; does show mild vascular congestion - Patient has been placed on COVID-19 vitamin cocktail; Decadron 6 mg daily - Consult ID for recommendations on REM does severe therapy 2. Superimposed bacterial infection/purulent tracheobronchitis; azithromycin 500 mg daily - We will order sputum cultures and blood cultures as able 3. Schizoaffective, bipolar type - We will continue medications recommended mental health unit, Prolixin 2.5 mg twice a day along with lithium 300 mg twice a day - Patient currently refuses all treatment DVT prophylaxis; SCDs/subcu Lovenox CODE STATUS;
--- NOTE | 2023-06-26 22:44 | P.CONS ---
History of Present Illness - Reason for Consult Consult date: 06/26/23 - History of Present Illness Patient is a 38-year-old female with a past medical history negative for hypertension patient was brought into the ER by [employer] on a court order for psych evaluation patient was admitted to the inpatient mental health unit patient was complaining of shortness of breath and a cough patient did have a COVID PCR which came back positive chest x-ray negative for any acute pulmonary process patient has been transferred to the medical unit for management of her underlying COVID-19 infection on presentation to the hospital the patient was afebrile and no fever have recorded subsequently patient denies having any chest pain did have occasional cough but no sputum production no nausea vomiting abdominal pain and no diarrhea patient did have a chest x-ray heart size upper limit normal mild vascular congestion no acute cardiopulmonary findings patient did not have any blood work done infectious he was consulted for further management of underlying COVID-19 infection Past Medical History Past Medical History: Hypertension Additional Past Medical History / Comment(s): depression, obesity History of Any Multi-Drug Resistant Organisms: None Reported Past Surgical History: No Surgical Hx Reported Past Anesthesia/Blood Transfusion Reactions: No Reported Reaction Smoking Status: Never smoker Medications and Allergies Home Medications Medication Instructions Recorded Confirmed Type No Known Home Medications 05/14/23 06/25/23 History Allergies Allergy/AdvReac Type Severity Reaction Status Date / Time aripiprazole [From Abilify] Allergy Dyspnea Verified 06/25/23 21:09 ziprasidone HCl [From Geodon] Allergy Dyspnea Verified 06/25/23 21:09 ziprasidone mesylate Allergy Dyspnea Verified 06/25/23 21:09 [From Geodon] Physical Exam Vitals: Vital Signs Temp Pulse Resp BP Pulse Ox 06/26/23 02:27 97.8 F 86 15 129/74 96 06/25/23 19:00 97.8 F 91 16 122/82 96 06/25/23 18:00 16 Intake and Output 06/25/23 06/26/23 06/26/23 22:59 06:59 14:59 Other: Voiding Method Toilet # Voids 1 2 Weight 157.896 kg Assessment and Plan Plan: 1patient has been brought to the hospital for psych evaluation also complains of shortness of breath and cough did tested positive for COVID however the patient not running any fever the patient not hypoxic or need for supplemental oxygen chest x-ray with no acute findings more likely mild COVID-19 infection and treatment is mostly supportive 2we will check a CRP and a procalcitonin level 3we will advise zinc ascorbic acid Lovenox no need for remdesivir at 4-droplet isolation x 5 days We will follow on clinical condition and cultures to further adjust medication if needed Thank you for this consultation we will follow the patient along with you Dictation was produced using [employer] dictation software. please excuse any grammatical, word or spelling errors. Time with Patient: Greater than 30
[2023-06-27] MEDS: dexAMETHasone 2 MG TAB PO SCH (09:15)
[2023-06-27] MEDS: ASCORBIC ACID 500 MG TAB PO SCH (09:15)
[2023-06-27] MEDS: AZITHROMYCIN 500 MG TAB PO SCH (09:15)
[2023-06-27] MEDS: CHOLECALCIFEROL 25 MCG (1000 IU) TABLET PO SCH (09:15)
[2023-06-27] MEDS: LITHIUM CARBONATE 300 MG CAP PO SCH ×2 (09:15→20:35)
--- NOTE | 2023-06-27 23:14 | P.PN ---
Progress Note - Text Progress Note Date: 06/27/23 Reason for Consult/Chief Complaint: Follow up after transferred from psychiatric floor to medical unit because of Covid infection. History of Present Illness: The patient was evaluated while she was lying on bed at the medical floor, and presents not interested, and not cooperative. The patient continues to refuse taking any medications including non-psych medications and not cooperative with nursing staff as she is refusing assessment from nursing. The patient has been eating her meals and sleeping. The patient continues to present very argumentative and paranoid, not trusting staff and refusing taking psychiatric medications. The patient has poor insight about her mental illness and she believes that she has no psychiatric illness and doesn't need to take any psych medications. She asked questions about [place] and her diagnosis, and even she was explained and all questions were answered, but she stated "It's my head, and no one could push or force me to take the medications." The patient reports that [place] didn't help her in the past and when I asked her if she would like to take any other anti-psychotic or mood stabilizer medications, she became more agitated and repeated herself "It's my head, and no one could push or force me to take the medications." The patient was not cooperative with further assessment today and refused to answer questions about her psychiatric symptoms. No report of suicidal or homicidal ideation. MENTAL STATUS EXAM: General Appearance: Patient appears to be obese, short hair, stated age Patient appears to have poor hygiene and grooming. The patient is alert, argumentative, and paranoid/evasive. Behavior: Patient is lying down with some agitated behavior. Paranoid. Evasive. Speech: Patient's speech is fluent and non pressured. Irritable and confrontational. Mood/Affect: Patient reports their mood is "fine", affect is congruent Suicidality/Homicidality: No report of homicidal ideation intent or plan. No report of suicidal ideation intent or plan Perceptions: No report of visual or auditory hallucinations Though content/process: Patient has displaying significant poor insight and judgment. Illogical at times. Memory and concentration: AOX3, grossly intact for the purposes of this session. Judgment and insight: Chronically poor IMPRESSIONS: Schizoaffective, bipolar type Noncompliance with outpatient treatment Recommendation: Addressed and ensured patient's safety, patient does meet the criteria for psychiatric hospitalization. Patient is actively psychotic and has very poor insight to her mental illness. Please transfer the patient back to inpatient psychiatric level of care after achieving medical stabilization. The patient should be at high risk of elopement and she can not leave AMA. The patient has been involuntary admitted to psychiatric unit (petitioned and has 2 clinical certificates) The psychiatric team will continue follow up. Medication management: Patient continues refusing taking any medications including her psychiatric medications Prolixin by mouth 2.5 mg twice a day for psychosis/mood stabilization, lithium 300 mg bid mood stabilization. -Ativan and Haldol PRN for agitation/aggression Discussed the treatment plan with the requesting physician/service. Thank you for permitting me to assist in this patient's treatment. Please call the psychiatry department if you have any questions or need further help with this case.
--- NOTE | 2023-06-28 06:34 | P.PN ---
Subjective Progress Note Date: 06/27/23 27-iirg-[age]-year-old female with a past medical history significant for hypertension, presenting to the ER for evaluation of psych evaluation patient was brought in by [place] [employer] on a court order. Patient was admitted to mental health unit where she complained of cough and antonina rtness of breath; COVID-19 PCR was sent and it came back positive; chest x-ray was done and is negative for any acute process; patient denies any shortness of breath with saturating above 95% on room air -- She is placed on azithromycin for superimposed bacterial infection -- We will start patient on Decadron along with COVID-19 vitamin cocktail -- Patient continues to refuse all medications and blood patient has been brought to the hospital for psych evaluation also complains of shortness of breath and cough did tested positive for COVID however the patient not running any fever the patient not hypoxic or need for supplemental oxygen chest x-ray with no acute findings more likely mild COVID-19 infection and treatment is mostly supportive we will check a CRP and a procalcitonin level we will advise zinc ascorbic acid Lovenox no need for remdesivir at -droplet isolation x 5 days Objective - Vital Signs Vital signs: Vital Signs Temp 97.9 F 06/27/23 07:00 Pulse 74 06/26/23 20:00 Resp 16 06/27/23 07:00 BP 129/74 06/26/23 02:27 Pulse Ox 95 06/27/23 07:00 FiO2 Intake & Output 06/26/23 06/27/23 06/27/23 18:59 06:59 18:59 Intake Total 118 Balance 118 Intake: Oral 118 Other: Voiding Method Toilet Toilet Toilet # Voids 1 1 # Bowel Movements 1 - Exam General appearance: alert, other (Manic) Head exam: Present: atraumatic, normocephalic, normal inspection Eye exam: Present: normal appearance Neck exam: Present: normal inspection, full ROM Respiratory exam: Scattered rhonchi with wheezing bilateral lower lung urbina Extremities exam: Present: normal inspection, full ROM Back exam: Present: normal inspection Neurological exam: Present: alert Psychiatric exam: Present: manic Skin exam: Present: warm, dry Assessment and Plan Assessment: 1. COVID-19 Viral infection - Patient tested positive for COVID-19 PCR; chest x-ray completed is negative for any infiltrates; does show mild vascular congestion - Patient has been placed on COVID-19 vitamin cocktail; Decadron 6 mg daily - Consult ID for recommendations on REM does severe therapy 2. Superimposed bacterial infection/purulent tracheobronchitis; azithromycin 500 mg daily - We will order sputum cultures and blood cultures as able 3. Schizoaffective, bipolar type - We will continue medications recommended mental health unit, Prolixin 2.5 mg twice a day along with lithium 300 mg twice a day - Patient currently refuses all treatment DVT prophylaxis; SCDs/subcu Lovenox CODE STATUS;
[2023-06-28] MEDS: ASCORBIC ACID 500 MG TAB PO SCH (08:09)
[2023-06-28] MEDS: CHOLECALCIFEROL 25 MCG (1000 IU) TABLET PO SCH (10:18)
[2023-06-28] MEDS: LITHIUM CARBONATE 300 MG CAP PO SCH ×2 (10:26→20:33)
[2023-06-28] MEDS: dexAMETHasone 2 MG TAB PO SCH (10:26)
--- NOTE | 2023-06-29 04:36 | P.PN ---
Subjective Progress Note Date: 06/28/23 21-osjw-weu-year-old female with a past medical history significant for hypertension, presenting to the ER for evaluation of psych evaluation patient was brought in by [place] [employer] on a court order. Patient was admitted to mental health unit where she complained of cough and s hortness of breath; COVID-19 PCR was sent and it came back positive; chest x-ray was done and is negative for any acute process; patient denies any shortness of breath with saturating above 95% on room air -- She is placed on azithromycin for superimposed bacterial infection -- We will start patient on Decadron along with COVID-19 vitamin cocktail -- Patient continues to refuse all medications and blood patient has been brought to the hospital for psych evaluation also complains of shortness of breath and cough did tested positive for COVID however the patient not running any fever the patient not hypoxic or need for supplemental oxygen chest x-ray with no acute findings more likely mild COVID-19 infection and treatment is mostly supportive we will check a CRP and a procalcitonin level we will advise zinc ascorbic acid Lovenox no need for remdesivir at -droplet isolation x 5 days 06/28/2023 Patient is seen in follow-up being monitored with infectious disease following for acute COVID-19 infection. Patient also being followed by psychiatry as patient is court ordered petitioned. Patient being followed by infectious disease as well and denies any symptoms of Covid other than cough although is maintained on room air. Per nursing staff patient has been refusing all medications and refusing to have vital signs taken. Patient denies shortness of breath or chest pain. Patient reports tolerating diet with no reports of nausea or vomiting. Psychiatry following this patient does meet criteria for inpatient psych although per their policy has to remain on medical floor due to being positive for Covid. Review of systems: Constitutional: No reports of fatigue, fever, or chills Cardiovascular: No reports of chest pain or palpitations Respiratory: No reports of shortness of breath or cough GI: No reports of nausea, vomiting, or diarrhea : No reports of dysuria or retention Neurovascular: No reports of weakness or numbness All medications have been reviewed Physical exam: Gen: This is a 38-year-old female is awake, alert and oriented 3, well- developed, well-nourished, morbidly obese HEENT: Head is atraumatic, normocephalic. Pupils equal, round. Sclerae is a nicteric. NECK: Supple. No JVD. No lymphadenopathy. No thyromegaly. LUNGS: Clear to auscultation. No wheezes or rhonchi. No intercostal retractions. HEART: Regular rate and rhythm. No murmur. ABDOMEN: Soft. Obese. Bowel sounds are present. No masses. No tenderness. EXTREMITIES: No pedal edema. No calf tenderness. NEUROLOGICAL: Patient is awake, alert and oriented x3. Cranial nerves 2 through 12 are grossly intact. Assessment: 1. COVID-19 Viral infection 2. Superimposed bacterial infection/purulent tracheobronchitis; azithromycin 500 mg daily 3. Schizoaffective, bipolar type 4. Morbid obesity with a BMI 54.5 5. Medication noncompliance 6. DVT prophylaxis; SCDs/subcu Lovenox, although patient refusing 7. GI prophylaxis 8. Full code Plan: Patient [facility] for being positive for Covid after testing positive next day while on psych unit. Per their policy unable to have Covid patient's on the unit and placed on medical unit for further medication management. Patient has been refusing all vital signs, medications, and any treatment Infectious disease following patient was started on vitamin and zinc supplements along with Decadron although has been refusing Sputum and blood cultures were ordered and uncollected as patient was started on Zithromax with concerns of tracheobronchitis, but again patient is refusing Psychiatry to continue following his patient is court ordered and undergoing resume meeting with the court today which is pending The impression and plan of care has been dictated by Paulina Cotton, Nurse Practitioner as directed. Dr. Gretta MD I have performed a history and examination and MDM of this patient, discussed the same with the dictator, and agree with the dictator's assessment and plan as written ,documented as a scribe. Based on total visit time, I have performed more than 50% of the visit. Objective - Vital Signs Vital signs: Vital Signs Temp 97.9 F 06/27/23 07:00 Pulse 74 06/26/23 20:00 Resp 16 06/27/23 07:00 BP 129/74 06/26/23 02:27 Pulse Ox 95 06/27/23 07:00 FiO2 Intake & Output 06/27/23 06/28/23 06/28/23 18:59 06:59 18:59 Intake Total 590 1110 Balance 590 1110 Intake: Oral 590 1110 Other: Voiding Method Toilet # Voids 2 # Bowel Movements 1
[2023-06-29] MEDS: CHOLECALCIFEROL 25 MCG (1000 IU) TABLET PO SCH (11:12)
[2023-06-29] MEDS: ASCORBIC ACID 500 MG TAB PO SCH (11:12)
[2023-06-29] MEDS: dexAMETHasone 2 MG TAB PO SCH (12:05)
[2023-06-29] MEDS: LITHIUM CARBONATE 300 MG CAP PO SCH ×2 (12:06→20:38)
--- NOTE | 2023-06-29 13:35 | P.PN ---
Progress Note - Text Progress Note Date: 06/29/23 History of Present Illness: The patient was evaluated while she was lying on bed at the medical floor, and presents as not interested, and not cooperative. The patient continues to refuse taking any medications including non-psych medications and not cooperative with nursing staff. Would not participate in assessment. States she would like parts data writer to call her to let her know when I'll be seeing her. I reiterated that that is not how I see patients in the hospital. The patient has been eating her meals and sleeping. The patient continues to present very argumentative and paranoid, not trusting staff and refusing taking psychiatric medications. The patient was not cooperative with further assessment today and refused to answer questions about her psychiatric symptoms. No report of suicidal or homicidal ideation. she has been refusing medications. MENTAL STATUS EXAM: General Appearance: Patient appears to be obese, short hair, stated age Patient appears to have poor hygiene and grooming. The patient is alert, argumentative, and paranoid/evasive. Behavior: Patient is lying down with some agitated behavior. Paranoid. Evasive. Speech: Patient's speech is fluent and non pressured. Irritable and confrontational. Mood/Affect: Patient reports their mood is "fine", affect is congruent Suicidality/Homicidality: No report of homicidal ideation intent or plan. No report of suicidal ideation intent or plan Perceptions: No report of visual or auditory hallucinations Though content/process: Patient has displaying significant poor insight and judgment. Illogical at times. Memory and concentration: AOX3, grossly intact for the purposes of this session. Judgment and insight: Chronically poor IMPRESSIONS: Schizoaffective, bipolar type Noncompliance with outpatient treatment Recommendation: Addressed and ensured patient's safety, patient does meet the criteria for psychiatric hospitalization. Patient is actively psychotic and has very poor insight to her mental illness. Please transfer the patient back to inpatient psychiatric level of care after achieving medical stabilization. The patient should be at high risk of elopement and she can not leave AMA. The patient has been involuntary admitted to psychiatric unit (petitioned and has [address] clinical certificates[address] tomorrow morning at 9:30am Medication management: Patient continues refusing taking any medications including her psychiatric medications Prolixin by mouth 2.5 mg twice a day for psychosis/mood stabilization, lithium 300 mg bid mood stabilization. -Ativan and Haldol PRN for agitation/aggression -will continue to follow along Please call the psychiatry department if you have any questions or need further help with this case.
--- NOTE | 2023-06-29 14:54 | P.PN ---
Subjective Progress Note Date: 06/29/23 25-guej-thw-year-old female with a past medical history significant for hypertension, presenting to the ER for evaluation of psych evaluation patient was brought in by [place] [employer] on a court order. Patient was admitted to mental health unit where she complained of cough and s hortness of breath; COVID-19 PCR was sent and it came back positive; chest x-ray was done and is negative for any acute process; patient denies any shortness of breath with saturating above 95% on room air -- She is placed on azithromycin for superimposed bacterial infection -- We will start patient on Decadron along with COVID-19 vitamin cocktail -- Patient continues to refuse all medications and blood patient has been brought to the hospital for psych evaluation also complains of shortness of breath and cough did tested positive for COVID however the patient not running any fever the patient not hypoxic or need for supplemental oxygen chest x-ray with no acute findings more likely mild COVID-19 infection and treatment is mostly supportive we will check a CRP and a procalcitonin level we will advise zinc ascorbic acid Lovenox no need for remdesivir at -droplet isolation x 5 days 06/28/2023 Patient is seen in follow-up being monitored with infectious disease following for acute COVID-19 infection. Patient also being followed by psychiatry as patient is court ordered petitioned. Patient being followed by infectious disease as well and denies any symptoms of Covid other than cough although is maintained on room air. Per nursing staff patient has been refusing all medications and refusing to have vital signs taken. Patient denies shortness of breath or chest pain. Patient reports tolerating diet with no reports of nausea or vomiting. Psychiatry following this patient does meet criteria for inpatient psych although per their policy has to remain on medical floor due to being positive for Covid. 06/29/2023 Patient is seen in follow-up today being followed by infectious disease along with psychiatry. Patient is on a court order petition and was on the psych unit although was found to be COVID-19 positive. Patient is on room air and denies any significant shortness of breath. Patient does have a cough although has been refusing all medications for supportive care. Patient also refusing all psychiatric medications as well. Patient has been refusing vital signs per nursing staff. Patient is tolerating diet denies any nausea or vomiting. Review of systems: Constitutional: No reports of fatigue, fever, or chills Cardiovascular: No reports of chest pain or palpitations Respiratory: No reports of shortness of breath or cough GI: No reports of nausea, vomiting, or diarrhea : No reports of dysuria or retention Neurovascular: No reports of weakness or numbness All medications have been reviewed Physical exam: Gen: This is a 38-year-old female is awake, alert and oriented 3, well- developed, well-nourished, morbidly obese HEENT: Head is atraumatic, normocephalic. Pupils equal, round. Sclerae is anicteric. NECK: Supple. No JVD. No lymphadenopathy. No thyromegaly. LUNGS: Clear to auscultation. No wheezes or rhonchi. No intercostal retractions. HEART: Regular rate and rhythm. No murmur. ABDOMEN: Soft. Obese. Bowel sounds are present. No masses. No tenderness. EXTREMITIES: No pedal edema. No calf tenderness. NEUROLOGICAL: Patient is awake, alert and oriented x3. Cranial nerves 2 through 12 are grossly intact. Assessment: 1. COVID-19 Viral infection 2. Superimposed bacterial infection/purulent tracheobronchitis; azithromycin 500 mg daily prescribed although patient is refusing 3. Schizoaffective, bipolar type 4. Morbid obesity with a BMI 54.5 5. Medication noncompliance 6. DVT prophylaxis; SCDs/subcu Lovenox, although patient refusing 7. GI prophylaxis 8. Full code Plan: Patient transferred to medical floor for being positive for Covid after testing positive next day while on psych unit. Per their policy unable to have Covid patient's on the unit and placed on medical unit for further medication managem ent. Patient has been refusing all treatments including vital signs, medications, and supportive care any treatment Infectious disease following patient was started on vitamin and zinc supplements along with Decadron although has been refusing Sputum and blood cultures were ordered and uncollected as patient was started on Zithromax with concerns of tracheobronchitis, but again patient is refusing Psychiatry to continue following his patient is court ordered and there is a court hearing tomorrow Patient is medically stable despite positive COVID-19 testing and should be transferred back to psychiatric unit once cleared by psychiatrist The impression and plan of care has been dictated by Paulina Yury, Nurse Practitioner as directed. Dr. Gretta MD I have performed a history and examination and MDM of this patient, discussed the same with the dictator, and agree with the dictator's assessment and plan as written ,documented as a scribe. Based on total visit time, I have performed more than 50% of the visit. Objective - Vital Signs Vital signs: Vital Signs Temp 98.2 F 06/29/23 09:10 Pulse 98 06/29/23 09:10 Resp 16 06/29/23 09:10 BP 167/99 06/29/23 09:10 Pulse Ox 97 06/29/23 09:10 FiO2 Intake & Output 06/28/23 06/29/23 06/29/23 18:59 06:59 18:59 Intake Total 118 118 Balance 118 118 Intake: Oral 118 118 Other: Voiding Method Toilet # Voids 3 2
--- NOTE | 2023-06-29 18:16 | P.PN ---
Subjective Progress Note Date: 06/27/23 Principal diagnosis: Reason for follow-up is COVID 19 This is a telehealth visit Patient is a 38-year-old female with a past medical history negative for hypertension patient was brought into the ER by [place] police on a court order for psych evaluation patient was admitted to the inpatient mental health unit patient was complaining of shortness of breath and a cough patient did have a COVID PCR for the patient was transferred to the medical floor On today's evaluation that is 06/27/2023, the patient denies any fever or any chills, the patient is currently breathing comfortably on room air denies any chest pain occasional cough no vomiting no diarrhea No lab draw today Objective - Vital Signs Vital signs: Vital Signs Temp 97.9 F 06/27/23 07:00 Pulse 74 06/26/23 20:00 Resp 16 06/27/23 07:00 BP 129/74 06/26/23 02:27 Pulse Ox 95 06/27/23 07:00 FiO2 Intake & Output 06/26/23 06/27/23 06/27/23 18:59 06:59 18:59 Intake Total 118 Balance 118 Intake: Oral 118 Other: Voiding Method Toilet Toilet Toilet # Voids 1 1 # Bowel Movements 1 Assessment and Plan (1) COVID-19 Current Visit: Yes Status: Acute Code(s): U07.1 - COVID-19 SNOMED Code(s): 755656524 Plan: 1patient has been brought to the hospital for psych evaluation also complains of shortness of breath and cough did tested positive for COVID however the patient not running any fever the patient not hypoxic or need for supplemental oxygen chest x-ray with no acute findings more likely mild COVID-19 infection and treatment is mostly supportive 2patient continue with the current supportive treatment of zinc ascorbic acid no need for steroids or Remdisivir Dictation was produced using [employer] dictation software. please excuse any grammatical, word or spelling errors. Time with Patient: Less than 30
--- NOTE | 2023-06-29 18:18 | P.PN ---
Subjective Progress Note Date: 06/28/23 Principal diagnosis: Reason for follow-up is COVID 19 Patient is a 38-year-old female with a past medical history negative for hypertension patient was brought into the ER by [employer] [place] police on a court order for psych evaluation patient was admitted to the inpatient mental health unit patient was complaining of shortness of breath and a cough patient did have a COVID PCR for the patient was transferred to the medical floor On today's evaluation that is 06/28/2023, the patient remains to be afebrile, the patient is breathing comfortably on room air , the patient denies any chest pain occasional cough no vomiting no diarrhea, no new symptoms No lab draw today Objective - Vital Signs Vital signs: Vital Signs Temp 97.9 F 06/27/23 07:00 Pulse 74 06/26/23 20:00 Resp 16 06/27/23 07:00 BP 129/74 06/26/23 02:27 Pulse Ox 95 06/27/23 07:00 FiO2 Intake & Output 06/27/23 06/28/23 06/28/23 18:59 06:59 18:59 Intake Total 590 1110 118 Balance 590 1110 118 Intake: Oral 590 1110 118 Other: Voiding Method Toilet # Voids 2 # Bowel Movements 1 - Exam GENERAL DESCRIPTION: Middle-aged female lying in bed in no distress RESPIRATORY SYSTEM: Unlabored breathing , clear to auscultation HEART: S1 S2 regular rate and rhythm , ABDOMEN: Soft , no tenderness Assessment and Plan (1) COVID-19 Current Visit: Yes Status: Acute Code(s): U07.1 - COVID-19 SNOMED Code(s): 692399777 Plan: 1patient has been brought to the hospital for psych evaluation also complains of shortness of breath and cough did tested positive for COVID however the pat ient not running any fever the patient not hypoxic or need for supplemental oxygen chest x-ray with no acute findings more likely mild COVID-19 infection and treatment is mostly supportive 2patient respiratory status remains to be stable, continue with the current supportive treatment of zinc ascorbic acid no need for steroids or Remdisivir Dictation was produced using [employer] dictation software. please excuse any grammatical, word or spelling errors. Time with Patient: Less than 30
--- NOTE | 2023-06-29 18:19 | P.PN ---
Subjective Progress Note Date: 06/29/23 Principal diagnosis: Reason for follow-up is COVID 19 Patient is a 38-year-old female with a past medical history negative for hypertension patient was brought into the ER by [email or web address] police on a court order for psych evaluation patient was admitted to the inpatient mental health unit patient was complaining of shortness of breath and a cough patient did have a COVID PCR for the patient was transferred to the medical floor On today's evaluation that is 06/29/2023, the patient denies any fever or any chills, the patient is breathing comfortably on room air , the patient denies any chest pain cough or sputum production, no nausea no vomiting no abdominal pain and no diarrhea No lab draw Objective - Vital Signs Vital signs: Vital Signs Temp 98.2 F 06/29/23 09:10 Pulse 98 06/29/23 09:10 Resp 16 06/29/23 09:10 BP 167/99 06/29/23 09:10 Pulse Ox 97 06/29/23 09:10 FiO2 Intake & Output 06/28/23 06/29/23 06/29/23 18:59 06:59 18:59 Intake Total 118 118 Balance 118 118 Intake: Oral 118 118 Other: Voiding Method Toilet # Voids 3 2 - Exam GENERAL DESCRIPTION: Middle-aged female lying in bed in no distress RESPIRATORY SYSTEM: Unlabored breathing , clear to auscultation HEART: S1 S2 regular rate and rhythm , ABDOMEN: Soft , no tenderness Assessment and Plan (1) COVID-19 Current Visit: Yes Status: Acute Code(s): U07.1 - COVID-19 SNOMED Code(s): 667265843 Plan: 1patient has been brought to the hospital for psych evaluation also complains of shortness of breath and cough did tested positive for COVID however the patient not running any fever the patient not hypoxic or need for supplemental oxygen chest x-ray with no acute findings more likely mild COVID-19 infection and treatment is mostly supportive 2patient respiratory status remains to be stable, patient is not behaving as Covid 19 pneumonia, treatment is mostly supportive and a 5 day of isolation should be enough Dictation was produced using [employer] dictation software. please excuse any grammatical, word or spelling errors. Time with Patient: Less than 30
[2023-06-29] MEDS ORDERED: guaiFENesin-DM 100-10MG/5ML 10 ML CUP PO PRN (18:57)
[2023-06-30] MEDS ORDERED: flUPHENAZine 2.5 MG/ML (MDV) 10 ML VIAL IM PRN (13:40)
--- NOTE | 2023-06-30 13:47 | P.PN ---
Progress Note - Text Progress Note Date: 06/30/23 History of Present Illness: The patient was evaluated while she was lying on bed at the medical floor, and presents as not interested, and not cooperative. Patient continues to refuse medications. Patient continued a fairly withdrawn, states that she feels "fine" fairly concrete. She was somewhat argumentative about her medications and claims that she feels "uncomfortable" talking to and wanted a different psychiatrist. She attempted to negotiate her medications. She asked auto service writer to leave the room and did not answer further questions. She had a court hearing today and it resulted in a court order. MENTAL STATUS EXAM: General Appearance: Patient appears to be obese, short hair, stated age Patient appears to have poor hygiene and grooming. The patient is alert, argumentative, and paranoid/evasive. Behavior: Patient is lying down with some agitated behavior. Paranoid. Ev asive. Speech: Patient's speech is fluent and non pressured. Irritable and confrontational. Mood/Affect: Patient reports their mood is "fine", affect is congruent Suicidality/Homicidality: No report of homicidal ideation intent or plan. No report of suicidal ideation intent or plan Perceptions: No report of visual or auditory hallucinations Though content/process: Patient has displaying significant poor insight and judgment. Illogical at times. Memory and concentration: AOX3, grossly intact for the purposes of this session. Judgment and insight: Chronically poor IMPRESSIONS: Schizoaffective, bipolar type Noncompliance with outpatient treatment Recommendation: Addressed and ensured patient's safety, patient does meet the criteria for psychiatric hospitalization. Patient is actively psychotic and has very poor insight to her mental illness. Please transfer the patient back to inpatient psychiatric level of care after achieving medical stabilization. The patient should be at high risk of elopement and she can not leave AMA. The patient has been involuntary admitted to psychiatrically however is currently on the medical floors. Patient received a court order for mental health treatment on 06/30. Medication management: Prolixin by mouth 2.5 mg twice a day for psychosis/mood stabilization, if patient is refusing by mouth then she is to receive IM Prolixin as per court order. lithium 300 mg bid mood stabilization. -Ativan and Haldol PRN for agitation/aggression -will continue to follow along Please call the psychiatry department if you have any questions or need further help with this case.
--- NOTE | 2023-06-30 14:04 | P.PN ---
Subjective Progress Note Date: 06/30/23 17-uk[age]kn[age]-year-old female with a past medical history significant for hypertension, presenting to the ER for evaluation of psych evaluation patient was brought in by [employer] [facility] on a court order. Patient was admitted to mental health unit where she complained of cough and s hortness of breath; COVID-19 PCR was sent and it came back positive; chest x-ray was done and is negative for any acute process; patient denies any shortness of breath with saturating above 95% on room air -- She is placed on azithromycin for superimposed bacterial infection -- We will start patient on Decadron along with COVID-19 vitamin cocktail -- Patient continues to refuse all medications and blood patient has been brought to the hospital for psych evaluation also complains of shortness of breath and cough did tested positive for COVID however the patient not running any fever the patient not hypoxic or need for supplemental oxygen chest x-ray with no acute findings more likely mild COVID-19 infection and treatment is mostly supportive we will check a CRP and a procalcitonin level we will advise zinc ascorbic acid Lovenox no need for remdesivir at -droplet isolation x 5 days 06/28/2023 Patient is seen in follow-up being monitored with infectious disease following for acute COVID-19 infection. Patient also being followed by psychiatry as patient is court ordered petitioned. Patient being followed by infectious disease as well and denies any symptoms of Covid other than cough although is maintained on room air. Per nursing staff patient has been refusing all medications and refusing to have vital signs taken. Patient denies shortness of breath or chest pain. Patient reports tolerating diet with no reports of nausea or vomiting. Psychiatry following this patient does meet criteria for inpatient psych although per their policy has to remain on medical floor due to being positive for Covid. 06/29/2023 Patient is seen in follow-up today being followed by infectious disease along with psychiatry. Patient is on a court order petition and was on the psych unit although was found to be COVID-19 positive. Patient is on room air and denies any significant shortness of breath. Patient does have a cough although has been refusing all medications for supportive care. Patient also refusing all psychiatric medications as well. Patient has been refusing vital signs per nursing staff. Patient is tolerating diet denies any nausea or vomiting. 06/30/2023 Patient is seen in follow-up today being followed by psych scheduled to undergo court hearing to determine if patient will be required and mandated to take medications as she has been refusing medications. Patient requesting a cough medicine and a multivitamin which has been ordered. Patient also requesting repeat Covid testing which is not necessary and will not be performed. Psychiatry is following and patient has been court ordered and mandated for psych support to take medications. Adjustments are being made and patient also requesting to go to another psych facility. Social work following and looking into other psych facilities that can accommodate covid as well as her morbid obesity. Per psych, if she is over 350lb she is unable to be here on due to weight restrictions. Patient is afebrile and denies any chest pain or shortness of breath. Patient was requesting nyquil for cough and robitussin ordered. Patient continues to be medically stable and has been refusing most c are. Patient to be transferred to psych per their policy for covid protocol. Review of systems: Constitutional: No reports of fatigue, fever, or chills Cardiovascular: No reports of chest pain or palpitations Respiratory: No reports of shortness of breath reports occasional cough GI: No reports of nausea, vomiting, or diarrhea : No reports of dysuria or retention Neurovascular: No reports of weakness or numbness All medications have been reviewed Physical exam: Gen: This is a 38-year-old female is awake, alert and oriented 3, well- developed, well-nourished, morbidly obese HEENT: Head is atraumatic, normocephalic. Pupils equal, round. Sclerae is anicteric. NECK: Supple. No JVD. No lymphadenopathy. No thyromegaly. LUNGS: Clear to auscultation. No wheezes or rhonchi. No intercostal retractions. HEART: Regular rate and rhythm. No murmur. ABDOMEN: Soft. Obese. Bowel sounds are present. No masses. No tenderness. EXTREMITIES: No pedal edema. No calf tenderness. NEUROLOGICAL: Patient is awake, alert and oriented x3. Cranial nerves 2 through 12 are grossly intact. Assessment: 1. COVID-19 Viral infection 2. Superimposed bacterial infection/purulent tracheobronchitis; ruled out 3. Schizoaffective, bipolar type 4. Morbid obesity with a BMI 54.5 5. Medication noncompliance 6. DVT prophylaxis; SCDs/subcu Lovenox, although patient refusing 7. GI prophylaxis 8. Full code Plan: Patient transferred to medical floor for being positive for Covid after testing positive next day while on psych unit. Per their policy unable to have Covid patient's on the unit and placed on medical unit for further medication management. Patient has been refusing all treatments including vital signs, medications, and supportive care any treatment. Patient asking for a multivitamin as well as cough medicine and ordered Infectious disease following patient was started on vitamin and zinc supplements along with Decadron although has been refusing Sputum and blood cultures were ordered and uncollected as patient was started on Zithromax with concerns of tracheobronchitis, but again patient is refusing, suspicion is extremely low Psychiatry to continue following as patient is now court ordered to take medications and adjustments being made by psych on medications Patient is medically stable despite positive COVID-19 testing and should be transferred back to psychiatric unit once cleared by psychiatrist The impression and plan of care has been dictated by Paulina Cotton, Nurse Practitioner as directed. Dr. Gretta MD I have performed a history and examination and MDM of this patient, discussed the same with the dictator, and agree with the dictator's assessment and plan as written ,documented as a scribe. Based on total visit time, I have performed more than 50% of the visit. Objective - Vital Signs Vital signs: Vital Signs Temp 98.5 F 06/29/23 19:56 Pulse 80 06/29/23 19:56 Resp 18 06/29/23 19:56 BP 123/64 06/29/23 19:56 Pulse Ox 99 06/29/23 19:56 FiO2 Intake & Output 06/29/23 06/30/23 06/30/23 18:59 06:59 18:59 Intake Total 236 Balance 236 Intake: Oral 236 Other: Voiding Method Toilet # Voids 4 2
[2023-06-30] MEDS: LITHIUM CARBONATE 300 MG CAP PO SCH ×2 (16:11→22:14)
[2023-06-30] MEDS: MULTIVITAMINS, THERA 1 EACH TAB PO SCH (16:33)
[2023-06-30] MEDS: ASCORBIC ACID 500 MG TAB PO SCH (16:33)
[2023-06-30] MEDS: CHOLECALCIFEROL 25 MCG (1000 IU) TABLET PO SCH (16:33)
[2023-06-30] MEDS: dexAMETHasone 2 MG TAB PO SCH (16:33)
[2023-07-01] MEDS: CHOLECALCIFEROL 25 MCG (1000 IU) TABLET PO SCH (09:00)
[2023-07-01] MEDS: ASCORBIC ACID 500 MG TAB PO SCH (09:00)
[2023-07-01] MEDS: MULTIVITAMINS, THERA 1 EACH TAB PO SCH (09:00)
[2023-07-01] MEDS: dexAMETHasone 2 MG TAB PO SCH (09:00)
[2023-07-01] MEDS: LITHIUM CARBONATE 300 MG CAP PO SCH (10:00)
[2023-07-01] MEDS ORDERED: diphenhydrAMINE 25 MG CAP PO PRN (11:06)
--- NOTE | 2023-07-02 05:22 | P.PN ---
Subjective Progress Note Date: 07/01/23 44-qihp-yxq-year-old female with a past medical history significant for hypertension, presenting to the ER for evaluation of psych evaluation patient was brought in by [email or web address] [facility] on a court order. Patient was admitted to mental health unit where she complained of cough and s hortness of breath; COVID-19 PCR was sent and it came back positive; chest x-ray was done and is negative for any acute process; patient denies any shortness of breath with saturating above 95% on room air -- She is placed on azithromycin for superimposed bacterial infection -- We will start patient on Decadron along with COVID-19 vitamin cocktail -- Patient continues to refuse all medications and blood patient has been brought to the hospital for psych evaluation also complains of shortness of breath and cough did tested positive for COVID however the patient not running any fever the patient not hypoxic or need for supplemental oxygen chest x-ray with no acute findings more likely mild COVID-19 infection and treatment is mostly supportive we will check a CRP and a procalcitonin level we will advise zinc ascorbic acid Lovenox no need for remdesivir at -droplet isolation x 5 days 06/28/2023 Patient is seen in follow-up being monitored with infectious disease following for acute COVID-19 infection. Patient also being followed by psychiatry as patient is court ordered petitioned. Patient being followed by infectious disease as well and denies any symptoms of Covid other than cough although is maintained on room air. Per nursing staff patient has been refusing all medications and refusing to have vital signs taken. Patient denies shortness of breath or chest pain. Patient reports tolerating diet with no reports of nausea or vomiting. Psychiatry following this patient does meet criteria for inpatient psych although per their policy has to remain on medical floor due to being positive for Covid. 06/29/2023 Patient is seen in follow-up today being followed by infectious disease along with psychiatry. Patient is on a court order petition and was on the psych unit although was found to be COVID-19 positive. Patient is on room air and denies any significant shortness of breath. Patient does have a cough although has been refusing all medications for supportive care. Patient also refusing all psychiatric medications as well. Patient has been refusing vital signs per nursing staff. Patient is tolerating diet denies any nausea or vomiting. 06/30/2023 Patient is seen in follow-up today being followed by psych scheduled to undergo court hearing to determine if patient will be required and mandated to take medications as she has been refusing medications. Patient requesting a cough medicine and a multivitamin which has been ordered. Patient also requesting repeat Covid testing which is not necessary and will not be performed. Psychiatry is following and patient has been court ordered and mandated for psych support to take medications. Adjustments are being made and patient also requesting to go to another psych facility. Social work following and looking into other psych facilities that can accommodate covid as well as her morbid obesity. Per psych, if she is over 350lb she is unable to be here on due to weight restrictions. Patient is afebrile and denies any chest pain or shortness of breath. Patient was requesting nyquil for cough and robitussin ordered. Patient continues to be medically stable and has been refusing most c are. Patient to be transferred to psych per their policy for covid protocol. 07/01/2023 Patient is seen in follow-up today has been mandated for court ordered medication administration and if patient is noncompliant there are IM medications to be given per psychiatric orders. Social work is following looking into other facilities that can accommodate patient's weight status as well as Covid status. Patient is maintaining oxygen saturations about 94% on room air. Patient denies shortness of breath or chest pains. Patient has been tolerating diet with no reported nausea or vomiting. Remains afebrile. Patient is medically stable for psych transfer. Review of systems: Constitutional: No reports of fatigue, fever, or chills Cardiovascular: No reports of chest pain or palpitations Respiratory: No reports of shortness of breath reports occasional cough GI: No reports of nausea, vomiting, or diarrhea : No reports of dysuria or retention Neurovascular: No reports of weakness or numbness All medications have been reviewed Physical exam: Gen: This is a 38-year-old female is awake, alert and oriented 3, well- developed, well-nourished, morbidly obese HEENT: Head is atraumatic, normocephalic. Pupils equal, round. Sclerae is anicteric. NECK: Supple. No JVD. No lymphadenopathy. No thyromegaly. LUNGS: Clear to auscultation. No wheezes or rhonchi. No intercostal retractions . HEART: Regular rate and rhythm. No murmur. ABDOMEN: Soft. Obese. Bowel sounds are present. No masses. No tenderness. EXTREMITIES: No pedal edema. No calf tenderness. NEUROLOGICAL: Patient is awake, alert and oriented x3. Cranial nerves 2 through 12 are grossly intact. Assessment: 1. COVID-19 Viral infection 2. Superimposed bacterial infection/purulent tracheobronchitis; ruled out 3. Schizoaffective, bipolar type 4. Morbid obesity with a BMI 54.5 5. Medication noncompliance 6. DVT prophylaxis; SCDs/subcu Lovenox, although patient refusing 7. GI prophylaxis 8. Full code Plan: Patient transferred to medical floor for being positive for Covid after testing positive next day while on psych unit. Per their policy unable to have Covid patient's on the unit and placed on medical unit for further medication management. Patient has been refusing all treatments including vital signs, medications, and supportive care any treatment. Patient asking for a multivitamin as well as c [facility] medicine and ordered Patient underwent court hearing and has been mandated to take medications with psychiatry following. Patient remains medically stable for transfer to psych here in the unit and/or is another facility can accommodate. Infectious disease following patient was started on vitamin and zinc supplements along with Decadron although has been refusing Sputum and blood cultures were ordered and uncollected as patient was started on Zithromax with concerns of tracheobronchitis, but again patient is refusing, suspicion is extremely low Psychiatry to continue following as patient is now court ordered to take medications and adjustments being made by psych on medications. Per court order if patient refuses there are options for intramuscular medication administration. Patient is medically stable despite positive COVID-19 testing and should be transferred back to psychiatric unit once cleared by psychiatrist The impression and plan of care has been dictated by Paulina Cotton Nurse Practitioner as directed. Dr. Gretta MD I have performed a history and examination and MDM of this patient, discussed the same with the dictator, and agree with the dictator's assessment and plan as written ,documented as a scribe. Based on total visit time, I have performed more than 50% of the visit. Objective - Vital Signs Vital signs: Vital Signs Temp 97.6 F 06/30/23 20:49 Pulse 81 06/30/23 20:49 Resp 18 06/30/23 20:49 BP 146/80 06/30/23 20:49 Pulse Ox 97 06/30/23 20:49 FiO2 Intake & Output 06/30/23 07/01/23 07/01/23 18:59 06:59 18:59 Intake Total 240 Balance 240 Intake: Oral 240 Other: # Voids 1 4
[2023-07-02] MEDS: CHOLECALCIFEROL 25 MCG (1000 IU) TABLET PO SCH (09:13)
[2023-07-02] MEDS: ASCORBIC ACID 500 MG TAB PO SCH (09:13)
[2023-07-02] MEDS: dexAMETHasone 2 MG TAB PO SCH (09:13)
[2023-07-02] MEDS: MULTIVITAMINS, THERA 1 EACH TAB PO SCH (09:14)
--- NOTE | 2023-07-02 13:58 | P.PN ---
Progress Note - Text Progress Note Date: 07/02/23 History of Present Illness: The patient was evaluated while she was lying on bed at the medical floor. Patient's nurse states that patient has been doing a bit better, has been taking her medications. Patient received a court order on 06/30. Has been taking her Prolixin since then. Patient was seen lying in bed, [facility] health technical writer approached her she was mildly irritable with health technical writer however Patient continues to refuse medications. Patient continued a fairly withdrawn, states that she feels "fine" fairly concrete. She was somewhat argumentative about her medications and claims that she feels "uncomfortable" talking to and wanted a different psychiatrist. She attempted to negotiate her medications. She asked health technical writer to leave the room and did not answer further denied any overnight complaints. Denies any side effects from medications. Denying any auditory or visual hallucinations. Denying any suicidal or homicidal ideations intent or plan. questions. She had a court hearing today and it resulted in a court order. MENTAL STATUS EXAM: General Appearance: Patient appears to be obese, short hair, stated age Patient appears to have poor hygiene and grooming, improving mildly The patient is alert, argumentative, and paranoid/evasive, improving mildly Behavior: Patient is lying down with some agitated behavior. Evasive guarded. Speech: Patient's speech is fluent and non pressured. Irritable improving Mood/Affect: Patient reports their mood is "ok", affect is congruent and constricted Suicidality/Homicidality: No report of homicidal ideation intent or plan. No report of suicidal ideation intent or plan Perceptions: No report of visual or auditory hallucinations Though content/process: Patient has displaying significant poor insight and judgment. Illogical at times. More clear thought process. Memory and concentration: AOX3, grossly intact for the purposes of this session. Judgment and insight: Chronically poor IMPRESSIONS: Schizoaffective, bipolar type Noncompliance with outpatient treatment Recommendation: Addressed and ensured patient's safety, patient does meet the criteria for psychiatric hospitalization. Patient is actively psychotic and has very poor insight to her mental illness. Please transfer the patient back to inpatient psychiatric level of care after achieving medical stabilization. The patient has been involuntary admitted to psychiatrically however is currently on the medical floors. Patient received a court order for mental health treatment on 06/30. Medication management: Continue Prolixin by mouth 3 mg twice a day for psychosis/mood stabilization, if patient is refusing by mouth then she is to receive IM Prolixin as per court order. d/c lithium due to supposed intolerance. benadryl 50 mg bid prn for allergic rxn. -Ativan and Haldol PRN for agitation/aggression -will continue to follow along as needed until patient is able to be safely transferred back to [facility]. Please call the psychiatry department if you have any questions or need further help with this case.
[2023-07-02] MEDS: ALBUTEROL HFA INHALER INHALATION PRN (14:58)
--- NOTE | 2023-07-03 05:05 | P.PN ---
Subjective Progress Note Date: 07/02/23 89-ad[age]-year-old female with a past medical history significant for hypertension, presenting to the ER for evaluation of psych evaluation patient was brought in by [facility] [employer] [facility] on a court order. Patient was admitted to mental health unit where she complained of cough and s hortness of breath; COVID-19 PCR was sent and it came back positive; chest x-ray was done and is negative for any acute process; patient denies any shortness of breath with saturating above 95% on room air -- She is placed on azithromycin for superimposed bacterial infection -- We will start patient on Decadron along with COVID-19 vitamin cocktail -- Patient continues to refuse all medications and blood patient has been brought to the hospital for psych evaluation also complains of shortness of breath and cough did tested positive for COVID however the patient not running any fever the patient not hypoxic or need for supplemental oxygen chest x-ray with no acute findings more likely mild COVID-19 infection and treatment is mostly supportive we will check a CRP and a procalcitonin level we will advise zinc ascorbic acid Lovenox no need for remdesivir at -droplet isolation x 5 days 06/28/2023 Patient is seen in follow-up being monitored with infectious disease following for acute COVID-19 infection. Patient also being followed by psychiatry as patient is court ordered petitioned. Patient being followed by infectious disease as well and denies any symptoms of Covid other than cough although is maintained on room air. Per nursing staff patient has been refusing all medications and refusing to have vital signs taken. Patient denies shortness of breath or chest pain. Patient reports tolerating diet with no reports of nausea or vomiting. Psychiatry following this patient does meet criteria for inpatient psych although per their policy has to remain on medical floor due to being positive for Covid. 06/29/2023 Patient is seen in follow-up today being followed by infectious disease along with psychiatry. Patient is on a court order petition and was on the psych unit although was found to be COVID-19 positive. Patient is on room air and denies any significant shortness of breath. Patient does have a cough although has been refusing all medications for supportive care. Patient also refusing all psychiatric medications as well. Patient has been refusing vital signs per nursing staff. Patient is tolerating diet denies any nausea or vomiting. 06/30/2023 Patient is seen in follow-up today being followed by psych scheduled to undergo court hearing to determine if patient will be required and mandated to take medications as she has been refusing medications. Patient requesting a cough medicine and a multivitamin which has been ordered. Patient also requesting repeat Covid testing which is not necessary and will not be performed. Psychiatry is following and patient has been court ordered and mandated for psych support to take medications. Adjustments are being made and patient also requesting to go to another psych facility. Social work following and looking into other psych facilities that can accommodate covid as well as her morbid obesity. Per psych, if she is over 350lb she is unable to be here on [facility] due to weight restrictions. Patient is afebrile and denies any chest pain or shortness of breath. Patient was requesting nyquil for cough and robitussin ordered. Patient continues to be medically stable and has been refusing most c are. Patient to be transferred to psych per their policy for covid protocol. 07/01/2023 Patient is seen in follow-up today has been mandated for court ordered medication administration and if patient is noncompliant there are IM medications to be given per psychiatric orders. Social work is following looking into other facilities that can accommodate patient's weight status as well as Covid status. Patient is maintaining oxygen saturations about 94% on room air. Patient denies shortness of breath or chest pains. Patient has been tolerating diet with no reported nausea or vomiting. Remains afebrile. Patient is medically stable for psych transfer. 07/02/2023 Patient is seen in follow-up this morning currently remains on room air and denies chest pain or shortness of breath. Patient has been compliant with medications and is maintained on court order to be medication compliant. Patient on the medical unit for Covid and asking why she needs to remain in the hospital. Awaiting clearance from psychiatry to consider discharge planning. Patient does have a legal guardian that apparently is working on some form of placement in the outpatient setting. Social work following as well patient will likely return to [facility] once medically clear after 10 day protocol for positive Covid and also looking into other facilities. There has been no accepting psychiatric facilities at this time. Patient remains afebrile and infectious disease is following. Patient is medically stable to return to psych unit. Day 10 per protocol is on 07/05/2023. Review of systems: Constitutional: No reports of fatigue, fever, or chills Cardiovascular: No reports of chest pain or palpitations Respiratory: No reports of shortness of breath reports occasional cough GI: No reports of nausea, vomiting, or diarrhea : No reports of dysuria or retention Neurovascular: No reports of weakness or numbness All medications have been reviewed Physical exam: Gen: This is a 38-year-old female is awake, alert and oriented 3, well- developed, well-nourished, morbidly obese HEENT: Head is atraumatic, normocephalic. Pupils equal, round. Sclerae is anicteric. NECK: Supple. No JVD. No lymphadenopathy. No thyromegaly. LUNGS: Clear to auscultation. No wheezes or rhonchi. No intercostal retractions. HEART: Regular rate and rhythm. No murmur. ABDOMEN: Soft. Obese. Bowel sounds are present. No masses. No tenderness. EXTREMITIES: No pedal edema. No calf tenderness. NEUROLOGICAL: Patient is awake, alert and oriented x3. Cranial nerves 2 through 12 are grossly intact. Assessment: -COVID-19 Viral infection -Possible Superimposed bacterial infection/purulent tracheobronchitis, present on admission; ruled out -Schizoaffective, bipolar type -Morbid obesity with a BMI 54.5 -Medication noncompliance, and now court ordered to continue with psychiatric medications -DVT prophylaxis; SCDs/subcu Lovenox, although patient refusing -GI prophylaxis -Full code Plan: Patient transferred to medical floor for being positive for Covid after testing positive next day while on psych unit. Per their policy unable to have Covid patient's on the unit and placed on medical unit for further medication management. Patient had been refusing all treatments including vital signs, medications, and supportive care any treatment. Patient is status post court hearing and has been mandated to continue with medications. Patient has been compliant per nursing staff today. Infectious disease following patient was started on vitamin and zinc supplements along with Decadron although has been refusing Psychiatry to continue following as patient is now court ordered to take medications and adjustments being made by psych on medications. Per court order if patient refuses there are options for intramuscular medication administration. Patient is medically stable despite positive COVID-19 testing and should be transferred back to psychiatric unit once cleared by psychiatrist. Per policy day 10 after positive Covid infection is 07/05/2023 The impression and plan of care has been dictated by Paulina Cotton, Nurse Practitioner as directed. Dr. Gretta MD I have performed a history and examination and MDM of this patient, discussed the same with the dictator, and agree with the dictator's assessment and plan as written ,documented as a scribe. Based on total visit time, I have performed more than 50% of the visit. Objective - Vital Signs Vital signs: Vital Signs Temp 98 F 07/01/23 10:35 Pulse 90 07/01/23 10:35 Resp 18 07/01/23 14:00 BP 143/80 07/01/23 10:35 Pulse Ox 99 07/01/23 10:35 FiO2 Intake & Output 07/01/23 07/02/23 07/02/23 18:59 06:59 18:59 Intake Total 476 Balance 476 Intake: Oral 476 Other: # Voids 1 1
[2023-07-03] MEDS: ALBUTEROL HFA INHALER INHALATION PRN (08:35)
[2023-07-03] MEDS: MULTIVITAMINS, THERA 1 EACH TAB PO SCH (09:51)
[2023-07-03] MEDS: ASCORBIC ACID 500 MG TAB PO SCH (09:52)
[2023-07-03] MEDS: dexAMETHasone 2 MG TAB PO SCH (09:52)
[2023-07-03] MEDS: CHOLECALCIFEROL 25 MCG (1000 IU) TABLET PO SCH (09:52)
--- NOTE | 2023-07-03 15:23 | P.PN ---
Subjective Progress Note Date: 07/03/23 [id number]-year-old female with a past medical history significant for hypertension, presenting to the ER for evaluation of psych evaluation patient was brought in by [facility] on a court order. Patient was admitted to mental health unit where she complained of cough and shortness of breath; COVID-19 PCR was sent and it came back positive; chest x- ray was done and is negative for any acute process; patient denies any shortness of breath with saturating above 95% on room air -- She is placed on azithromycin for superimposed bacterial infection -- We will start patient on Decadron along with COVID-19 vitamin cocktail -- Patient continues to refuse all medications and blood patient has been brought to the hospital for psych evaluation also complains of shortness of breath and cough did tested positive for COVID however the patient not running any fever the patient not hypoxic or need for supplemental oxygen chest x-ray with no acute findings more likely mild COVID-19 infection and treatment is mostly supportive we will check a CRP and a procalcitonin level we will advise zinc ascorbic acid Lovenox no need for remdesivir at -droplet isolation x 5 days 06/28/2023 Patient is seen in follow-up being monitored with infectious disease following for acute COVID-19 infection. Patient also being followed by psychiatry as patient is court ordered petitioned. Patient being followed by infectious disease as well and denies any symptoms of Covid other than cough although is maintained on room air. Per nursing staff patient has been refusing all medications and refusing to have vital signs taken. Patient denies shortness of breath or chest pain. Patient reports tolerating diet with no reports of nausea or vomiting. Psychiatry following this patient does meet criteria for inpatient psych although per their policy has to remain on medical floor due to being positive for Covid. 06/29/2023 Patient is seen in follow-up today being followed by infectious disease along with psychiatry. Patient is on a court order petition and was on the psych unit although was found to be COVID-19 positive. Patient is on room air and denies any significant shortness of breath. Patient does have a cough although has been refusing all medications for supportive care. Patient also refusing all psychiatric medications as well. Patient has been refusing vital signs per nursing staff. Patient is tolerating diet denies any nausea or vomiting. 06/30/2023 Patient is seen in follow-up today being followed by psych scheduled to undergo court hearing to determine if patient will be required and mandated to take medications as she has been refusing medications. Patient requesting a cough medicine and a multivitamin which has been ordered. Patient also requesting repeat Covid testing which is not necessary and will not be performed. Psychiatry is following and patient has been court ordered and mandated for psych support to take medications. Adjustments are being made and patient also requesting to go to another psych facility. Social work following and looking into other psych facilities that can accommodate covid as well as her morbid obesity. Per psych, if she is over 350lb she is unable to be here on [facility] due to weight restrictions. Patient is afebrile and denies any chest pain or shortness of breath. Patient was requesting nyquil for cough and robitussin ordered. Patient continues to be medically stable and has been refusing most care. Patient to be transferred to psych per their policy for covid protocol. 07/01/2023 Patient is seen in follow-up today has been mandated for court ordered medication administration and if patient is noncompliant there are IM medications to be given per psychiatric orders. Social work is following looking into other facilities that can accommodate patient's weight status as well as Covid status. Patient is maintaining oxygen saturations about 94% on room air. Patient denies shortness of breath or chest pains. Patient has been tolerating diet with no reported nausea or vomiting. Remains afebrile. Patient is medically stable for psych transfer. 07/02/2023 Patient is seen in follow-up this morning currently remains on room air and denies chest pain or shortness of breath. Patient has been compliant with medications and is maintained on court order to be medication compliant. Patient on the medical unit for Covid and asking why she needs to remain in the hospital. Awaiting clearance from psychiatry to consider discharge planning. Patient does have a legal guardian that apparently is working on some form of placement in the outpatient setting. Social work following as well patient will likely return to [facility] once medically clear after 10 day protocol for positive Covid and also looking into other facilities. There has been no accepting psychiatric facilities at this time. Patient remains afebrile and infectious disease is following. Patient is medically stable to return to psych unit. Day 10 per protocol is on 07/05/2023. 07/03/2023 Patient not having any acute events overnight. She was having intermittent episodes were heart rate was up over the 100s. She is refusing to wear a monitor tech at this time we'll recommend an EKG for evaluation of her heart rhythm. No chest pain or shortness of breath. She does state that she is having trouble sleeping mostly because the bed is uncomfortable due to her BMI we will recommend a bariatric bed at this time and this was discussed with nursing and they will provide her with 1. She is complaining a quarantine period for an acute Covid infection. She remains on room air at this time. She is medically stable to return to psych once his quarantine period is completed. Review of systems: Constitutional: No reports of fatigue, fever, or chills Cardiovascular: No reports of chest pain or palpitations Respiratory: No reports of shortness of breath reports occasional cough GI: No reports of nausea, vomiting, or diarrhea : No reports of dysuria or retention Neurovascular: No reports of weakness or numbness All medications have been reviewed Physical exam: Gen: This is a 38-year-old female is awake, alert and oriented 3, well- developed, well-nourished, morbidly obese HEENT: Head is atraumatic, normocephalic. Pupils equal, round. Sclerae is anicteric. NECK: Supple. No JVD. No lymphadenopathy. No thyromegaly. LUNGS: Clear to auscultation. No wheezes or rhonchi. No intercostal retrac tions. HEART: Regular rate and rhythm. No murmur. ABDOMEN: Soft. Obese. Bowel sounds are present. No masses. No tenderness. EXTREMITIES: No pedal edema. No calf tenderness. NEUROLOGICAL: Patient is awake, alert and oriented x3. Cranial nerves 2 through 12 are grossly intact. Assessment: -COVID-19 Viral infection -Possible Superimposed bacterial infection/purulent tracheobronchitis, present on admission; ruled out -Schizoaffective, bipolar type -Morbid obesity with a BMI 54.5 -Medication noncompliance, and now court ordered to continue with psychiatric medications -DVT prophylaxis; SCDs/subcu Lovenox, although patient refusing -GI prophylaxis -Full code Plan: Patient transferred to medical floor for being positive for Covid after testing positive next day while on psych unit. Per their policy unable to have Covid patient's on the unit and placed on medical unit for further medication management. Patient had been refusing all treatments including vital signs, medications, and supportive care any treatment. Patient is status post court hearing and has been mandated to continue with medications. Patient has been compliant per nursing staff today. Infectious disease following patient was started on vitamin and zinc supplements along with Decadron although has been refusing Psychiatry to continue following as patient is now court ordered to take medications and adjustments being made by psych on medications. Per court order if patient refuses there are options for intramuscular medication administration. Patient is medically stable despite positive COVID-19 testing and should be transferred back to psychiatric unit once cleared by psychiatrist. Per policy day 10 after positive Covid infection is 07/05/2023 The impression and plan of care has been dictated by Charleen Jordan Nurse Practitioner as directed. Dr. Gretta MD I have performed a history and physical examination and medical decision making of this patient, discussed the same with the dictator, and agree with the dictators assessment and plan as written, documented as a scribe. Based on total visit time, I have performed more than 50% of this visit. Objective - Vital Signs Vital signs: Vital Signs Temp 98.2 F 07/03/23 07:00 Pulse 100 07/03/23 07:00 Resp 16 07/03/23 07:00 BP 136/83 07/03/23 07:00 Pulse Ox 95 07/03/23 07:00 FiO2 Intake & Output 07/02/23 07/03/23 07/03/23 18:59 06:59 18:59 Intake Total 118 Balance 118 Intake: Oral 118 Other: Voiding Method Toilet # Voids 1 1 Assessment and Plan Time with Patient: Less than 30
[2023-07-03] MEDS: MELATONIN 5 MG TABLET PO SCH (22:25)
[2023-07-04] MEDS: CHOLECALCIFEROL 25 MCG (1000 IU) TABLET PO SCH (09:06)
[2023-07-04] MEDS: ASCORBIC ACID 500 MG TAB PO SCH (09:06)
[2023-07-04] MEDS: dexAMETHasone 2 MG TAB PO SCH (09:06)
[2023-07-04] MEDS ORDERED: HALOPERIDOL LACTATE 5 MG/ML 1 ML VIAL IM PRN ×2 (12:31→12:32)
--- NOTE | 2023-07-04 12:37 | P.PN ---
Progress Note - Text Progress Note Date: 07/04/23 Interval history: The patient was evaluated today on the medical floors for psychiatric follow-up. Patient's nurse states that patient has been complaining of intolerance to Prolixin. Apparently patient is stating that her heart has been racing, however she is refusing the telemetry monitoring. EKG showed normal sinus rhythm. Patient was seen at the bedside today. Patient continues to be argumentative, suspicious of medical underwriter, demanding transfer. She continues to be argumentative about the medications and states that she is intolerant to the Prolixin. She claims that she rather be on Effexor instead. We spoke about other possible alternatives and patient was agreeable to try invega po. She also informed medical underwriter that he had misdiagnosed her and states that she is not schizoaffective. Continues to demand a different psychiatrist. She attempted to negotiate her medications. She asked medical underwriter to leave the room and did not answer further denied any overnight complaints. Denies any side effects from medications. Denying any auditory or visual hallucinations. Denying any suicidal or homicidal ideations intent or plan. questions. She had a court hearing today and it resulted in a court order. MENTAL STATUS EXAM: General Appearance: Patient appears to be obese, short hair, stated age Patient appears to have poor hygiene and grooming The patient is alert, argumentative, and paranoid/evasive Behavior: Patient is lying down with some agitated behavior. Evasive guarded. Speech: Patient's speech is fluent and non pressured. Irritable improving Mood/Affect: Patient reports their mood is "ok", affect is congruent and constricted Suicidality/Homicidality: No report of homicidal ideation intent or plan. No report of suicidal ideation intent or plan Perceptions: No report of visual or auditory hallucinations Though content/process: Patient has displaying significant poor insight and judgment. Illogical at times. More clear thought process. Memory and concentration: AOX3, grossly intact for the purposes of this session. Judgment and insight: Chronically poor IMPRESSIONS: Schizoaffective, bipolar type Noncompliance with outpatient treatment Recommendation: Addressed and ensured patient's safety, patient does meet the criteria for psychiatric hospitalization. Patient is actively psychotic and has very poor insight to her mental illness. Please transfer the patient back to inpatient psychiatric level of care after achieving medical stabilization. The patient has been involuntary admitted to psychiatrically however is currently on the medical floors. Patient received a court order for mental health treatment on 06/30. Medication management: discontinue Prolixin as patient is complaining of intoelrance and would rather take invega PO instead. start invega po 3 mg daily for psychosis/mood stabilization, if patient is refusing by mouth then she is to receive IM haldol as per court order. benadryl 50 mg bid prn for allergic rxn. -Haldol PRN for agitation/aggression -will continue to follow along if needed until patient is able to be safely transferred back to [facility] Please call the psychiatry department if you have any questions or need further help with this case.
[2023-07-04] MEDS: HEPARIN SODIUM,PORCINE 5,000 UNIT/ML 1 ML VIAL SQ SCH ×3 (12:42→23:14)
[2023-07-04] MEDS: MULTIVITAMINS, THERA 1 EACH TAB PO SCH (12:42)
[2023-07-04] MEDS: PALIPERIDONE 3 MG TAB.ER.24 PO SCH (12:47)
[2023-07-04 14:30] LABS: Basophils % (A) 0 %; Eosinophils # (A) 0.3 k/uL (0-0.7); Eosinophils % (A) 2 %; HCT 38.8 % (34.0-46.0); HGB 11.8 gm/dL (11.4-16.0); Hypochromasia Marked; Lymphocytes # (A) 3.2 k/uL (1.0-4.8); Lymphocytes % (A) 25 %; MCH 25.4 pg (25.0-35.0); MCHC 30.4 g/dL (31.0-37.0); MCV 83.3 fL (80.0-100.0); Mean Platelet Volume 7.4; Monocytes # (A) 0.4 k/uL (0-1.0); Monocytes % (A) 3 %; Neutrophils # (A) 8.5 k/uL (1.3-7.7); Neutrophils % (A) 68 %; Platelet Count 450 k/uL (150-450); RBC 4.65 m/uL (3.80-5.40); WBC 12.6 k/uL (3.8-10.6)
[2023-07-04 14:44] LABS: African American GFR (CKD) >90 (>60 ml/min/1.73 sqM); Anion Gap 10 mmol/L; Blood Urea Nitrogen 11 mg/dL (7-17); Calcium 9.1 mg/dL (8.4-10.2); Carbon Dioxide 27 mmol/L (22-30); Chloride 100 mmol/L (98-107); Glucose 186 mg/dL (74-99); Magnesium 1.8 mg/dL (1.6-2.3); Non-African American GFR(CKD) >90 (>60 ml/min/1.73 sqM); Potassium 4.2 mmol/L (3.5-5.1); Sodium 137 mmol/L (137-145)
[2023-07-04] MEDS: IBUPROFEN 600 MG TAB PO PRN (16:23)
--- NOTE | 2023-07-04 19:37 | P.PN ---
Subjective Progress Note Date: 07/04/23 4-mtkw-pzi-year-old female with a past medical history significant for hypertension, presenting to the ER for evaluation of psych evaluation patient was brought in by [facility] on a court order. Patient was admitted to mental health unit where she complained of cough and shortness of breath; COVID-19 PCR was sent and it came back positive; chest x- ray was done and is negative for any acute process; patient denies any shortness of breath with saturating above 95% on room air -- She is placed on azithromycin for superimposed bacterial infection -- We will start patient on Decadron along with COVID-19 vitamin cocktail -- Patient continues to refuse all medications and blood patient has been brought to the hospital for psych evaluation also complains of shortness of breath and cough did tested positive for COVID however the patient not running any fever the patient not hypoxic or need for supplemental oxygen chest x-ray with no acute findings more likely mild COVID-19 infection and treatment is mostly supportive we will check a CRP and a procalcitonin level we will advise zinc ascorbic acid Lovenox no need for remdesivir at -droplet isolation x 5 days 06/28/2023 Patient is seen in follow-up being monitored with infectious disease following for acute COVID-19 infection. Patient also being followed by psychiatry as patient is court ordered petitioned. Patient being followed by infectious disease as well and denies any symptoms of Covid other than cough although is maintained on room air. Per nursing staff patient has been refusing all medications and refusing to have vital signs taken. Patient denies shortness of breath or chest pain. Patient reports tolerating diet with no reports of nausea or vomiting. Psychiatry following this patient does meet criteria for inpatient psych although per their policy has to remain on medical floor due to being positive for Covid. 06/29/2023 Patient is seen in follow-up today being followed by infectious disease along with psychiatry. Patient is on a court order petition and was on the psych unit although was found to be COVID-19 positive. Patient is on room air and denies any significant shortness of breath. Patient does have a cough although has been refusing all medications for supportive care. Patient also refusing all psychiatric medications as well. Patient has been refusing vital signs per nursing staff. Patient is tolerating diet denies any nausea or vomiting. 06/30/2023 Patient is seen in follow-up today being followed by psych scheduled to undergo court hearing to determine if patient will be required and mandated to take medications as she has been refusing medications. Patient requesting a cough medicine and a multivitamin which has been ordered. Patient also requesting repeat Covid testing which is not necessary and will not be performed. Psychiatry is following and patient has been court ordered and mandated for psych support to take medications. Adjustments are being made and patient also requesting to go to another psych facility. Social work following and looking into other psych facilities that can accommodate covid as well as her morbid obesity. Per psych, if she is over 350lb she is unable to be here on [facility] due to weight restrictions. Patient is afebrile and denies any chest pain or shortness of breath. Patient was requesting nyquil for cough and robitussin ordered. Patient continues to be medically stable and has been refusing most care. Patient to be transferred to psych per their policy for covid protocol. 07/01/2023 Patient is seen in follow-up today has been mandated for court ordered medication administration and if patient is noncompliant there are IM medications to be given per psychiatric orders. Social work is following looking into other facilities that can accommodate patient's weight status as well as Covid status. Patient is maintaining oxygen saturations about 94% on room air. Patient denies shortness of breath or chest pains. Patient has been tolerating diet with no reported nausea or vomiting. Remains afebrile. Patient is medically stable for psych transfer. 07/02/2023 Patient is seen in follow-up this morning currently remains on room air and denies chest pain or shortness of breath. Patient has been compliant with medications and is maintained on court order to be medication compliant. Jg dao on the medical unit for Covid and asking why she needs to remain in the hospital. Awaiting clearance from psychiatry to consider discharge planning. Patient does have a legal guardian that apparently is working on some form of placement in the outpatient setting. Social work following as well patient will likely return to [facility] once medically clear after 10 day protocol for positive Covid and also looking into other facilities. There has been no accepting psychiatric facilities at this time. Patient remains afebrile and infectious disease is following. Patient is medically stable to return to psych unit. Day 10 per protocol is on 07/05/2023. 07/03/2023 Patient not having any acute events overnight. She was having intermittent episodes were heart rate was up over the 100s. She is refusing to wear a fan installer at this time we'll recommend an EKG for evaluation of her heart rhythm. No chest pain or shortness of breath. She does state that she is having trouble sleeping mostly because the bed is uncomfortable due to her BMI we will recommend a bariatric bed at this time and this was discussed with nursing and they will provide her with 1. She is complaining a quarantine period for an acute Covid infection. She remains on room air at this time. She is medically stable to return to [facility] once his quarantine period is completed. 07/04/2023 Patient was evaluated at bedside today continues to report intermittent feelings of palpitations. She had an EKG normal sinus rhythm. Heart rate is regular S1 S2 auscultated. She is also feeling short of breath. Patient is refusing to have provider assess her including lung sounds and also refusing to wear the fan installer. Patient states "No one is listening to her complaints, and undergoing further testing is pointless and she would rather us focus on transferring her for a second opinion like [facility] Told patient medically here are no indications for transfer and we can order further testing such as blood work chest xray and the fan installer. She refuses. Patient was seen in consultation by psych today and was taken off the prolixin and will be started on Invega. She is on a bariatric bed. Review of systems: Constitutional: No reports of fatigue, fever, or chills Cardiovascular: No reports of chest pain or palpitations Respiratory: No reports of shortness of breath reports occasional cough GI: No reports of nausea, vomiting, or diarrhea : No reports of dysuria or retention Neurovascular: No reports of weakness or numbness All medications have been reviewed Physical exam: Gen: This is a 38-year-old female is awake, alert and oriented 3, well- developed, well-nourished, morbidly obese HEENT: Head is atraumatic, normocephalic. Pupils equal, round. Sclerae is anicteric. NECK: Supple. No JVD. No lymphadenopathy. No thyromegaly. LUNGS: Clear to auscultation. No wheezes or rhonchi. No intercostal retractions. HEART: Regular rate and rhythm. No murmur. ABDOMEN: Soft. Obese. Bowel sounds are present. No masses. No tenderness. EXTREMITIES: No pedal edema. No calf tenderness. NEUROLOGICAL: Patient is awake, alert and oriented x3. Cranial nerves 2 through 12 are grossly intact. Assessment: -COVID-19 Viral infection -Possible Superimposed bacterial infection/purulent tracheobronchitis, present on admission; ruled out -Schizoaffective, bipolar type -Morbid obesity with a BMI 54.5 -Medication noncompliance, and now court ordered to continue with psychiatric medications -DVT prophylaxis; SCDs/subcu Lovenox, although patient refusing -GI prophylaxis -Full code Plan: Patient transferred to medical floor for being positive for Covid after testing positive next day while on psych unit. Per their policy unable to have Covid patient's on the unit and placed on medical unit for further medication management. Patient had been refusing all treatments including vital signs, medications, and supportive care any treatment. Patient is status post court hearing and has been mandated to continue with medications. Patient has been compliant per nursing staff today. Infectious disease following patient was started on vitamin and zinc supplements along with Decadron although has been refusing Psychiatry to continue following as patient is now court ordered to take m edications and adjustments being made by psych on medications. Per court order if patient refuses there are options for intramuscular medication administration. Patient is medically stable despite positive COVID-19 testing and should be transferred back to psychiatric unit once cleared by psychiatrist. Per policy day 10 after positive Covid infection is 07/05/2023 The impression and plan of care has been dictated by Charleen Jordan Nurse Practitioner as directed. Dr. Gretta MD I have performed a history and physical examination and medical decision making of this patient, discussed the same with the dictator, and agree with the dictators assessment and plan as written, documented as a scribe. Based on total visit time, I have performed more than 50% of this visit. Objective - Vital Signs Vital signs: Vital Signs Temp 98.0 F 07/03/23 14:50 Pulse 93 07/04/23 08:30 Resp 18 07/04/23 08:30 BP 122/69 07/04/23 08:30 Pulse Ox 95 07/04/23 08:30 FiO2 Intake & Output 07/03/23 07/04/23 07/04/23 18:59 06:59 18:59 Intake Total 118 Balance 118 Intake: Oral 118 Other: Voiding Method Toilet # Voids 3 2 # Bowel Movements 1 - Labs CBC & Chem 7: 07/04/23 14:08 07/04/23 14:08 Assessment and Plan Time with Patient: Less than 30
[2023-07-04] MEDS: INSULIN ASPART (NovoLOG) 100 UNIT/ML VIAL SQ SCH (20:26)
[2023-07-04] MEDS: MELATONIN 5 MG TABLET PO SCH (23:14)
[2023-07-05] MEDS: MELATONIN 5 MG TABLET PO SCH (03:23)
[2023-07-05] MEDS: INSULIN ASPART (NovoLOG) 100 UNIT/ML VIAL SQ SCH ×4 (05:28→22:37)
[2023-07-05] MEDS: PALIPERIDONE 3 MG TAB.ER.24 PO SCH (10:02)
[2023-07-05] MEDS: ASCORBIC ACID 500 MG TAB PO SCH (10:06)
[2023-07-05] MEDS: CHOLECALCIFEROL 25 MCG (1000 IU) TABLET PO SCH (10:06)
[2023-07-05] MEDS: dexAMETHasone 2 MG TAB PO SCH (10:06)
[2023-07-05] MEDS: HEPARIN SODIUM,PORCINE 5,000 UNIT/ML 1 ML VIAL SQ SCH ×2 (10:06→15:14)
--- NOTE | 2023-07-05 13:34 | P.PN ---
Progress Note - Text Progress Note Date: 07/05/23 Interval history: The patient was evaluated today on the medical floors for psychiatric follow-up. Patient was seen at the bedside today. Patient continues to be argumentative, however improving mildly. She was less suspicious of commercial loan underwriter today. Continues to demand certain conditions with her hospitalization and also transfer. She did not report any other problems. States that she is continuing to have some palpitations however her vitals appear normal. EKG performed today and was reviewed by commercial loan underwriter. she denied any overnight complaints. She is sleeping well at nighttime. Denies any side effects from medications. Denying any auditory or visual hallucinations. Denying any suicidal or homicidal ideations intent or plan. questions. She had a court hearing and resulted in a court order. MENTAL STATUS EXAM: General Appearance: Patient appears to be obese, short hair, stated age Patient appears to have poor hygiene and grooming, improving mildly The patient is alert, argumentative, and evasive, improving Behavior: Patient is lying down with some agitated behavior. Evasive, improving Speech: Patient's speech is fluent and non pressured. less Irritable improving Mood/Affect: Patient reports their mood is "ok", affect is congruent and constricted Suicidality/Homicidality: No report of homicidal ideation intent or plan. No report of suicidal ideation intent or plan Perceptions: No report of visual or auditory hallucinations Though content/process: Patient has displaying significant poor insight and judgment, More clear thought process. Memory and concentration: AOX3, grossly intact for the purposes of this session. Judgment and insight: Chronically poor, improving mildly IMPRESSIONS: Schizoaffective, bipolar type Noncompliance with outpatient treatment Recommendation: -Addressed and ensured patient's safety, patient does meet the criteria for psychiatric hospitalization. Patient is actively psychotic and has very poor insight to her mental illness. -Patient received a court order for mental health treatment on 06/30. -Medication management: continue invega po 3 mg daily for psychosis/mood stabilization, if patient is refusing by mouth then she is to receive IM haldol as per court order. will need to transition patient onto [facility] invega sustenna. will likely give loading dose tomorrow if patient is doing ok. benadryl 50 mg bid prn for allergic rxn. -Haldol PRN for agitation/aggression -will continue to follow along if needed until patient is able to be safely transferred to a MHU given patients weight in excess of 350 lbs. Please call the psychiatry department if you have any questions or need further help with this case.
[2023-07-05] MEDS: MULTIVITAMINS, THERA 1 EACH TAB PO SCH (14:21)
[2023-07-05] MEDS: guaiFENesin 600 MG TABLET.ER PO SCH ×2 (16:23→19:52)
[2023-07-05] MEDS: IBUPROFEN 600 MG TAB PO PRN (22:34)
[2023-07-06] MEDS: HEPARIN SODIUM,PORCINE 5,000 UNIT/ML 1 ML VIAL SQ SCH ×3 (00:54→16:27)
[2023-07-06 02:32] VITALS: BP 133/65; PULSE 79; RESP 16; TEMP 98.4
--- NOTE | 2023-07-06 04:23 | P.PN ---
Subjective Progress Note Date: 07/05/23 77-axuy-ptl-year-old female with a past medical history significant for hypertension, presenting to the ER for evaluation of psych evaluation patient was brought in by [employer] on a court order. Patient was admitted to mental health unit where she complained of cough and s hortness of breath; COVID-19 PCR was sent and it came back positive; chest x-ray was done and is negative for any acute process; patient denies any shortness of breath with saturating above 95% on room air -- She is placed on azithromycin for superimposed bacterial infection -- We will start patient on Decadron along with COVID-19 vitamin cocktail -- Patient continues to refuse all medications and blood patient has been brought to the hospital for psych evaluation also complains of shortness of breath and cough did tested positive for COVID however the patient not running any fever the patient not hypoxic or need for supplemental oxygen chest x-ray with no acute findings more likely mild COVID-19 infection and treatment is mostly supportive we will check a CRP and a procalcitonin level we will advise zinc ascorbic acid Lovenox no need for remdesivir at -droplet isolation x 5 days 06/28/2023 Patient is seen in follow-up being monitored with infectious disease following for acute COVID-19 infection. Patient also being followed by psychiatry as patient is court ordered petitioned. Patient being followed by infectious disease as well and denies any symptoms of Covid other than cough although is maintained on room air. Per nursing staff patient has been refusing all medicat ions and refusing to have vital signs taken. Patient denies shortness of breath or chest pain. Patient reports tolerating diet with no reports of nausea or vomiting. Psychiatry following this patient does meet criteria for inpatient psych although per their policy has to remain on medical floor due to being positive for Covid. 06/29/2023 Patient is seen in follow-up today being followed by infectious disease along with psychiatry. Patient is on a court order petition and was on the psych unit although was found to be COVID-19 positive. Patient is on room air and denies any significant shortness of breath. Patient does have a cough although has been refusing all medications for supportive care. Patient also refusing all psychiatric medications as well. Patient has been refusing vital signs per nursing staff. Patient is tolerating diet denies any nausea or vomiting. 06/30/2023 Patient is seen in follow-up today being followed by psych scheduled to undergo court hearing to determine if patient will be required and mandated to take medications as she has been refusing medications. Patient requesting a cough medicine and a multivitamin which has been ordered. Patient also requesting repeat Covid testing which is not necessary and will not be performed. Psychiatry is following and patient has been court ordered and mandated for psych support to take medications. Adjustments are being made and patient also requesting to go to another psych facility. Social work following and looking into other psych facilities that can accommodate covid as well as her morbid obesity. Per psych, if she is over 350lb she is unable to be here on [facility] due to weight restrictions. Patient is afebrile and denies any chest pain or shortness of breath. Patient was requesting nyquil for cough and robitussin ordered. Patient continues to be medically stable and has been refusing most c are. Patient to be transferred to psych per their policy for covid protocol. 07/01/2023 Patient is seen in follow-up today has been mandated for court ordered medication administration and if patient is noncompliant there are IM medications to be given per psychiatric orders. Social work is following looking into other facilities that can accommodate patient's weight status as well as Covid status. Patient is maintaining oxygen saturations about 94% on room air. Patient denies shortness of breath or chest pains. Patient has been tolerating diet with no reported nausea or vomiting. Remains afebrile. Patient is medically stable for psych transfer. 07/02/2023 Patient is seen in follow-up this morning currently remains on room air and denies chest pain or shortness of breath. Patient has been compliant with medications and is maintained on court order to be medication compliant. Patient on the medical unit for Covid and asking why she needs to remain in the hospital. Awaiting clearance from psychiatry to consider discharge planning. Patient does have a legal guardian that apparently is working on some form of placement in the outpatient setting. Social work following as well patient will likely return to [address] [facility] once medically clear after 10 day protocol for positive Covid and also looking into other facilities. There has been no accepting psychiatric facilities at this time. Patient remains afebrile and infectious disease is following. Patient is medically stable to return to psych unit. Day 10 per protocol is on 07/05/2023. 07/03/2023 Patient not having any acute events overnight. She was having intermittent episodes were heart rate was up over the 100s. She is refusing to wear a playground monitor at this time we'll recommend an EKG for evaluation of her heart rhythm. No chest pain or shortness of breath. She does state that she is having trouble sleeping mostly because the bed is uncomfortable due to her BMI we will recommend a bariatric bed at this time and this was discussed with nursing and they will provide her with 1. She is complaining a quarantine period for an acute Covid infection. She remains on room air at this time. She is medically stable to return to psych once his quarantine period is completed. 07/04/2023 Patient was evaluated at bedside today continues to report intermittent feelings of palpitations. She had an EKG normal sinus rhythm. Heart rate is regular S1 S2 auscultated. She is also feeling short of breath. Patient is refusing to have provider assess her including lung sounds and also refusing to wear the playground monitor. Patient states "No one is listening to her complaints, and undergoing further testing is pointless and she would rather us focus on transferring her for a second opinion like [facility] Told patient medically here are no indications for transfer and we can order further testing such as blood work chest xray and the playground monitor. She refuses. Patient was seen in consultation by psych today and was taken off the prolixin and will be started on Invega. She is on a bariatric bed. 07/05/2023 Patient is seen in follow-up this morning with no acute overnight issues noted. Patient is maintained on court order and has been taking medications per psychiatry orders although has been having reported symptoms of palpitations and patient has been occasionally allowing vital signs to be taken. Adjustments to medications per psychiatry and patient being started on invega. Patient denied shortness of breath and does have Robitussin as needed and per nursing staff after patient was evaluated patient requested Mucinex and will order. Patient is day 11 of the positive Covid result according to protocol and is medically stable for transfer to psych although apparently there is also policy that our unit is unable to accept patients that are 350 pounds or more and patient weighs 354 pounds. Case management was made aware this patient may require transfer to another psychiatric facility. Patient is currently afebrile with no reported chest pain and denies any nausea or vomiting and has been tolerating diet. Review of systems: Constitutional: No reports of fatigue, fever, or chills Cardiovascular: No reports of chest pain or palpitations Respiratory: No reports of shortness of breath reports occasional cough and some congestion GI: No reports of nausea, vomiting, or diarrhea : No reports of dysuria or retention Neurovascular: No reports of weakness or numbness All medications have been reviewed Physical exam: Gen: This is a 38-year-old female is awake, alert and oriented 3, well- developed, well-nourished, morbidly obese HEENT: Head is atraumatic, normocephalic. Pupils equal, round. Sclerae is anicteric. NECK: Supple. No JVD. No lymphadenopathy. No thyromegaly. LUNGS: Clear to auscultation. No wheezes or rhonchi. No intercostal retractions. HEART: Regular rate and rhythm. No murmur. ABDOMEN: Soft. Obese. Bowel sounds are present. No masses. No tenderness. EXTREMITIES: No pedal edema. No calf tenderness. NEUROLOGICAL: Patient is awake, alert and oriented x3. Cranial nerves 2 through 12 are grossly intact. Assessment: -COVID-19 Viral infection -Possible Superimposed bacterial infection/purulent tracheobronchitis, present on admission; ruled out -Schizoaffective, bipolar type -Morbid obesity with a BMI 54.5 -Medication noncompliance, and now court ordered to continue with psychiatric medications -DVT prophylaxis; SCDs/subcu Lovenox, although patient refusing -GI prophylaxis -Full code Plan: Patient transferred to medical floor for being positive for Covid after testing positive next day while on psych unit. Per their policy unable to have Covid patient's on the unit and placed on medical unit for further medication management. Patient had been refusing all treatments including vital signs, medications, and supportive care any treatment. Patient is status post court hearing and has been mandated to continue with medications. Patient has been compliant per nursing staff today. Infectious disease following patient was started on vitamin and zinc supplements along with Decadron although has been refusing Psychiatry to continue following as patient is now court ordered to take medications and adjustments being made by psych on medications. Per court order if patient refuses there are options for intramuscular medication administration. Patient did not like the effects of Prolixin and being adjusted to Invega Patient is medically stable despite positive COVID-19 testing and should be transferred back to psychiatric unit once cleared by psychiatrist. Per policy day 10 after positive Covid infection is today 07/05/2023. Apparently there is also policy of weight limit at our psych unit is unable to accommodate patients were 350 pounds in above and patient weighs 354 pounds. Case management made aware in the event patient will require transfer to another psychiatric facility that can accommodate this weight. Will discuss further with case management and psychiatry in regards to discharge planning. The impression and plan of care has been dictated by Paulina Cotton, Nurse Practitioner as directed. Dr. Gretta MD I have performed a history and examination and MDM of this patient, discussed the same with the dictator, and agree with the dictator's assessment and plan as written ,documented as a scribe. Based on total visit time, I have performed more than 50% of the visit. Objective - Vital Signs Vital signs: Vital Signs Temp 98.4 F 07/06/23 02:07 Pulse 79 07/06/23 02:07 Resp 16 07/06/23 02:07 BP 133/65 07/06/23 02:07 Pulse Ox 96 07/06/23 02:07 FiO2 Intake & Output 07/05/23 07/05/23 07/06/23 06:59 18:59 06:59 Weight 161.082 kg Other: Voiding Method Toilet # Voids 1 4 2 # Bowel Movements 1 - Labs CBC & Chem 7: 07/04/23 14:08 07/04/23 14:08 Labs: Abnormal Lab Results - Last 24 Hours (Table) 07/04/23 Range/Units 14:26 Hemoglobin A1c 8.0 H (<=6.0) %
[2023-07-06] MEDS: MELATONIN 5 MG TABLET PO SCH (05:22)
[2023-07-06] MEDS: INSULIN ASPART (NovoLOG) 100 UNIT/ML VIAL SQ SCH ×3 (07:01→17:46)
[2023-07-06] MEDS: PALIPERIDONE 3 MG TAB.ER.24 PO SCH (09:59)
[2023-07-06] MEDS: dexAMETHasone 2 MG TAB PO SCH (10:01)
[2023-07-06] MEDS: ASCORBIC ACID 500 MG TAB PO SCH (10:01)
[2023-07-06] MEDS: CHOLECALCIFEROL 25 MCG (1000 IU) TABLET PO SCH (10:01)
[2023-07-06] MEDS: guaiFENesin 600 MG TABLET.ER PO SCH (10:02)
[2023-07-06] MEDS: MULTIVITAMINS, THERA 1 EACH TAB PO SCH (12:59)
--- NOTE | 2023-07-06 14:57 | P.DS ---
Providers Date of admission: 06/29/23 08:57 Expected date of discharge: 07/06/23 Attending physician: Paul Chavis MD Consults: 06/25/23 18:44 Consult Physician Routine Consulting Provider: Misael Tapia Consult Reason/Comments: covid Do you want consulting provider notified?: Yes Placement Type Exists?: Yes 06/26/23 07:56 Consult Physician Urgent Consulting Provider: Osmel Mg Consult Reason/Comments: Schizoaffective Disorder Do you want consulting provider notified?: Yes Primary care physician: Seth Reyes Hospital Course: Final diagnosis -COVID-19 Viral infection -Possible Superimposed bacterial infection/purulent tracheobronchitis, present on admission; ruled out -Schizoaffective, bipolar type -Morbid obesity with a BMI 54.5 -Medication noncompliance, and now court ordered to continue with psychiatric medications -DVT prophylaxis; SCDs/subcu Lovenox, although patient refusing -GI prophylaxis -Full code Discharge disposition Patient is being transferred in a stable condition with guarded prognosis to [address] [place] [address] psychiatric unit for further psychiatric evaluation and care . Patient will follow-up with Dr. Ann in the outpatient setting upon discharge. Patient is to continue with court ordered medication administration and close outpatient follow-up with [facility] as well as psychiatrist in the outpatient setting as scheduled. Total time taken is greater than 35 minutes. Hospital course This is a 38-year-old female who was recently admitted to the medical floor after being found positive for COVID-19 and being closely monitored. Psychiatry following as well as patient was admitted for medication noncompliance and underwent court hearing and is now court mandated to take medications. Patient does have a legal guardian as well that has been working on possible AFC in the outpatient setting. Patient had a positive COVID-19 test and today Aleman day 11 07/06/2023. Patient has been medically stable and evaluated by infectious disease. Patient is medically cleared and stable for transfer to [facility] for further psychiatric care. Please refer to other consultation notes for further HPI. Currently no reports of chest pain, shortness of breath, or palpitations. Patient is afebrile. No reports of nausea or vomiting and patient is tolerating diet. Patient will be transferred to [address] [place] [address] psychiatric unit today. Physical exam: Gen: This is a 38-year-old female who is awake, alert and oriented, well- developed, well-nourished, morbidly obese HEENT: Head is atraumatic, normocephalic. Pupils equal, round. Sclerae is anicteric. NECK: Supple. No JVD. No lymphadenopathy. No thyromegaly. LUNGS: Clear to auscultation. No wheezes or rhonchi. No intercostal retractions. HEART: Regular rate and rhythm. No murmur. ABDOMEN: Soft. Obese Bowel sounds are present. No masses. No tenderness. EXTREMITIES: No pedal edema. No calf tenderness. NEUROLOGICAL: Patient is awake, alert and oriented x3. Cranial nerves 2 through 12 are grossly intact. Please refer to medication reconciliation sheet for a list of medications. The impression and plan of care has been dictated by Paulina Cotton, Nurse Practitioner as directed. Dr. Gretta MD I have performed a history and examination and MDM of this patient, discussed the same with the dictator, and agree with the dictator's assessment and plan as written ,documented as a scribe. Based on total visit time, I have performed more than 50% of the visit. Patient Condition at Discharge: Stable Plan - Discharge Summary New Discharge Prescriptions: New Ibuprofen [Motrin] 600 mg PO QID PRN tab PRN Reason: Pain guaiFENesin [Mucinex] 600 mg PO Q12HR tab Multivitamins, Thera [Multivitamin (formulary)] 1 each PO DAILY@1200 tab guaiFENesin-DM 100-10MG/5ML [Robitussin DM] 5 ml PO Q6HR PRN ml PRN Reason: Cough Albuterol Inhaler [Ventolin Hfa Inhaler] 1 puff INHALATION RT-QID PRN each PRN Reason: Shortness Of Breath Or Wheezing Ascorbic Acid [Vitamin C] 500 mg PO DAILY tab Loratadine [Claritin] 10 mg PO DAILY PRN tab PRN Reason: Allergy Symptoms Paliperidone [Invega] 3 mg PO DAILY tab Melatonin 5 mg PO HS tab Cholecalciferol [Vitamin D3 (25 Mcg = 1000 Iu)] 50 mcg PO DAILY tab Discharge Medication List Albuterol Inhaler [Ventolin Hfa Inhaler] 1 puff INHALATION RT-QID PRN each 07/06/23 [Rx] Ascorbic Acid [Vitamin C] 500 mg PO DAILY tab 07/06/23 [Rx] Cholecalciferol [Vitamin D3 (25 Mcg = 1000 Iu)] 50 mcg PO DAILY tab 07/06/23 [Rx] Ibuprofen [Motrin] 600 mg PO QID PRN tab 07/06/23 [Rx] Loratadine [Claritin] 10 mg PO DAILY PRN tab 07/06/23 [Rx] Melatonin 5 mg PO HS tab 07/06/23 [Rx] Multivitamins, Thera [Multivitamin (formulary)] 1 each PO DAILY@1200 tab 07/06/23 [Rx] Paliperidone [Invega] 3 mg PO DAILY tab 07/06/23 [Rx] guaiFENesin [Mucinex] 600 mg PO Q12HR tab 07/06/23 [Rx] guaiFENesin-DM 100-10MG/5ML [Robitussin DM] 5 ml PO Q6HR PRN ml 07/06/23 [Rx] Follow up Appointment(s)/Referral(s): Amy Ann MD [Primary Care Provider] - 1 Week Patient Instructions/Handouts: [place] (By mouth), Fluphenazine Hydrochloride (By mouth) Activity/Diet/Wound Care/Special Instructions: Patient is medically cleared and stable for transfer to [address] inpatient psychiatric unit for continued psychiatric evaluation and care Discharge Disposition: TRANSFER TO PSYCH HOSP/UNIT
[2023-07-06 16:33] VITALS: BMI 55.1
== END 2023-07-06 18:04 | DRG 178 ==
LOC: 6NMEDSUR 18:02 → OBSVTOIN 06-29 08:57
PROVIDERS: ADMIT Internal Medicine; ATTEND Internal Medicine
PROC: 8E0ZXY6 Isolation (ICD-10-PCS; principal; 2023-06-26)
DX: U07.1 COVID-19 (principal); Z68.43 Body mass index [BMI] 50.0-59.9, adult; F25.0 Schizoaffective disorder, bipolar type; E66.01 Morbid (severe) obesity due to excess calories; I10 Essential (primary) hypertension; J40 Bronchitis, not specified as acute or chronic; B96.89 Other specified bacterial agents as the cause of diseases classified elsewhere; Z91.148 Patient's other noncompliance with medication regimen for other reason; T43.3X Poisoning by, adverse effect of and underdosing of phenothiazine antipsychotics and neuroleptics; T43.59 Poisoning by, adverse effect of and underdosing of other antipsychotics and neuroleptics; Z91.199 Patient's noncompliance with other medical treatment and regimen due to unspecified reason; Z88.8 Allergy status to other drugs, medicaments and biological substances
CPT/HCPCS: 71045; 80048; 83036; 83735; 84443; 85025; 94640

== ENCOUNTER 2023-07-06 15:28 | Inpatient (IN) | payer MEDICARE, MEDICAID ==
[2023-07-06] MEDS ORDERED: ALBUTEROL HFA INHALER INHALATION PRN (15:39)
[2023-07-06] MEDS ORDERED: LORATADINE 10 MG TAB PO PRN (15:39)
[2023-07-06] MEDS ORDERED: HALOPERIDOL LACTATE 5 MG/ML 1 ML VIAL IM PRN (15:48)
[2023-07-06] MEDS ORDERED: MAGNESIUM HYDROXIDE 2,400 MG/30 ML CUP PO PRN (15:48)
[2023-07-06] MEDS ORDERED: LORazepam 1 MG TAB PO PRN (15:48)
[2023-07-06] MEDS ORDERED: haloperidoL 5 MG TAB PO PRN (15:48)
[2023-07-06] MEDS ORDERED: LORazepam 2 MG/ML INJ IM PRN (15:48)
[2023-07-06] MEDS ORDERED: ACETAMINOPHEN TAB 325 MG TAB PO PRN (15:48)
[2023-07-06] MEDS ORDERED: MAG HYDROX/AL HYDROX/SIMETH 30 ML CUP PO PRN (15:48)
[2023-07-06] MEDS: INSULIN ASPART (NovoLOG) 100 UNIT/ML VIAL SQ SCH ×2 (18:35→20:08)
[2023-07-06] MEDS: PALIPERIDONE 3 MG TAB.ER.24 PO SCH (23:23)
[2023-07-06] MEDS: guaiFENesin 600 MG TABLET.ER PO SCH (23:23)
[2023-07-06] MEDS: MELATONIN 5 MG TABLET PO SCH (23:23)
[2023-07-07] MEDS: INSULIN ASPART (NovoLOG) 100 UNIT/ML VIAL SQ SCH ×2 (08:24→12:29)
[2023-07-07] MEDS: ASCORBIC ACID 500 MG TAB PO SCH (08:39)
[2023-07-07] MEDS: PALIPERIDONE 3 MG TAB.ER.24 PO SCH (08:39)
[2023-07-07] MEDS: guaiFENesin 600 MG TABLET.ER PO SCH ×2 (08:39)
[2023-07-07] MEDS: CHOLECALCIFEROL 25 MCG (1000 IU) TABLET PO SCH (08:39)
[2023-07-07] MEDS ORDERED: HALOPERIDOL LACTATE 5 MG/ML 1 ML VIAL IM PRN (11:17)
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
[2023-07-07] MEDS: MULTIVITAMINS, THERA 1 EACH TAB PO SCH (12:29)
--- NOTE | 2023-07-07 14:51 | P.MDCNMH ---
History of Present Illness H&P Date: 07/07/23 This is a 38-year-old female who was recently overran the medical floor as she was found to be COVID-19 positive and stayed per policy the 10 days after positive Covid testing and is medically stable and has been cleared to go back to [facility] for further psychiatric care and evaluation. Patient follows with Dr. Ann in the outpatient setting with a past medical history of hypertension, depression, morbid obesity, anxiety, schizoaffective disorder, schizophrenia. Patient had a court hearing during hospitalization and is now court mandated to take her medications as she had been refusing. Patient does have a guardian in the outpatient setting and has been working on attempting her being placed at an AFC which is currently pending. Patient on exam is medically stable and not really willing to speak with magnetic tape typewriter operator although denied any chest pain or shortness of breath. Patient reports the tolerating diet and denies any specific complaints. Patient was continued on vitamin and zinc supplements along with Mucinex as she requested that she had some congestion although has been refusing and will make as needed. Patient currently on Accu-Cheks although is not a diabetic and would recommend discontinuing those as patient was on Accu-Cheks and sliding scale as needed on the medical floor in the event patient was going to take her prescribed steroids to cover for steroid-induced hyperglycemia. We'll discontinue sliding scale. Review Of Systems: Constitutional: No fever, no chills, no night sweats. No weight change. No weakness, fatigue or lethargy. No daytime sleepiness. EENT: No headache. No blurred vision or double vision, no loss of vision. No loss of Hearing, no ringing in the ears, no dizziness. No nasal drainage or congestion. No epistaxis. No sore throat. Lungs: No shortness of breath, reports cough, reports occasional sputum production. No wheezing. Cardiovascular: No chest pain, no lower extremity edema. No palpitations. No paroxysmal nocturnal dyspnea. No orthopnea. No lightheadedness or dizziness. No syncopal episodes. Abdominal: No abdominal pain. No nausea, vomiting. No diarrhea. No constipation. No bloody or tarry stools.. No loss of appetite. Genitourinary: No dysuria, increased frequency, urgency. No urinary retention. Musculoskeletal: No myalgias. No muscle weakness, no gait dysfunction, no frequent falls. No back pain. No neck pain. Integumentary: No wounds, no lesions. No rash or pruritus. No unusual bruising. No change in hair or nails. Neurologic: No aphasia. No facial droop. No change in mentation. No head injury. No headache. No paralysis. No paresthesia. Psychiatric: No depression. No anxiety. No mood swings. Endocrine: No abnormal blood sugars. No weight change. No excessive sweating or thirst. No cold intolerance. PHYSICAL EXAMINATION: GENERAL: The patient is alert and oriented x4, Well developed, well nourished. Morbidly obese HEENT: Pupils are round and equally reacting to light. EOMI. no scleral icterus. No conjunctival pallor. Normocephalic, atraumatic. No pharyngeal erythema. No th yromegaly. CARDIOVASCULAR: S1 and S2 muffled PULMONARY: diminished breath sounds bilaterally with no wheezing or rhonchi noted. ABDOMEN: soft. Nontender on exam. obese. non-distended, normoactive bowel sounds. No palpable organomegaly. MUSCULOSKELETAL: No joint swelling or deformity. EXTREMITIES: No cyanosis, clubbing, or pedal edema. NEUROLOGICAL: Gross neurological examination did not reveal any focal deficits. SKIN: No rashes. Assessment: Recent COVID-19 infection History of hypertension Morbid obesity with a BMI of 55.1 Noncompliance with medications, now court ordered History of schizoaffective, bipolar History of anxiety/depression GI prophylaxis Full code Plan: Recommend to continue with current medications and management per psychiatric services. Patient is court ordered and has a public guardian that has been working on AFC placement. Patient was noncompliant with medications and underwent a court hearing during hospitalization while on the medical floor and is now mandated to take medications. Patient has undergone the quarantine and 10 day protocol for COVID-19 and is medically stable and has been transferred over to [facility]. for further psychiatric care Patient has no history of diabetes and is not a diabetic and was maintained on Accu-Cheks with sliding scale while on the medical unit as she was supposed to be taking steroids for Covid although had been refusing. Will discontinue sliding scale and Accu-Cheks. Encouraged group therapy sessions Encouraged medication compliance Patient to follow-up with primary care provider on discharge from 3 . The impression and plan of care has been dictated by Paulina Cotton, nurse practitioner as directed. Dr. Asad MD I have performed a history and examination and MDM of this patient, discussed the same with the dictator, and agree with the dictator's assessment and plan as written ,documented as a scribe. Based on total visit time, I have performed more than 50% of the visit. Any additional findings or plans will be noted. Past Medical History Past Medical History: Hypertension Additional Past Medical History / Comment(s): depression, obesity History of Any Multi-Drug Resistant Organisms: None Reported Past Surgical History: No Surgical Hx Reported Past Anesthesia/Blood Transfusion Reactions: No Reported Reaction Past Psychological History: Anxiety, Depression, Schizoaffective Disorder, Schi zophrenia Smoking Status: Never smoker Past Alcohol Use History: None Reported, Rare Past Drug Use History: None Reported Medications and Allergies Home Medications Medication Instructions Recorded Confirmed Type Albuterol Inhaler [Ventolin Hfa 1 puff INHALATION RT-QID PRN each 07/06/23 07/06/23 Rx Inhaler] Ascorbic Acid [Vitamin C] 500 mg PO DAILY tab 07/06/23 07/06/23 Rx Cholecalciferol [Vitamin D3 (25 50 mcg PO DAILY tab 07/06/23 07/06/23 Rx Mcg = 1000 Iu)] Ibuprofen [Motrin] 600 mg PO QID PRN tab 07/06/23 07/06/23 Rx Loratadine [Claritin] 10 mg PO DAILY PRN tab 07/06/23 07/06/23 Rx Melatonin 5 mg PO HS tab 07/06/23 07/06/23 Rx Multivitamins, Thera [Multivitamin 1 each PO DAILY@1200 tab 07/06/23 07/06/23 Rx (formulary)] Paliperidone [Invega] 3 mg PO DAILY tab 07/06/23 07/06/23 Rx guaiFENesin [Mucinex] 600 mg PO Q12HR tab 07/06/23 07/06/23 Rx guaiFENesin-DM 100-10MG/5ML 5 ml PO Q6HR PRN ml 07/06/23 07/06/23 Rx [Robitussin DM] Allergies Allergy/AdvReac Type Severity Reaction Status Date / Time aripiprazole [From Abilify] Allergy Dyspnea Verified 07/06/23 19:18 ziprasidone HCl [From Geodon] Allergy Dyspnea Verified 07/06/23 19:18 ziprasidone mesylate Allergy Dyspnea Verified 07/06/23 19:18 [From Geodon] Physical Exam Vitals: Vital Signs Temp Pulse Resp BP Pulse Ox 07/06/23 18:55 99.3 F 107 H 20 139/86 96 Intake and Output 07/06/23 07/07/23 07/07/23 22:59 06:59 14:59 Other: Weight 159.677 kg Cranial Nerve Examination - Cranial Nerves Cranial Nerve I- Olfactory: Intact Cranial Nerve II- Optic: Intact Cranial Nerve III- Oculomotor: Intact Cranial Nerve IV- Trochlear: Intact Cranial Nerve V- Trigeminal: Intact Cranial Nerve - Abducens: Intact Cranial Nerve VII- Facial: Intact Cranial Nerve VIII- Auditory: Intact Cranial Nerve IX- Glossopharyngeal: Intact Cranial Nerve X- Vagus: Intact Cranial Nerve XI- Accessory: Intact Cranial Nerve XII- Hypoglossal: Intact Assessment and Plan Time with Patient: Less than 30
[2023-07-07] MEDS: PALIPERIDONE 6 MG TAB.ER.24 PO SCH (21:16)
[2023-07-07] MEDS: MELATONIN 5 MG TABLET PO SCH (21:19)
[2023-07-08] MEDS: CHOLECALCIFEROL 25 MCG (1000 IU) TABLET PO SCH ×2 (08:21→08:25)
[2023-07-08] MEDS: ASCORBIC ACID 500 MG TAB PO SCH ×2 (08:21→08:25)
[2023-07-08] MEDS ORDERED: PALIPERIDONE IM 234 MG/1.5 ML SYG IM STA (11:28)
--- NOTE | 2023-07-08 11:34 | P.PN ---
Progress Note - Text Progress Note Date: 07/08/23 Interval History: Patient was seen in her room and was directable and agreeable to speak with engineering technical writer. Patient was less argumentative today, however, she was very focused on medication and treatment. States she would like to be discharged, and seems a suspicious of the engineering technical writer, and her diagnosis. Patient states she feels [facility] and her guardian feel "some type of way about her" Patient states she's "ok" today, and that she slept well last night. Patient states that the psych meds are going to deteriorate her mind. Spoke to the patient about transitioning her onto a BEARDEN, explained the benefits of the BEARDEN, and patient agreeable to start the loading dose today. At this time patient denies any suicidal or homical ideations, intent or plan. Patient denies any auditory, visual hallucinations and denies any paranoia or delusions. Patient denies any side effects from the medications and has been compliant with meds. Mental Status Exam: General Appearance: Patient appears to be obese, short hair, stated age is alert, argumentative, paranoid/evasive, improving. Patient appears to have poor hygiene and grooming. mildly improving Behavior: Patient is seated without any agitated behavior. Paranoid. improving mildly Speech: Patient's speech is fluent and nonpressured. less confrontational. Mood/Affect: Patient reports their mood is "ok", affect is incongruent and constricted Suicidality/Homicidality: Patient denies having any homicidal ideation intent or plan. Denies any suicidal ideations intent or plan Perceptions: Patient denies any visual hallucinations and denies any auditory hallucinations Though content/process: Patient has displaying significant poor insight and judgment, imrpoving mildly. more logical today Memory and concentration: AOX3, grossly intact for the purposes of this session. Judgment and insight: Chronically poor, improving mildly IMPRESSIONS: Schizoaffective, bipolar type Noncompliance with outpatient treatment PLAN: -Patient is admitted under involuntary status to [facility]HU for stabilization of psychiatric symptoms and safety. Patient on current court order, expires 12/27/23 -Medication: invega po 6mg daily for psychosis/mood stabilization, will need to taper down starting tomorrow, if patient is refusing by mouth then she is to receive IM haldol as per court order. will give invega sustenna 234 mg today, next dose of 156 mg IM will be due on 07/15. benadryl 50 mg bid prn for allergic rxn. -Ativan and Haldol PRN for agitation/aggression -Patient was informed of the risks, benefits and side effects of the medication -Internal Medicine consult to perform medical evaluation and physical. -NRT - not needed as patient does not smoke - on board for discharge planning. Encourage patient to participate in groups to work on coping skills. D/C planning to be coordinated between social work and public guardian and [facility]. patient will need at least 2nd dose of Invega sustenna prior to d/c. Patient may have an arrest warrant, guardian will find out and communicate the plan to us. court order expires 12/27/23
[2023-07-08] MEDS: MULTIVITAMINS, THERA 1 EACH TAB PO SCH (11:57)
[2023-07-08] MEDS: MELATONIN 5 MG TABLET PO SCH ×2 (21:37→22:36)
[2023-07-08] MEDS: PALIPERIDONE 6 MG TAB.ER.24 PO SCH (21:37)
--- NOTE | 2023-07-09 11:32 | P.PN ---
Progress Note - Text Progress Note Date: 07/09/23 Interval History: Patient was seen in her room and was directable and agreeable to speak with race and sports book writer. Patient states she's "ok" today, and that she slept well last night. Patient has been getting up and going to meals, and not going to groups. Spoke with patient about the importance of participating in milieu, patient states that the groups are against her beliefs. Patient received the loading dose of Invega sustenna yesterday, tolerating it well, with no complaints. Patient continues to be focused on discharged, spoke with patient about the process, and how we have to coordinate with [facility] and her guardian. awaiting plan from guardian. At this time patient denies any suicidal or homicidal ideations, intent or plan. Patient denies any auditory, visual hallucinations and denies any paranoia or delusions. Patient denies any side effects from the medications and has been compliant with meds. Mental Status Exam: General Appearance: Patient appears to be obese, short hair, stated age is alert, mildly less argumentative, paranoid/evasive, improving. Patient appears to have poor hygiene and grooming. mildly improving Behavior: Patient is seated without any agitated behavior. Paranoid. improving mildly Speech: Patient's speech is fluent and nonpressured. less confrontational. Mood/Affect: Patient reports their mood is "ok", affect is incongruent and constricted Suicidality/Homicidality: Patient denies having any homicidal ideation intent or plan. Denies any suicidal ideations intent or plan Perceptions: Patient denies any visual hallucinations and denies any auditory hallucinations Though content/process: Patient has displaying significant poor insight and judgment, imrpoving mildly. more logical today Memory and concentration: AOX3, grossly intact for the purposes of this session. Judgment and insight: Chronically poor, improving mildly IMPRESSIONS: Schizoaffective, bipolar type Noncompliance with outpatient treatment PLAN: -Patient is admitted under involuntary status to [facility]HU for stabilization of psychiatric symptoms and safety. Patient on current court order, expires 12/27/23 -Medication: decrease invega po 3mg daily for psychosis/mood stabilization, for two more days then d/c. if patient is refusing by mouth then she is to receive IM haldol as per court order. given invega sustenna 234 mg on 07/08, next dose of 156 mg IM will be due on 07/14. maintennance dose will be 117 mg IM will be due on 08/04. benadryl 50 mg bid prn for allergic rxn. -Ativan and Haldol PRN for agitation/aggression -NRT - not needed as patient does not smoke -SW on board for discharge planning. Encourage patient to participate in groups to work on coping skills. D/C planning to be coordinated between social work and public guardian and [facility]. patient will need at least 2nd dose of Invega sustenna prior to d/c. Patient may have an arrest warrant, guardian will find out and communicate the plan to us. court order expires 12/27/23
[2023-07-09] MEDS: CHOLECALCIFEROL 25 MCG (1000 IU) TABLET PO SCH (14:10)
[2023-07-09] MEDS: ASCORBIC ACID 500 MG TAB PO SCH (14:10)
[2023-07-09] MEDS: MULTIVITAMINS, THERA 1 EACH TAB PO SCH (14:16)
[2023-07-09] MEDS: MELATONIN 5 MG TABLET PO SCH (21:49)
[2023-07-09] MEDS: PALIPERIDONE 3 MG TAB.ER.24 PO SCH (21:49)
[2023-07-10] MEDS: guaiFENesin 600 MG TABLET.ER PO PRN (06:23)
[2023-07-10] MEDS: ASCORBIC ACID 500 MG TAB PO SCH (08:28)
[2023-07-10] MEDS: CHOLECALCIFEROL 25 MCG (1000 IU) TABLET PO SCH (08:28)
--- NOTE | 2023-07-10 10:38 | P.PN ---
Subjective Progress Note Date: 07/10/23 Principal diagnosis: IMPRESSIONS: Schizoaffective, bipolar type Noncompliance with outpatient treatment Interval History: There went to see the patient she asked me to give her 15 minutes so she could go to the bathroom I came back in 20 medicine she asked if she could go the bathroom first. Staff reports she is always going to the bathroom apparently as a way of avoiding engaging with anyone. She has no idea why she is here she says she was just minding her own business in her own place when the police came and grabbed her. Patient was seen in her room and was directable and agreeable to speak with selling underwriter but did not want to come down to the office. Patient states she's "ok" today, and that she slept well last night. Patient has been getting up and going to meals and she says her appetite is fine, however she has not been going to groups because she doesn't think she needs. Spoke with patient about the importance of participating in milieu, patient states that the groups are against her beliefs. Patient received the loading dose of Invega sustenna , tolerating it well, with no complaints about medications constipation dry mouth and dizziness or stiffness. Patient continues to be focused on , she wanted to know if we can doctors could discharge. She does not seem to retain the information she was given on the subject yesterday. Mental Status Exam: General Appearance: Patient appears to be obese, short hair, stated age is alert, mildly less argumentative, paranoid/evasive. Patient appears to have poor hygiene and grooming. Behavior: Patient is seated without any agitated behavior. She did not seem to be too paranoid about him even though as a total stranger so that evidently is an improvement Speech: Patient's speech is fluent and nonpressured. less confrontational. Mood/Affect: Patient reports their mood is "ok", affect is incongruent and constricted Suicidality/Homicidality: Patient denies having any homicidal ideation intent or plan. Denies any suicidal ideations intent or plan Perceptions: Patient denies any visual hallucinations and denies any auditory hallucinations Though content/process: Patient has displaying significant poor insight and judgment, imrpoving mildly. more logical today Memory and concentration: AOX3, grossly intact for the purposes of this session. Judgment and insight: Chronically poor, Diagnosis: Schizoaffective disorder PLAN: No change indicated at this time -Patient is admitted under involuntary status to [facility] for stabilization of psychiatric symptoms and safety. Patient on current court order, expires 12/27/23 -Medication: decrease invega po 3mg daily for psychosis/mood stabilization, for two more days then d/c. if patient is refusing by mouth then she is to receive IM haldol as per court order. given invega sustenna 234 mg on 07/08, next dose of 156 mg IM will be due on 07/14. maintennance dose will be 117 mg IM will be due on 08/04. benadryl 50 mg bid prn for allergic rxn. -Ativan and Haldol PRN for agitation/aggression -NRT - not needed as patient does not smoke - on board for discharge planning. Encourage patient to participate in groups to work on coping skills. D/C planning to be coordinated between social work and public guardian and [facility]. patient will need at least 2nd dose of Invega sustenna prior to d/c. Patient may have an arrest warrant, guardian will find out and communicate the plan to us. court order expires 12/27/23 diagnosis: Schizoaffective disorder Objective - Vital Signs Vital signs: Vital Signs Temp 99.3 F 07/06/23 18:55 Pulse 107 H 07/06/23 18:55 Resp 20 07/06/23 18:55 BP 139/86 07/06/23 18:55 Pulse Ox 96 07/06/23 18:55 FiO2
[2023-07-10] MEDS: MULTIVITAMINS, THERA 1 EACH TAB PO SCH (12:12)
[2023-07-10] MEDS: PALIPERIDONE 3 MG TAB.ER.24 PO SCH (22:10)
[2023-07-10] MEDS: MELATONIN 5 MG TABLET PO SCH (22:15)
[2023-07-11] MEDS: ASCORBIC ACID 500 MG TAB PO SCH (09:13)
[2023-07-11] MEDS: CHOLECALCIFEROL 25 MCG (1000 IU) TABLET PO SCH (09:13)
--- NOTE | 2023-07-11 10:07 | P.PN ---
Subjective Progress Note Date: 07/11/23 Principal diagnosis: IMPRESSIONS: Schizoaffective, bipolar type Noncompliance with outpatient treatment Interval History: The patient says she got up in a breakfast but she is back in bed at 10:00. She did not want to get up and come and talk to me she said, " maybe later." She denied any negative side effects on her medication, of course the only question she had was whether she was going to be discharged. When I point out it was montiel to go to groups in stay out in the community and show people that she is doing well. She said that she was not into groups. Mental Status Exam: General Appearance: Patient appears to be obese, short hair, stated age is alert, mildly less argumentative, paranoid/evasive. Patient appears to have poor hygiene and grooming. Behavior: Patient is laying in bed with her head covered and did not get. She did not seem to be paranoid but just did not want to go to groups and had some excuse about it being a slime issue. Speech: Patient's speech is fluent and nonpressured. less confrontational. Her content was restricted Mood/Affect: Patient reports their mood is "ok", affect is flat Suicidality/Homicidality: Patient denies having any homicidal ideation intent or plan. Denies any suicidal ideations intent or plan Perceptions: Patient denies any visual hallucinations and denies any auditory hallucinations Though content/process: Patient has displaying significant poor insight and judgment, Memory and concentration: AOX3, grossly intact for the purposes of this session. Judgment and insight: Chronically poor, Diagnosis: Schizoaffective disorder PLAN: No change indicated at this time -Patient is admitted under involuntary status to [facility] for stabilization of psychiatric symptoms and safety. Patient on current court order, expires 12/27/23 -Medication: decrease invega po 3mg daily for psychosis/mood stabilization, for two more days then d/c. if patient is refusing by mouth then she is to receive IM haldol as per court order. given invega sustenna 234 mg on 07/08, next dose of 156 mg IM will be due on 07/14. maintennance dose will be 117 mg IM will be due on 08/04. benadryl 50 mg bid prn for allergic rxn. -Ativan and Haldol PRN for agitation/aggression -NRT - not needed as patient does not smoke -SW on board for discharge planning. Encourage patient to participate in groups to work on coping skills. D/C planning to be coordinated between social work and public guardian and [facility]. patient will need at least 2nd dose of Invega sustenna prior to d/c. Patient may have an arrest warrant, guardian will find out and communicate the plan to us. court order expires 12/27/23 diagnosis: Schizoaffective disorder Objective - Vital Signs Vital signs: Vital Signs Temp 99.3 F 07/06/23 18:55 Pulse 107 H 07/06/23 18:55 Resp 20 07/06/23 18:55 BP 139/86 07/06/23 18:55 Pulse Ox 96 07/06/23 18:55 FiO2
[2023-07-11] MEDS: MULTIVITAMINS, THERA 1 EACH TAB PO SCH (12:20)
[2023-07-11] MEDS: MELATONIN 5 MG TABLET PO SCH (20:42)
[2023-07-11] MEDS: guaiFENesin 600 MG TABLET.ER PO PRN (20:55)
--- NOTE | 2023-07-12 09:32 | P.PN ---
Subjective Progress Note Date: 07/12/23 Principal diagnosis: Schizoaffective disorder unspecified Patient Name: Jenniffer Lou Date of : 83 Patient Status: Inpatient Attending Provider: Osmel Mg Date: 07/12/23 09:52 Initialization Date: 07/11/23 09:52 Subjective Progress Note Date: 07/12/23 Principal diagnosis: IMPRESSIONS: Schizoaffective, bipolar type Noncompliance with outpatient treatment Interval History: An attempt was made to see the patient today Patient was laying in bed with bed sheets pulled all the way up to her face Patient has if I would come back and-hour Patient was seen again in [id number] patient continued to make some grunting noises but did not respond She then stated that she wanted to be left alone and turned around and went back to sleep Further assessment could not be carried out due to patient's uncooperativeness Reviewing the chart also reveals similar behaviors from previous encounters from Dr. kay and other covering physicians Following is an abstract from the previous assessments down on the unit which is added here for complacently his since patient was uncooperative during this interview: Mental Status Exam: General Appearance: Patient appears to be obese, short hair, stated age is alert, mildly less argumentative, paranoid/evasive. Patient appears to have poor hygiene and grooming. Behavior: Patient is laying in bed with her head covered and did not get. She did not seem to be paranoid but just did not want to go to groups and had some excuse about it being a slime issue. Speech: Patient's speech is fluent and nonpressured. less confrontational. Her content was restricted Mood/Affect: Patient reports their mood is "ok", affect is flat Suicidality/Homicidality: Patient denies having any homicidal ideation intent or plan. Denies any suicidal ideations intent or plan Perceptions: Patient denies any visual hallucinations and denies any auditory hallucinations Though content/process: Patient has displaying significant poor insight and judgment, Memory and concentration: AOX3, grossly intact for the purposes of this session. Judgment and insight: Chronically poor, Diagnosis: Schizoaffective disorder We'll continue to follow current treatment plan as elia recommended: We'll discuss to the nursing staff or any new additional issues or problems and needs further intervention PLAN: No change indicated at this time -Patient is admitted under involuntary status to [facility] for stabilization of psychiatric symptoms and safety. Patient on current court order, expires 12/27/23 -Medication: decrease invega po 3mg daily for psychosis/mood stabilization, for two more days then d/c. if patient is refusing by mouth then she is to receive IM haldol as per court order. given invega sustenna 234 mg on 07/08, next dose of 156 mg IM will be due on 07/14. maintennance dose will be 117 mg IM will be due on 08/04. benadryl 50 mg bid prn for allergic rxn. -Ativan and Haldol PRN for agitation/aggression -NRT - not needed as patient does not smoke -SW on board for discharge planning. Encourage patient to participate in groups to work on coping skills. D/C planning to be coordinated between social work and public guardian and [facility]. patient will need at least 2nd dose of Invega sustenna prior to d/c. Patient may have an arrest warrant, guardian will find out and communicate the plan to us. court order expires 12/27/23 diagnosis: Schizoaffective disorder krishan Younger MD Objective - Vital Signs Vital signs: Vital Signs Temp 99.3 F 07/06/23 18:55 Pulse 107 H 07/06/23 18:55 Resp 20 07/06/23 18:55 BP 139/86 07/06/23 18:55 Pulse Ox 96 07/06/23 18:55 FiO2
[2023-07-12] MEDS: ASCORBIC ACID 500 MG TAB PO SCH (09:48)
[2023-07-12] MEDS: CHOLECALCIFEROL 25 MCG (1000 IU) TABLET PO SCH (09:49)
[2023-07-12] MEDS: MULTIVITAMINS, THERA 1 EACH TAB PO SCH ×2 (11:52→11:55)
[2023-07-12] MEDS: MELATONIN 5 MG TABLET PO SCH (22:09)
--- NOTE | 2023-07-13 10:02 | P.PN ---
Subjective Progress Note Date: 07/13/23 Principal diagnosis: Schizoaffective disorder unspecified Patient Name: Jenniffer Lou Date of : 83 Patient Status: Inpatient Attending Provider: Osmel Mg Date: 07/13/23 Initialization Date: 07/11/23 09:52 Subjective Progress Note Date: 07/13/23 Principal diagnosis: IMPRESSIONS: Schizoaffective, bipolar type Noncompliance with outpatient treatment Interval History: An attempt was made to see the patient today Patient was laying in bed with bedsheets caught covered all the way up to her h ead Patient was snoring loudly and was difficult to arouse Patient however was waiting outside the doctor soon 2 hours later and seemed to be wanting to talk to me Patient reported that she wanted to have something that will ease up her breathing and congestion She stated that she is brought her against her will and that he seems to disrupt her life when they bring her here She believes that she has lots of talents that she could use but that she is being interrupted from being more productive When asked about having any family or children patient states that it's complicated' When asked if she has been employed working anywhere patient states that'it's complicated'and that every time she tries to be productive that she's been brought back here She is unable to give any specific number of times that she's been hospitalized Patient remains very evasive about getting any specific information about her personal life Patient also is caring a Bible and a binder with several papers that she claims that she writes about 'things'but would not elaborate In general patient remains demanding projective and continues to rationalize intellectualize She also then asked as to when the doctor will be in and that that when will she be discharged ' Mental Status Exam: General Appearance: Patient appears to be obese patient's head is covered with the and black hoodie Appears stated age ,is alert, argumentative, paranoid/evasive. and projective Places the blame on this unit for her problems and life Patient appears to have poor hygiene and grooming. Speech: Patient's speech is fluent and nonpressured. confrontational. Her content was restricted Mood/Affect: Patient reports their mood is "ok", affect is flat Suicidality/Homicidality: Patient denies having any homicidal ideation intent or plan. Denies any suicidal ideations intent or plan Perceptions: Patient denies any visual hallucinations and denies any auditory hallucinations Though content/process: Patient has been displaying significant poor insight and judgment, Memory and concentration: AOX3, grossly intact for the purposes of this session. Judgment and insight: poor, Diagnosis: Schizoaffective disorder Formulation: This is a 38-year-old -Welsh female with long history of mental illness Patient appears to show manic and paranoid symptoms and remains evasive about any psychotic symptoms Patient largely appears to be not able to function in her personal life and socially and remains delusional paranoid and projective Patient meets the criteria for schizoaffective disorder bipolar type No other details available at this time Nataly Younger has no insight and her problem and has continued to decline any treatment Patient is on the unit under involuntary status Patient is currently on a court order which expires on 12/27/2023 We'll continue to follow current treatment plan as recommended: We'll discuss to the nursing staff or any new additional issues or problems and needs further intervention PLAN: No change indicated at this time -Patient is admitted under involuntary status to [facility] for stabilization of psychiatric symptoms and safety. Patient on current court order, expires 12/27/23 -Medication: invega po 3mg daily for psychosis/mood stabilization, for 1 more days then d/c. if patient is refusing by mouth then she is to receive IM haldol as per court order. given invega sustenna 234 mg on 07/08, next dose of 156 mg IM will be due on 07/14. maintennance dose will be 117 mg IM will be due on 08/04. benadryl 50 mg bid prn for allergic rxn. -Ativan and Haldol PRN for agitation/aggression -NRT - not needed as patient does not smoke -SW on board for discharge planning. Encourage patient to participate in groups to work on coping skills. D/C planning to be coordinated between social work and public guardian and [facility]. patient will need at least 2nd dose of Invega sustenna prior to d/c. Patient may have an arrest warrant, guardian will find out and communicate the plan to us. court order expires 12/27/23 krishan Younger MD Objective - Vital Signs Vital signs: Vital Signs Temp 99.3 F 07/06/23 18:55 Pulse 107 H 07/06/23 18:55 Resp 20 07/06/23 18:55 BP 139/86 07/06/23 18:55 Pulse Ox 96 07/06/23 18:55 FiO2
[2023-07-13] MEDS: ASCORBIC ACID 500 MG TAB PO SCH (10:03)
[2023-07-13] MEDS: CHOLECALCIFEROL 25 MCG (1000 IU) TABLET PO SCH (10:04)
[2023-07-13] MEDS: MULTIVITAMINS, THERA 1 EACH TAB PO SCH (10:04)
[2023-07-13] MEDS: IBUPROFEN 600 MG TAB PO PRN (19:17)
[2023-07-14] MEDS: MELATONIN 5 MG TABLET PO SCH (05:38)
[2023-07-14] MEDS: ASCORBIC ACID 500 MG TAB PO SCH ×2 (08:58→09:02)
[2023-07-14] MEDS: CHOLECALCIFEROL 25 MCG (1000 IU) TABLET PO SCH ×2 (08:59→09:02)
[2023-07-14] MEDS ORDERED: PALIPERIDONE IM 156 MG/ML SYG IM ONE (09:00)
--- NOTE | 2023-07-14 10:07 | P.PN ---
Subjective Progress Note Date: 07/14/23 Principal diagnosis: Schizoaffective disorder unspecified Patient Name: Jenniffer Lou Date of : 83 Patient Status: Inpatient Attending Provider: Osmel Mg Date: 07/14/23 Initialization Date: 07/11/23 09:52 Subjective Progress Note Date: 07/14/23 Principal diagnosis: IMPRESSIONS: Schizoaffective, bipolar type Noncompliance with outpatient treatment Interval History: She was seen for a follow-up case was reviewed and discussed and the medical staff meeting Patient was sitting on the side of her bed reading the dictionary quite intensively On approach patient demanded to know one was she going to be discharged Patient then demanded that Dr. Mckinley show up here since he admitted her and that she did not expect him to go on medication take time off while she is admitted Patient remains very concrete projective self-centered and narcissistic Insight into her problem remains very poor Remains demanding and projective When asked about what her plans where and where she'll be going for discharge to discharge patient states that that is something that she cannot reveal Patient remains evasive objective and guarded Formal and operational judgment are poor Problem-solving skills are impaired ' Mental Status Exam: General Appearance: Patient appears to be obese Patient was sitting on the side of the bed in hospital gown Appears stated age ,is alert, argumentative, paranoid/evasive. and projective Places the blame on this unit for her problems and life Patient appears to have poor hygiene and grooming. Speech: Patient's speech is fluent and nonpressured. Ancillary confrontational. Her content was restricted Mood/Affect: Irritable affect is flat Suicidality/Homicidality: Patient denies having any homicidal ideation intent or plan. Denies any suicidal ideations intent or plan Perceptions: Patient denies any visual hallucinations and denies any auditory hallucinations Though content/process: Patient has been displaying significant poor insight and judgment, Memory and concentration: AOX3, grossly intact for the purposes of this session. Judgment and insight: poor, Diagnosis: Schizoaffective disorder Formulation: This is a 38-year-old -[place]ian female with long history of mental illness Patient appears to show manic and paranoid symptoms and remains evasive about any psychotic symptoms Patient largely appears to be not able to function in her personal life and socially and remains delusional paranoid and projective Patient meets the criteria for schizoaffective disorder bipolar type No other details available at this time Nataly Carisa has no insight and her problem and has continued to decline any treatment Patient is on the unit under involuntary status Patient is currently on a court order which expires on 12/27/2023 We'll continue to follow current treatment plan as recommended: We'll discuss to the nursing staff or any new additional issues or problems and needs further intervention PLAN: No change indicated at this time -Patient is admitted under involuntary status to MHU for stabilization of psychiatric symptoms and safety. Patient on current court order, expires 12/27/23 -Medication: invega po has been discontinued as planned if patient is refusing by mouth then she is to receive IM haldol as per court order. given invega sustenna 234 mg on 07/08, next dose of 156 mg IM will be due on 07/14. maintennance dose will be 117 mg IM will be due on 08/04. benadryl 50 mg bid prn for allergic rxn. -Ativan and Haldol PRN for agitation/aggression -NRT - not needed as patient does not smoke -SW on board for discharge planning. Encourage patient to participate in groups to work on coping skills. D/C planning to be coordinated between social work and public guardian and [facility]. patient will need at least 2nd dose of Invega sustenna prior to d/c. Patient may have an arrest warrant, guardian will find out and communicate the plan to us. court order expires 12/27/23 krishan Younger MD Objective - Vital Signs Vital signs: Vital Signs Temp 99.3 F 07/06/23 18:55 Pulse 107 H 07/06/23 18:55 Resp 20 07/06/23 18:55 BP 139/86 07/06/23 18:55 Pulse Ox 96 07/06/23 18:55 FiO2
[2023-07-14] MEDS: IBUPROFEN 600 MG TAB PO PRN (11:42)
[2023-07-14] MEDS: MULTIVITAMINS, THERA 1 EACH TAB PO SCH (12:18)
[2023-07-14 14:19] VITALS: BMI 55.1
[2023-07-15] MEDS: MELATONIN 5 MG TABLET PO SCH ×2 (00:09→19:59)
[2023-07-15] MEDS: MULTIVITAMINS, THERA 1 EACH TAB PO SCH (08:10)
[2023-07-15] MEDS: ASCORBIC ACID 500 MG TAB PO SCH (08:10)
[2023-07-15] MEDS: CHOLECALCIFEROL 25 MCG (1000 IU) TABLET PO SCH (08:10)
--- NOTE | 2023-07-15 11:30 | P.PN ---
Subjective Progress Note Date: 07/15/23 Principal diagnosis: Schizoaffective disorder unspecified Patient Name: Jenniffer Lou Date of : 83 Patient Status: Inpatient Attending Provider: Osmel Mg Date: 07/15/23 Initialization Date: 07/11/23 09:52 Subjective Progress Note Date: 07/15/23 Principal diagnosis: IMPRESSIONS: Schizoaffective, bipolar type Noncompliance with outpatient treatment Interval History: She was seen for a follow-up case was reviewed and discussed and the medical staff meeting The patient was seen while she was in her bed in her room Patient was laying down on her belly and responded but did not seem to turn around or lift the bed sheets and had herself covered all the way up to her head Patient only asked when Dr. Mg is coming back so she can discuss her discharge planning She stated that she is taking her medications as prescribed She denies that she is having any side effects from her current medications She shows no motivation for any other discussion about her symptoms and problems or issues that brought her to the hospital ' Mental Status Exam: General Appearance: Patient appears to be obese Patient was sitting on the side of the bed in hospital gown Appears stated age ,is alert, argumentative, paranoid/evasive. and projective Places the blame on this unit for her problems and life Patient appears to have poor hygiene and grooming. Speech: Patient's speech is fluent and nonpressured. Ancillary confrontational. Her content was restricted Mood/Affect: Irritable affect is flat Suicidality/Homicidality: Patient denies having any homicidal ideation intent or plan. Denies any suicidal ideations intent or plan Perceptions: Patient denies any visual hallucinations and denies any auditory hallucinations Though content/process: Patient has been displaying significant poor insight and judgment, Memory and concentration: AOX3, grossly intact for the purposes of this session. Judgment and insight: poor, Diagnosis: Schizoaffective disorder Formulation: This is a 38-year-old -[place]isian female with long history of mental illness Patient appears to show manic and paranoid symptoms and remains evasive about any psychotic symptoms Patient largely appears to be not able to function in her personal life and socially and remains delusional paranoid and projective Patient meets the criteria for schizoaffective disorder bipolar type No other details available at this time Nataly Younger has no insight and her problem and has continued to decline any treatment Patient is on the unit under involuntary status Patient is currently on a court order which expires on 12/27/2023 We'll continue to follow current treatment plan as recommended: We'll discuss to the nursing staff or any new additional issues or problems and needs further intervention PLAN: A major change noted in patient is general demeanor and interaction Motivation for change remains poor Remains projective and continues to rationalize intellectualize Long-term prognosis remains guarded considering that the patient has multiple psychiatric hospitalizations without development of any insight No change indicated at this time -Patient is admitted under involuntary status to MHU for stabilization of psychiatric symptoms and safety. Patient on current court order, expires 12/27/23 -Medication: invega po has been discontinued as planned if patient is refusing by mouth then she is to receive IM haldol as per court order. given invega sustenna 234 mg on 07/08, next dose of 156 mg IM will be due on 07/14. maintennance dose will be 117 mg IM will be due on 08/04. benadryl 50 mg bid prn for allergic rxn. -Ativan and Haldol PRN for agitation/aggression -NRT - not needed as patient does not smoke -SW on board for discharge planning. Encourage patient to participate in groups to work on coping skills. D/C planning to be coordinated between social work and public guardian and [facility]. patient will need at least 2nd dose of Invega sustenna prior to d/c. Patient may have an arrest warrant, guardian will find out and communicate the plan to us. court order expires 12/27/23 krishan Younger MD Objective - Vital Signs Vital signs: Vital Signs Temp 99.3 F 07/06/23 18:55 Pulse 107 H 07/06/23 18:55 Resp 20 07/06/23 18:55 BP 139/86 07/06/23 18:55 Pulse Ox 96 07/06/23 18:55 FiO2 Intake & Output 07/14/23 07/15/23 07/15/23 18:59 06:59 18:59 Weight 159.677 kg
[2023-07-16] MEDS: ASCORBIC ACID 500 MG TAB PO SCH (08:29)
[2023-07-16] MEDS: CHOLECALCIFEROL 25 MCG (1000 IU) TABLET PO SCH (08:29)
--- NOTE | 2023-07-16 10:02 | P.PN ---
Subjective Progress Note Date: 07/16/23 Principal diagnosis: Schizoaffective disorder unspecified Patient Name: Jenniffer Lou Date of : 83 Patient Status: Inpatient Attending Provider: Osmel Jacques Date: 07/16/23 Initialization Date: 07/11/23 09:52 Subjective Progress Note Date: 07/16/23 Principal diagnosis: IMPRESSIONS: Schizoaffective, bipolar type Noncompliance with outpatient treatment Interval History: The into a similar to the previous day Patient mainly asked when Dr. jacques is going to come back so she could be discharged When asked about any specifics about where she is planning to go patient stated that it 'something personal' Remains very evasive and superficial Patient reports that her sleep has been fluctuating She did not know if she has a history of any sleep apnea but states that she may have had a steady in the past She was seen for a follow-up case was reviewed and discussed and the medical staff meeting She denies that she is having any side effects from her current medications She shows no motivation for any other discussion about her symptoms and problems or issues that brought her to the hospital ' Mental Status Exam: General Appearance: Patient appears to be obese Patient was sitting on the side of the bed in hospital gown Appears stated age ,is alert, argumentative, paranoid/evasive. and projective Places the blame on this unit for her problems and life Patient appears to have poor hygiene and grooming. Speech: Patient's speech is fluent and nonpressured. Ancillary confrontational. Her content was restricted Mood/Affect: Irritable affect is flat Suicidality/Homicidality: Patient denies having any homicidal ideation intent or plan. Denies any suicidal ideations intent or plan Perceptions: Patient denies any visual hallucinations and denies any auditory hallucinations Though content/process: Patient has been displaying significant poor insight and judgment, Memory and concentration: AOX3, grossly intact for the purposes of this session. Judgment and insight: poor, Diagnosis: Schizoaffective disorder Formulation: This is a 38-year-old -[place] female with long history of mental illness Patient appears to show manic and paranoid symptoms and remains evasive about any psychotic symptoms Patient largely appears to be not able to function in her personal life and socially and remains delusional paranoid and projective Patient meets the criteria for schizoaffective disorder bipolar type No other details available at this time Patient has no insight and her problem and has continued to decline any treatment Patient is on the unit under involuntary status Patient is currently on a court order which expires on 12/27/2023 We'll continue to follow current treatment plan as recommended: We'll discuss to the nursing staff or any new additional issues or problems and needs further intervention PLAN: A major change noted in patient is general demeanor and interaction Motivation for change remains poor Remains projective and continues to rationalize intellectualize Long-term prognosis remains guarded considering that the patient has multiple psychiatric hospitalizations without development of any insight No change indicated at this time -Patient is admitted under involuntary status to [facility] for stabilization of psychiatric symptoms and safety. Patient on current court order, expires 12/27/23 -Medication: invega po has been discontinued as planned if patient is refusing by mouth then she is to receive IM haldol as per court order. given invega sustenna 234 mg on 07/08, Patient has received the next dose of 156 mg IM on 07/14. maintennance dose will be 117 mg IM will be due on 08/04. benadryl 50 mg bid prn for allergic rxn. -Ativan and Haldol PRN for agitation/aggression -NRT - not needed as patient does not smoke -SW on board for discharge planning. Encourage patient to participate in groups to work on coping skills. D/C planning to be coordinated between social work and public guardian and [facility]. patient will need at least 2nd dose of Invega sustenna prior to d/c. Patient may have an arrest warrant, guardian will find out and communicate the plan to us. court order expires 12/27/23 krishan Younger MD Objective - Vital Signs Vital signs: Vital Signs Temp 99.3 F 07/06/23 18:55 Pulse 107 H 07/06/23 18:55 Resp 20 07/06/23 18:55 BP 139/86 07/06/23 18:55 Pulse Ox 96 07/06/23 18:55 FiO2
[2023-07-16] MEDS: MULTIVITAMINS, THERA 1 EACH TAB PO SCH (12:14)
[2023-07-16] MEDS: MELATONIN 5 MG TABLET PO SCH (23:41)
[2023-07-17] MEDS: CHOLECALCIFEROL 25 MCG (1000 IU) TABLET PO SCH (09:17)
[2023-07-17] MEDS: ASCORBIC ACID 500 MG TAB PO SCH (09:17)
[2023-07-17] MEDS: MULTIVITAMINS, THERA 1 EACH TAB PO SCH (12:52)
--- NOTE | 2023-07-17 19:14 | P.PN ---
Progress Note - Text Progress Note Date: 07/17/23 Interval history: Patient was seen sitting on her bed and was directable and agreeable to speak with proposal manager writer. She reports her mood is "ok", appears euthymic, reports she is sleeping somewhat better but still tired. We discussed she would benefit from a referral to an outpatient sleep clinic due to her risk of GIO (BMI>50, crowded airway, non-restorative sleep), and she agrees. At this time patient denies any suicidal or homicidal ideation, intent or plan. Denies any auditory or visual hallucinations. Patient denies any side effects from the Invega Sustenna injections she received. She has been refusing her vitamins and her melatonin. Mental status exam: General Appearance: Patient appears to be morbidly obese with hirsutism, dressed in hospital gown, appears slightly older than stated age. Behavior: No agitated behavior. Patient is calm, cooperative and directable. Speech: Patient's speech is fluent and non-pressured. Mood/Affect: Mood is "ok", affect is congruent and constricted. Suicidality/Homicidality: Patient denies having any suicidal or homicidal id eation intent or plan. Perceptions: Patient denies any auditory or visual hallucinations. Though content/process: There is no evidence of any delusional thought content and thought process is linear and goal-directed. Memory and concentration: AOX3, grossly intact for the purposes of this session Judgment and insight: improving mildly Assessment/Plan: Continue with current diagnosis. Patient continues to meet criteria for inpatient psychiatric admission for symptom stabilization and safety. Patient will be maintained on current psychotropic medication regimen. Monitor for medication compliance and for any psychotropic medication side effects. She would benefit from a referral to an outpatient sleep medicine clinic due to her high risk of obstructive sleep apnea. Will continue to monitor ongoing response to treatment. Encouraged participation in milieu.
[2023-07-17] MEDS: MELATONIN 5 MG TABLET PO SCH ×2 (23:22)
[2023-07-18] MEDS: MELATONIN 5 MG TABLET PO SCH (01:09)
[2023-07-18] MEDS: ASCORBIC ACID 500 MG TAB PO SCH (11:08)
[2023-07-18] MEDS: CHOLECALCIFEROL 25 MCG (1000 IU) TABLET PO SCH (11:09)
[2023-07-18] MEDS: MULTIVITAMINS, THERA 1 EACH TAB PO SCH (13:57)
--- NOTE | 2023-07-18 15:16 | P.PN ---
Progress Note - Text Progress Note Date: 07/18/23 Interval history: Patient was seen resting in her bed and was directable and agreeable to speak with tag writer. She reports her mood is "ok, but reports she was irritable earlier with staff. Sleep time is recorded as 4 hours last night but she has been napping durin gthe day as well. She denies any other concerns today. At this time patient denies any suicidal or homicidal ideation, intent or plan. Denies any auditory or visual hallucinations. Patient denies any side effects from the Invega Sustenna injections she received. She has been refusing her vitamins and her melatonin. Mental status exam: General Appearance: Patient appears to be morbidly obese with hirsutism, dressed in hospital gown, appears slightly older than stated age. Behavior: No agitated behavior. Patient is calm, cooperative and directable. Speech: Patient's speech is fluent and non-pressured. Mood/Affect: Mood is "ok" but a bit irritable, affect is congruent and constricted. Suicidality/Homicidality: Patient denies having any suicidal or homicidal ideation intent or plan. Perceptions: Patient denies any auditory or visual hallucinations. Though content/process: There is no evidence of any delusional thought content and thought process is linear and goal-directed. Memory and concentration: AOX3, grossly intact for the purposes of this session Judgment and insight: improving mildly Assessment/Plan: Continue with current diagnosis. Patient continues to meet criteria for inpatient psychiatric admission for symptom stabilization and safety. Patient will be maintained on current psychotropic medication regimen. Monitor for medication compliance and for any psychotropic medication side effects. She would benefit from a referral to an outpatient sleep medicine clinic due to her high risk of obstructive sleep apnea. Will continue to monitor ongoing response to treatment. Encouraged participation in milieu.
[2023-07-19] MEDS: MELATONIN 5 MG TABLET PO SCH
[2023-07-19] MEDS: CHOLECALCIFEROL 25 MCG (1000 IU) TABLET PO SCH (09:37)
[2023-07-19] MEDS: ASCORBIC ACID 500 MG TAB PO SCH (09:37)
--- NOTE | 2023-07-19 10:11 | P.PN ---
Progress Note - Text Progress Note Date: 07/19/23 Interval history: Patient was seen sleeping in her room, and did not want to speak with display card writer. She states that she was tired, and was not ready to wake up at this time. She denies any other concerns today. At this time patient denies any suicidal or homicidal ideation, intent or plan. Denies any auditory or visual hallucinations. Patient denies any side effects from the Invega Sustenna injections she received. She has been refusing her vitamins and her melatonin. Mental Status Exam: General Appearance: Patient appears to be obese, short hair, stated age is alert, mildly less argumentative, paranoid/evasive, improving. Patient appears to have poor hygiene and grooming. mildly improving Behavior: Patient is seated without any agitated behavior. Paranoid. improving mildly Speech: Patient's speech is fluent and nonpressured. less confrontational. Mood/Affect: Patient reports their mood is "ok", affect is incongruent and constricted Suicidality/Homicidality: Patient denies having any homicidal ideation intent or plan. Denies any suicidal ideations intent or plan Perceptions: Patient denies any visual hallucinations and denies any auditory hallucinations Though content/process: Patient has displaying significant poor insight and judgment, imrpoving mildly. more logical today Memory and concentration: AOX3, grossly intact for the purposes of this session. Judgment and insight: Chronically poor, improving mildly IMPRESSIONS: Schizoaffective, bipolar type Noncompliance with outpatient treatment PLAN: -Patient is admitted under involuntary status to [facility] for stabilization of psychiatric symptoms and safety. Patient on current court order, expires 12/27/23 -Medication: given invega sustenna 234 mg on 07/08, second dose of 156 mg IM will be due on 07/14. maintennance dose will be 117 mg IM will be due on 08/04. benadryl 50 mg bid prn for allergic rxn. -Ativan and Haldol PRN for agitation/aggression -NRT - not needed as patient does not smoke -SW on board for discharge planning. Encourage patient to participate in groups to work on coping skills. Patient received her first and second dose of long- acting injection. Patient may have an arrest warrant, guardian will find out and communicate the plan to us. court order expires 12/27/23. Currently awaiting discharge plan to detention as approved by patient's guardian.
[2023-07-19] MEDS: MULTIVITAMINS, THERA 1 EACH TAB PO SCH (12:09)
[2023-07-20] MEDS: CHOLECALCIFEROL 25 MCG (1000 IU) TABLET PO SCH (08:40)
[2023-07-20] MEDS: ASCORBIC ACID 500 MG TAB PO SCH (08:40)
[2023-07-20] MEDS: MULTIVITAMINS, THERA 1 EACH TAB PO SCH (11:11)
--- NOTE | 2023-07-20 11:42 | P.PN ---
Progress Note - Text Progress Note Date: 07/20/23 Interval history: Patient was seen in the hallway, and agreeable to speak with scientific writer. She was quite argumentative today, stating that she feels she's being punished for being here, because she is on "lock down" and that she has somewhere to go, and it shouldn't be up to her guardian to make that decision for her. Television Operator explained to the patient how with the public guardian works and told the patient that the guardian wants someplace safe for her to stay. Had to redirect patient many times throughout the interview. Patient states she slept well last night her appetite is good. 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 Patient is on a consistent carb diet. Single portions only. Phone restriction is that she has to use the phone at the nurse's station in front of a nurse or a tech.. Patient is focused on discharge. Reiterated to patient that it has to be through the public guardian. Public guardian has been on vacation and has not responded to our requests. She denies any other concerns today. At this time patient denies any suicidal or homicidal ideation, intent or plan. Denies any auditory or visual hallucinations. Patient denies any side effects from the Invega Sustenna injections she received. She has been refusing her vitamins and her melatonin. Mental Status Exam: General Appearance: Patient appears to be obese, short hair, stated age is alert, mildly less argumentative, improving. Patient appears to have poor hygiene and grooming. mildly improving Behavior: Patient is seated without any agitated behavior, improving mildly Speech: Patient's speech is fluent and nonpressured. mildly argumentative Mood/Affect: Patient reports their mood is "ok", affect is incongruent and constricted Suicidality/Homicidality: Patient denies having any homicidal ideation intent or plan. Denies any suicidal ideations intent or plan Perceptions: Patient denies any visual hallucinations and denies any auditory hallucinations Though content/process: Patient has displaying significant poor insight and judgment, imrpoving mildly. more logical today. focused on discharge. Memory and concentration: AOX3, grossly intact for the purposes of this session. Judgment and insight: Chronically poor, improving mildly IMPRESSIONS: Schizoaffective, bipolar type Noncompliance with outpatient treatment PLAN: -Patient is admitted under involuntary status to [facility] for stabilization of psychiatric symptoms and safety. Patient on current court order, expires 12/27/23 -Medication: given invega sustenna 234 mg on 07/08, second dose of 156 mg IM given on 07/14. maintenance dose will be 117 mg IM will be due on 08/04. benadryl 50 mg bid prn for allergic rxn. -Ativan and Haldol PRN for agitation/aggression -NRT - not needed as patient does not smoke -SW on board for discharge planning. Encourage patient to participate in groups to work on coping skills. Patient received her first and second dose of long- acting injection. Patient may have an arrest warrant, guardian will find out and communicate the plan to us. court order expires 12/27/23. Currently awaiting discharge plan to assisted as approved by patient's guardian.
[2023-07-21] MEDS: CHOLECALCIFEROL 25 MCG (1000 IU) TABLET PO SCH (12:24)
[2023-07-21] MEDS: MULTIVITAMINS, THERA 1 EACH TAB PO SCH (12:24)
[2023-07-21] MEDS: ASCORBIC ACID 500 MG TAB PO SCH (12:24)
--- NOTE | 2023-07-21 12:30 | P.PN ---
Progress Note - Text Progress Note Date: 07/21/23 Interval history: Patient was seen in her room, and agreeable to speak with continuity writer at bedside. ok cerdasm that she is not having any depression or anxiety. Patient states she is not doing well because she wants to be discharged from the unit. Patient states that she feels she is being held hostage here, and she does not want to stay here any longer. Emr Implementation Specialist explained to patient that [facility] is looking into options for a halfway for patient, because that is what her public guardian suggested. Patient became loud and angry when continuity writer explained this to her, stating that she feels like her public guardian is not reliable for her. She denies any other concerns today. At this time patient denies any suicidal or homicidal ideation, intent or plan. Denies any auditory or visual hallucinations. Patient denies any side effects from the Invega Sustenna injections she received. She has been refusing her vitamins and her melatonin. Mental Status Exam: General Appearance: Patient appears to be obese, short hair, stated age is alert. Patient appears to have poor hygiene and grooming. mildly improving Behavior: Patient is seated without any agitated behavior, improving mildly Speech: Patient's speech is fluent and nonpressured. mildly argumentative Mood/Affect: Patient reports their mood is "ok", affect is incongruent and constricted, improving Suicidality/Homicidality: Patient denies having any homicidal ideation intent or plan. Denies any suicidal ideations intent or plan Perceptions: Patient denies any visual hallucinations and denies any auditory hallucinations Though content/process: Patient has displaying significant poor insight and judgment, imrpoving mildly. more logical today. focused on discharge. Memory and concentration: AOX3, grossly intact for the purposes of this session. Judgment and insight: Chronically poor, improving mildly IMPRESSIONS: Schizoaffective, bipolar type Noncompliance with outpatient treatment PLAN: -Patient is admitted under involuntary status to [facility] for stabilization of psychiatric symptoms and safety. Patient on current court order, expires 12/27/23 -Medication: given invega sustenna 234 mg on 07/08, second dose of 156 mg IM given on 07/14. maintenance dose will be 117 mg IM will be due on 08/04. melatonin qhs for sleep. -Ativan and Haldol PRN for agitation/aggression -NRT - not needed as patient does not smoke -SW on board for discharge planning. Encourage patient to participate in groups to work on coping skills. Patient received her first and second dose of long- acting injection. Patient may have an arrest warrant, guardian will find out and communicate the plan to us. court order expires 12/27/23. Currently awaiting discharge plan to halfway as approved by patient's guardian.
[2023-07-21] MEDS: MELATONIN 3 MG TABLET PO SCH (20:48)
[2023-07-22] MEDS: ASCORBIC ACID 500 MG TAB PO SCH ×2 (07:45→09:25)
[2023-07-22] MEDS: CHOLECALCIFEROL 25 MCG (1000 IU) TABLET PO SCH ×2 (07:46→09:25)
--- NOTE | 2023-07-22 09:49 | P.PN ---
Progress Note - Text Progress Note Date: 07/22/23 Interval history: Patient was seen wandering the hallways today, she was agreeable to speak to medical writer. Patient appears to be mildly calmer today with brighter, less hostile and less confrontational. She claims that she is not having depression or anxiety today. She appears to be mildly less focused on discharge today however we did speak about discharge planning. She claims that her appetite remains fair, she states that she was able sleep fairly last night. She claims that she still does not understand why her mother called the police on her to bring her into the hospital as she believes that she was doing "fine" at home by herself. She denies any other concerns today. At this time patient denies any suicidal or homicidal ideation, intent or plan. Denies any auditory or visual hallucinations. Mental Status Exam: General Appearance: Patient appears to be obese, short hair, stated age is alert. Patient appears to have improving hygiene and grooming. mildly improving Behavior: Patient is seated without any agitated behavior, improving mildly Speech: Patient's speech is fluent and nonpressured. Less argumentative Mood/Affect: Patient reports their mood is "ok", affect is congruent and constricted, improving Suicidality/Homicidality: Patient denies having any homicidal ideation intent or plan. Denies any suicidal ideations intent or plan Perceptions: Patient denies any visual hallucinations and denies any auditory hallucinations Though content/process: Patient has displaying significant poor insight and judgment, imrpoving mildly. more logical today. less focused on discharge. Memory and concentration: AOX3, grossly intact for the purposes of this session. Judgment and insight: Chronically poor, improving mildly IMPRESSIONS: Schizoaffective, bipolar type Noncompliance with outpatient treatment PLAN: -Patient is admitted under involuntary status to [facility] for stabilization of psychiatric symptoms and safety. Patient on current court order, expires 12/27/23 -Medication: given invega sustenna 234 mg on 07/08, second dose of 156 mg IM given on 07/14. maintenance dose will be 117 mg IM will be due on 08/04. melatonin qhs for sleep. -Ativan and Haldol PRN for agitation/aggression -NRT - not needed as patient does not smoke -SW on board for discharge planning. Encourage patient to participate in groups to work on coping skills. Patient received her first and second dose of long- acting injection. Patient may have an arrest warrant, guardian will find out and communicate the plan to us. court order expires 12/27/23. Currently awaiting discharge plan to [facility] as approved by patient's guardian vs hotel/motel with ACT team follow up if patient is denied [facility] by [facility].
[2023-07-22] MEDS: MULTIVITAMINS, THERA 1 EACH TAB PO SCH (12:31)
[2023-07-22] MEDS: MELATONIN 3 MG TABLET PO SCH (20:17)
[2023-07-23 10:43] VITALS: RESP 18; TEMP 98.6
[2023-07-23] MEDS: CHOLECALCIFEROL 25 MCG (1000 IU) TABLET PO SCH (12:23)
[2023-07-23] MEDS: MULTIVITAMINS, THERA 1 EACH TAB PO SCH (12:24)
[2023-07-23] MEDS: ASCORBIC ACID 500 MG TAB PO SCH (12:24)
--- NOTE | 2023-07-23 12:30 | P.PN ---
Progress Note - Text Progress Note Date: 07/23/23 Interval history: Patient was seen today earlier in the morning however was sleeping and wanted to talk later on. Patient was able to wake up later and agreeable to seek drug in the hallway. Patient appears to be mildly calmer today with brighter, less hostile and less confrontational. She continues to be fairly focused on discharge. She claims that she is not having depression or anxiety today. She claims that her appetite remains fair, she states that she was able sleep fairly last night. She was asking if she would be able to take her food into her room and eat and stated that it was because of staff concerns however was fairly vague about what the concerns are. She denies any other concerns today. At this time patient denies any suicidal or homicidal ideation, intent or plan. Denies any auditory or visual hallucinations. Senior Net Web Developer spoke with patient in more detail about the discharge planning and the need to wait for guardian to clear with the courts about any warrants that may be out for her. Patient did seem to be upset about this. Mental Status Exam: General Appearance: Patient appears to be obese, short hair, stated age is alert. Patient appears to have improving hygiene and grooming. mildly improving Behavior: Patient is seated without any agitated behavior, improving mildly. More cooperative today. Speech: Patient's speech is fluent and nonpressured. Less argumentative Mood/Affect: Patient reports their mood is "ok", affect is congruent and constricted, improving Suicidality/Homicidality: Patient denies having any homicidal ideation intent or plan. Denies any suicidal ideations intent or plan Perceptions: Patient denies any visual hallucinations and denies any auditory hallucinations Though content/process: Patient has displaying significant poor insight and judgment, imrpoving mildly. more logical today. less focused on discharge. Memory and concentration: AOX3, grossly intact for the purposes of this session. Judgment and insight: Chronically poor, improving mildly IMPRESSIONS: Schizoaffective, bipolar type Noncompliance with outpatient treatment PLAN: -Patient is admitted under involuntary status to [facility] for stabilization of psychiatric symptoms and safety. Patient on current court order, expires 12/27/23 -Medication: given invega sustenna 234 mg on 07/08, second dose of 156 mg IM given on 07/14. maintenance dose will be 117 mg IM will be due on 1/17. melatonin qhs for sleep. -Ativan and Haldol PRN for agitation/aggression -NRT - not needed as patient does not smoke -SW on board for discharge planning. Encourage patient to participate in groups to work on coping skills. Patient received her first and second dose of long- acting injection. Patient may have an arrest warrant, guardian will find out and communicate the plan to us, still unclear if the warrant is owing to be issued or not. court order expires 12/27/23. Patient has a eviction hearing scheduled for Wednesday. Currently awaiting discharge plan to custodial as approved by patient's guardian vs hotel/motel with ACT team vs being discharged back to h er previous home despite currently being in the eviction process with follow up from [facility]. likely discharge wednesday.
[2023-07-23 13:58] VITALS: BP 137/62; PULSE 107
[2023-07-23] MEDS ORDERED: diphenhydrAMINE 50 MG CAP PO PRN (15:13)
[2023-07-23] MEDS: IBUPROFEN 600 MG TAB PO PRN (15:28)
[2023-07-23] MEDS: MELATONIN 3 MG TABLET PO SCH (20:52)
[2023-07-24] MEDS: CHOLECALCIFEROL 25 MCG (1000 IU) TABLET PO SCH (07:59)
[2023-07-24] MEDS: ASCORBIC ACID 500 MG TAB PO SCH (07:59)
[2023-07-24] MEDS: MULTIVITAMINS, THERA 1 EACH TAB PO SCH (07:59)
--- NOTE | 2023-07-24 10:54 | P.PN ---
Progress Note - Text Progress Note Date: 07/24/23 Interval history: Patient was seen this morning laying in bed. Patient was agreeable to speak to advertising writer at the bedside today as she did not want to leave her room. She appears to be less confrontational today, less hostile. She continues to be fairly concrete initially. Denies any overnight complaints. States that she was feeling "uncomfortable" yesterday and believes that she may have had a ALLERGIC reaction to the medication however after taking the Benadryl she is feeling better. Continues to be somewhat focused on discharge and with communicating with her guardian. At this time patient denies any suicidal or homicidal ideation, intent or plan. Denies any auditory or visual hallucinations. He claims up a fair appetite. Mental Status Exam: General Appearance: Patient appears to be obese, short hair, stated age is alert. Patient appears to have improving hygiene and grooming. mildly improving Behavior: Patient is seated without any agitated behavior, improving mildly. More cooperative today. Speech: Patient's speech is fluent and nonpressured. Less argumentative Mood/Affect: Patient reports their mood is "ok", affect is congruent and constricted, improving Suicidality/Homicidality: Patient denies having any homicidal ideation intent or plan. Denies any suicidal ideations intent or plan Perceptions: Patient denies any visual hallucinations and denies any auditory hallucinations Though content/process: Patient has displaying significant poor insight and judgment, imrpoving mildly. more logical today. focused on discharge. Memory and concentration: AOX3, grossly intact for the purposes of this session. Judgment and insight: Chronically poor, improving mildly IMPRESSIONS: Schizoaffective, bipolar type Noncompliance with outpatient treatment PLAN: -Patient is admitted under involuntary status to MHU for stabilization of psychiatric symptoms and safety. Patient on current court order, expires 12/27/23 -Medication: given invega sustenna 234 mg on 07/08, second dose of 156 mg IM given on 07/14. maintenance dose will be 117 mg IM will be due on 08/04. melatonin qhs for sleep. -Ativan and Haldol PRN for agitation/aggression -NRT - not needed as patient does not smoke -SW on board for discharge planning. Encourage patient to participate in groups to work on coping skills. Patient received her first and second dose of long- acting injection. Patient may have an arrest warrant, guardian will find out and communicate the plan to us, still unclear if the warrant is owing to be issued or not. court order expires 12/27/23. Patient has a eviction hearing scheduled for Wednesday. [facility] apparently is not approving patient to go to residential. therefore patient will be either going to hotel/motel with ACT team vs being discharged back to her previous home despite currently being in the eviction process with follow up from [facility]. likely discharge wednesday
[2023-07-24] MEDS: MELATONIN 3 MG TABLET PO SCH (20:37)
[2023-07-25] MEDS: ASCORBIC ACID 500 MG TAB PO SCH (08:26)
[2023-07-25] MEDS: CHOLECALCIFEROL 25 MCG (1000 IU) TABLET PO SCH (08:26)
--- NOTE | 2023-07-25 11:34 | P.PN ---
Progress Note - Text Progress Note Date: 07/25/23 Interval history: Patient was seen this morning laying in bed. Patient was agreeable to speak to aligner typewriter at the bedside today. Patient was last confrontational today, less hostile with aligner typewriter. She continues to be fairly concrete initially. Denies any overnight complaints. Patient continues to be focused on seeing a medical doctor however was not able to describe exactly what she wanted to see them for. She claims that she did have some numbness and tingling in her arm. Patient was encouraged to be up out of bed more and walk around the unit to improve blood flow however patient disregarded this. Continues to be somatically preoccupied. Continues to be somewhat focused on discharge and with communicating with her guardian. At this time patient denies any suicidal or homicidal ideation, intent or plan. Denies any auditory or visual hallucinations. He claims up a fair appetite. Mental Status Exam: General Appearance: Patient appears to be obese, short hair, stated age is alert. Patient appears to have improving hygiene and grooming. mildly improving Behavior: Patient is seated without any agitated behavior, improving mildly. More cooperative today. Speech: Patient's speech is fluent and nonpressured. Less argumentative Mood/Affect: Patient reports their mood is "ok", affect is congruent and constricted, improving Suicidality/Homicidality: Patient denies having any homicidal ideation intent or plan. Denies any suicidal ideations intent or plan Perceptions: Patient denies any visual hallucinations and denies any auditory hallucinations Though content/process: Patient has displaying significant poor insight and judgment, imrpoving mildly. more logical today. focused on discharge. Somatically preoccupied Memory and concentration: AOX3, grossly intact for the purposes of this session. Judgment and insight: Chronically poor, improving mildly IMPRESSIONS: Schizoaffective, bipolar type Noncompliance with treatment PLAN: -Patient is admitted under involuntary status to MHU for stabilization of psychiatric symptoms and safety. Patient on current court order, expires 12/27/23 -Medication: given invega sustenna 234 mg on 07/08, second dose of 156 mg IM given on 07/14. maintenance dose will be 117 mg IM will be due on 08/04. melatonin qhs for sleep. -Ativan and Haldol PRN for agitation/aggression -NRT - not needed as patient does not smoke -SW on board for discharge planning. Encourage patient to participate in groups to work on coping skills. Patient received her first and second dose of long- acting injection. Patient may have an arrest warrant, guardian will find out and communicate the plan to us, still unclear if the warrant is owing to be issued or not. court order expires 12/27/23. Patient has a eviction hearing scheduled for Wednesday. [facility] apparently is not approving patient to go to care home. therefore patient will be either going to hotel/motel with ACT team vs being discharged back to her previous home despite currently being in the eviction process with follow up from [facility]. likely discharge wednesday
[2023-07-25] MEDS: MULTIVITAMINS, THERA 1 EACH TAB PO SCH (13:10)
[2023-07-25] MEDS: MELATONIN 3 MG TABLET PO SCH (20:45)
[2023-07-26] MEDS: ASCORBIC ACID 500 MG TAB PO SCH (12:03)
[2023-07-26] MEDS: MULTIVITAMINS, THERA 1 EACH TAB PO SCH (12:03)
[2023-07-26] MEDS: CHOLECALCIFEROL 25 MCG (1000 IU) TABLET PO SCH (12:03)
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
== END 2023-07-26 14:06 | disposition home or self-care (01) | DRG 885 ==
LOC: 3MHU 18:14
PROVIDERS: ADMIT Psychiatry & Neurology Psychiatry; ATTEND Psychiatry & Neurology Psychiatry
DX: F25.0 Schizoaffective disorder, bipolar type (principal); Z91.199 Patient's noncompliance with other medical treatment and regimen due to unspecified reason; Z91.148 Patient's other noncompliance with medication regimen for other reason

== ENCOUNTER 2023-12-03 20:58 | Emergency (ER) | payer MEDICAID, MEDICARE, OTHER ==
--- NOTE | 2023-12-03 21:24 | ED ---
Psych HPI - General Source: RN notes reviewed, old records reviewed Mode of arrival: ambulatory Limitations: no limitations - History of Present Illness MD Complaint: suicidal ideation, feels depressed -: unknown Associated Psychiatric Symptoms: depression, suicidal ideation History of same: Yes Quality: constant Improves With: none Worsens With: none Context: significant life stressor Treatments Prior to Arrival: placed on mental health hold If Self Harm: admits thoughts of self harm <Ed Yi - Last Filed: 12/03/23 22:59> <Regino Garcia - Last Filed: 12/04/23 11:08> - General Stated Complaint: Mental health Time Seen by Provider: 12/03/23 21:01 - History of Present Illness Initial Comments: This is a 38-year-old female to the ER on pickup order for severe psychiatric illness. Well-known to this emergency department, she has strong history of depression anxiety suicidal ideation and obesity (Ed Yi) - Related Data Previous Rx's Medication Instructions Recorded Albuterol Inhaler [Ventolin Hfa 1 puff INHALATION RT-QID PRN each 07/06/23 Inhaler] Ibuprofen [Motrin] 600 mg PO QID PRN tab 07/06/23 Melatonin 5 mg PO HS tab 07/06/23 Ascorbic Acid [Vitamin C] 500 mg PO DAILY 30 Days #30 tab 07/26/23 Cholecalciferol [Vitamin D3 (25 50 mcg PO DAILY 30 Days #30 tab 07/26/23 Mcg = 1000 Iu)] Loratadine [Claritin] 10 mg PO DAILY PRN 30 Days #30 tab 07/26/23 Loratadine [Claritin] 10 mg PO DAILY PRN 30 Days #30 tab 07/26/23 Multivitamins, Thera [Multivitamin 1 each PO DAILY@1200 30 Days #30 07/26/23 (formulary)] tab Paliperidone Palmitate [Invega 117 mg IM QMONTHLY #1 each 07/26/23 Sustenna] Allergies Allergy/AdvReac Type Severity Reaction Status Date / Time aripiprazole [From Abilify] Allergy Dyspnea Verified 12/03/23 21:23 ziprasidone HCl [From Geodon] Allergy Dyspnea Verified 12/03/23 21:23 ziprasidone mesylate Allergy Dyspnea Verified 12/03/23 21:23 [From Geodon] Review of Systems ROS Other: All systems not noted in ROS Statement are negative. <Ed Yi - Last Filed: 12/03/23 22:59> ROS Other: All systems not noted in ROS Statement are negative. <Regino Garcia - Last Filed: 12/04/23 11:08> ROS Statement: Those systems with pertinent positive or pertinent negative responses have been documented in the HPI. Past Medical History Past Medical History: Hypertension Additional Past Medical History / Comment(s): depression, obesity History of Any Multi-Drug Resistant Organisms: None Reported Past Surgical History: No Surgical Hx Reported Past Anesthesia/Blood Transfusion Reactions: No Reported Reaction Smoking Status: Never smoker <Ed Yi - Last Filed: 12/03/23 22:59> General Exam General appearance: alert, in no apparent distress Head exam: Present: atraumatic, normocephalic, normal inspection Eye exam: Present: normal appearance, PERRL, EOMI. Absent: scleral icterus, conjunctival injection, periorbital swelling ENT exam: Present: normal exam, mucous membranes moist Neck exam: Present: normal inspection. Absent: tenderness, meningismus, lymphadenopathy Respiratory exam: Present: normal lung sounds bilaterally. Absent: respiratory distress, wheezes, rales, rhonchi, stridor Cardiovascular Exam: Present: regular rate, normal rhythm, normal heart sounds. Absent: systolic murmur, diastolic murmur, rubs, gallop, clicks GI/Abdominal exam: Present: soft, normal bowel sounds. Absent: distended, tenderness, guarding, rebound, rigid Extremities exam: Present: normal inspection, full ROM, normal capillary refill. Absent: tenderness, pedal edema, joint swelling, calf tenderness Back exam: Present: normal inspection Neurological exam: Present: alert, oriented X3, CN II-XII intact Psychiatric exam: Present: normal affect, normal mood Skin exam: Present: warm, dry, intact, normal color. Absent: rash <Ed Yi - Last Filed: 12/03/23 22:59> Course <Ed Yi - Last Filed: 12/03/23 22:59> Vital Signs 12/03/23 12/04/23 21:24 07:52 Temperature 98.3 F 97.9 F Pulse Rate 95 61 Respiratory 18 18 Rate Blood Pressure 155/106 130/67 O2 Sat by Pulse 97 99 Oximetry - Reevaluation(s) Reevaluation #1: 12/03/23 22:59 Records reviewed (Ed Yi) Reevaluation #2: 12/03/23 22:59 Psychiatric evaluation (Ed Yi) Reevaluation #3: 12/03/23 22:59 Was pt. sent in by a medical professional or institution ([facility], [employer], urgent care, hospital, or jail...) When possible be specific @ -no Did you speak to anyone other than the patient for history (EMS, parent, family, police, friend...)? What history was obtained from this source @ -no Did you review nursing and triage notes (agree or disagree)? Why? @ -agree Are old charts reviewed (outside hosp., previous admission, EMS record, old EKG, old radiological studies, urgent care reports/EKG's, jail records)? Report findings @ -yes Differential Diagnosis (chest pain, altered mental status, abdominal pain women, abdominal pain men, vaginal bleeding, weakness, fever, dyspnea, syncope, headache, dizziness, GI bleed, back pain, seizure, CVA, palpatations, mental health, musculoskeletal)? @ -prior EKG interpreted by me (3pts min.). @ -yes X-rays interpreted by me (1pt min.). @ -yes negative for acute disease CT interpreted by me (1pt min.). @ -no U/S interpreted by me (1pt. min.). @ -no What testing was considered but not performed or refused? (CT, X-rays, U/S, labs)? Why? @ -none What meds were considered but not given or refused? Why? @ -none Did you discuss the management of the patient with other professionals (professionals i.e. [facility], [employer], lab, RT, psych nurse, aids social worker, inspector assembly, teacher, occupational medicine officer, rn field case manager)? Give summary @ -no Was smoking cessation discussed for >3mins.? @ -no Was critical care preformed (if so, how long)? @ -no Were there social determinants of health that impacted care today? How? (Homelessness, low income, unemployed, alcoholism, drug addiction, transportation, low edu. Level, literacy, decrease access to med. care, long-term, rehab)? @ -none Was there de-escalation of care discussed even if they declined (Discuss DNR or withdrawal of care, Hospice)? DNR status @ -no What co-morbidities impacted this encounter? (DM, HTN, Smoking, COPD, CAD, Cancer, CVA, ARF, Chemo, Hep., AIDS, mental health diagnosis, sleep apnea, morbid obesity)? @ -none Was patient admitted / discharged? Hospital course, mention meds given and route, prescriptions, significant lab abnormalities, going to OR and other pertinent info. @ - Undiagnosed new problem with uncertain prognosis? @ -no Drug Therapy requiring intensive monitoring for toxicity (Heparin, Nitro, Insulin, Cardizem)? @ -no Were any procedures done? @ -no Diagnosis/symptom? @ - Acute, or Chronic, or Acute on Chronic? @ -Acute Uncomplicated (without systemic symptoms) or Complicated (systemic symptoms)? @ -Complicated Side effects of treatment? @ -no Exacerbation, Progression, or Severe Exacerbation? @ -exacerbation Poses a threat to life or bodily function? How? (Chest pain, [place], [place], pneumonia, PE, COPD, DKA, ARF, appy, cholecystitis, CVA, Diverticulitis, Homicidal, Suicidal, threat to staff... and all critical care pts) @ -yes (Ed Yi) Medical Decision Making <Regino Garcia - Last Filed: 12/04/23 11:08> - Medical Decision Making Patient seen by mental health services with plans for discharge. Patient reevaluated by myself. Patient denies suicidal thoughts. Patient does contract for safety. Safety plan was made. Patient will be discharged with mental health follow-up. I did discuss this case with mental health nurse. (Regino Garcia) Disposition <Ed Yi - Last Filed: 12/03/23 22:59> Is patient prescribed a controlled substance at d/c from ED?: No Time of Disposition: 11:08 <Regino Garcia - Last Filed: 12/04/23 11:08> Clinical Impression: Depression Disposition: HOME SELF-CARE Condition: Stable Instructions (If sedation given, give patient instructions): Depression (ED) Additional Instructions: Please follow-up with mental health services as directed. Please follow-up with primary care physician in the next day or 2 for recheck. Return for thoughts of self-harm, worsening symptoms or other concerns. Referrals: Amy Ann MD [REFERRING] - 1-2 days
[2023-12-04] MEDS: LORazepam 2 MG/ML INJ IM STA (07:18)
[2023-12-04] MEDS: diphenhydrAMINE 50 MG/ML 1 ML VIAL IM STA (07:18)
[2023-12-04] MEDS: HALOPERIDOL LACTATE 5 MG/ML 1 ML VIAL IM STA (07:18)
[2023-12-04] MEDS: risperiDONE 120 MG SYR (NO COST) PHARMACY STOCK SQ ONE (11:28)
[2023-12-04 12:02] VITALS: BP 129/70; PULSE 72; RESP 16; TEMP 98
== END 2023-12-04 11:47 | disposition home or self-care (01) ==
LOC: EC 20:58
DX: F32.A Depression, unspecified (principal); Z88.8 Allergy status to other drugs, medicaments and biological substances
CPT/HCPCS: 99285; 82075 ×2; 96372; J2798